=== PATIENT | male | born 1985 | race Caucasian/White ===

== ENCOUNTER → 2019-04-17 14:31 | Outpatient (BNVA) | payer MEDICAID, SELFPAY | PROVIDERS: PCP Nurse Practitioner Family; Visit Provider Nurse Practitioner Psychiatric/Mental Health | DX: F31.81 Bipolar II disorder (principal); F41.1 Generalized anxiety disorder; F43.12 Post-traumatic stress disorder, chronic; F41.0 Panic disorder [episodic paroxysmal anxiety]; G47.33 Obstructive sleep apnea (adult) (pediatric) | CPT/HCPCS: 99214; 99215 ==

== ENCOUNTER 2019-04-23 09:57 | Day surgery (SDC) | payer MEDICAID, SELFPAY ==
[2019-04-20 11:34] VITALS: BMI 29.8
[2019-04-23 10:30] VITALS: BP 155/114; PULSE 98; RESP 20; TEMP 37.2; O2SAT 96
[2019-04-23] MEDS: sodium chloride 0.9% 1,000 ML 30 ML (11:00)
[2019-04-23 11:17] LABS: Glucose Point of Care 149 mg/dL (70-110)
--- NOTE | 2019-04-23 11:31 | ANES.PREANES ---
Pre-Anesthetic Assessment Pre-Anesthetic Assessment: Height/Weight: Height 1.63 m Weight 78.925 kg Temp Pulse Resp BP Pulse Ox 99.0 F 98 20 H 155/114 96 04/23/19 10:30 04/23/19 10:30 04/23/19 10:30 04/23/19 10:30 04/23/19 10:30 Proposed Procedure: Operation Date: 04/23/19 12:00 Proposed Procedures p EGD(Not Applicable) - Jesse Pavon MD Last intake: Intake Last Liquid Date 04/23/19 Last Liquid Time 22:00 Last Solid Date 04/22/19 Last Solid Time 21:00 Exam: Pre-Anes Outpt Exam: alert, oriented x 3, clear to auscultation bilaterally and regular rate & rhythm Airway: Submandibular: WNL Cervical ROM: WNL MP: 1 Dentition: Full History/ROS: Other Pulmonary: Pulmonary: Sleep apnea (Bipap) CV/HEM: CV/HEM: HTN Comments: had a valvethat needed closing when he was a child. patched it when i was 11 : : None reported Hepatic: Hepatic: None reported GI: GI: GERD (uncontrolled) Metabolic: Metabolic: DM (type II 125-190 ), Hyperlipidemia and Morbid obesity Musc/skel: Musc/skel: Lower Back Pain Neuropsych: Neuropsych: Anxiety, Bipolar, CVA (3 years ago, denies deficits) and Depression Anesthetic Plan: ASA status: III Anesthesia: MAC Risk of > 500 ml blood loss (7ml/kg in children): No PFSH Anesthesia PFSH: Medical History (Updated 04/17/19 @ 15:19 by Gely Eldridge) Bipolar II disorder (Acute) Gastroenteritis (Acute) Generalized anxiety disorder (Acute) High cholesterol (Acute) Hx of secondary hypertension (Acute) Obesity (Acute) Obstructive sleep apnea hypopnea, severe (Acute) Panic disorder without agoraphobia (Acute) Post-traumatic stress disorder, chronic (Acute) Surgical History (Updated 04/13/19 @ 16:13 by nAnette Michael LPN) History of tonsillectomy and adenoidectomy (Acute) Social History (Updated 04/17/19 @ 15:08 by Luma Roca LPN) Smoking and tobacco status: former smoker Quit status (tobacco): has quit using tobacco Year quit tobacco: 2010 Second hand smoke exposure: Yes Data Anesthesia Other Labs: Laboratory Results - last 48 hr 04/23/19 10:52 POC Glucose 149 Cardiac Studies: No Data to Display
[2019-04-23 11:47] VITALS: BMI 62.8
--- NOTE | 2019-04-23 11:58 | PM.HPUD ---
H&P update H&P Update: DATE OF SURGERY/PROCEDURE: 04/23/19 DATE H&P PERFORMED: 04/05/19 H&P UPDATE INFORMATION: H&P completed within last 30 days and No changes to prior documentation PREOP DIAGNOSIS: Epigastric pain PLANNED PROCEDURE: Operation Date: 04/23/19 12:00 Proposed Procedures p EGD(Not Applicable) - Jesse Pavon MD Full H&P Perinent History: Medical/Surgical History: Medical History (Updated 04/17/19 @ 15:19 by Gely Eldridge) Bipolar II disorder (Acute) Gastroenteritis (Acute) Generalized anxiety disorder (Acute) High cholesterol (Acute) Hx of secondary hypertension (Acute) Obesity (Acute) Obstructive sleep apnea hypopnea, severe (Acute) Panic disorder without agoraphobia (Acute) Post-traumatic stress disorder, chronic (Acute) Social History: Social History Smoking and tobacco status: former smoker Quit status (tobacco): has quit using tobacco Year quit tobacco: 2010 Second hand smoke exposure: Yes
[2019-04-23 12:31] VITALS: BP 136/86; PULSE 104; RESP 16; TEMP 37.6; O2SAT 93
--- NOTE | 2019-04-23 12:34 | ANE.PACU ---
 Inpatient post-anesthesia follow up: Airway intact: Yes Vital signs: Temperature 99.0 F Pulse Rate [Monito r] 98 Respiratory Rate 20 Blood Pressure [Le ft Arm] 155/114 Pulse Oximetry 96 Oxygen Delivery Me thod Oxygen Flow Rate Fraction of Inspir ed Oxygen Hydration adequate: Yes Nausea and vomiting: No Pain level: 1 Mental status: Baseline
[2019-04-23 12:41] VITALS: BP 153/94; PULSE 98; RESP 16; O2SAT 94
[2019-04-24 06:03] LABS: H. Pylori / CLO Test Negative
== END 2019-04-23 13:00 | disposition home or self-care (01) ==
PROVIDERS: PCP Nurse Practitioner Family; Visit Provider Surgery
PROC: 0DJ08ZZ Inspection of Upper Intestinal Tract, Via Natural or Artificial Opening Endoscopic (ICD-10-PCS; CPT 43235; principal; 2019-04-23 12:00)
DX: K21.9 Gastro-esophageal reflux disease without esophagitis (principal); R10.13 Epigastric pain; R11.2 Nausea with vomiting, unspecified; K29.70 Gastritis, unspecified, without bleeding; E66.9 Obesity, unspecified; Z68.44 Body mass index [BMI] 60.0-69.9, adult; G47.33 Obstructive sleep apnea (adult) (pediatric); Z87.891 Personal history of nicotine dependence; I10 Essential (primary) hypertension; E11.9 Type 2 diabetes mellitus without complications; E78.5 Hyperlipidemia, unspecified; E66.01 Morbid (severe) obesity due to excess calories; Z86.73 Personal history of transient ischemic attack (TIA), and cerebral infarction without residual deficits
CPT/HCPCS: 43239; 12345; 36416; 82962; 87077; J0171; J2704; J7030

== ENCOUNTER → 2019-06-14 14:54 | Outpatient (BNVA) | payer MEDICAID, SELFPAY | PROVIDERS: PCP Nurse Practitioner Family; Visit Provider Nurse Practitioner Psychiatric/Mental Health | DX: F31.81 Bipolar II disorder (principal); F41.1 Generalized anxiety disorder; F43.12 Post-traumatic stress disorder, chronic; F41.0 Panic disorder [episodic paroxysmal anxiety] | CPT/HCPCS: 99214 ==

== ENCOUNTER → 2019-07-12 07:17 | Outpatient (BNVA) | payer MEDICAID, SELFPAY | PROVIDERS: PCP Nurse Practitioner Family; Visit Provider Nurse Practitioner Psychiatric/Mental Health | DX: F31.81 Bipolar II disorder (principal); F41.1 Generalized anxiety disorder; F43.12 Post-traumatic stress disorder, chronic; F41.0 Panic disorder [episodic paroxysmal anxiety] | CPT/HCPCS: 99214 ==

== ENCOUNTER → 2019-08-09 08:20 | Outpatient (BNVA) | payer MEDICAID, SELFPAY | PROVIDERS: PCP Nurse Practitioner Family; Visit Provider Nurse Practitioner Psychiatric/Mental Health | DX: F31.81 Bipolar II disorder (principal); F41.1 Generalized anxiety disorder; F43.12 Post-traumatic stress disorder, chronic; F41.0 Panic disorder [episodic paroxysmal anxiety] | CPT/HCPCS: 99214 ==

== ENCOUNTER → 2019-09-07 08:21 | Outpatient (BNVA) | payer MEDICAID, SELFPAY | PROVIDERS: PCP Nurse Practitioner Family; Visit Provider Nurse Practitioner Psychiatric/Mental Health | DX: F31.81 Bipolar II disorder (principal); F41.1 Generalized anxiety disorder; F43.12 Post-traumatic stress disorder, chronic; F41.0 Panic disorder [episodic paroxysmal anxiety] | CPT/HCPCS: 99214 ==

== ENCOUNTER 2019-09-26 12:16 | Emergency (ER) | payer MEDICAID, SELFPAY | END 2019-09-26 16:00 | disposition admitted as inpatient to this hospital (09) | LOC: ER 09-29 13:39 | PROVIDERS: Emergency Provider Family Medicine; PCP Nurse Practitioner Family | DX: I63.9 Cerebral infarction, unspecified (principal); E11.9 Type 2 diabetes mellitus without complications; I10 Essential (primary) hypertension; Z87.891 Personal history of nicotine dependence | CPT/HCPCS: 36415; 36416; 70450; 80053; 80306; 82962; 84443; 85025; 85610; 85730; 86140; 93005; 96374; 96375; 99284; 99285; J2997 ==

== ENCOUNTER 2019-09-26 12:16 | Inpatient (IN) | payer MEDICAID, SELFPAY ==
[2019-09-26] VITALS (27 sets, daily range): BP systolic 121–176; BP diastolic 69–126; PULSE 78–95; RESP 10–25; TEMP 37; O2SAT 93–100; BMI 63.7
--- NOTE | 2019-09-26 12:18 | ECG_ITS ---
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 Measurements Intervals [place] Rate: 80 P: 56 TX: 169 QRS: 34 QRSD: 126 T: 49 QT: 379 QTc: 439 Interpretive Statements SINUS RHYTHM RIGHT BUNDLE BRANCH BLOCK [120+ ms QRS DURATION, UPRIGHT V1, 40+ ms S IN I/aVL/V4/V5/V6] Compared to ECG 03/17/2019 23:53:58 Right bundle-branch block now present Electronically Signed On 09-26-2019 19:20:48 CDT by Ronald Navarro M.D. [email or web address]
--- NOTE | 2019-09-26 12:18 | CT_ITS ---
WS: [id number] CT head wo con* [id number] REASON FOR EXAM: Symptoms of Acute Stroke IV CONTRAST ADMINISTERED: None. TOTAL EXAM DLP: All CT scans at [facility] use at least one of these dose optimization techniques: automat ed exposure control; mA and/or kV adjustment per patient size (includes targeted exams where dose is matched to clinical indication); or iterative reconstruction. FINDINGS: The kenny and white matter interfaces were normal. No evidence of hemorrhage, mass effect or infarction. The ventricles were normal in size .There was no evidence of paraventricular infarctions. The krista posterior fossa were normal. The calvarium show no abnormalities. The paranasal sinuses were normal. The heart and its temporal air cells paranasal sinuses are all normal. The sella turcica was normal in size. CT/CT head wo con* [id number] IMPRESSION: Normal CT of the brain.
--- NOTE | 2019-09-26 12:39 | ED_ITS ---
HPI - Neuro Symptoms/Deficit General: Chief Complaint: Neuro Symptoms/Deficit Stated Complaint: L SIDE FACIAL DROOP Time Seen by Provider: 09/26/19 12:29 History of Present Illness: HPI Narrative: 33-year-old male presents via EMS from a local doctor's office. Prior to getting here he began to have left arm and leg weakness asked that he had a little bit of facial weakness. Please see NIH scoring below for his full NIH scoring we did get an NIH score of 6 CT of the head did not show any acute bleed Dr. St came to the to the department seen the patient and decided that he did qualify for TPA after she consented with him he we did go ahead and infuse. There is a questionable area in the head CT which Dr. St and I reviewed with the radiologist he felt it was artifact and not an AVM so we went ahead and proceeded. Onset (ago): minute(s) Timing confirmed by: other (Doctors office) Location: left arm, left leg and ataxia History of same: Yes Severity: moderate Quality: weak and constant Relieving factors: none Exacerbating factors: none Context: sudden onset On Anticoagulants: No Associated symptoms: Deny chest pain, cough, diaphoresis, malaise, nausea or vomiting Treatments Prior to Arrival: none Review of Systems Const: Denies: fever(s), chills, body aches, change in appetite, fatigue, malaise or diaphoresis ENMT: Denies: throat pain, ear or mastoid pain, nasal discharge or nasal congestion Card: Denies: chest pain, edema, dyspnea on exertion or orthopnea Resp: Denies: dyspnea, productive cough or non-productive cough GI: Denies: abdominal pain, nausea, vomiting, hematemesis, coffee ground emesis, diarrhea, constipation, bloating, hematochezia or melena : Denies: flank pain, dysuria, urinary frequency or urinary urgency Skin/Breast: Denies: rash or pruritus PFSH ED PFSH: Medical History (Updated 09/26/19 @ 15:58 by Henrique Brody MD) Bipolar II disorder Diabetes mellitus Gastroenteritis Generalized anxiety disorder High cholesterol History of adverse reaction to tissue plasminogen activator (tPA) HTN (hypertension) Hx of secondary hypertension Obesity Obstructive sleep apnea hypopnea, severe Panic disorder without agoraphobia Post-traumatic stress disorder, chronic Surgical History History of esophagogastroduodenoscopy (EGD) (~04/2019) History of tonsillectomy and adenoidectomy Family History Denies family history of Anesthesia complication Bleeding disorder Social History Smoking and tobacco status: former smoker Quit status (tobacco): has quit using tobacco Year quit tobacco: 2010 Second hand smoke exposure: Yes Alcohol intake: never Desire information about alcohol rehabilitation?: No Desire information about substance/drug rehabilitation?: No Adopted: No Caregiver/support person: Yes Lives independently: Yes Household members: family Housing: House Marital status: Single Highest education level completed: High School Graduate service: No Current occupational status: disabled Current occupational exposures/hazards: No Pets and animals: Yes Pets & animals: cat(s) History of recent travel: No Sexually active: No Current gender identity: Male Karolina/Bahai: Mosque Special karolina needs: No Agree to transfusion: No Financial difficulty paying for basics: Decline to Answer NIH stroke score NIHSS: Level Of Consciousness - 1a: 0 Level Of Consciousness Questions - 1b: Both Correct Level Of Consciousness Commands - 1c: One Correct Best Gaze - 2: Normal Visual Cox - 3: No Visual Loss Facial Palsy - 4: Normal Motor Arm Right - 5: No Drift Motor Arm Left - 5: Drift Motor Leg Right - 6: No Drift Motor Leg Left - 6: Drift Limb Ataxia - 7: Present In Two Limbs Sensory - 8: Mild To Moderate Loss Best Language - 9: No Aphasia Dysarthia - 10: Normal Extinction And Inattention - 11: 0 Score: Total Score: 6 Physical Exam Const: COMMON NORMALS: no acute distress GENERAL APPEARANCE: cooperative and comfortable ORIENTATION/CONSCIOUSNESS: Yes awake, Yes oriented to person, Yes oriented to place and Yes oriented to time HENMT: COMMON NORMALS: normocephalic, atraumatic, hearing grossly normal bilaterally, external ears normal, EAC's normal, TM's normal bilaterally, Normal nasal mucous membranes and turbinates present, moist oral mucous membranes and oropharynx normal HEAD & SCALP: normocephalic and atraumatic NOSE: Normal nasal mucous membranes and turbinates present EXTERNAL EAR: Yes external ears normal EXTERNAL AUDITORY CANAL: EAC's normal TYMPANIC MEMBRANE: TM's normal bilaterally Eye: COMMON NORMALS: Equal, round and reactive pupils present, EOMs intact bilaterally, conjunctivae normal and no scleral icterus CONJUNCTIVA: Yes conjunctivae normal PUPIL: Yes Equal, round and reactive pupils present Neck/C-Spine: COMMON NORMALS: full ROM, no lymphadenopathy, supple and no JVD Lymph: LYMPHATIC: no lymphadenopathy noted and no lymphedema noted Resp: COMMON NORMALS: normal respiratory effort, No retractions, No use of accessory muscles and clear to auscultation bilaterally AUSCULTATION: clear to auscultation bilaterally Cardio: COMMON NORMALS: no JVD, regular rate, regular rhythm and No murmurs present (Cardio) RATE: regular rate RHYTHM: regular rhythm GI: COMMON NORMALS: Soft to palpation and No hepatosplenomegaly present AU SCULTATION: Yes normoactive bowel sounds PALPATION: Yes Soft to palpation, No Tenderness to palpation present (GI), No Guarding due to palpation present (GI) and Yes No hepatosplenomegaly present Extremity: COMMON NORMALS: normal to inspection, capillary refill normal, no clubbing, cyanosis or edema, no calf tenderness and no pedal edema Neuro: SENSORIUM/ORIENTATION: Yes oriented to person, Yes oriented to place and Yes oriented to time Skin: COMMON NORMALS: no rashes or lesions noted GENERAL SKIN EXAM: no rashes or lesions noted Course Vital Signs: Vital signs: Vital Signs Temperature 97.8 F 09/27/19 14:13 Pulse Rate 83 09/27/19 14:13 Respiratory Rate 21 H 09/27/19 14:13 Blood Pressure 127/77 09/27/19 14:13 Pulse Oximetry 93 09/27/19 14:13 MDM - Neuro Symptoms/Deficit MDM Narrative: Medical decision making narrative: Dr. St was in the department reviewed with me. She agrees with the stroke scoring and given his symptoms recommends to go to TPA she consented the patient TPA was given we will go ahead and admit to the ICU with the hospitalist. He usually sees Dr. Jiménez and they are covering. Lab Data: Labs: Lab Results 09/26/19 09/26/19 09/26/19 Range/Units 12:40 12:53 12:53 WBC 8.3 (4.0-10.0) 10^3/ uL RBC 4.83 (4.1-5.3) 10^6/u L Hgb 12.6 (11.7-16.6) g/dL Hct 40.2 L (42.0-52.0) % MCV 83.2 (80-94) fL MCH 26.1 L (28.0-34.0) pg MCHC 31.3 (30.0-36.0) g/dL RDW 14.2 (12.1-15.1) % Plt Count 197 (130-400) 10^3/c mm MPV 10.4 (7.4-10.4) fL Neut % (Auto) 80.3 % Lymph % (Auto) 12.7 % [place] % (Auto) 4.0 % Eos % (Auto) 1.8 % Baso % (Auto) 0.4 % Neut # (Auto) 6.6 (1.8-7.7) 10^3/u L Lymph # (Auto) 1.1 (0.8-4.8) 10^3/u L [place] # (Auto) 0.3 (0.2-0.9) 10^3/u L Eos # (Auto) 0.2 (0.0-0.8) 10^3/u L Baso # (Auto) 0.0 (0.0-0.1) 10^3/u L Nucleated RBC % (a uto) 0 % Nucleated RBCs # 0.0 /100WBC PT 13.00 (10.5-13.3) SECO NDS INR 0.95 (0.8-1.2) APTT 30.4 (23.9-36.7) SECO NDS Sodium (136-145) mmol/L Potassium (3.5-5.1) mmol/L Chloride (98-107) mmol/L Carbon Dioxide (22-29) mmol/L Anion Gap (5-19) BUN (6-20) mg/dL Creatinine (0.7-1.2) mg/dL GFR Calculation (90-130) mL/min Glucose (65-115) mg/dL POC Glucose 213 (70-110) mg/dL Calculated Osmolal ity (285-295) mOsm/k g Calcium (8.5-10.5) mg/dL Total Bilirubin (0.15-1.2) mg/dL AST (0-40) U/L ALT (0-41) U/L Alkaline Phosphata se (40-130) IU/L C-Reactive Protein (0.0-4.9) mg/L Total Protein (6.6-8.7) g/dL Albumin (3.5-5.2) g/dL Globulin (1.3-4.6) g/dL TSH (0.27-4.20) uIU/ mL Urine Color (Yellow) Urine Appearance (CLEAR) Urine pH (5-7) Ur Specific Gravit y (1.005-1.030) Urine Protein (Negative) Urine Glucose (UA) (Normal) Urine Ketones (Negative) Urine Blood (Negative) Urine Nitrate (Negative) Urine Bilirubin (NEGATIVE) Urine Urobilinogen (Negative) mg/dL Ur Leukocyte Divya ase (Negative) Urine Opiates Scre en (Negative) ng/mL Ur Barbiturates Sc reen (Negative) ng/mL Ur Phencyclidine S crn (Negative) ng/mL Ur Amphetamines Sc reen (Negative) ng/mL U Benzodiazepines Scrn (Negative) ng/mL Urine Cocaine Scre en (Negative) ng/mL U Marijuana (THC) Screen (Negative) ng/mL 09/26/19 09/26/19 09/26/19 Range/Units 12:53 12:53 12:53 WBC (4.0-10.0) 10^3/ uL RBC (4.1-5.3) 10^6/u L Hgb (11.7-16.6) g/dL Hct (42.0-52.0) % MCV (80-94) fL MCH (28.0-34.0) pg MCHC (30.0-36.0) g/dL RDW (12.1-15.1) % Plt Count (130-400) 10^3/c mm MPV (7.4-10.4) fL Neut % (Auto) % Lymph % (Auto) % [place] % (Auto) % Eos % (Auto) % Baso % (Auto) % Neut # (Auto) (1.8-7.7) 10^3/u L Lymph # (Auto) (0.8-4.8) 10^3/u L [place] # (Auto) (0.2-0.9) 10^3/u L Eos # (Auto) (0.0-0.8) 10^3/u L Baso # (Auto) (0.0-0.1) 10^3/u L Nucleated RBC % (a uto) % Nucleated RBCs # /100WBC PT (10.5-13.3) SECO NDS INR (0.8-1.2) APTT (23.9-36.7) SECO NDS Sodium 137 (136-145) mmol/L Potassium 3.3 L (3.5-5.1) mmol/L Chloride 94 L (98-107) mmol/L Carbon Dioxide 26 (22-29) mmol/L Anion Gap 20.3 H (5-19) BUN 23 H (6-20) mg/dL Creatinine 1.0 (0.7-1.2) mg/dL GFR Calculation 86.1 L (90-130) mL/min Glucose 229 H (65-115) mg/dL POC Glucose (70-110) mg/dL Calculated Osmolal ity 288 (285-295) mOsm/k g Calcium 9.5 (8.5-10.5) mg/dL Total Bilirubin 0.2 (0.15-1.2) mg/dL AST 32 (0-40) U/L ALT 57 H (0-41) U/L Alkaline Phosphata se 51 (40-130) IU/L C-Reactive Protein 18.9 H (0.0-4.9) mg/L Total Protein 7.5 (6.6-8.7) g/dL Albumin 4.3 (3.5-5.2) g/dL Globulin 3.2 (1.3-4.6) g/dL TSH 0.85 (0.27-4.20) uIU/ mL Urine Color (Yellow) Urine Appearance (CLEAR) Urine pH (5-7) Ur Specific Gravit y (1.005-1.030) Urine Protein (Negative) Urine Glucose (UA) (Normal) Urine Ketones (Negative) Urine Blood (Negative) Urine Nitrate (Negative) Urine Bilirubin (NEGATIVE) Urine Urobilinogen (Negative) mg/dL Ur Leukocyte Divya ase (Negative) Urine Opiates Scre en (Negative) ng/mL Ur Barbiturates Sc reen (Negative) ng/mL Ur Phencyclidine S crn (Negative) ng/mL Ur Amphetamines Sc reen (Negative) ng/mL U Benzodiazepines Scrn (Negative) ng/mL Urine Cocaine Scre en (Negative) ng/mL U Marijuana (THC) Screen (Negative) ng/mL 09/26/19 09/26/19 Range/Units 13:30 13:30 WBC (4.0-10.0) 10^3/ uL RBC (4.1-5.3) 10^6/u L Hgb (11.7-16.6) g/dL Hct (42.0-52.0) % MCV (80-94) fL MCH (28.0-34.0) pg MCHC (30.0-36.0) g/dL RDW (12.1-15.1) % Plt Count (130-400) 10^3/c mm MPV (7.4-10.4) fL Neut % (Auto) % Lymph % (Auto) % [place] % (Auto) % Eos % (Auto) % Baso % (Auto) % Neut # (Auto) (1.8-7.7) 10^3/u L Lymph # (Auto) (0.8-4.8) 10^3/u L [place] # (Auto) (0.2-0.9) 10^3/u L Eos # (Auto) (0.0-0.8) 10^3/u L Baso # (Auto) (0.0-0.1) 10^3/u L Nucleated RBC % (a uto) % Nucleated RBCs # /100WBC PT (10.5-13.3) SECO NDS INR (0.8-1.2) APTT (23.9-36.7) SECO NDS Sodium (136-145) mmol/L Potassium (3.5-5.1) mmol/L Chloride (98-107) mmol/L Carbon Dioxide (22-29) mmol/L Anion Gap (5-19) BUN (6-20) mg/dL Creatinine (0.7-1.2) mg/dL GFR Calculation (90-130) mL/min Glucose (65-115) mg/dL POC Glucose (70-110) mg/dL Calculated Osmolal ity (285-295) mOsm/k g Calcium (8.5-10.5) mg/dL Total Bilirubin (0.15-1.2) mg/dL AST (0-40) U/L ALT (0-41) U/L Alkaline Phosphata se (40-130) IU/L C-Reactive Protein (0.0-4.9) mg/L Total Protein (6.6-8.7) g/dL Albumin (3.5-5.2) g/dL Globulin (1.3-4.6) g/dL TSH (0.27-4.20) uIU/ mL Urine Color Yellow (Yellow) Urine Appearance Clear (CLEAR) Urine pH 6 (5-7) Ur Specific Gravit y 1.010 (1.005-1.030) Urine Protein Neg (Negative) Urine Glucose (UA) 4+ H (Normal) Urine Ketones Negative (Negative) Urine Blood Neg (Negative) Urine Nitrate Negative (Negative) Urine Bilirubin Neg (NEGATIVE) Urine Urobilinogen Norm (Negative) mg/dL Ur Leukocyte Divya ase Negative (Negative) Urine Opiates Scre en Negative (Negative) ng/mL Ur Barbiturates Sc reen Negative (Negative) ng/mL Ur Phencyclidine S crn Negative (Negative) ng/mL Ur Amphetamines Sc reen Negative (Negative) ng/mL U Benzodiazepines Scrn Negative (Negative) ng/mL Urine Cocaine Scre en Negative (Negative) ng/mL U Marijuana (THC) Screen Negative (Negative) ng/mL Discharge Plan Discharge Patient Disposition: Admitted As Inpatient Admit Provider: Henrique Brody Clinical Impression: Cerebrovascular accident Condition: Stable Discharge Orders: Discharge Order (Routine); Ordered 09/27/19 Ordered By: Henrique Brody Referrals: [facility] [Other] Juliana St MD [Physician] - 2 weeks (FRIDAY OCTOBER 18, 2019 AT 1:30 PM ) Mainor Manjarrez NP [Primary Care Provider] - 7-10 days (FRIDAY OCTOBER 04, 2019 AT 10:30 AM) Discharge Diet: Cardiac and Diabetic Discharge Activity: Resume usual activity Patient Instructions: Hypertension, Diabetes Mellitus Type 1 in Adults (DC), Ischemic Stroke (DC) Additional Instructions: Please follow-up with Dr. Strathmere in 2 weeks. Your medication list has remained the same except chlorthalidone has been withheld. Discharge Date/Time: 09/26/19 16:00 Coding Level of Care Code ED [employer] Manager for Marie Fwd Exam Comprehensive
--- NOTE | 2019-09-26 12:43 | PC.NURSE ---
Patient blood glucose is 213, nurse, ER doctor and neurologist were notified
[2019-09-26 12:44] LABS: Glucose Point of Care 213 mg/dL (70-110)
[2019-09-26 13:04] LABS: Basophils % 0.4 %; Eosinophils # 0.2 10^3/uL (0.0-0.8); Eosinophils % 1.8 %; Hematocrit 40.2 % (42.0-52.0); Hemoglobin 12.6 g/dL (11.7-16.6); Lymphocytes # 1.1 10^3/uL (0.8-4.8); Lymphocytes % 12.7 %; Mean Corpuscular HGB Conc 31.3 g/dL (30.0-36.0); Mean Corpuscular Hemoglobin 26.1 pg (28.0-34.0); Mean Corpuscular Volume 83.2 fL (80-94); Mean Platelet Volume 10.4 fL (7.4-10.4); Monocytes # 0.3 10^3/uL (0.2-0.9); Neutrophils # 6.6 10^3/uL (1.8-7.7); Neutrophils % 80.3 %; Nucleated Red Blood Cells % 0 %; Platelet Count 197 10^3/cmm (130-400); Red Blood Count 4.83 10^6/uL (4.1-5.3); Red Cell Distribution Width 14.2 % (12.1-15.1); White Blood Count 8.3 10^3/uL (4.0-10.0)
[2019-09-26 13:12] LABS: INR 0.95 (0.8-1.2)
[2019-09-26 13:13] LABS: Partial Thromboplastin Time 30.4 SECONDS (23.9-36.7)
[2019-09-26 13:17] LABS: Alanine Aminotransferase 57 U/L (0-41); Albumin Level 4.3 g/dL (3.5-5.2); Alkaline Phosphatase 51 IU/L (40-130); Anion Gap 20.3 (5-19); Aspartate Amino Transferase 32 U/L (0-40); Blood Urea Nitrogen 23 mg/dL (6-20); Calcium 9.5 mg/dL (8.5-10.5); Carbon Dioxide 26 mmol/L (22-29); Chloride 94 mmol/L (98-107); Globulin 3.2 g/dL (1.3-4.6); Glomerular Filtration Rate 86.1 mL/min (90-130); Glucose 229 mg/dL (65-115); Osmolality Calculated 288 mOsm/kg (285-295); Potassium 3.3 mmol/L (3.5-5.1); Sodium 137 mmol/L (136-145); Total Bilirubin 0.2 mg/dL (0.15-1.2); Total Protein 7.5 g/dL (6.6-8.7)
[2019-09-26 15:11] LABS: Add Urine Microscopic? NO
[2019-09-26 15:16] LABS: Bilirubin Urine Neg (NEGATIVE); Blood Urine Neg (Negative); Glucose Urine UA 4+ (Normal); Ketones Urine Negative (Negative); Leukocyte Esterase Urine Negative (Negative); Nitrate Urine Negative (Negative); Protein Urine Neg (Negative); Urine Appearance Clear (CLEAR); Urine Color Yellow (Yellow); Urobilinogen Urine Norm (Negative); pH Urine 6 (5-7)
[2019-09-26 15:22] LABS: Amphetamines Screen Urine Negative (Negative); Barbiturates Screen Urine Negative (Negative); Benzodiazepines Screen Urine Negative (Negative); Cocaine Screen Urine Negative (Negative); Opiate Screen Urine Negative (Negative); PCP Screen Urine Negative (Negative); THC Screen Urine Negative (Negative)
--- NOTE | 2019-09-26 15:54 | PM.HP ---
Providers/Chief Complaint Admitting Physician: Henrique Brody MD Primary Care Provider: Mainor Manjarrez NP Chief Complaint: L SIDE FACIAL DROOP History of Present Illness Len Sandoval is a 33 year old male with past medical history of hypertension, type 2 diabetes mellitus, morbid obesity, post lap band removal, hyperlipidemia, chronic back pain, anxiety/depression, PTSD, GERD, CVA in the past with TPA given in 2017 after which he was shipped to [facility] apparently his MRI was negative, history of gastric banding for morbid obesity with last stroke in 2018 who presented to the ER today after he started having back pain radiating to left arm when he woke up at 10 AM today morning which had progressed to numbness on the left upper limb and lower limb along with loss of sensation without any weakness, blurry vision, headache, dizziness, slurred speech, fall, facial droop, loss of consciousness, lack of coordination, difficulty walking, confusion, seizure-like activity, weakness in any of the arms or legs. In ER patient was seen by Dr. St and after that patient received TPA. On my examination patient lying comfortably in bed. His symptoms have gone away. Denies of any nausea, vomiting, headache, dizziness, further weakness in any of his arms hematuria, abdominal, dysuria, fever, flulike symptoms, cough. Patient states he does not follow-up in his neurologist and was never told to follow-up with a new neurologist. On my evaluation patient blood pressure was 160/100 mmHg with heart rate of 76 bpm and saturation 96% on room air. Review of Systems Const: Denies: fever(s), chills, body aches, change in appetite, malaise, night sweats, diaphoresis, change in sleep pattern, daytime sleepiness or snoring Eyes: Denies: change in vision, blurry vision, photophobia, eye discomfort or eye discharge ENMT: Denies: throat pain, enlarged tonsils, hoarseness, mouth pain, oral sores, dry mouth, tinnitus, nasal congestion or post nasal drip Card: Denies: chest pain, palpitations, irregular heart rhythm, edema, swelling of feet/ankles, lightheadedness, syncope, pre-syncope, dyspnea on exertion, orthopnea, leg pain with exertion or acrocyanosis Resp: Denies: dyspnea, productive cough, non-productive cough, wheezing, stridor, pain on inspiration, change in phlegm color, hemoptysis or chest congestion GI: Denies: abdominal pain, nausea, vomiting, hematemesis, coffee ground emesis, dysphagia, heartburn, diarrhea, constipation, bloating, GI cramping, change in bowel habits, pain on defecation, hematochezia or melena : Denies: flank pain, difficulty urinating, dysuria, urinary frequency, urinary urgency, urinary hesitancy, urinary dribbling, difficulty starting urination, change in urine stream, nocturia or hematuria Musc: Denies: neck pain, back pain, extremity pain, joint pain, joint swelling, joint redness, joint stiffness or limited range of motion Neuro: Reports: numbness in extremities and sensory changes; Denies: headache(s), weakness in extremities, lack of coordination, difficulty walking, frequent falls, dizziness, vertigo, confusion, Slurred speech present, difficulty communicating thoughts or seizure-like activity Psych: Denies: anxiety, depression, mood swings, panic attacks, hopelessness or irritability Endo: Denies: polyuria, polydipsia, tired all the time, cold intolerance, excessive sweating, flushing or heat intolerance Alexander/Lymph: Denies: easy bruising or easy bleeding All/Imm: Denies: tongue swelling, facial swelling or acute wheezing Medications/Allergies Home Medications Medication Instructions Recorded Confirmed Last Taken Type aspirin 325 mg tablet 325 mg PO DAILY tab 04/13/19 09/26/19 04/19/19 09:00 History carvedilol 25 mg tablet 25 mg PO BID 04/13/19 09/26/19 04/22/19 21:00 History metformin 500 mg tablet 1,000 mg PO BID tab 04/13/19 09/26/19 04/22/19 21:00 History omeprazole 20 mg capsule,delayed 20 mg PO DAILY cap 04/13/19 09/26/19 04/22/19 09:00 History release oxygen-air delivery systems #1 04/13/19 09/26/19 Unknown History allopurinol 100 mg tablet 300 mg PO DAILY tab 04/17/19 09/26/19 04/22/19 09:00 History chlorthalidone 50 mg tablet 50 mg PO DAILY tab 04/17/19 09/26/19 04/22/19 09:00 History glipizide 10 mg tablet, extended 10 mg PO BID 04/17/19 09/26/19 04/22/19 21:00 History release 24 hr insulin glargine 100 unit/mL 45 unit SUBCUT QPM ml 04/17/19 09/26/19 09/25/19 History subcutaneous solution 45 units liraglutide 0.6 mg/0.1 mL (18 mg/3 1.8 mg SUBCUT QAM ml 04/17/19 09/26/19 09/25/19 History mL) subcutaneous pen injector potassium chloride 10 mEq 30 meq PO DAILY cap 04/17/19 09/26/19 04/22/19 21:00 History capsule,extended release Jardiance 10 mg PO DAILY 04/23/19 09/26/19 04/22/19 09:00 History atorvastatin 80 mg PO DAILY 04/23/19 09/26/19 04/22/19 21:00 History clonidine [[id number]] 0.3 mg TRANSDERMAL DIRECTED 04/23/19 09/26/19 04/20/19 20:00 History fenofibrate 160 mg PO DAILY 04/23/19 09/26/19 04/22/19 09:00 History lisinopril 40 mg PO DAILY 04/23/19 09/26/19 04/22/19 09:00 History desvenlafaxine succinate 100 mg 100 mg PO QAM #60 tab 07/12/19 09/26/19 Unknown Rx tablet,extended release 24 hr divalproex 500 mg tablet,extended 500 mg PO BID #60 tab 07/12/19 09/26/19 Unknown Rx release 24 hr lorazepam 1 mg tablet 1 mg PO DAILY PRN 30 Days #30 tab 07/13/19 09/26/19 Unknown Rx melatonin 3 mg tablet,extended 3 mg PO DIRECTED PRN #30 tab 08/09/19 09/26/19 Unknown Rx release cetirizine [Zyrtec] 10 mg PO DAILY 09/26/19 09/26/19 Unknown History cyproheptadine 4 mg PO BEDTIME 09/26/19 09/26/19 Unknown History fluticasone propionate [Flonase 1 spray INTRANASAL DAILY 09/26/19 09/26/19 Unknown History Allergy Relief] iron 325 mg PO DAILY 09/26/19 09/26/19 Unknown History Allergies Allergy/AdvReac Type Severity Reaction Status Date / Time gabapentin Allergy Severe ALGY-Swell Verified 09/26/19 13:21 Lip/Tongue/Throat Sulfa (Sulfonamide Allergy Severe ALGY-Swell Verified 09/26/19 13:21 Antibiotics) Lip/Tongue/Throat trimethoprim Allergy Severe ALGY-Swell Verified 09/26/19 13:21 Lip/Tongue/Throat sulfamethoxazole Allergy Unknown throat Verified 09/26/19 13:21 [From Bactrim] swells asenapine [From Saphris] AdvReac Mild ADR-Halluci Verified 09/26/19 13:21 nating PFSH Acute PFSH: Medical History (Updated 09/26/19 @ 15:58 by Henrique Brody MD) Bipolar II disorder Diabetes mellitus Gastroenteritis Generalized anxiety disorder High cholesterol History of adverse reaction to tissue plasminogen activator (tPA) HTN (hypertension) Hx of secondary hypertension Obesity Obstructive sleep apnea hypopnea, severe Panic disorder without agoraphobia Post-traumatic stress disorder, chronic Surgical History History of esophagogastroduodenoscopy (EGD) (~04/2019) History of tonsillectomy and adenoidectomy Family History Denies family history of Anesthesia complication Bleeding disorder Social History Smoking and tobacco status: former smoker Quit status (tobacco): has quit using tobacco Year quit tobacco: 2010 Second hand smoke exposure: Yes Alcohol intake: never Desire information about alcohol rehabilitation?: No Desire information about substance/drug rehabilitation?: No Adopted: No Caregiver/support person: Yes Lives independently: Yes Household members: family Housing: House Marital status: Single Highest education level completed: High School Graduate service: No Current occupational status: disabled Current occupational exposures/hazards: No Pets and animals: Yes Pets & animals: cat(s) History of recent travel: No Sexually active: No Current gender identity: Male Karolina/Buddhism: Caodaism Special karolina needs: No Agree to transfusion: No Financial difficulty paying for basics: Decline to Answer Vitals/I&O/Wt Last Vital Signs Temp 98.6 F 09/26/19 12:21 Pulse 87 09/26/19 15:30 Resp 17 09/26/19 15:30 BP 160/101 09/26/19 15:30 Pulse Ox 95 09/26/19 15:30 09/26/19 09/26/19 09/26/19 06:59 14:59 22:59 Intake Total 85.05 / 85.05 Balance 85.05 / 85.05 Weight last 48 hrs Weight 168.453 kg Physical Exam Narrative: EXAM NARRATIVE: General: No acute distress, AO x3 morbidly obese HEENT: PERRLA, pupils bilaterally equal and reactive Chest: Normal vesicular breath sounds, no added sounds, equal good air entry bilaterally CVS: S1-S2 regular, no murmurs, no tachycardia, no gallops, no rubs Abdomen: Soft, nontender, no organomegaly, bowel sounds present Neuro: COMMON NORMALS: patient oriented x3, CN's II-XII intact bilaterally, moves all extremities, no focal motor deficits, no sensory deficits noted and deep tendon reflexes 2+ bilaterally MENINGEAL SIGNS: Yes no meningeal signs COORDINATION/BALANCE: afthic-ps-vbax test normal and [id number] test normal SPEECH: speech normal GAIT: Yes Unable to assess gait MONOFILAMENT EXAM PERFORMED: Yes MOTOR EXAM: 5/5 motor strength present throughout, No Tremors during motor activity present, No Asterixis during motor activity present and No Motor fasciculations present Data : 09/26/19 12:53 09/26/19 12:53 A&P Assessment and plan (1) 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: Status: Acute (2) Cerebrovascular accident: Status: Acute (3) Diabetes mellitus: Status: Acute (4) Obstructive sleep apnea hypopnea, severe: Status: Acute (5) HTN (hypertension): Status: Acute (6) Status following gastric banding surgery for weight loss: Status: Acute (7) Post-traumatic stress disorder, chronic: Status: Chronic (8) Panic disorder without agoraphobia: Status: Chronic (9) Bipolar II disorder: Status: Chronic (10) Generalized anxiety disorder: Status: Chronic Additional A&P Information 33-year-old gentleman past medical history of frequent sleep apnea, type 2 diabetes mellitus, hypertension, stroke in the past when he required TPA around 2 years ago, most likely third stroke overall, panic disorder, PTSD, bipolar 2 disorder presented with left-sided weakness and numbness since 10 AM today morning and received TPA in the ER. Admit to ICU. CVA: Post TPA: Withhold on any aspirin or Plavix for now 24 hours. Statin 80 mg daily. Check lipid panel, HbA1c. Check MRA brain without contrast, MRI brain Echocardiogram. Telemetry. Case discussed with Dr. St. Blood pressure goal for next 1 to 4 hours 180/105 mmHg. If more than that will use intravenous labetalol, nicardipine. Every hour neurological checks Monitor vital signs Hold off on any NG tube, Mccoy catheter, intra-arterial catheter for next 24 hours. Because this is his third stroke and he is only 33 we will do an autoimmune work-up. Send [facility] profile, ESR, CRP. Check TSH, vitamin B12 levels, folic acid levels given history of gastric banding for weight loss. Hypertension: Continue home medications like lisinopril 40 mg, clonidine 0.3 transdermal, carvedilol 25 mg. We will hold off on chlorthalidone right now to avoid dehydration post TPA. Blood pressure goals for next 24 hours 180/105 mmHg. If blood pressure goes higher can use labetalol 10 mg as needed. Type 2 diabetes mellitus: Check HbA1c. Hold off on oral hypoglycemics. Continue with glargine 45 nightly. Insulin sliding scale at moderate dose. Continue chronic medications like allopurinol, venlafaxine, divalproex, fenofibrate, melatonin. Full code. N.p.o. for now, cardiac carb consistent diet later. No DVT prophylaxis as patient is post TPA. Attestations Medical Necessity Statement*: CVA post TPA. Patient would require admission for more than 2 midnights Time Spent in Patient Care: Greater than 35 minutes (>than 50% of time spent in counselling and/or direct pt care on unit). 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
[2019-09-26 16:26] LABS: Thyroid Stimulating Hormone 0.85 uIU/mL (0.27-4.20)
[2019-09-26 17:12] LABS: Glucose Point of Care 139 mg/dL (70-110)
--- NOTE | 2019-09-26 17:33 | PM.SAN ---
Stroke Alert Activation ED Arrival Date: 09/26/19 ED Arrival Time: 12:15 ED Physican at Bedside: 12:15 Last Known Normal/at Baseline: < 1 hour ago Other Last Known Well Infomation: I was called stat for stroke team for this 33-year-old man. He went directly to CAT scan and I came to the emergency department, reviewed his CAT scan on the monitor and conferred with Dr. Pete. I was concerned about a dense region in his brainstem and asked the neuroradiologist to take a look at it for me just to assure that it was not an AVM or hemorrhage. That took an extra 5 minutes. I performed an NIH stroke scale and talked with the patient about TPA. His blood pressure was elevated to 170/120 and I took time to talk with him and calm him down and when we rechecked it 5 minutes later it was down to 175/107. His blood sugar was not a contraindication at 231. He had no recent stroke. He is not on anticoagulation. His NIH stroke scale score was 6 and so TPA was indicated. I will say that his findings on exam raised the question of functional strokelike illness but that is not in itself a contraindication to treatment and he received a bolus at 1309, approximately 50 minutes after arrival at [facility]. I educated the patient on TPA and planned testing. I will see him after he leaves the hospital in the office within 2 weeks. I talked with the hospitalist and recommended an MRI to look for cerebral ischemia and intracranial MRA to look for intracranial stenosis. I was in the emergency department from 1240 until 1320. NIH stroke score NIHSS: Level Of Consciousness - 1a: 0 Level Of Consciousness Questions - 1b: Both Correct Level Of Consciousness Commands - 1c: Both Correct Best Gaze - 2: Normal Visual Cox - 3: No Visual Loss Facial Palsy - 4: Normal Motor Arm Right - 5: No Drift Motor Arm Left - 5: Effort Against [place] Motor Leg Right - 6: No Drift Motor Leg Left - 6: Effort Against [place] Limb Ataxia - 7: Absent Sensory - 8: Severe To Total Loss Best Language - 9: No Aphasia Dysarthia - 10: Normal Extinction And Inattention - 11: 0 Score: Total Score: 6 Stroke Alert Data/Treatment Time to CT of Head: 12:19 CT Results Time: 12:40 CT Impression: Normal Stroke Risk Factors: obesity and diabetes mellitus tPA Started Time: tPA Started - Time: 13:09 tPA Admin Prior to Arrival: No Patient & Family Educated on: Risk Factors, Treament Plan, Stroke Education Booklet and tPA Risks/Benefits Standardized Stroke Orders Used: Yes Critical Care Time Critical Care Time: 30 - 74 mins Coding Level of Care Code Acute Editor Magazine for Marie Sweeney
[2019-09-26] MEDS: carvedilol 25 mg Tablet PO (19:21)
[2019-09-26] MEDS: divalproex ER 500 mg Tablet (24H) PO (19:21)
[2019-09-26 19:38] LABS: C Reactive Protein 18.9 mg/L (0.0-4.9)
[2019-09-26 19:41] LABS: Erythrocyte Sedimentation Rate 31 mm/hr (0-10)
[2019-09-26 19:53] LABS: Vitamin B12 857 pg/mL (232-1245)
[2019-09-26 20:06] LABS: Glucose Point of Care 138 mg/dL (70-110)
[2019-09-26] MEDS: insulin glargine 100 units/1 mL 45 UNIT SUBCUT (20:19)
[2019-09-26 20:50] LABS: Folate Level > 20.0 ng/mL (4.5-32.2)
[2019-09-26] MEDS: HYDROcodone-acetaminophen 5-325 mg Tablet 1 TAB PO (21:56)
[2019-09-27] VITALS (20 sets, daily range): BP systolic 110–183; BP diastolic 63–112; PULSE 68–88; RESP 12–22; TEMP 36.6–36.9; O2SAT 90–97
[2019-09-27] MEDS: desvenlafaxine 50 mg Tablet 100 MG PO (05:41)
[2019-09-27 05:50] LABS: Alanine Aminotransferase 48 U/L (0-41); Alkaline Phosphatase 46 IU/L (40-130); Anion Gap 15.8 (5-19); Aspartate Amino Transferase 30 U/L (0-40); Blood Urea Nitrogen 19 mg/dL (6-20); Carbon Dioxide 29 mmol/L (22-29); Chloride 95 mmol/L (98-107); Globulin 2.9 g/dL (1.3-4.6); Glomerular Filtration Rate 111.3 mL/min (90-130); Glucose 177 mg/dL (65-115); Osmolality Calculated 285 mOsm/kg (285-295); Sodium 137 mmol/L (136-145); Total Bilirubin 0.2 mg/dL (0.15-1.2); Total Protein 6.9 g/dL (6.6-8.7)
--- NOTE | 2019-09-27 06:00 | USCV_ITS ---
Len Sandoval Age: 33 Gender: M : 1985 Exam Date: 09/27/2019 06:42 Ordering Phys: Emmanuel Pete DO Technologist: Ramya Boland Exam Location: [facility] [place] Indication: CVA Risk Factors: Previous Vascular Surgery: Right Brachial BP: / Left Brachial BP: / Right Left Velocity (cm/s) Spectral Plaque Velocity (cm/s) Spectral Plaque Syst/Diast Broadening Syst/Diast Broadening 111.40/20.90 Prox CCA 124.90/ 18.40 89.30/ 17.60 Mid CCA 68.40 / 18.40 86.00/ 25.40 Distal CCA 85.40 / 25.00 63.90/ 27.60 Prox ICA 65.70 / 22.30 91.50/ 28.70 Mid ICA 77.60 / 36.80 80.50/ 25.40 Distal ICA 85.40 / 26.30 63.90 ECA 73.60 1.02 ICA/CCA 1.25 Antegrade Vertebral Antegrade 40.80/ 14.30 cm/s 57.80/ 21.00 cm/s Tri Subclavian Tri FINDINGS Normal Doppler velocities bilaterally No significant plaques in the common carotid or internal carotid arteries bilaterally Antegrade flow in the vertebral arteries bilaterally Normal Doppler velocities in the external carotid and subclavian arteries bilaterally CONCLUSIONS No significant stenosis in the extracranial arteries, based on the above findings No significant plaques or unstable lesions noted Dr Ronald Navarro MD [facility] (Electronically Signed) Final Date: 28 September 2019 13:43 S
--- NOTE | 2019-09-27 06:00 | USCV_ITS ---
Len Sandoval Age: 33 Gender: M : 1985 Exam Date: 09/27/2019 06:29 Ordering Phys: Emmanuel Pete DO Technologist: Ramya Boland [place] [facility] [place]ication: CVA BP: 167 / 101 HR: 73 Rhythm: Sinus Technical Quality: Technically difficult study MEASUREMENTS (Male / Female) Normal Values 2D ECHO LV Diastolic Diameter PLAX 5.1 cm 4.2 - 5.9 / 3.9 - 5.3 cm LV Systolic Diameter PLAX 3.5 cm LV Chamber Size 5.7 cm IVS Diastolic Thickness 1.1 cm 0.6 - 1.0 / 0.6 - 0.9 cm IVS Systolic Thickness 1.6 cm LVPW Diastolic Thickness 1.1 cm 0.6 - 1.0 / 0.6 - 0.9 cm LVPW Systolic Thickness 1.3 cm RV Chamber Size 2.8 cm LVOT Diameter 2.0 cm LV Ejection Fraction 2D Teich 58.7 % LA Diameter 5.1 cm LA Width 3.0 cm LA Height 4.0 cm RA Width 2.0 cm RA Height 2.6 cm Aorta at Sinotubular Diameter 2.7 cm M-MODE LV Diastolic Diameter MM 4.8 cm 4.2 - 5.9 / 3.9 - 5.3 cm LV Systolic Diameter MM 3.1 cm LV Ejection Fraction MM Teich 65.2 % IVS Diastolic Thickness MM 0.9 cm 0.6 - 1.0 / 0.6 - 0.9 cm IVS Systolic Thickness MM 1.7 cm LVPW Diastolic Thickness MM 1.1 cm 0.6 - 1.0 / 0.6 - 0.9 cm LVPW Systolic Thickness MM 1.5 cm RV Diastolic Diameter MM 1.7 cm Aortic Annulus Diameter 3.1 cm LA Ao Ratio MM 1.6 MV E Point Septal Separation 1.2 cm DOPPLER AV Peak Velocity 137.0 cm/s LVOT Peak Velocity 80.0 cm/s AV Area Cont Eq vti 2.2 cm squared AV Area Cont Eq pk 1.8 cm squared MV Area PHT 3.6 cm squared Mitral E to A Ratio 1.7 MV E' Velocity 7.0 cm/s Mitral E to MV E' Ratio 11.7 Mitral E to LV E' Lateral Ratio 11.7 Mitral E to LV E' Septal Ratio 11.7 TV Peak E Velocity 77.0 cm/s Right Atrial Pressure 3.0 mmHg PV Peak Velocity 80.0 cm/s FINDINGS Left Ventricle Normal left ventricular size, systolic function and wall thickness, with no regional wall motion abnormalities. Normal left ventricular wall thickness. Normal diastolic filling pattern. Left ventricular ejection fraction is estimated at 55 %. Right Ventricle The right ventricle is normal in size and function. Right Atrium The right atrium is normal in size. Left Atrium The left atrium is normal in size. Mitral Valve Structurally normal mitral valve without significant stenosis or prolapse. There is no mitral regurgitation. Aortic Valve Structurally normal aortic valve without significant sclerosis or stenosis. There is no aortic regurgitation. Tricuspid Valve Structurally normal tricuspid valve without significant stenosis or regurgitation. Pulmonary artery systolic pressure is normal. Pulmonic Valve Structurally normal pulmonic valve without significant stenosis. There is no pulmonic regurgitation. Pericardium Normal pericardium without effusion. Aorta Normal ascending aorta dimension. CONCLUSIONS Normal transthoracic echocardiogram. No change from 12/27/2017 Dr. Raul Encinas MD (Electronically Signed) Final Date: 27 September 2019 08:45 S
[2019-09-27 06:17] LABS: Potassium 2.8 mmol/L (3.5-5.1)
[2019-09-27 06:24] LABS: Chol HDL Ratio 6.17 mg/dL (1.0-5.00); Cholesterol 148 mg/dL (0-200); HDL Cholesterol 24 mg/dL (60-100); Triglycerides 552 mg/dL (0-150)
[2019-09-27 06:42] LABS: LDL Cholesterol Direct 47 mg/dL (0-100)
[2019-09-27 07:28] LABS: Basophils % 0.5 %; Eosinophils # 0.2 10^3/uL (0.0-0.8); Eosinophils % 2.2 %; Hematocrit 42.6 % (42.0-52.0); Hemoglobin 13.4 g/dL (11.7-16.6); Lymphocytes # 1.6 10^3/uL (0.8-4.8); Lymphocytes % 19.9 %; Mean Corpuscular HGB Conc 31.5 g/dL (30.0-36.0); Mean Corpuscular Volume 82.7 fL (80-94); Mean Platelet Volume 10.1 fL (7.4-10.4); Monocytes # 0.4 10^3/uL (0.2-0.9); Monocytes % 5.1 %; Neutrophils # 5.6 10^3/uL (1.8-7.7); Neutrophils % 71.5 %; Nucleated Red Blood Cells % 0 %; Platelet Count 211 10^3/cmm (130-400); Red Blood Count 5.15 10^6/uL (4.1-5.3); Red Cell Distribution Width 14.5 % (12.1-15.1); White Blood Count 7.8 10^3/uL (4.0-10.0)
[2019-09-27 07:39] LABS: Glucose Point of Care 154 mg/dL (70-110)
[2019-09-27] MEDS: potassium chloride oral liq 20 mEq/15 mL UDC 40 MEQ PO (08:23)
[2019-09-27] MEDS: fluticasone nasal spray 16gm Btl 1 SPRAY INTRANASAL (08:24)
[2019-09-27] MEDS: divalproex ER 500 mg Tablet (24H) PO (08:25)
[2019-09-27] MEDS: pantoprazole DR 40 mg Tablet PO (08:26)
[2019-09-27] MEDS: lisinopril 20 mg Tablet 40 MG PO (08:26)
[2019-09-27] MEDS: carvedilol 25 mg Tablet PO (08:26)
[2019-09-27] MEDS: atorvastatin 40 mg Tablet 80 MG PO (08:26)
[2019-09-27] MEDS: allopurinol 100 mg Tablet 300 MG PO (08:26)
[2019-09-27] MEDS: potassium chloride ER 10 mEq Tablet 30 MEQ PO (08:26)
--- NOTE | 2019-09-27 09:13 | CT_ITS ---
WS: [id number] CT angio headneck* [id number] REASON FOR EXAM: post tpa TECHNIQUE: Coronal and sagittal 2-D and MIP reformations. IV CONTRAST ADMINISTERED: Omnipaque 350, 95 mL TOTAL EXAM DLP: 3825.[address] scans at [facility] use at least one of these dose optimization techniques: automat ed exposure control; mA and/or kV adjustment per patient size (includes targeted exams where dose is matched to clinical indication); or iterative reconstruction. FINDINGS: Multiple 2 mm sections through the lower neck upper heart and through into the [place] show normal appearance of both carotid arteries. The subclavian arteries bilaterally were normal. The bifurcation of the carotids bilaterally were normal in normal appearance of the external and inte rnal carotid arteries were seen. The [place] showed normal filling with no deformity is noted. CT/CT angio headneck* [id number] IMPRESSION: Normal appearance of both carotid arteries and their bifurcations. The [place] was normal. The upper aorta subclavian arteries vertebral arteries appear to be normal.
[2019-09-27] MEDS: cloNIDine 0.3 mg/24 hr Patch 0.3 PATCH TRANSDERMA (09:36)
--- NOTE | 2019-09-27 10:38 | PM.DCS ---
Discharge Providers Date of Admission: 09/26/19 13:36 Date of Discharge: September 27, 2019 Attending Provider at Admission: Henrique Brody MD Attending Provider at Discharge: Henrique Brody MD Primary Care Provider: Mainor Manjarrez NP Diagnoses at Discharge Discharge Diagnosis (1) tPA adm status 24 hr UMBRELLA TIPPER MACHINE: Status: Acute (2) Cerebrovascular accident: Status: Acute (3) Diabetes mellitus: Status: Acute (4) Obstructive sleep apnea hypopnea, severe: Status: Acute (5) HTN (hypertension): Status: Acute (6) Status following gastric banding surgery for weight loss: Status: Acute (7) Post-traumatic stress disorder, chronic: Status: Chronic (8) Panic disorder without agoraphobia: Status: Chronic (9) Bipolar II disorder: Status: Chronic (10) Generalized anxiety disorder: Status: Chronic Reason for Visit Reason for Visit: L SIDE FACIAL DROOP Hospital Course Discharge Summary: Len Sandoval is a 33 year old male with past medical history of hypertension, type 2 diabetes mellitus, morbid obesity, post lap band removal, hyperlipidemia, chronic back pain, anxiety/depression, PTSD, GERD, CVA in the past with TPA given in 2016 after which he was shipped to [facility] apparently his MRI was negative, history of gastric banding for morbid obesity with last stroke in 2018 who presented to the ER today after he started having back pain radiating to left arm when he woke up at 10 AM today morning which had progressed to numbness on the left upper limb and lower limb along with loss of sensation without any weakness, blurry vision, headache, dizziness, slurred speech, fall, facial droop, loss of consciousness, lack of coordination, difficulty walking, confusion, seizure-like activity, weakness in any of the arms or legs. In ER patient was seen by Dr. St and after that patient received TPA. On my examination patient lying comfortably in bed. His symptoms have gone away. Denies of any nausea, vomiting, headache, dizziness, further weakness in any of his arms hematuria, abdominal, dysuria, fever, flulike symptoms, cough. Patient states he does not follow-up in his neurologist and was never told to follow-up with a new neurologist. Overnight patient's blood pressure remained in range. He did not have any further neurological deficit. His deficits were normalized after TPA. Patient was planned to get an MRI and MRA without contrast but unfortunately could not be done because he exceeds the weight limit of the machine. Because of this CTA head and neck was done which revealed normal study. He also underwent echocardiogram which revealed normal EF of 55% with no regional wall motion abnormality, no structural abnormality. His telemetry remained stable overnight. For hypertension all his antihypertensives were continued except chlorthalidone. His blood pressures remained stable without being on chlorthalidone so is been discharged and medication has been discontinued. Lipid panel and HbA1c was done. Lipid panel was concerning for mildly elevated triglyceride patient was advised to do further lifestyle modification and fenofibrate was continued. Because this is his third possible stroke at a young age autoimmune work-up was done and is awaited. Because of history of gastric band surgery vitamin B12 folate levels were checked with a both within normal limits. Patient is advised to follow-up with Dr. St in 2 weeks. Is also advised to follow-up with his primary care provider within next 7 to 10 days. He is been discharged hemodynamically stable condition and his baseline neurological examination. Physical Exam Narrative: EXAM NARRATIVE: General: No acute distress, AO x3 morbidly obese HEENT: PERRLA, pupils bilaterally equal and reactive Chest: Normal vesicular breath sounds, no added sounds, equal good air entry bilaterally CVS: S1-S2 regular, no murmurs, no tachycardia, no gallops, no rubs Abdomen: Soft, nontender, no organomegaly, bowel sounds present Const: COMMON NORMALS: patient oriented x3 Neck/C-Spine: COMMON NORMALS: no meningeal signs Neuro: COMMON NORMALS: patient oriented x3, CN's II-XII intact bilaterally, moves all extremities, no focal motor deficits, no sensory deficits noted and deep tendon reflexes 2+ bilaterally MENINGEAL SIGNS: Yes no meningeal signs COORDINATION/BALANCE: azrwht-et-[id number] test normal and lmhm-di-ftsf test normal SPEECH: speech normal GAIT: Yes Unable to assess gait MONOFILAMENT EXAM PERFORMED: Yes MOTOR EXAM: 5/5 motor strength present throughout, No Tremors during motor activity present, No Asterixis during motor activity present and No Motor fasciculations present COORDINATION: qgtbki-wc-[id number] test normal and dxpi-qj-ucij test normal Discharge Data Data Completed and Pending: Completed Studies During Hospitalization Category Date Time Status CT head wo con* [id number] Stat Cat Scan 09/26/19 12:18 Completed CV echo complete* [id number] Routine Ultrasound 09/27/19 06:00 Completed Pending at discharge Category Date Time Status CT angio headneck * [id number] Rout ine Cat Scan 09/27/19 09:13 Ordered Hemoglobin A1C Ro utine Lab 09/27/19 07:16 Received [facility]TER Profile R outine Lab 09/26/19 16:10 Received CV carotid duplex BI* [id number] Routine Ultrasound 09/27/19 06:00 Taken Labs from last 24 hours 09/27/19 09/27/19 09/27/19 07:34 07:16 04:30 WBC 7.8 RBC 5.15 Hgb 13.4 Hct 42.6 MCV 82.7 MCH 26.0 L MCHC 31.5 RDW 14.5 Plt Count 211 MPV 10.1 Neut % (Auto) 71.5 Lymph % (Auto) 19.9 White % (Auto) 5.1 Eos % (Auto) 2.2 Baso % (Auto) 0.5 Neut # (Auto) 5.6 Lymph # (Auto) 1.6 White # (Auto) 0.4 Eos # (Auto) 0.2 Baso # (Auto) 0.0 Nucleated RBC % (a uto) 0 Nucleated RBCs # 0.0 ESR PT INR APTT Sodium 137 Potassium 2.8 L* Chloride 95 L Carbon Dioxide 29 Anion Gap 15.8 BUN 19 Creatinine 0.8 GFR Calculation 111.3 Glucose 177 H POC Glucose 154 Calculated Osmolal ity 285 Calcium 9.0 Total Bilirubin 0.2 AST 30 ALT 48 H Alkaline Phosphata se 46 C-Reactive Protein Total Protein 6.9 Albumin 4.0 Globulin 2.9 Triglycerides Cholesterol LDL Cholesterol Di rect HDL Cholesterol Cholesterol/HDL Ra elijah Vitamin B12 Folate TSH Urine Color Urine Appearance Urine pH Ur Specific Gravit y Urine Protein Urine Glucose (UA) Urine Ketones Urine Blood Urine Nitrate Urine Bilirubin Urine Urobilinogen Ur Leukocyte Divya ase Urine Opiates Scre en Ur Barbiturates Sc reen Ur Phencyclidine S crn Ur Amphetamines Sc reen U Benzodiazepines Scrn Urine Cocaine Scre en U Marijuana (THC) Screen 09/27/19 09/26/19 09/26/19 04:30 19:53 18:26 WBC RBC Hgb Hct MCV MCH MCHC RDW Plt Count MPV Neut % (Auto) Lymph % (Auto) White % (Auto) Eos % (Auto) Baso % (Auto) Neut # (Auto) Lymph # (Auto) White # (Auto) Eos # (Auto) Baso # (Auto) Nucleated RBC % (a uto) Nucleated RBCs # ESR 31 H PT INR APTT Sodium Potassium Chloride Carbon Dioxide Anion Gap BUN Creatinine GFR Calculation Glucose POC Glucose 138 Calculated Osmolal ity Calcium Total Bilirubin AST ALT Alkaline Phosphata se C-Reactive Protein Total Protein Albumin Globulin Triglycerides 552 H Cholesterol 148 LDL Cholesterol Di rect 47 HDL Cholesterol 24 L Cholesterol/HDL Ra elijah 6.17 H Vitamin B12 Folate TSH Urine Color Urine Appearance Urine pH Ur Specific Gravit y Urine Protein Urine Glucose (UA) Urine Ketones Urine Blood Urine Nitrate Urine Bilirubin Urine Urobilinogen Ur Leukocyte Divya ase Urine Opiates Scre en Ur Barbiturates Sc reen Ur Phencyclidine S crn Ur Amphetamines Sc reen U Benzodiazepines Scrn Urine Cocaine Scre en U Marijuana (THC) Screen 09/26/19 09/26/19 09/26/19 17:09 14:42 14:42 WBC RBC Hgb Hct MCV MCH MCHC RDW Plt Count MPV Neut % (Auto) Lymph % (Auto) White % (Auto) Eos % (Auto) Baso % (Auto) Neut # (Auto) Lymph # (Auto) White # (Auto) Eos # (Auto) Baso # (Auto) Nucleated RBC % (a uto) Nucleated RBCs # ESR PT INR APTT Sodium Potassium Chloride Carbon Dioxide Anion Gap BUN Creatinine GFR Calculation Glucose POC Glucose 139 Calculated Osmolal ity Calcium Total Bilirubin AST ALT Alkaline Phosphata se C-Reactive Protein Total Protein Albumin Globulin Triglycerides Cholesterol LDL Cholesterol Di rect HDL Cholesterol Cholesterol/HDL Ra elijah Vitamin B12 857 Folate > 20.0 TSH Urine Color Urine Appearance Urine pH Ur Specific Gravit y Urine Protein Urine Glucose (UA) Urine Ketones Urine Blood Urine Nitrate Urine Bilirubin Urine Urobilinogen Ur Leukocyte Divya ase Urine Opiates Scre en Ur Barbiturates Sc reen Ur Phencyclidine S crn Ur Amphetamines Sc reen U Benzodiazepines Scrn Urine Cocaine Scre en U Marijuana (THC) Screen 09/26/19 09/26/19 09/26/19 13:30 13:30 12:53 WBC RBC Hgb Hct MCV MCH MCHC RDW Plt Count MPV Neut % (Auto) Lymph % (Auto) White % (Auto) Eos % (Auto) Baso % (Auto) Neut # (Auto) Lymph # (Auto) White # (Auto) Eos # (Auto) Baso # (Auto) Nucleated RBC % (a uto) Nucleated RBCs # ESR PT INR APTT Sodium Potassium Chloride Carbon Dioxide Anion Gap BUN Creatinine GFR Calculation Glucose POC Glucose Calculated Osmolal ity Calcium Total Bilirubin AST ALT Alkaline Phosphata se C-Reactive Protein 18.9 H Total Protein Albumin Globulin Triglycerides Cholesterol LDL Cholesterol Di rect HDL Cholesterol Cholesterol/HDL Ra elijah Vitamin B12 Folate TSH Urine Color Yellow Urine Appearance Clear Urine pH 6 Ur Specific Gravit y 1.010 Urine Protein Neg Urine Glucose (UA) 4+ H Urine Ketones Negative Urine Blood Neg Urine Nitrate Negative Urine Bilirubin Neg Urine Urobilinogen Norm Ur Leukocyte Divya ase Negative Urine Opiates Scre en Negative Ur Barbiturates Sc reen Negative Ur Phencyclidine S crn Negative Ur Amphetamines Sc reen Negative U Benzodiazepines Scrn Negative Urine Cocaine Scre en Negative U Marijuana (THC) Screen Negative 09/26/19 09/26/19 09/26/19 12:53 12:53 12:53 WBC RBC Hgb Hct MCV MCH MCHC RDW Plt Count MPV Neut % (Auto) Lymph % (Auto) White % (Auto) Eos % (Auto) Baso % (Auto) Neut # (Auto) Lymph # (Auto) White # (Auto) Eos # (Auto) Baso # (Auto) Nucleated RBC % (a uto) Nucleated RBCs # ESR PT 13.00 INR 0.95 APTT 30.4 Sodium 137 Potassium 3.3 L Chloride 94 L Carbon Dioxide 26 Anion Gap 20.3 H BUN 23 H Creatinine 1.0 GFR Calculation 86.1 L Glucose 229 H POC Glucose Calculated Osmolal ity 288 Calcium 9.5 Total Bilirubin 0.2 AST 32 ALT 57 H Alkaline Phosphata se 51 C-Reactive Protein Total Protein 7.5 Albumin 4.3 Globulin 3.2 Triglycerides Cholesterol LDL Cholesterol Di rect HDL Cholesterol Cholesterol/HDL Ra elijah Vitamin B12 Folate TSH 0.85 Urine Color Urine Appearance Urine pH Ur Specific Gravit y Urine Protein Urine Glucose (UA) Urine Ketones Urine Blood Urine Nitrate Urine Bilirubin Urine Urobilinogen Ur Leukocyte Divya ase Urine Opiates Scre en Ur Barbiturates Sc reen Ur Phencyclidine S crn Ur Amphetamines Sc reen U Benzodiazepines Scrn Urine Cocaine Scre en U Marijuana (THC) Screen 09/26/19 09/26/19 12:53 12:40 WBC 8.3 RBC 4.83 Hgb 12.6 Hct 40.2 L MCV 83.2 MCH 26.1 L MCHC 31.3 RDW 14.2 Plt Count 197 MPV 10.4 Neut % (Auto) 80.3 Lymph % (Auto) 12.7 White % (Auto) 4.0 Eos % (Auto) 1.8 Baso % (Auto) 0.4 Neut # (Auto) 6.6 Lymph # (Auto) 1.1 White # (Auto) 0.3 Eos # (Auto) 0.2 Baso # (Auto) 0.0 Nucleated RBC % (a uto) 0 Nucleated RBCs # 0.0 ESR PT INR APTT Sodium Potassium Chloride Carbon Dioxide Anion Gap BUN Creatinine GFR Calculation Glucose POC Glucose 213 Calculated Osmolal ity Calcium Total Bilirubin AST ALT Alkaline Phosphata se C-Reactive Protein Total Protein Albumin Globulin Triglycerides Cholesterol LDL Cholesterol Di rect HDL Cholesterol Cholesterol/HDL Ra elijah Vitamin B12 Folate TSH Urine Color Urine Appearance Urine pH Ur Specific Gravit y Urine Protein Urine Glucose (UA) Urine Ketones Urine Blood Urine Nitrate Urine Bilirubin Urine Urobilinogen Ur Leukocyte Divya ase Urine Opiates Scre en Ur Barbiturates Sc reen Ur Phencyclidine S crn Ur Amphetamines Sc reen U Benzodiazepines Scrn Urine Cocaine Scre en U Marijuana (THC) Screen Vitals: Last Vital Signs Temp 98.4 F 09/27/19 07:00 Pulse 88 09/27/19 09:00 Resp 17 09/27/19 09:00 BP 127/77 09/27/19 09:00 Pulse Ox 90 09/27/19 09:00 Discharge Plan Discharge Patient Disposition: Home, Self-Care Condition: Stable Prescriptions: Continued glipizide 10 mg tablet extended release 24hr 10 mg PO BID RF: 0 potassium chloride 10 mEq capsule, extended release 30 meq PO DAILY RF: 0 allopurinol 100 mg tablet 300 mg PO DAILY RF: 0 carvedilol 25 mg tablet 25 mg PO BID RF: 0 metformin 500 mg tablet 1,000 mg PO BID RF: 0 aspirin 325 mg tablet 325 mg PO DAILY RF: 0 (DME) oxygen-air delivery systems Device See Rx Instructions .ROUTE .MEDSUPPLY Qty: 1 RF: 0 omeprazole 20 mg capsule,delayed release(DR/EC) 20 mg PO DAILY RF: 0 Lantus U-100 Insulin 100 unit/mL solution 45 unit SUBCUT QPM RF: 0 Victoza 2-Colt 0.6 mg/0.1 mL (18 mg/3 mL) pen injector 1.8 mg SUBCUT QAM RF: 0 desvenlafaxine succinate [Pristiq] 100 mg tablet extended release 24 hr 100 mg PO QAM Qty: 60 RF: 4 divalproex [Depakote ER] 500 mg tablet extended release 24 hr 500 mg PO BID Qty: 60 RF: 4 lorazepam [Ativan] 1 mg tablet 1 mg PO DAILY PRN (Reason: anxiety) 30 Days Qty: 30 RF: 3 melatonin 3 mg tablet extended release 3 mg PO DIRECTED PRN (Reason: sleep) Qty: 30 RF: 3 atorvastatin 40 mg Tablet 80 mg PO DAILY RF: 0 clonidine [Vuonfnko-CUA-2] 0.3 mg/24 hr Patch Weekly 0.3 mg transdermal DIRECTED RF: 0 lisinopril 20 mg Tablet 40 mg PO DAILY RF: 0 fenofibrate 54 mg Tablet 160 mg PO DAILY RF: 0 Jardiance 10 mg Tablet 10 mg PO DAILY RF: 0 Zyrtec 10 mg Tablet 10 mg PO DAILY RF: 0 cyproheptadine 4 mg Tablet 4 mg PO BEDTIME RF: 0 iron 325 mg (65 mg iron) Tablet 325 mg PO DAILY RF: 0 Flonase Allergy Relief 50 mcg/actuation [place],Suspension 1 spray INTRANASAL DAILY RF: 0 Discontinued chlorthalidone 50 mg tablet 50 mg PO DAILY RF: 0 Discharge Orders: Discharge Order (Routine); Ordered 09/27/19 Ordered By: Henrique Brody Referrals: MELYSSA [Other] Juliana St MD [Physician] - 2 weeks Mainor Manjarrez NP [Primary Care Provider] - 7-10 days Discharge Diet: Cardiac and Diabetic Discharge Activity: Resume usual activity Activity Restrictions/Additional Instructions: Please follow-up with Dr. St in 2 weeks. Your medication list has remained the same except chlorthalidone has been withheld. Discharge Attestations Time Spent in Discharge Care*: greater than 30 min Specific Discharge Activities: Specific discharge activities: educating patient, discussing with pcp/other providers, discussing with therapeutic case manager/social workers/dc planners, documenting/other paperwork and evaluating patient/reviewing data Status at Discharge: Cognitive status at discharge: cognitively intact, Behavioral status at discharge: cooperative, Functional status at discharge: other assisted ambulation Overall status at discharge: patient is back to baseline Quality Metrics Clinical Quality Measures During this hospital stay, did patient experience: Stroke Contraindication to Antithrombotic: Antithrombotic prescribed Contraindication to Anticoagulation: Overlap treatment not indicated Contraindication to Statin: Statin prescribed Contraindication to tPA: tPA given Coding Level of Care Code Acute [employer] [facility] Fwd Exam Expanded Problem Focused Diagnoses tPA adm status 24 hr UMBRELLA TIPPER MACHINE Z92.82 Cerebrovascular accident I63.9 Diabetes mellitus E11.9 Obstructive sleep apnea hypopnea, severe G47.33 HTN (hypertension) I10 Status following gastric banding surgery for weight loss Z98.84 Post-traumatic stress disorder, chronic F43.12 Panic disorder without agoraphobia F41.0 Bipolar II disorder F31.81 Generalized anxiety disorder F41.1
[2019-09-27] MEDS: iohexol 350 mg/mL 100 mL Btl IV (11:12)
[2019-09-27 11:38] LABS: Glucose Point of Care 237 mg/dL (70-110)
--- NOTE | 2019-09-27 14:54 | PC.OT ---
OT NOTE : OT EVALUATION/SCREEN COMPLETED. PATIENT DOES NOT REQUIRE SKILLED OT; NO DEFICITS NOTED.
--- NOTE | 2019-09-27 15:21 | PC.NURSE ---
Pt discharged via wheelchair. Verbalized understanding of all discharge instructions, all belongings sent with patient.
[2019-09-27 15:40] LABS: Estmated Average Glucose 223; Hemoglobin A1C 9.4 % (4.0-6.0)
[2019-10-02 06:52] LABS: Anti-Double Strand DNA AB <1 IU/mL; Jo-1 Antibody <1.0 NEG AI (<1.0 NEG); SM/RNP Antibodies <1.0 NEG AI (<1.0 NEG); SS-B/LA IGG <1.0 NEG AI (<1.0 NEG); Scleroderma Ab(Scl-70) Ab <1.0 NEG AI (<1.0 NEG); Ss-A/Ro Igg <1.0 NEG AI (<1.0 NEG)
== END 2019-09-27 15:10 | disposition home or self-care (01) | DRG 62 ==
LOC: ER 14:35 → ICU 14:53
PROVIDERS: Emergency Medicine; Family Medicine; Admitting Provider Student in an Organized Health Care Education/Training Program; PCP Nurse Practitioner Family; Visit Provider Student in an Organized Health Care Education/Training Program
DX: I63.9 Cerebral infarction, unspecified (principal); F31.81 Bipolar II disorder; Z68.44 Body mass index [BMI] 60.0-69.9, adult; G81.94 Hemiplegia, unspecified affecting left nondominant side; R29.810 Facial weakness; G47.33 Obstructive sleep apnea (adult) (pediatric); F43.12 Post-traumatic stress disorder, chronic; F41.0 Panic disorder [episodic paroxysmal anxiety]; R29.706 NIHSS score 6; F41.1 Generalized anxiety disorder; E11.9 Type 2 diabetes mellitus without complications; I10 Essential (primary) hypertension; Z98.84 Bariatric surgery status; E78.5 Hyperlipidemia, unspecified; E66.01 Morbid (severe) obesity due to excess calories; G89.29 Other chronic pain; M54.9 Dorsalgia, unspecified; K21.9 Gastro-esophageal reflux disease without esophagitis; Z86.73 Personal history of transient ischemic attack (TIA), and cerebral infarction without residual deficits; Z79.82 Long term (current) use of aspirin; Z79.84 Long term (current) use of oral hypoglycemic drugs; Z87.891 Personal history of nicotine dependence
CPT/HCPCS: 12345; 36415; 36416; 70450; 70496; 70498; 80053; 80061; 80306; 81003; 82607; 82746; 82962; 83036; 83721; 84443; 85025; 85610; 85651; 85730; 86140; 86225; 86235; 92523; 92610; 93005; 93306; 93880; 94660; 96372; 97110; 97161; 99284; J0131; J1815; J2997; Q9967

== ENCOUNTER 2019-09-28 21:02 | Emergency (ER) | payer MEDICAID, SELFPAY ==
[2019-09-28 21:06] VITALS: BP 156/88; PULSE 97; RESP 18; TEMP 37.6; O2SAT 100; BMI 63.6
== END 2019-09-28 21:18 | disposition left against medical advice (07) ==
LOC: ER 21:19
PROVIDERS: Emergency Provider Family Medicine; PCP Nurse Practitioner Family
DX: Z53.21 Procedure and treatment not carried out due to patient leaving prior to being seen by health care provider (principal)
CPT/HCPCS: 99281

== ENCOUNTER → 2019-10-04 13:09 | Outpatient (BNVA) | payer MEDICAID, SELFPAY | PROVIDERS: PCP Nurse Practitioner Family; Visit Provider Nurse Practitioner Psychiatric/Mental Health | DX: F31.81 Bipolar II disorder (principal); F41.1 Generalized anxiety disorder; F43.12 Post-traumatic stress disorder, chronic; F41.0 Panic disorder [episodic paroxysmal anxiety] | CPT/HCPCS: 99214 ==

== ENCOUNTER → 2019-10-16 10:01 | Outpatient (BNVA) | payer MEDICAID, SELFPAY | PROVIDERS: PCP Electrodiagnostic Medicine; Referring Provider Family Medicine; Visit Provider Specialist | DX: I63.9 Cerebral infarction, unspecified (principal); R55 Syncope and collapse | CPT/HCPCS: 99205 ==

== ENCOUNTER → 2019-10-24 07:44 | Outpatient (BNVA) | payer MEDICAID, SELFPAY | PROVIDERS: PCP Electrodiagnostic Medicine; Referring Provider Specialist; Visit Provider Specialist | DX: R55 Syncope and collapse (principal); R56.9 Unspecified convulsions | CPT/HCPCS: 95816 ==

== ENCOUNTER → 2019-11-07 07:31 | Outpatient (BNVA) | payer MEDICAID, SELFPAY | PROVIDERS: PCP Electrodiagnostic Medicine; Visit Provider Nurse Practitioner Psychiatric/Mental Health | DX: F31.81 Bipolar II disorder (principal); F41.1 Generalized anxiety disorder; F43.12 Post-traumatic stress disorder, chronic; F41.0 Panic disorder [episodic paroxysmal anxiety] | CPT/HCPCS: 99214 ==

== ENCOUNTER 2019-11-29 09:54 | Outpatient (CLI) | payer MEDICAID, SELFPAY ==
--- NOTE | 2019-11-29 10:01 | XR_ITS ---
WS: [id number] EXAM: RIGHT SHOULDER: 3 VIEWS DATE OF EXAMINATION: 11/29/2019, 1011 hours COMPARISON: Right shoulder examination from 06/21/2014 HISTORY: 34 years old with right shoulder pain. Clinical working diagnosis of impingement. FINDINGS: The glenohumeral joint is normal in appearance. AC joint shows changes of mild arthritis. No undersur face spurring. No fracture, lytic or blastic process. No soft tissue abnormality is demonstrated. XR/XR shoulder RT min 2V* [id number] IMPRESSION: Minimal arthritis in the AC joint. Otherwise unremarkable right shoulder exam.
== END 2019-11-29 09:55 | disposition home or self-care (01) ==
LOC: RADWPI 09:58
PROVIDERS: Family Provider Electrodiagnostic Medicine; PCP Electrodiagnostic Medicine; Visit Provider Electrodiagnostic Medicine
DX: M75.41 Impingement syndrome of right shoulder (principal); M13.811 Other specified arthritis, right shoulder
CPT/HCPCS: 73030

== ENCOUNTER → 2019-12-07 07:42 | Outpatient (BNVA) | payer MEDICAID, SELFPAY | PROVIDERS: Family Provider Electrodiagnostic Medicine; PCP Electrodiagnostic Medicine; Visit Provider Nurse Practitioner Psychiatric/Mental Health | DX: F31.81 Bipolar II disorder (principal); F41.1 Generalized anxiety disorder; F43.12 Post-traumatic stress disorder, chronic; F41.0 Panic disorder [episodic paroxysmal anxiety] | CPT/HCPCS: 99214 ==

== ENCOUNTER 2019-12-15 21:04 | Emergency (ER) | payer MEDICAID, SELFPAY ==
[2019-12-15 21:54] VITALS: BP 210/128; PULSE 88; RESP 18; TEMP 36.8; O2SAT 95; BMI 61.7
--- NOTE | 2019-12-15 22:12 | XRR_ITS ---
PROCEDURE INFORMATION: Exam: XR Chest, 1 View Exam date and time: 12/15/2019 10:36 PM Age: 34 years old Clinical indication: Chest pain; Type not specified; Prior surgery; Surgery date: 6+ months; Surgery type: Stent; Additional info: Cp TECHNIQUE: Imaging protocol: XR of the chest Views: 1 view. COMPARISON: CR Chest 1 [place] [id number] 03/18/2019 12:04 AM FINDINGS: Lungs: Unremarkable. No consolidation. Pleural space: Unremarkable. No pleural effusion. No pneumothorax. Heart/Mediastinum: There is unchanged cardiomegaly. Bones/joints: No acute abnormality. XR/XR chest 1V portable [id number] IMPRESSION: No acute findings. Unchanged exam.
--- NOTE | 2019-12-15 22:12 | ECG_ITS ---
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 Measurements Intervals [place] Rate: 98 P: 34 [place]: 149 QRS: -2 QRSD: 111 T: 41 QT: 343 QTc: 440 Interpretive Statements SINUS RHYTHM LOW QRS VOLTAGE IN PRECORDIAL LEADS [QRS DEFLECTION < 1.0 mV IN CHEST LEADS] INCOMPLETE RIGHT BUNDLE BRANCH BLOCK Compared to ECG 09/26/2019 12:36:13 Low QRS voltage now present Incomplete right bundle-branch block now present Right bundle-branch block no longer present Electronically Signed On 12-17-2019 7:59:53 CDT by Annika Degroot M.D. [id number] f
[2019-12-15 22:47] LABS: Basophils % 0.4 %; Eosinophils # 0.1 10^3/uL (0.0-0.8); Eosinophils % 1.3 %; Hematocrit 43.8 % (42.0-52.0); Hemoglobin 13.1 g/dL (11.7-16.6); Lymphocytes # 1.2 10^3/uL (0.8-4.8); Lymphocytes % 11.9 %; Mean Corpuscular HGB Conc 29.9 g/dL (30.0-36.0); Mean Corpuscular Hemoglobin 25.7 pg (28.0-34.0); Mean Corpuscular Volume 86.1 fL (80-94); Mean Platelet Volume 10.1 fL (7.4-10.4); Monocytes # 0.4 10^3/uL (0.2-0.9); Neutrophils # 8.34 10^3/uL (1.8-7.7); Neutrophils % 81.3 %; Nucleated Red Blood Cells % 0 %; Platelet Count 208 10^3/cmm (130-400); Red Blood Count 5.09 10^6/uL (4.1-5.3); Red Cell Distribution Width 14.1 % (12.1-15.1); White Blood Count 10.3 10^3/uL (4.0-10.0)
[2019-12-15 22:56] VITALS: BP 163/121; PULSE 90; RESP 19; O2SAT 96
[2019-12-15 23:08] LABS: Troponin(5th) Baseline 9 ng/L (0-15)
[2019-12-15 23:18] LABS: Alanine Aminotransferase 59 U/L (0-41); Albumin Level 4.6 g/dL (3.5-5.2); Alkaline Phosphatase 62 IU/L (40-130); Anion Gap 17.9 (5-19); Aspartate Amino Transferase 21 U/L (0-40); Blood Urea Nitrogen 16 mg/dL (6-20); Calcium 8.8 mg/dL (8.5-10.5); Carbon Dioxide 27 mmol/L (22-29); Chloride 98 mmol/L (98-107); Creatine Phosphokinase 87 U/L (39-308); Creatinine Clr Calc Pharmacy 148.4548; Globulin 2.6 g/dL (1.3-4.6); Glomerular Filtration Rate 85.5 mL/min (90-130); Glucose 207 mg/dL (65-115); NT Pro B Type Natriuretic Pept 80 pg/mL (0-125); Osmolality Calculated 290 mOsm/kg (285-295); Potassium 3.9 mmol/L (3.5-5.1); Sodium 139 mmol/L (136-145); Total Bilirubin 0.2 mg/dL (0.15-1.2); Total Protein 7.2 g/dL (6.6-8.7)
--- NOTE | 2019-12-15 23:27 | CTR_ITS ---
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 Radiation optimization: All CT scans at this facility use at least one of these dose optimization techniques: automated exposure control; mA and/or kV adjustment per patient size (includes targeted exams where dose is matched to clinical indication); or iterative reconstruction. COMPARISON: CT head wo con* [id number] 09/26/2019 12:14 PM RADIATION DOSE METRICS: Total DLP (mGy-cm): 897.08 FINDINGS: Brain: Normal. No hemorrhage. Unremarkable white matter. No mass effect. Ventricles: Normal. No ventriculomegaly. Bones/joints: Unremarkable. No acute fracture. Sinuses: Visualized sinuses are unremarkable. No fluid levels. Mastoid air cells: Visualized mastoid air cells are well aerated. Soft tissues: Unremarkable. CT/CT head wo con* [id number] IMPRESSION: No acute intracranial abnormality. Radiation Dose CTDIVOL = (mGy): DLP = 897.08 (mGy-cm)
[2019-12-15] MEDS: amlodipine 10 mg Tablet PO (23:51)
[2019-12-15] MEDS: labetalol 5 mg/mL SDV 20mL 20 MG IVP (23:51)
[2019-12-15 23:53] VITALS: BP 168/121
[2019-12-15] MEDS: nitroglycerin 0.4 mg sublingual Tablet SUBLINGUAL (23:54)
[2019-12-15 23:56] VITALS: BP 171/106; PULSE 104; RESP 16
[2019-12-15 23:57] VITALS: RESP 16
[2019-12-15] MEDS: morphine 4 mg/mL SDV 1 mL IVP (23:57)
[2019-12-15] MEDS: ondansetron 2 mg/ML SDV 2 mL 4 MG IVP (23:58)
[2019-12-16] VITALS: BP 173/101; O2SAT 93
[2019-12-16] MEDS: nitroglycerin 1 gm/inch oint Pkt 2 INCH TOPICAL (00:03)
--- NOTE | 2019-12-16 00:12 | ECG_ITS ---
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 Measurements Intervals [place] Rate: 95 P: 31 MD: 148 QRS: 8 QRSD: 133 T: 34 QT: 358 QTc: 450 Interpretive Statements SINUS RHYTHM INTRAVENTRICULAR CONDUCTION DELAY [130+ ms QRS DURATION] INTERPRETATION BASED ON A DEFAULT AGE OF 40 YEARS Compared to ECG 12/15/2019 21:58:36 Intraventricular conduction delay now present Incomplete right bundle-branch block no longer present Electronically Signed On 12-17-2019 8:25:47 CDT by Annika Degroot M.D. [id number]
[2019-12-16 01:13] VITALS: BP 181/100; PULSE 99; RESP 18; O2SAT 94
--- NOTE | 2019-12-16 01:17 | CTR_ITS ---
PROCEDURE INFORMATION: Exam: CT Angiography Chest With Contrast Exam date and time: 12/16/2019 1:19 AM Age: 34 years old Clinical indication: Chest pain; Type not specified; Prior surgery; Surgery date: 6+ months; Surgery type: Stent TECHNIQUE: Imaging protocol: Computed tomographic angiography of the chest with intravenous contrast. 3D rendering (Not supervised by radiologist): MIP and/or 3D reconstructed images were created by the technologist. Radiation optimization: All CT scans at this facility use at least one of these dose optimization techniques: automated exposure control; mA and/or kV adjustment per patient size (includes targeted exams where dose is matched to clinical indication); or iterative reconstruction. Contrast material: OMNI 350; Contrast volume: 95 ml; Contrast route: INTRAVENOUS (IV); COMPARISON: CTA Chest-Pulmonary Emb [id number] 09/11/2017 7:05 PM RADIATION DOSE METRICS: Total DLP (mGy-cm): 1252.54 FINDINGS: Pulmonary arteries: There is limited pulmonary arterial opacification. Pulmonary arteries are evaluated to the central segmental level. More peripheral vessels are obscured. There is no filling defect to suggest embolism. Aorta: The aorta is unremarkable. There is no aneurysm. Lungs: Lungs are clear. Pleural space: There is no pleural effusion or pneumothorax. Heart: The heart is unremarkable. Trace pericardial effusion. Lymph nodes: There is no mediastinal or hilar lymphadenopathy. Adrenals: There is a low attenuation nodule in the right adrenal gland consistent with a benign adenoma. Bones/joints: Bones are unremarkable. Soft tissues: The extrathoracic soft tissues are unremarkable. CT/CT angio chest PE protcl [id number] IMPRESSION: Suboptimal pulmonary arterial opacification. No central pulmonary embolism. Radiation Dose CTDIVOL = (mGy): DLP = 1252.54 (mGy-cm)
[2019-12-16] MEDS: iohexol 350 mg/mL 100 mL Btl IV (01:39)
[2019-12-16 01:40] VITALS: RESP 18; O2SAT 93
[2019-12-16] MEDS: morphine 4 mg/mL SDV 1 mL IVP (01:40)
[2019-12-16 01:52] LABS: Troponin 5 2HR 12.45 ng/L (0-15); Troponin 5 2HR Delta 3.45 ABS# (0-10)
[2019-12-16 02:47] VITALS: BP 125/94; PULSE 87; RESP 16; O2SAT 95
[2019-12-16 03:48] VITALS: BP 132/88; PULSE 105; RESP 17; O2SAT 93
--- NOTE | 2019-12-16 04:50 | W.ED.CHESTPA ---
HPI - Chest Pain General: Chief Complaint: Chest Pain Stated Complaint: chest pain Time Seen by Provider: 12/15/19 22:12 History of Present Illness: HPI narrative: 34-year-old male with chest pain, has developed over the last few hours. He notes that he had not been feeling well around noon, and was anxious, and took a Valium. This seemed to help for a bit. He began to get significant pain around 7 PM, and comes in with the same pain. He notes he has mild shortness of breath. No cough. No fever. No COVID exposure he knows of. He notes that his head hurts as well. Is an intense dull global ache. He notes that he has significant hypertension, and is on multiple medications including a clonidine patch. MD complaint: chest pain Pertinent past history: other Onset (ago): hour(s) Timing of current episode: constant Prior episodes: Yes Onset: during rest Pain location: substernal Pain radiation: none Severity: moderate Quality: tightness Relieving factors: nothing Exacerbating factors: nothing Associated symptoms: Reports dyspnea and nausea; Deny abdominal pain, fever(s), palpitations or vomiting Review of Systems Const: Denies: fever(s) or chills Eyes: Denies: blurry vision ENMT: Denies: swelling of lips/tongue, epistaxis or sinus pain Card: Reports: chest pain, edema and dyspnea on exertion; Denies: palpitations, irregular heart rhythm or swelling of feet/ankles Resp: Reports: dyspnea; Denies: productive cough, non-productive cough or wheezing GI: Reports: nausea; Denies: abdominal pain or vomiting : Denies: difficulty urinating, dysuria or hematuria Musc: Reports: back pain; Denies: neck pain or joint warmth Skin/Breast: Denies: rash, pruritus or erythema Neuro: Reports: headache(s); Denies: dizziness, vertigo or confusion Psych: Denies: anxiety PFS ED PFSH: Medical History (Updated 12/16/19 @ 03:35 by Quintin Alanis DO) Bipolar II disorder Diabetes mellitus Gastroenteritis Generalized anxiety disorder High cholesterol History of adverse reaction to tissue plasminogen activator (tPA) HTN (hypertension) Hx of secondary hypertension Obesity Obstructive sleep apnea hypopnea, severe Panic disorder without agoraphobia Post-traumatic stress disorder, chronic Surgical History History of esophagogastroduodenoscopy (EGD) (~04/2019) History of tonsillectomy and adenoidectomy Family History Denies family history of Anesthesia complication Bleeding disorder Social History Smoking and tobacco status: former smoker Quit status (tobacco): has quit using tobacco Year quit tobacco: 2010 Second hand smoke exposure: Yes Alcohol intake: never Desire information about alcohol rehabilitation?: No Desire information about substance/drug rehabilitation?: No Adopted: No Caregiver/support person: Yes Lives independently: Yes Household members: family Housing: House Marital status: Single Highest education level completed: High School Graduate service: No Current occupational status: disabled Current occupational exposures/hazards: No Pets and animals: Yes Pets & animals: cat(s) History of recent travel: No Sexually active: No Current gender identity: Male Karolina/Rastafarian: Islam Special karolina needs: No Agree to transfusion: No Financial difficulty paying for basics: Decline to Answer Physical Exam Const: GENERAL APPEARANCE: anxious and other (Morbidly obese) ORIENTATION/CONSCIOUSNESS: Yes oriented to person, Yes oriented to place and Yes oriented to time HENMT: COMMON NORMALS: normocephalic, external ears normal and Normal external nose present HEAD & SCALP: normocephalic FACE & SINUS: normal facial exam NOSE: Normal external nose present and No nasal discharge present EXTERNAL EAR: Yes external ears normal Eye: COMMON NORMALS: Equal, round and reactive pupils present, EOMs intact bilaterally and conjunctivae normal EYELID: eyelids normal CONJUNCTIVA: Yes conjunctivae normal PUPIL: Yes Equal, round and reactive pupils present Neck/C-Spine: GENERAL: No tracheal deviation Chest: COMMONS NORMALS: normal inspection of the chest CHEST: No tenderness Resp: COMMON NORMALS: clear to auscultation bilaterally EFFORT & INSPECTION: No tachypneic, No respiratory distress, No retractions, No uses accessory muscles and No tracheal deviation AUSCULTATION: clear to auscultation bilaterally, no rhonchi, no wheezes and lung sounds not diminished Cardio: COMMON NORMALS: regular rate and regular rhythm RATE: regular rate RHYTHM: regular rhythm HEART SOUNDS: no murmurs PERIPHERAL PULSES: radial pulses present GI: INSPECTION: No abdominal distension AUSCULTATION: No Hyperactive bowel sounds present and No Hypoactive bowel sounds present PALPATION: No Guarding due to palpation present (GI) and No Rigid due to palpation PERCUSSION: no dullness to percussion and no tympanic to percussion Neuro: SENSORIUM/ORIENTATION: Yes oriented to person, Yes oriented to place and Yes oriented to time Psych: COMMON NORMALS: mental status grossly normal Course Vital Signs: Vital signs: Vital Signs Temperature 98.2 F 12/15/19 21:54 Pulse Rate 105 H 12/16/19 03:48 Respiratory Rate 17 12/16/19 03:48 Blood Pressure 132/88 12/16/19 03:48 Pulse Oximetry 93 12/16/19 03:48 MDM - Chest Pain MDM Narrative: Medical decision making narrative: 34-year-old morbidly obese male with a history of hypertension presents with chest pain and headache. Head CT is negative. His pressure is significantly high over 200 systolic. His white blood cell count is 10. His hemoglobin is 13. His troponin is negative x2. There were no acute ST changes on his EKG. CTA was performed, and is negative for large PE, although it is in a suboptimal study given the patient's body habitus. His pain improved significantly with reduction in his blood pressure. His blood pressure came down to 140s systolic. He will be discharged on amlodipine for control of his blood pressure, which he will take twice daily. He knows to return for return of chest pain, or other new symptoms. Lab Data: Labs: Lab Results 12/15/19 12/15/19 12/15/19 Range/Units 22:30 22:30 22:30 WBC 10.3 H (4.0-10.0) 10^3/ uL RBC 5.09 (4.1-5.3) 10^6/u L Hgb 13.1 (11.7-16.6) g/dL Hct 43.8 (42.0-52.0) % MCV 86.1 (80-94) fL MCH 25.7 L (28.0-34.0) pg MCHC 29.9 L (30.0-36.0) g/dL RDW 14.1 (12.1-15.1) % Plt Count 208 (130-400) 10^3/c mm MPV 10.1 (7.4-10.4) fL Neut % (Auto) 81.3 % Lymph % (Auto) 11.9 % [place] % (Auto) 4.0 % Eos % (Auto) 1.3 % Baso % (Auto) 0.4 % Neut # (Auto) 8.34 H (1.8-7.7) 10^3/u L Lymph # (Auto) 1.2 (0.8-4.8) 10^3/u L [place] # (Auto) 0.4 (0.2-0.9) 10^3/u L Eos # (Auto) 0.1 (0.0-0.8) 10^3/u L Baso # (Auto) 0.0 (0.0-0.1) 10^3/u L Nucleated RBC % (a uto) 0 % Nucleated RBCs # 0.0 /100WBC Sodium 139 (136-145) mmol/L Potassium 3.9 (3.5-5.1) mmol/L Chloride 98 (98-107) mmol/L Carbon Dioxide 27 (22-29) mmol/L Anion Gap 17.9 (5-19) BUN 16 (6-20) mg/dL Creatinine 1.0 (0.7-1.2) mg/dL GFR Calculation 85.5 L (90-130) mL/min Glucose 207 H (65-115) mg/dL Calculated Osmolal ity 290 (285-295) mOsm/k g Calcium 8.8 (8.5-10.5) mg/dL Total Bilirubin 0.2 (0.15-1.2) mg/dL AST 21 (0-40) U/L ALT 59 H (0-41) U/L Alkaline Phosphata se 62 (40-130) IU/L Creatine Kinase 87 (39-308) U/L Troponin T Baselin e 9 (0-15) ng/L Troponin T 120 Min arun (0-15) ng/L Delta Troponin T (0-10) ABS# NT-Pro-B Natriuret Pep 80 (0-125) pg/mL Total Protein 7.2 (6.6-8.7) g/dL Albumin 4.6 (3.5-5.2) g/dL Globulin 2.6 (1.3-4.6) g/dL 09/06/20 Range/Units 01:22 WBC (4.0-10.0) 10^3/ uL RBC (4.1-5.3) 10^6/u L Hgb (11.7-16.6) g/dL Hct (42.0-52.0) % MCV (80-94) fL MCH (28.0-34.0) pg MCHC (30.0-36.0) g/dL RDW (12.1-15.1) % Plt Count (130-400) 10^3/c mm MPV (7.4-10.4) fL Neut % (Auto) % Lymph % (Auto) % [place] % (Auto) % Eos % (Auto) % Baso % (Auto) % Neut # (Auto) (1.8-7.7) 10^3/u L Lymph # (Auto) (0.8-4.8) 10^3/u L [place] # (Auto) (0.2-0.9) 10^3/u L Eos # (Auto) (0.0-0.8) 10^3/u L Baso # (Auto) (0.0-0.1) 10^3/u L Nucleated RBC % (a uto) % Nucleated RBCs # /100WBC Sodium (136-145) mmol/L Potassium (3.5-5.1) mmol/L Chloride (98-107) mmol/L Carbon Dioxide (22-29) mmol/L Anion Gap (5-19) BUN (6-20) mg/dL Creatinine (0.7-1.2) mg/dL GFR Calculation (90-130) mL/min Glucose (65-115) mg/dL Calculated Osmolal ity (285-295) mOsm/k g Calcium (8.5-10.5) mg/dL Total Bilirubin (0.15-1.2) mg/dL AST (0-40) U/L ALT (0-41) U/L Alkaline Phosphata se (40-130) IU/L Creatine Kinase (39-308) U/L Troponin T Baselin e (0-15) ng/L Troponin T 120 Min arun 12.45 (0-15) ng/L Delta Troponin T 3.45 (0-10) ABS# NT-Pro-B Natriuret Pep (0-125) pg/mL Total Protein (6.6-8.7) g/dL Albumin (3.5-5.2) g/dL Globulin (1.3-4.6) g/dL Discharge Plan Discharge Patient Disposition: Home Clinical Impression: Chest pain Qualifiers: Chest pain type: unspecified Qualified Code(s): R07.9 - Chest pain, unspecified HTN (hypertension) Qualifiers: Hypertension type: essential hypertension Qualified Code(s): I10 - Essential (primary) hypertension Condition: Stable Prescriptions: New amlodipine 10 mg tablet 10 mg PO DAILY Qty: 30 RF: 0 [place] 5-325 mg tablet 1 tab PO Q6H Qty: 10 RF: 0 ondansetron 4 mg film 4 mg PO QID PRN (Reason: nausea and vomiting) Qty: 10 RF: 0 No Action chlorthalidone 50 mg tablet 50 mg PO DAILY RF: 0 potassium chloride 10 mEq capsule, extended release 30 meq PO DAILY RF: 0 allopurinol 100 mg tablet 300 mg PO DAILY RF: 0 carvedilol 25 mg tablet 25 mg PO BID RF: 0 metformin 500 mg tablet 1,000 mg PO BID RF: 0 aspirin 325 mg tablet 325 mg PO DAILY RF: 0 (DME) oxygen-air delivery systems Device See Rx Instructions .ROUTE .MEDSUPPLY Qty: 1 RF: 0 omeprazole 20 mg capsule,delayed release(DR/EC) 20 mg PO DAILY RF: 0 Victoza 2-Colt 0.6 mg/0.1 mL (18 mg/3 mL) pen injector 1.8 mg SUBCUT QAM RF: 0 Lantus U-100 Insulin 100 unit/mL solution 65 unit SUBCUT QPM RF: 0 divalproex [Depakote ER] 500 mg tablet extended release 24 hr 500 mg PO BID Qty: 60 RF: 4 diazepam [Valium] 5 mg tablet 5 mg PO BID PRN (Reason: anxiety) Qty: 60 RF: 1 desvenlafaxine succinate [Pristiq] 50 mg tablet extended release 24 hr 50 mg PO DAILY RF: 0 divalproex [Depakote ER] 250 mg tablet extended release 24 hr 250 mg PO .bedtime Qty: 30 RF: 1 atorvastatin 40 mg Tablet 80 mg PO DAILY RF: 0 clonidine [Tvdumvbz-KFO-5] 0.3 mg/24 hr Patch Weekly 0.3 mg transdermal DIRECTED RF: 0 lisinopril 20 mg Tablet 40 mg PO DAILY RF: 0 fenofibrate 54 mg Tablet 160 mg PO DAILY RF: 0 Jardiance 10 mg tablet 10 mg PO DAILY RF: 0 Zyrtec 10 mg Tablet 10 mg PO DAILY RF: 0 iron 325 mg (65 mg iron) Tablet 325 mg PO DAILY RF: 0 Flonase Allergy Relief 50 mcg/actuation [place],Suspension 1 spray INTRANASAL DAILY RF: 0 Discharge Orders: Discharge Order (Routine); Ordered 12/16/19 Ordered By: Quintin Alanis Referrals: Chad Jiménez DO [Primary Care Provider] - 4-7 days Discharge Diet: Advance as tolerated Patient Instructions: Chest Pain (ED), Hypertension (ED) Activity Restrictions/Additional Instructions: Turn for worsening chest pain despite treatment, inability to control your blood pressure, worsening headache, other concerning symptoms. Take your blood pressure twice daily, report numbers to your physician. If your blood pressure remains high, take the medication prescribed. 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
== END 2019-12-16 03:48 | disposition home or self-care (01) ==
PROVIDERS: Emergency Provider Emergency Medicine; PCP Electrodiagnostic Medicine
DX: R07.9 Chest pain, unspecified (principal); I10 Essential (primary) hypertension; Z79.82 Long term (current) use of aspirin; Z79.4 Long term (current) use of insulin; Z87.891 Personal history of nicotine dependence; E11.9 Type 2 diabetes mellitus without complications
CPT/HCPCS: 12345; 70450; 71045; 71275; 80053; 82550; 83880; 84484; 85025; 93005; 96374; 96375; 96376; 99283; 99284; J2270; J2405; J3490; Q9967

== ENCOUNTER 2019-12-28 13:03 | Emergency (ER) | payer MEDICAID, SELFPAY ==
[2019-12-28] VITALS (7 sets, daily range): BP systolic 139–185; BP diastolic 91–116; PULSE 99–102; RESP 17–20; TEMP 36.7; O2SAT 94–97; BMI 61.7
--- NOTE | 2019-12-28 13:04 | XRR_ITS ---
PROCEDURE INFORMATION: Exam: XR Chest, 1 View Exam date and time: 12/28/2019 1:21 PM Age: 34 years old Clinical indication: Shortness of breath; Chest pain; Type not specified; Prior surgery; Surgery type: Stents; Additional info: Chest pain/shortness of breath TECHNIQUE: Imaging protocol: XR of the chest Views: 1 view. COMPARISON: CR (CHEST, ) 12/15/2019 10:27 PM FINDINGS: Lungs: Unremarkable. No consolidation. Pleural space: Unremarkable. No pleural effusion. No pneumothorax. Heart/Mediastinum: Unremarkable. No cardiomegaly. Bones/joints: Unremarkable. XR/XR chest 1V portable [id number] IMPRESSION: No acute findings.
--- NOTE | 2019-12-28 13:05 | ECG_ITS ---
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 Measurements Intervals [place] Rate: 99 P: 51 ND: 165 QRS: 26 QRSD: 113 T: 51 QT: 359 QTc: 461 Interpretive Statements SINUS RHYTHM INCOMPLETE RIGHT BUNDLE BRANCH BLOCK Compared to ECG 12/16/2019 01:11:45 Incomplete right bundle-branch block now present Intraventricular conduction delay no longer present Electronically Signed On 12-29-2019 8:19:28 CDT by Annika Degroot M.D. [id number]
--- NOTE | 2019-12-28 13:28 | ED_ITS ---
HPI - Chest Pain General: Chief Complaint: Chest Pain Stated Complaint: CP/ SOB Time Seen by Provider: 12/28/19 13:04 Source: patient Mode of arrival: ambulatory Limitations: no limitations History of Present Illness: HPI narrative: Len is a nice 34-year-old male who comes in complaining of chest pain. He describes the chest pain as tightness. He also feels dizzy and lightheaded. The patient has been constant since this morning. He denies any shortness of breath, nausea vomiting or diaphoresis. He states the pain is worse in different positions. Patient states the onset was while talking to a friend. States he has similar symptoms 1 to 2 weeks ago and was seen here in the ER but discharged. He states his pain is similar to that episode. He denies any complaints at this time other than the chest pain. He was given 2 nitroglycerin in route by EMS with no improvement. He did self-administered aspirin at home. Associated symptoms: Deny abdominal pain, diaphoresis, dyspnea, fever(s), nausea, palpitations, syncope or vomiting Review of Systems Const: Denies: fever(s), chills, body aches, fatigue, malaise or diaphoresis Eyes: Denies: change in vision, blurry vision, photophobia, eye discomfort, eye discharge, eye redness or yellow eyes ENMT: Denies: throat pain, odynophagia, hoarseness, swelling of lips/tongue, ear or mastoid pain, ear discharge, change in hearing or nasal discharge Card: Reports: chest pain; Denies: palpitations, irregular heart rhythm, edema, lightheadedness, syncope, pre-syncope, dyspnea on exertion or orthopnea Resp: Denies: dyspnea, productive cough, non-productive cough, wheezing, hemoptysis or chest congestion GI: Denies: abdominal pain, nausea, vomiting, hematemesis, coffee ground emesis, heartburn, diarrhea, constipation, GI cramping, hematochezia or melena : Denies: flank pain, dysuria, urinary frequency, urinary urgency or hematuria Musc: Denies: neck pain, back pain, extremity pain, extremity swelling, joint pain, joint swelling, joint redness, joint warmth or joint stiffness Skin/Breast: Denies: rash, pruritus, erythema, skin pain or skin tenderness Neuro: Denies: headache(s), numbness in extremities, weakness in extremities, sensory changes, lack of coordination, difficulty walking, dizziness, vertigo, confusion, Slurred speech present or seizure-like activity Alexander/Lymph: Denies: easy bruising, easy bleeding, petechiae, purpura or enlarged lymph nodes All/Imm: Denies: urticaria, throat swelling, tongue swelling, facial swelling or acute wheezing PFSH ED PFSH: Medical History Bipolar II disorder Diabetes mellitus Gastroenteritis Generalized anxiety disorder High cholesterol History of adverse reaction to tissue plasminogen activator (tPA) HTN (hypertension) Hx of secondary hypertension Obesity Obstructive sleep apnea hypopnea, severe Panic disorder without agoraphobia Post-traumatic stress disorder, chronic Surgical History History of esophagogastroduodenoscopy (EGD) (~04/2019) History of tonsillectomy and adenoidectomy Family History Denies family history of Anesthesia complication Bleeding disorder Social History Smoking and tobacco status: former smoker Quit status (tobacco): has quit using tobacco Year quit tobacco: 2010 Second hand smoke exposure: Yes Alcohol intake: never Desire information about alcohol rehabilitation?: No Desire information about substance/drug rehabilitation?: No Adopted: No Caregiver/support person: Yes Lives independently: Yes Household members: family Housing: House Marital status: Single Highest education level completed: High School Graduate service: No Current occupational status: disabled Current occupational exposures/hazards: No Pets and animals: Yes Pets & animals: cat(s) History of recent travel: No Sexually active: No Current gender identity: Male Karolina/Oriental Orthodox: Adventist Special karolina needs: No Agree to transfusion: No Financial difficulty paying for basics: Decline to Answer Physical Exam Const: COMMON NORMALS: no acute distress, patient oriented x3, no limitations and alert GENERAL APPEARANCE: cooperative HENMT: COMMON NORMALS: normocephalic, atraumatic, external ears normal, EAC's normal and Normal external nose present HEAD & SCALP: normal to inspection, normocephalic and atraumatic FACE & SINUS: normal facial exam and face symmetric NOSE: Normal external nose present and Normal nares present EXT ERNAL EAR: Yes external ears normal EXTERNAL AUDITORY CANAL: EAC's normal MOUTH: Normal oral and palatal mucosa present, lip normal and tongue normal Eye: COMMON NORMALS: Equal, round and reactive pupils present and conjunctivae normal GENERAL EYE: appearance normal, both eyes and all related structures ALIGNMENT: Yes alignment normal PERIORBITAL: periorbital findings normal EYELID: eyelids normal CONJUNCTIVA: Yes conjunctivae normal SCLERA: sclerae normal PUPIL: Yes Equal, round and reactive pupils present Neck/C-Spine: COMMON NORMALS: full ROM, no lymphadenopathy, supple, no meningeal signs and no JVD GENERAL: Yes normal visual inspection and Yes trachea midline Chest: COMMONS NORMALS: normal inspection of the chest and normal palpation of entire chest wall Resp: COMMON NORMALS: normal respiratory effort, No retractions, No use of accessory muscles and clear to auscultation bilaterally EFFORT & INSPECTION: Yes able to speak in complete sentences and Yes symmetric chest movement AUSCULTATION: clear to auscultation bilaterally, no crackles, no rales, no rhonchi and no wheezes Cardio: COMMON NORMALS: no JVD, regular rate, regular rhythm, S1 normal heart sound present and S2 normal heart sound present RATE: regular rate RHYTHM: regular rhythm HEART SOUNDS: S1 normal heart sound present, S2 normal heart sound present, no click, no gallops, no murmurs and no rubs GI: COMMON NORMALS: Soft to palpation and No hepatosplenomegaly present PALPATION: Yes Soft to palpation, No Tenderness to palpation present (GI), No Guarding due to palpation present (GI), No Rigid due to palpation, Yes No hepatosplenomegaly present, No Hernia present, No Palpable mass present and No Pulsatile mass present : COMMON NORMALS: Yes no CVA tenderness BLADDER/KIDNEY EXAM: Yes no CVA tenderness Back/Pelvis: COMMON NORMALS: no CVA tenderness, thoracic and lumbar spine normal to inspection, no thoracic nor lumbar tenderness and thoraco-lumbar ROM normal Extremity: COMMON NORMALS: normal to inspection, full ROM, capillary refill normal, no joint enlargement, no clubbing, cyanosis or edema and no calf tenderness Neuro: COMMON NORMALS: patient oriented x3, CN's II-XII intact bilaterally, moves all extremities, no focal motor deficits and no sensory deficits noted SENSORIUM/ORIENTATION: Yes alert MENINGEAL SIGNS: Yes no meningeal signs SPEECH: speech normal Psych: COMMON NORMALS: mental status grossly normal, Normal thought process present, cooperative, normal affect, speech normal and activity/motor behavior normal SPEECH: Yes normal speech THOUGHT PROCESS: Normal thought process present Skin: COMMON NORMALS: no rashes or lesions noted, turgor normal, no jaundice, no petechiae and no mottling GENERAL SKIN EXAM: no rashes or lesions noted and turgor normal Course Vital Signs: Vital signs: Vital Signs Temperature 98.0 F 12/28/19 13:04 Pulse Rate 101 H 12/28/19 16:11 Respiratory Rate 18 12/28/19 16:40 Blood Pressure 139/91 12/28/19 16:11 Pulse Oximetry 95 12/28/19 16:11 MDM - Chest Pain MDM Narrative: Medical decision making narrative: Len is a very nice 34-year-old male who comes in complaining of chest pain. He has no associated symptoms such as shortness of breath, nausea vomiting, diaphoresis or radiation of his pain. Patient had similar symptoms about 2 weeks ago and was seen here and once his blood pressure improved his symptoms resolved. The same thing has happened today. The patient has a heart score of 2. I have recommended and offered those secondary to his numerous risk factors and his repeat visit to admit him to the hospital for formal cardiac rule out and stress testing but he declines. He understands any type of heart problem can be life-threatening but at this time he states he wants to be discharged. He does agree to follow-up with his regular doctor on Tuesday to be rechecked and to schedule an outpatient stress test. Patient understands he is welcome to return here at any time should his symptoms return. Lab Data: Attestation: I reviewed the patient's lab results. Labs: Lab Results 12/28/19 12/28/19 12/28/19 Range/Units 14:21 15:05 15:05 WBC 9.0 (4.0-10.0) 10^3/ uL RBC 4.95 (4.1-5.3) 10^6/u L Hgb 12.7 (11.7-16.6) g/dL Hct 41.7 L (42.0-52.0) % MCV 84.2 (80-94) fL MCH 25.7 L (28.0-34.0) pg MCHC 30.5 (30.0-36.0) g/dL RDW 14.0 (12.1-15.1) % Plt Count 206 (130-400) 10^3/c mm MPV 9.8 (7.4-10.4) fL Neut % (Auto) 77.5 % Lymph % (Auto) 15.4 % [place] % (Auto) 4.6 % Eos % (Auto) 1.4 % Baso % (Auto) 0.2 % Neut # (Auto) 6.95 (1.8-7.7) 10^3/u L Lymph # (Auto) 1.4 (0.8-4.8) 10^3/u L [place] # (Auto) 0.4 (0.2-0.9) 10^3/u L Eos # (Auto) 0.1 (0.0-0.8) 10^3/u L Baso # (Auto) 0.0 (0.0-0.1) 10^3/u L Nucleated RBC % (a uto) 0 % Nucleated RBCs # 0.0 /100WBC PT 12.70 (12.1-14.9) SECO NDS INR 0.93 (0.8-1.2) D-Dimer 0.29 (0-0.59) ug/mIFE U Sodium (136-145) mmol/L Potassium (3.5-5.1) mmol/L Chloride (98-107) mmol/L Carbon Dioxide (22-29) mmol/L Anion Gap (5-19) BUN (6-20) mg/dL Creatinine (0.7-1.2) mg/dL GFR Calculation (90-130) mL/min Glucose (65-115) mg/dL Calculated Osmolal ity (285-295) mOsm/k g Lactic Acid (0.5-2.2) mmol/L Calcium (8.5-10.5) mg/dL Magnesium (1.7-2.3) mg/dL Total Bilirubin (0.15-1.2) mg/dL AST (0-40) U/L ALT (0-41) U/L Alkaline Phosphata se (40-130) IU/L Troponin T Baselin e (0-15) ng/L Troponin T 120 Min [place] (0-15) ng/L Delta Troponin T (0-10) ABS# NT-Pro-B Natriuret Pep (0-125) pg/mL Total Protein (6.6-8.7) g/dL Albumin (3.5-5.2) g/dL Globulin (1.3-4.6) g/dL Urine Color Yellow (Yellow) Urine Appearance Clear (CLEAR) Urine pH 5 (5-7) Ur Specific Gravit y 1.010 (1.005-1.030) Urine Protein Neg (Negative) Urine Glucose (UA) 4+ H (Normal) Urine Ketones Negative (Negative) Urine Blood Neg (Negative) Urine Nitrate Negative (Negative) Urine Bilirubin Neg (Negative) Urine Urobilinogen Norm (Negative) mg/dL Ur Leukocyte Divya ase Negative (Negative) 12/28/19 12/28/19 12/28/19 Range/Units 15:05 15:05 15:05 WBC (4.0-10.0) 10^3/ uL RBC (4.1-5.3) 10^6/u L Hgb (11.7-16.6) g/dL Hct (42.0-52.0) % MCV (80-94) fL MCH (28.0-34.0) pg MCHC (30.0-36.0) g/dL RDW (12.1-15.1) % Plt Count (130-400) 10^3/c mm MPV (7.4-10.4) fL Neut % (Auto) % Lymph % (Auto) % [place] % (Auto) % Eos % (Auto) % Baso % (Auto) % Neut # (Auto) (1.8-7.7) 10^3/u L Lymph # (Auto) (0.8-4.8) 10^3/u L [place] # (Auto) (0.2-0.9) 10^3/u L Eos # (Auto) (0.0-0.8) 10^3/u L Baso # (Auto) (0.0-0.1) 10^3/u L Nucleated RBC % (a uto) % Nucleated RBCs # /100WBC PT (12.1-14.9) SECO NDS INR (0.8-1.2) D-Dimer (0-0.59) ug/mIFE U Sodium 141 (136-145) mmol/L Potassium 3.4 L (3.5-5.1) mmol/L Chloride 100 (98-107) mmol/L Carbon Dioxide 28 (22-29) mmol/L Anion Gap 16.4 (5-19) BUN 19 (6-20) mg/dL Creatinine 0.7 (0.7-1.2) mg/dL GFR Calculation 129.1 (90-130) mL/min Glucose 143 H (65-115) mg/dL Calculated Osmolal ity 297 H (285-295) mOsm/k g Lactic Acid 2.1 (0.5-2.2) mmol/L Calcium 9.2 (8.5-10.5) mg/dL Magnesium 1.7 (1.7-2.3) mg/dL Total Bilirubin 0.2 (0.15-1.2) mg/dL AST 15 (0-40) U/L ALT 34 (0-41) U/L Alkaline Phosphata se 66 (40-130) IU/L Troponin T Baselin e 9 (0-15) ng/L Troponin T 120 Min [place] (0-15) ng/L Delta Troponin T (0-10) ABS# NT-Pro-B Natriuret Pep 61 (0-125) pg/mL Total Protein 7.0 (6.6-8.7) g/dL Albumin 4.2 (3.5-5.2) g/dL Globulin 2.8 (1.3-4.6) g/dL Urine Color (Yellow) Urine Appearance (CLEAR) Urine pH (5-7) Ur Specific Gravit y (1.005-1.030) Urine Protein (Negative) Urine Glucose (UA) (Normal) Urine Ketones (Negative) Urine Blood (Negative) Urine Nitrate (Negative) Urine Bilirubin (Negative) Urine Urobilinogen (Negative) mg/dL Ur Leukocyte Divya ase (Negative) 12/28/19 Range/Units 17:06 WBC (4.0-10.0) 10^3/ uL RBC (4.1-5.3) 10^6/u L Hgb (11.7-16.6) g/dL Hct (42.0-52.0) % MCV (80-94) fL MCH (28.0-34.0) pg MCHC (30.0-36.0) g/dL RDW (12.1-15.1) % Plt Count (130-400) 10^3/c mm MPV (7.4-10.4) fL Neut % (Auto) % Lymph % (Auto) % [place] % (Auto) % Eos % (Auto) % Baso % (Auto) % Neut # (Auto) (1.8-7.7) 10^3/u L Lymph # (Auto) (0.8-4.8) 10^3/u L [place] # (Auto) (0.2-0.9) 10^3/u L Eos # (Auto) (0.0-0.8) 10^3/u L Baso # (Auto) (0.0-0.1) 10^3/u L Nucleated RBC % (a uto) % Nucleated RBCs # /100WBC PT (12.1-14.9) SECO NDS INR (0.8-1.2) D-Dimer (0-0.59) ug/mIFE U Sodium (136-145) mmol/L Potassium (3.5-5.1) mmol/L Chloride (98-107) mmol/L Carbon Dioxide (22-29) mmol/L Anion Gap (5-19) BUN (6-20) mg/dL Creatinine (0.7-1.2) mg/dL GFR Calculation (90-130) mL/min Glucose (65-115) mg/dL Calculated Osmolal ity (285-295) mOsm/k g Lactic Acid (0.5-2.2) mmol/L Calcium (8.5-10.5) mg/dL Magnesium (1.7-2.3) mg/dL Total Bilirubin (0.15-1.2) mg/dL AST (0-40) U/L ALT (0-41) U/L Alkaline Phosphata se (40-130) IU/L Troponin T Baselin e (0-15) ng/L Troponin T [address] [place] 9.91 (0-15) ng/L Delta Troponin T 0.91 (0-10) ABS# NT-Pro-B Natriuret Pep (0-125) pg/mL Total Protein (6.6-8.7) g/dL Albumin (3.5-5.2) g/dL Globulin (1.3-4.6) g/dL Urine Color (Yellow) Urine Appearance (CLEAR) Urine pH (5-7) Ur Specific Gravit y (1.005-1.030) Urine Protein (Negative) Urine Glucose (UA) (Normal) Urine Ketones (Negative) Urine Blood (Negative) Urine Nitrate (Negative) Urine Bilirubin (Negative) Urine Urobilinogen (Negative) mg/dL Ur Leukocyte Divya ase (Negative) Imaging Data^: CXR: Attestation: I personally reviewed and interpreted this imaging study as follows: My impression: Cardiomegaly. No acute cardiopulmonary process. EKG Data^: EKG 1: Attestation: I personally reviewed and interpreted this EKG as follows: EKG interpretation date: 12/28/19 EKG interpretation time: 13:12 Interpretation: Normal sinus rhythm at 99 beats a minute, incomplete right bundle branch block, normal axis, nonspecific ST and T wave changes. EKG 2: Attestation: I personally reviewed and interpreted this EKG as follows: EKG interpretation date: 12/28/19 EKG interpretation time: 14:50 Interpretation: Normal sinus rhythm at 98 beats a minute, incomplete right bundle branch block, no acute ST-T wave changes. Discharge Plan Discharge Patient Disposition: Home Clinical Impression: Chest pain Qualifiers: Chest pain type: unspecified Qualified Code(s): R07.9 - Chest pain, unspecified Condition: Stable Prescriptions: No Action potassium chloride 10 mEq capsule, extended release 30 meq PO DAILY RF: 0 allopurinol 100 mg tablet 300 mg PO DAILY RF: 0 carvedilol 25 mg tablet 25 mg PO BID RF: 0 metformin 500 mg tablet 1,000 mg PO BID RF: 0 aspirin 325 mg tablet 325 mg PO DAILY RF: 0 (DME) oxygen-air delivery systems Device See Rx Instructions .ROUTE .MEDSUPPLY Qty: 1 RF: 0 omeprazole 20 mg capsule,delayed release(DR/EC) 20 mg PO DAILY RF: 0 Victoza 2-Colt 0.6 mg/0.1 mL (18 mg/3 mL) pen injector 1.8 mg SUBCUT QAM RF: 0 Lantus U-100 Insulin 100 unit/mL solution 60 unit SUBCUT QPM RF: 0 divalproex [Depakote ER] 500 mg tablet extended release 24 hr 500 mg PO BID Qty: 60 RF: 4 diazepam [Valium] 5 mg tablet 5 mg PO BID PRN (Reason: anxiety) Qty: 60 RF: 1 desvenlafaxine succinate [Pristiq] 50 mg tablet extended release 24 hr 50 mg PO DAILY RF: 0 atorvastatin 40 mg Tablet 80 mg PO DAILY RF: 0 clonidine [Usupkgtb-KWT-4] 0.3 mg/24 hr Patch Weekly 0.3 mg transdermal DIRECTED RF: 0 lisinopril 20 mg Tablet 40 mg PO DAILY RF: 0 fenofibrate 54 mg Tablet 160 mg PO DAILY RF: 0 Jardiance 10 mg tablet 10 mg PO DAILY RF: 0 cetirizine [Zyrtec] 10 mg Tablet 10 mg PO DAILY RF: 0 ferrous sulfate [iron] 325 mg (65 mg iron) Tablet 325 mg PO DAILY RF: 0 amlodipine 10 mg tablet 10 mg PO DAILY Qty: 30 RF: 0 Discharge Orders: Discharge Order (Routine); Ordered 12/28/19 Ordered By: Guillermina Hogan Referrals: Chad Jiménez DO [Primary Care Provider] - 1-3 days Discharge Diet: Cardiac Discharge Activity: Resume usual activity Patient Instructions: Chest Pain (ED) Activity Restrictions/Additional Instructions: Please return to the ER immediately for any of the signs or symptoms listed on your discharge instruction sheets, worsening/changing of your symptoms, you are not getting better as quickly as expected, or for ANY other cause or concerns. I have recommended and offered to admit you to the hospital for stress testing and for further evaluation and care but you have declined. As we have discussed any type of heart problem can be life-threatening so if you change your mind, your symptoms return, you develop shortness of breath, you pass out or nearly pass out, or you simply change your mind you are more than welcome to return here at any time for recheck and for further evaluation and care. Be certain to follow-up with your primary care physician as soon as possible to schedule an outpatient stress test. Coding Level of Care Code ED Silver Solution Mixer for Marie Fwd Exam Comprehensive
[2019-12-28] MEDS: labetalol 5 mg/mL SDV 20mL 10 MG IVP (13:53)
[2019-12-28 14:33] LABS: Add Urine Microscopic? NO
[2019-12-28 14:35] LABS: Bilirubin Urine Neg (Negative); Blood Urine Neg (Negative); Glucose Urine UA 4+ (Normal); Ketones Urine Negative (Negative); Leukocyte Esterase Urine Negative (Negative); Nitrate Urine Negative (Negative); Protein Urine Neg (Negative); Urine Appearance Clear (CLEAR); Urine Color Yellow (Yellow); Urobilinogen Urine Norm (Negative); pH Urine 5 (5-7)
--- NOTE | 2019-12-28 15:05 | ECG_ITS ---
[facility] Test Date: 2019-12-28 Pat Name: Len Sandoval Department: Room: Gender: Male [employer]: : 1985 Requested By: Guillermina Campos Order Number: [id number] Valdivia MD: Annika Degroot M.D. Measurements Intervals [place] Rate: 98 P: 46 MA: 165 QRS: 19 QRSD: 111 T: 31 QT: 342 QTc: 438 Interpretive Statements SINUS RHYTHM INCOMPLETE RIGHT BUNDLE BRANCH BLOCK [90+ ms QRS DURATION, TERMINAL R IN V1/V2, 40+ ms S IN I/aVL/V4/V5/V6] Compared to ECG 12/28/2019 13:12:05 No significant changes Electronically Signed On 12-29-2019 9:01:57 CDT by Annika Degroot M.D. [id number]
[2019-12-28 15:12] LABS: Basophils % 0.2 %; Eosinophils # 0.1 10^3/uL (0.0-0.8); Eosinophils % 1.4 %; Hematocrit 41.7 % (42.0-52.0); Hemoglobin 12.7 g/dL (11.7-16.6); Lymphocytes # 1.4 10^3/uL (0.8-4.8); Lymphocytes % 15.4 %; Mean Corpuscular HGB Conc 30.5 g/dL (30.0-36.0); Mean Corpuscular Hemoglobin 25.7 pg (28.0-34.0); Mean Corpuscular Volume 84.2 fL (80-94); Mean Platelet Volume 9.8 fL (7.4-10.4); Monocytes # 0.4 10^3/uL (0.2-0.9); Monocytes % 4.6 %; Neutrophils # 6.95 10^3/uL (1.8-7.7); Neutrophils % 77.5 %; Nucleated Red Blood Cells % 0 %; Platelet Count 206 10^3/cmm (130-400); Red Blood Count 4.95 10^6/uL (4.1-5.3)
[2019-12-28 15:22] LABS: INR 0.93 (0.8-1.2)
[2019-12-28 15:26] LABS: D Dimer 0.29 ug/mIFEU (0-0.59)
[2019-12-28 15:30] LABS: Troponin(5th) Baseline 9 ng/L (0-15)
[2019-12-28 15:39] LABS: Alanine Aminotransferase 34 U/L (0-41); Albumin Level 4.2 g/dL (3.5-5.2); Alkaline Phosphatase 66 IU/L (40-130); Anion Gap 16.4 (5-19); Aspartate Amino Transferase 15 U/L (0-40); Blood Urea Nitrogen 19 mg/dL (6-20); Calcium 9.2 mg/dL (8.5-10.5); Carbon Dioxide 28 mmol/L (22-29); Chloride 100 mmol/L (98-107); Globulin 2.8 g/dL (1.3-4.6); Glomerular Filtration Rate 129.1 mL/min (90-130); Glucose 143 mg/dL (65-115); Magnesium 1.7 mg/dL (1.7-2.3); NT Pro B Type Natriuretic Pept 61 pg/mL (0-125); Osmolality Calculated 297 mOsm/kg (285-295); Potassium 3.4 mmol/L (3.5-5.1); Sodium 141 mmol/L (136-145); Total Bilirubin 0.2 mg/dL (0.15-1.2)
[2019-12-28 16:29] LABS: Lactic Sepsis W/Reflex 2.1 mmol/L (0.5-2.2)
[2019-12-28] MEDS: potassium chloride ER 10 mEq Tablet 40 MEQ PO (16:46)
--- NOTE | 2019-12-28 16:52 | PC.NURSE ---
patient swabbed for COVID at this time
[2019-12-28 16:55] LABS: Reflex Lactate Order REFLEX LACTIC ORDERD
[2019-12-28 17:33] LABS: Troponin 5 2HR 9.91 ng/L (0-15); Troponin 5 2HR Delta 0.91 ABS# (0-10)
== END 2019-12-28 17:54 | disposition home or self-care (01) ==
PROVIDERS: Emergency Provider Emergency Medicine; PCP Electrodiagnostic Medicine
DX: R07.9 Chest pain, unspecified (principal); Z79.82 Long term (current) use of aspirin; Z79.4 Long term (current) use of insulin; Z87.891 Personal history of nicotine dependence; E11.9 Type 2 diabetes mellitus without complications; I10 Essential (primary) hypertension
CPT/HCPCS: 12345; 36415; 71045; 80053; 81003; 83605; 83735; 83880; 84484; 85025; 85378; 85610; 93005; 96374; 96375; 99283; 99284; J3490

== ENCOUNTER → 2020-02-19 07:52 | Outpatient (BNVA) | payer MEDICAID, SELFPAY | PROVIDERS: PCP Electrodiagnostic Medicine; Referring Provider Internal Medicine Cardiovascular Disease; Visit Provider Internal Medicine | DX: E11.42 Type 2 diabetes mellitus with diabetic polyneuropathy (principal); Z79.4 Long term (current) use of insulin; E66.01 Morbid (severe) obesity due to excess calories; Z68.44 Body mass index [BMI] 60.0-69.9, adult; E87.6 Hypokalemia; I10 Essential (primary) hypertension; R23.8 Other skin changes | CPT/HCPCS: 99204 ==

== ENCOUNTER 2020-03-11 14:40 | Emergency (ER) | payer MEDICAID, SELFPAY ==
[2020-03-11 14:44] VITALS: BP 165/98; PULSE 96; RESP 18; TEMP 36.6; O2SAT 94; BMI 60.9
[2020-03-11 15:00] VITALS: BP 165/84; PULSE 93; RESP 20; O2SAT 96
--- NOTE | 2020-03-11 15:04 | W.ED.RECABL ---
HPI - Recheck/Abnormal Lab/Rx General: Chief Complaint: Recheck/Abnormal Lab/Rx Stated Complaint: 2.2 Potassium Level Time Seen by Provider: 03/11/20 14:55 Source: patient Mode of arrival: ambulatory Limitations: no limitations History of Present Illness: HPI narrative: 34-year-old male has a history of low potassium. States his PCP called him today and he had blood work 1 week ago showed a potassium level 2.2 and wanted him to come back and get rechecked. He denies feeling any weakness and denies any vomiting or diarrhea. He states he did run out of his potassium replacement pills 2 days ago. Denies any other complaints. Review of Systems Const: Denies: fever(s), chills, body aches or change in appetite Eyes: Denies: blurry vision or eye discomfort ENMT: Denies: throat pain or dental pain Card: Denies: chest pain Resp: Denies: dyspnea GI: Denies: abdominal pain, nausea, vomiting or diarrhea : Denies: dysuria Musc: Denies: neck pain or back pain Skin/Breast: Denies: rash Neuro: Denies: headache(s) Psych: Denies: depression Alexander/Lymph: Denies: easy bruising All/Imm: Denies: urticaria PFSH ED PFSH: Medical History (Updated 03/11/20 @ 16:16 by Vanessa Townsend MD) Bipolar II disorder Diabetes mellitus Gastroenteritis Generalized anxiety disorder High cholesterol History of adverse reaction to tissue plasminogen activator (tPA) HTN (hypertension) Hx of secondary hypertension Obesity Obstructive sleep apnea hypopnea, severe Panic disorder without agoraphobia Post-traumatic stress disorder, chronic Surgical History History of esophagogastroduodenoscopy (EGD) (~04/2019) History of tonsillectomy and adenoidectomy Family History Denies family history of Anesthesia complication Bleeding disorder Social History Smoking and tobacco status: former smoker Quit status (tobacco): has quit using tobacco Year quit tobacco: 2010 Second hand smoke exposure: Yes Alcohol intake: never Desire information about alcohol rehabilitation?: No Desire information about substance/drug rehabilitation?: No Adopted: No Caregiver/support person: Yes Lives independently: Yes Household members: family Housing: House Marital status: Single Highest education level completed: High School Graduate service: No Current occupational status: disabled Current occupational exposures/hazards: No Pets and animals: Yes Pets & animals: cat(s) History of recent travel: No Sexually active: No Current gender identity: Male Karolina/Scientologist: Christianity Special karolina needs: No Agree to transfusion: No Financial difficulty paying for basics: Decline to Answer Physical Exam Const: COMMON NORMALS: no acute distress, patient oriented x3 and healthy appearing HENMT: COMMON NORMALS: normocephalic and atraumatic HEAD & SCALP: normocephalic and atraumatic Eye: COMMON NORMALS: Equal, round and reactive pupils present and EOMs intact bilaterally PUPIL: Yes Equal, round and reactive pupils present Neck/C-Spine: COMMON NORMALS: full ROM and supple Chest: COMMONS NORMALS: normal inspection of the chest and normal palpation of entire chest wall Resp: COMMON NORMALS: normal respiratory effort, No retractions, No use of accessory muscles and clear to auscultation bilaterally AUSCULTATION: clear to auscultation bilaterally Cardio: COMMON NORMALS: regular rate, regular rhythm and No murmurs present (Cardio) RATE: regular rate RHYTHM: regular rhythm GI: COMMON NORMALS: Normal to inspection, nondistended, normoactive bowel sounds present, Soft to palpation, non-tender and no masses PALPATION: Yes Soft to palpation Extremity: COMMON NORMALS: normal to inspection and full ROM Neuro: COMMON NORMALS: patient oriented x3, moves all extremities and no focal motor deficits Psych: COMMON NORMALS: mental status grossly normal, Normal thought process present and cooperative THOUGHT PROCESS: Normal thought process present Skin: COMMON NORMALS: no rashes or lesions noted and no wounds GENERAL SKIN EXAM: no rashes or lesions noted Course Vital Signs: Vital signs: Vital Signs Temperature 97.9 F 03/11/20 14:44 Pulse Rate 96 03/11/20 16:02 Respiratory Rate 20 H 03/11/20 16:02 Blood Pressure 144/71 03/11/20 16:02 Pulse Oximetry 96 03/11/20 16:02 MDM - Recheck/Abnormal Lab/Rx MDM Narrative: Medical decision making narrative: Len presents here with hypokalemia with his potassium level is improved with own is 3.2 here. Will risk prescribe him his potassium and he is stable for discharge. Lab Data: Labs: Lab Results 03/11/20 03/11/20 Range/Units 15:08 15:08 WBC 10.5 H (4.0-10.0) 10^3/ uL RBC 4.67 (4.1-5.3) 10^6/u L Hgb 12.1 (11.7-16.6) g/dL Hct 38.9 L (42.0-52.0) % MCV 83.3 (80-94) fL MCH 25.9 L (28.0-34.0) pg MCHC 31.1 (30.0-36.0) g/dL RDW 14.7 (12.1-15.1) % Plt Count 209 (130-400) 10^3/c mm MPV 9.7 (7.4-10.4) fL Neut % (Auto) 81.8 % Lymph % (Auto) 11.5 % [place] % (Auto) 4.7 % Eos % (Auto) 1.1 % Baso % (Auto) 0.2 % Neut # (Auto) 8.58 H (1.8-7.7) 10^3/u L Lymph # (Auto) 1.2 (0.8-4.8) 10^3/u L [place] # (Auto) 0.5 (0.2-0.9) 10^3/u L Eos # (Auto) 0.1 (0.0-0.8) 10^3/u L Baso # (Auto) 0.0 (0.0-0.1) 10^3/u L Nucleated RBC % (a uto) 0 % Nucleated RBCs # 0.0 /100WBC Sodium 140 (136-145) mmol/L Potassium 3.2 L (3.5-5.1) mmol/L Chloride 97 L (98-107) mmol/L Carbon Dioxide 31 H (22-29) mmol/L Anion Gap 15.2 (5-19) BUN 23 H (6-20) mg/dL Creatinine 1.0 (0.7-1.2) mg/dL GFR Calculation 85.5 L (90-130) mL/min Glucose 261 H (65-115) mg/dL Calculated Osmolal ity 303 H (285-295) mOsm/k g Calcium 9.2 (8.5-10.5) mg/dL Magnesium 1.7 (1.7-2.3) mg/dL Total Bilirubin 0.2 (0.15-1.2) mg/dL AST 37 (0-40) U/L ALT 70 H (0-41) U/L Alkaline Phosphata se 60 (40-130) IU/L Total Protein 6.8 (6.6-8.7) g/dL Albumin 4.3 (3.5-5.2) g/dL Globulin 2.5 (1.3-4.6) g/dL Discharge Plan Discharge Patient Disposition: Home Clinical Impression: Hypokalemia Condition: Stable Prescriptions: Continued potassium chloride 10 mEq capsule, extended release 30 meq PO DAILY Qty: 60 RF: 0 No Action allopurinol 100 mg tablet 300 mg PO DAILY RF: 0 carvedilol 25 mg tablet 25 mg PO BID RF: 0 aspirin 325 mg tablet 325 mg PO DAILY RF: 0 (DME) oxygen-air delivery systems Device See Rx Instructions .ROUTE .MEDSUPPLY Qty: 1 RF: 0 omeprazole 20 mg capsule,delayed release(DR/EC) 20 mg PO DAILY RF: 0 Victoza 2-Colt 0.6 mg/0.1 mL (18 mg/3 mL) pen injector 1.8 mg SUBCUT QAM RF: 0 Lantus U-100 Insulin 100 unit/mL solution 65 unit SUBCUT QPM RF: 0 divalproex [Depakote ER] 500 mg tablet extended release 24 hr 500 mg PO BID Qty: 60 RF: 4 diazepam [Valium] 5 mg tablet 5 mg PO BID PRN (Reason: anxiety) Qty: 60 RF: 1 desvenlafaxine succinate [Pristiq] 50 mg tablet extended release 24 hr 50 mg PO DAILY RF: 0 hydralazine 50 mg tablet 50 mg PO TID RF: 0 chlorthalidone 25 mg tablet 25 mg PO DAILY RF: 0 metformin 1,000 mg tablet 1,000 mg PO BID RF: 0 cyclobenzaprine 10 mg tablet 10 mg PO BID RF: 0 (DME) [employer] G6 Sensor Device See Rx Instructions .ROUTE .MEDSUPPLY Qty: 3 RF: 0 (DME) Dexcom G6 Transmitter Device See Rx Instructions .ROUTE .MEDSUPPLY Qty: 1 RF: 0 isosorbide mononitrate 30 mg tablet extended release 24 hr 30 mg PO DAILY Qty: 30 RF: 5 atorvastatin 40 mg Tablet 80 mg PO DAILY RF: 0 clonidine [Lifjrvct-MNE-8] 0.3 mg/24 hr Patch Weekly 0.3 mg transdermal DIRECTED RF: 0 lisinopril 20 mg Tablet 40 mg PO DAILY RF: 0 fenofibrate 54 mg Tablet 160 mg PO DAILY RF: 0 Jardiance 10 mg tablet 10 mg PO DAILY RF: 0 cetirizine [Zyrtec] 10 mg Tablet 10 mg PO DAILY PRN (Reason: Allergy Symptoms) RF: 0 amlodipine 10 mg tablet 10 mg PO DAILY Qty: 30 RF: 0 Discharge Orders: Discharge ED (Routine); Ordered 03/11/20 Ordered By: Vanessa Townsend Referrals: Chad Jiménez DO [Primary Care Provider] - 1-3 days Discharge Diet: Advance as tolerated Discharge Activity: Resume usual activity Patient Instructions: Hypokalemia (ED) Coding Level of Care Code ED Cit[employer] Fruit Packer for Bennieg Fwd Exam Comprehensive
[2020-03-11] MEDS: potassium chloride ER 20 mEq Tablet 40 MEQ PO (15:11)
[2020-03-11 15:14] LABS: Basophils % 0.2 %; Eosinophils # 0.1 10^3/uL (0.0-0.8); Eosinophils % 1.1 %; Hematocrit 38.9 % (42.0-52.0); Hemoglobin 12.1 g/dL (11.7-16.6); Lymphocytes # 1.2 10^3/uL (0.8-4.8); Lymphocytes % 11.5 %; Mean Corpuscular HGB Conc 31.1 g/dL (30.0-36.0); Mean Corpuscular Hemoglobin 25.9 pg (28.0-34.0); Mean Corpuscular Volume 83.3 fL (80-94); Mean Platelet Volume 9.7 fL (7.4-10.4); Monocytes # 0.5 10^3/uL (0.2-0.9); Monocytes % 4.7 %; Neutrophils # 8.58 10^3/uL (1.8-7.7); Neutrophils % 81.8 %; Nucleated Red Blood Cells % 0 %; Platelet Count 209 10^3/cmm (130-400); Red Blood Count 4.67 10^6/uL (4.1-5.3); Red Cell Distribution Width 14.7 % (12.1-15.1); White Blood Count 10.5 10^3/uL (4.0-10.0)
[2020-03-11 16:02] VITALS: BP 144/71; PULSE 96; RESP 20; O2SAT 96
[2020-03-11 16:10] LABS: Alanine Aminotransferase 70 U/L (0-41); Albumin Level 4.3 g/dL (3.5-5.2); Alkaline Phosphatase 60 IU/L (40-130); Anion Gap 15.2 (5-19); Aspartate Amino Transferase 37 U/L (0-40); Blood Urea Nitrogen 23 mg/dL (6-20); Calcium 9.2 mg/dL (8.5-10.5); Carbon Dioxide 31 mmol/L (22-29); Chloride 97 mmol/L (98-107); Globulin 2.5 g/dL (1.3-4.6); Glomerular Filtration Rate 85.5 mL/min (90-130); Glucose 261 mg/dL (65-115); Magnesium 1.7 mg/dL (1.7-2.3); Osmolality Calculated 303 mOsm/kg (285-295); Potassium 3.2 mmol/L (3.5-5.1); Sodium 140 mmol/L (136-145); Total Bilirubin 0.2 mg/dL (0.15-1.2); Total Protein 6.8 g/dL (6.6-8.7)
[2020-03-11 16:54] VITALS: BP 163/91; PULSE 97; RESP 20; TEMP 37.1; O2SAT 96
== END 2020-03-11 16:57 | disposition home or self-care (01) ==
PROVIDERS: Emergency Provider Emergency Medicine; PCP Electrodiagnostic Medicine
DX: E87.6 Hypokalemia (principal); Z79.82 Long term (current) use of aspirin; Z79.4 Long term (current) use of insulin; E11.9 Type 2 diabetes mellitus without complications; I10 Essential (primary) hypertension; Z87.891 Personal history of nicotine dependence
CPT/HCPCS: 12345; 80053; 83735; 85025; 99281; 99283

== ENCOUNTER 2020-03-31 21:42 | Emergency (ER) | payer MEDICAID, SELFPAY ==
[2020-03-31 21:48] VITALS: BP 145/81; PULSE 138; RESP 18; TEMP 36.6; O2SAT 94; BMI 60.9
[2020-04-01 00:10] LABS: Urine Appearance Cloudy (CLEAR); Urine Color Yellow (Yellow); pH Urine 5 (5-7)
[2020-04-01 00:11] LABS: Add Urine Culture? Yes; Bacteria Urine 1+ /hpf; Bilirubin Urine Neg (Negative); Blood Urine 2+ (Negative); Glucose Urine UA 4+ (Normal); Ketones Urine Negative (Negative); Leukocyte Esterase Urine 1+ (Negative); Nitrate Urine Negative (Negative); Protein Urine Neg (Negative); RBC Urine 0-4 /hpf (0-2); Squamous Epithelial Cell Urine 0-4 /hpf (0-5); Urobilinogen Urine Norm (Negative); WBC Urine 55-80 /hpf (0-5)
== END 2020-04-01 01:15 | disposition home or self-care (01) ==
LOC: ER 21:48
PROVIDERS: Emergency Medicine; PCP Electrodiagnostic Medicine
DX: Z53.21 Procedure and treatment not carried out due to patient leaving prior to being seen by health care provider (principal)
CPT/HCPCS: 81001; 87077; 87086; 87186; 99281

== ENCOUNTER → 2020-04-01 17:45 | Outpatient (BNVA) | payer MEDICAID, SELFPAY | PROVIDERS: PCP Electrodiagnostic Medicine | DX: R39.9 Unspecified symptoms and signs involving the genitourinary system (principal); N39.0 Urinary tract infection, site not specified; R31.9 Hematuria, unspecified | CPT/HCPCS: 81000; 87086 ==

== ENCOUNTER → 2020-04-02 08:21 | Outpatient (BNVA) | payer MEDICAID, SELFPAY | PROVIDERS: PCP Electrodiagnostic Medicine; Visit Provider Internal Medicine | DX: E11.42 Type 2 diabetes mellitus with diabetic polyneuropathy (principal); Z79.4 Long term (current) use of insulin; E66.01 Morbid (severe) obesity due to excess calories; Z68.44 Body mass index [BMI] 60.0-69.9, adult; I10 Essential (primary) hypertension; R23.8 Other skin changes; R63.5 Abnormal weight gain | CPT/HCPCS: 99213 ==

== ENCOUNTER 2020-05-19 03:30 | Inpatient (IN) | payer MEDICAID, SELFPAY ==
[2020-05-19] VITALS (68 sets, daily range): BP systolic 114–198; BP diastolic 76–127; PULSE 72–100; RESP 12–30; TEMP 36.2–36.6; O2SAT 93–100; BMI 60.0
--- NOTE | 2020-05-19 03:42 | ECG_ITS ---
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: : 1985 Requested By: Quintin Lima Order Number: [id number] Skip MD: LIANG COREA Measurements Intervals [place] Rate: 89 P: 40 ND: 152 QRS: 15 QRSD: 112 T: 52 QT: 360 QTc: 439 Interpretive Statements SINUS RHYTHM INCOMPLETE RIGHT BUNDLE BRANCH BLOCK [90+ ms QRS DURATION, TERMINAL R IN V1/V2, 40+ ms S IN I/aVL/V4/V5/V6] INTERPRETATION BASED ON A DEFAULT AGE OF 40 YEARS Compared to ECG 12/28/2019 14:50:07 No significant changes Electronically Signed On 05-19-2020 19:30:48 LEPIDOPTERIST by LIANG COREA [id number] f
--- NOTE | 2020-05-19 03:42 | XRR_ITS ---
PROCEDURE INFORMATION: Exam: XR Chest, 1 View Exam date and time: 05/19/2020 3:56 AM Age: 34 years old Clinical indication: Shortness of breath; Chest pain; Type not specified; Additional info: Cp TECHNIQUE: Imaging protocol: XR of the chest Views: 1 view. COMPARISON: CR XR chest 1V portable [id number] 12/28/2019 1:10 PM FINDINGS: Lungs: Unremarkable. No consolidation. Pleural spaces: Unremarkable. No pleural effusion. No pneumothorax. Heart/Mediastinum: The heart is normal for the AP semi lordotic projection. Bones/joints: Unremarkable. XR/XR chest 1V portable [id number] IMPRESSION: No significant cardiopulmonary abnormality.
--- NOTE | 2020-05-19 03:51 | PC.NURSE ---
EKG taken and given to ED physician
[2020-05-19 04:00] LABS: Basophils % 0.3 %; Eosinophils # 0.2 10^3/uL (0.0-0.8); Eosinophils % 1.7 %; Hematocrit 40.2 % (42.0-52.0); Hemoglobin 12.6 g/dL (11.7-16.6); Lymphocytes # 1.6 10^3/uL (0.8-4.8); Lymphocytes % 18.3 %; Mean Corpuscular HGB Conc 31.3 g/dL (30.0-36.0); Mean Corpuscular Hemoglobin 25.5 pg (28.0-34.0); Mean Corpuscular Volume 81.4 fL (80-94); Mean Platelet Volume 10.2 fL (7.4-10.4); Monocytes # 0.5 10^3/uL (0.2-0.9); Neutrophils # 6.67 10^3/uL (1.8-7.7); Neutrophils % 74.3 %; Nucleated Red Blood Cells % 0 %; Platelet Count 227 10^3/cmm (130-400); Red Blood Count 4.94 10^6/uL (4.1-5.3); Red Cell Distribution Width 14.6 % (12.1-15.1)
[2020-05-19] MEDS: aspirin 325 mg Tablet PO (04:11)
[2020-05-19 04:12] LABS: INR 1.04 (0.8-1.2)
[2020-05-19] MEDS: nitroglycerin 1 gm/inch oint Pkt 2 INCH TOPICAL (04:12)
[2020-05-19 04:13] LABS: Partial Thromboplastin Time 32.5 SECONDS (23.9-36.7)
[2020-05-19] MEDS: morphine 4 mg/mL SDV 1 mL IVP ×4 (04:13→21:50)
[2020-05-19 04:15] LABS: D Dimer 0.29 ug/mIFEU (0-0.59)
[2020-05-19] MEDS: labetalol 5 mg/mL SDV 20mL 20 MG IVP (04:15)
[2020-05-19 04:22] LABS: Troponin(5th) Baseline 9 ng/L (0-15)
[2020-05-19 04:30] LABS: Alanine Aminotransferase 35 U/L (0-41); Albumin Level 4.3 g/dL (3.5-5.2); Alkaline Phosphatase 49 IU/L (40-130); Anion Gap 16.6 (5-19); Aspartate Amino Transferase 15 U/L (0-40); Blood Urea Nitrogen 21 mg/dL (6-20); Calcium 8.8 mg/dL (8.5-10.5); Carbon Dioxide 30 mmol/L (22-29); Chloride 96 mmol/L (98-107); Globulin 2.5 g/dL (1.3-4.6); Glomerular Filtration Rate 85.5 mL/min (90-130); Glucose 126 mg/dL (65-115); Lipase 67 U/L (13-60); NT Pro B Type Natriuretic Pept 103 pg/mL (0-125); Osmolality Calculated 293 mOsm/kg (285-295); Potassium 3.6 mmol/L (3.5-5.1); Sodium 139 mmol/L (136-145); Total Bilirubin 0.3 mg/dL (0.15-1.2); Total Protein 6.8 g/dL (6.6-8.7)
--- NOTE | 2020-05-19 04:50 | W.ED.CHESTPA ---
HPI - Chest Pain General: Chief Complaint: Chest Pain Stated Complaint: cp/sob Time Seen by Provider: 05/19/20 03:54 History of Present Illness: HPI narrative: 34-year-old morbidly obese male with a history of difficult to treat hypertension, and evidently history of CVA presents with chest discomfort. He notes it was around 3 when it started. He has some shortness of breath as well. No fever, no cough. No new swelling. MD complaint: chest pain Pertinent past history: other Onset (ago): hour(s) Timing of current episode: constant Prior episodes: Yes Onset: during rest Pain location: substernal and left chest Pain radiation: left arm Severity: severe Quality: tightness and aching Relieving factors: nothing Exacerbating factors: nothing Associated symptoms: Reports dyspnea and nausea; Deny diaphoresis, fever(s), leg edema, palpitations, syncope or vomiting Review of Systems Const: Denies: fever(s) or diaphoresis Card: Reports: chest pain; Denies: palpitations, irregular heart rhythm or syncope Resp: Reports: dyspnea GI: Reports: nausea; Denies: vomiting : Denies: flank pain or difficulty urinating Neuro: Reports: dizziness; Denies: headache(s) or confusion PFSH ED PFSH: Medical History (Updated 05/19/20 @ 05:17 by Quintin Alanis DO) Bipolar II disorder Diabetes mellitus Gastroenteritis Generalized anxiety disorder High cholesterol History of adverse reaction to tissue plasminogen activator (tPA) HTN (hypertension) Hx of secondary hypertension Obesity Obstructive sleep apnea hypopnea, severe Panic disorder without agoraphobia Post-traumatic stress disorder, chronic Surgical History History of esophagogastroduodenoscopy (EGD) (~04/2019) History of tonsillectomy and adenoidectomy Family History Denies family history of Anesthesia complication Bleeding disorder Social History Smoking and tobacco status: former smoker Quit status (tobacco): has quit using tobacco Year quit tobacco: 2010 Second hand smoke exposure: Yes Alcohol intake: never Desire information about alcohol rehabilitation?: No Desire information about substance/drug rehabilitation?: No Adopted: No Caregiver/support person: Yes Lives independently: Yes Household members: family Housing: House Marital status: Single Highest education level completed: High School Graduate service: No Current occupational status: disabled Current occupational exposures/hazards: No Pets and animals: Yes Pets & animals: cat(s) History of recent travel: No Sexually active: No Current gender identity: Male Karolina/Lutheran: Worship Special karolina needs: No Agree to transfusion: No Financial difficulty paying for basics: Decline to Answer Physical Exam Const: COMMON NORMALS: patient oriented x3 and alert GENERAL APPEARANCE: anxious and ill appearing NUTRITIONAL APPEARANCE: obese morbidly obese ORIENTATION/CONSCIOUSNESS: Yes oriented to person and Yes oriented to place Eye: COMMON NORMALS: Equal, round and reactive pupils present and EOMs intact bilaterally PUPIL: Yes Equal, round and reactive pupils present Chest: COMMONS NORMALS: normal inspection of the chest Resp: COMMON NORMALS: normal respiratory effort, No use of accessory muscles and clear to auscultation bilaterally AUSCULTATION: clear to auscultation bilaterally Cardio: COMMON NORMALS: regular rate and regular rhythm RATE: regular rate RHYTHM: regular rhythm GI: COMMON NORMALS: Normal to inspection, nondistended, normoactive bowel sounds present and Soft to palpation PALPATION: Yes Soft to palpation and No Tenderness to palpation present (GI) PERCUSSION: normal to percussion Neuro: COMMON NORMALS: patient oriented x3 SENSORIUM/ORIENTATION: Yes alert, Yes oriented to person and Yes oriented to place CRANIAL NERVES: Yes CN normal except as noted SPEECH: speech normal SENSORY EXAM: Yes extremities (intact) Psych: COMMON NORMALS: mental status grossly normal Course Consultations: Consultation #1: Gurdeep Time: 05:39 Vital Signs: Vital signs: Vital Signs Temperature 97.6 F 05/19/20 03:33 Pulse Rate 87 05/19/20 04:21 Respiratory Rate 18 05/19/20 05:19 Blood Pressure 198/127 05/19/20 04:21 Pulse Oximetry 98 05/19/20 05:19 MDM - Chest Pain MDM Narrative: Medical decision making narrative: 34-year-old morbidly obese male with chest discomfort radiating into his left shoulder. He was quite hypertensive on arrival. Blood pressure down to 163/97. Heart rate 85. His D-dimer is negative hemoglobin 12.6, white blood cell count 9. No infiltrate on chest x-ray. He does have mild heart enlargement. His troponin is 9. His EKG shows a sinus rhythm with an incomplete right bundle branch block and no acute ST changes. His pain was relieved originally, but then began to come back. He will be given a GI cocktail to see if it helps his symptoms. GI cocktail did not seem to help his pain. Blood pressure still 181/113. Patient is clutching his chest. Starting a nitroglycerin drip. He will have to be admitted Lab Data: Labs: Lab Results 05/19/20 05/19/20 05/19/20 Range/Units 03:52 03:52 03:52 WBC 9.0 (4.0-10.0) 10^3/ uL RBC 4.94 (4.1-5.3) 10^6/u L Hgb 12.6 (11.7-16.6) g/dL Hct 40.2 L (42.0-52.0) % MCV 81.4 (80-94) fL MCH 25.5 L (28.0-34.0) pg MCHC 31.3 (30.0-36.0) g/dL RDW 14.6 (12.1-15.1) % Plt Count 227 (130-400) 10^3/c mm MPV 10.2 (7.4-10.4) fL Neut % (Auto) 74.3 % Lymph % (Auto) 18.3 % [place] % (Auto) 5.0 % Eos % (Auto) 1.7 % Baso % (Auto) 0.3 % Neut # (Auto) 6.67 (1.8-7.7) 10^3/u L Lymph # (Auto) 1.6 (0.8-4.8) 10^3/u L [place] # (Auto) 0.5 (0.2-0.9) 10^3/u L Eos # (Auto) 0.2 (0.0-0.8) 10^3/u L Baso # (Auto) 0.0 (0.0-0.1) 10^3/u L Nucleated RBC % (a uto) 0 % Nucleated RBCs # 0.0 /100WBC PT 13.90 (12.1-14.9) SECO NDS INR 1.04 (0.8-1.2) APTT 32.5 (23.9-36.7) SECO NDS D-Dimer 0.29 (0-0.59) ug/mIFE U Sodium 139 (136-145) mmol/L Potassium 3.6 (3.5-5.1) mmol/L Chloride 96 L (98-107) mmol/L Carbon Dioxide 30 H (22-29) mmol/L Anion Gap 16.6 (5-19) BUN 21 H (6-20) mg/dL Creatinine 1.0 (0.7-1.2) mg/dL GFR Calculation 85.5 L (90-130) mL/min Glucose 126 H (65-115) mg/dL Calculated Osmolal ity 293 (285-295) mOsm/k g Calcium 8.8 (8.5-10.5) mg/dL Total Bilirubin 0.3 (0.15-1.2) mg/dL AST 15 (0-40) U/L ALT 35 (0-41) U/L Alkaline Phosphata se 49 (40-130) IU/L Troponin T Baselin e (0-15) ng/L NT-Pro-B Natriuret Pep 103 (0-125) pg/mL Total Protein 6.8 (6.6-8.7) g/dL Albumin 4.3 (3.5-5.2) g/dL Globulin 2.5 (1.3-4.6) g/dL Lipase 67 H (13-60) U/L 05/19/20 Range/Units 03:52 WBC (4.0-10.0) 10^3/ uL RBC (4.1-5.3) 10^6/u L Hgb (11.7-16.6) g/dL Hct (42.0-52.0) % MCV (80-94) fL MCH (28.0-34.0) pg MCHC (30.0-36.0) g/dL RDW (12.1-15.1) % Plt Count (130-400) 10^3/c mm MPV (7.4-10.4) fL Neut % (Auto) % Lymph % (Auto) % [place] % (Auto) % Eos % (Auto) % Baso % (Auto) % Neut # (Auto) (1.8-7.7) 10^3/u L Lymph # (Auto) (0.8-4.8) 10^3/u L [place] # (Auto) (0.2-0.9) 10^3/u L Eos # (Auto) (0.0-0.8) 10^3/u L Baso # (Auto) (0.0-0.1) 10^3/u L Nucleated RBC % (a uto) % Nucleated RBCs # /100WBC PT (12.1-14.9) SECO NDS INR (0.8-1.2) APTT (23.9-36.7) SECO NDS D-Dimer (0-0.59) ug/mIFE U Sodium (136-145) mmol/L Potassium (3.5-5.1) mmol/L Chloride (98-107) mmol/L Carbon Dioxide (22-29) mmol/L Anion Gap (5-19) BUN (6-20) mg/dL Creatinine (0.7-1.2) mg/dL GFR Calculation (90-130) mL/min Glucose (65-115) mg/dL Calculated Osmolal ity (285-295) mOsm/k g Calcium (8.5-10.5) mg/dL Total Bilirubin (0.15-1.2) mg/dL AST (0-40) U/L ALT (0-41) U/L Alkaline Phosphata se (40-130) IU/L Troponin T Baselin e 9 (0-15) ng/L NT-Pro-B Natriuret Pep (0-125) pg/mL Total Protein (6.6-8.7) g/dL Albumin (3.5-5.2) g/dL Globulin (1.3-4.6) g/dL Lipase (13-60) U/L Discharge Plan Discharge Patient Disposition: Admitted As Inpatient Clinical Impression: HTN (hypertension) Qualifiers: Hypertension type: essential hypertension Qualified Code(s): I10 - Essential (primary) hypertension Chest pain Qualifiers: Chest pain type: precordial pain Qualified Code(s): R07.2 - Precordial pain Condition: Stable Coding Level of Care Code ED Captain [place]ery Tender for g Fwd Exam Comprehensive
[2020-05-19] MEDS: lidocaine 2% viscous 15 ML, aluminum-mag hydrox-simethicon 30 ML, sucralfate oral liq 1 GM PO (05:18)
--- NOTE | 2020-05-19 05:42 | ECG_ITS ---
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 Worker: : 1985 Requested By: Quintin Lima Order Number: [id number] Reading MD: LIANG COREA Measurements Intervals [place] Rate: 91 P: 49 WV: 171 QRS: 25 QRSD: 120 T: 53 QT: 374 QTc: 461 Interpretive Statements SINUS RHYTHM POSSIBLE RIGHT VENTRICULAR CONDUCTION DELAY [RSR (QR) IN V1/V2] Compared to ECG 05/19/2020 03:36:48 Incomplete right bundle-branch block no longer present Electronically Signed On 05-19-2020 19:37:19 RESIDENTIAL DIRECT SUPPORT PROFESSIONAL by LIANG COREA [id number]
[2020-05-19] MEDS: nitroglycerin drip 50 MG/250 ML PREMIX IV (05:58)
--- NOTE | 2020-05-19 06:38 | PM.HP ---
Providers/Chief Complaint Primary Care Provider: Chad Jiménez DO Chief Complaint: cp/sob History of Present Illness Len Sandoval is a 34 year old male morbidly obese with a history of hypertension, obstructive sleep apnea and diabetes mellitus type 2 who presented to the emergency department with a complaint of shortness of breath and chest pain. Patient reported experiencing intermittent chest pain which became worse last night. He rated intensity as 10/10, no known relieving or aggravating factors. He stated his chest pain radiated to involve his left arm. He denied any palpitation or diaphoresis. His systolic blood pressure in the ED was elevated to 183 and did not respond to a dose of IV labetalol. He is on a cocktail of antihypertensives at home. His chest x-ray is unremarkable, EKG demonstrates sinus rhythm with nonspecific ST-T changes. Initial troponin is negative. Patient was still complaining of chest pain and rated it at 7/10 during my examination in the ED. He is started on nitroglycerin drip. Patient is admitted for further management. Review of Systems Narrative: Patient denied any nausea vomiting or diarrhea. He denied any cough or wheezing. Except as documented, all other systems reviewed and negative. Medications/Allergies Home Medications Medication Instructions Recorded Confirmed Last Taken Type aspirin 325 mg tablet 325 mg PO DAILY tab 04/13/19 05/19/20 03/11/20 History carvedilol 25 mg tablet 25 mg PO BID 04/13/19 05/19/20 03/11/20 History omeprazole 20 mg capsule,delayed 20 mg PO DAILY cap 04/13/19 05/19/20 03/11/20 History release oxygen-air delivery systems #1 04/13/19 05/19/20 Unknown History allopurinol 100 mg tablet 300 mg PO DAILY tab 04/17/19 05/19/20 03/11/20 History liraglutide 0.6 mg/0.1 mL (18 mg/3 1.8 mg SUBCUT QAM ml 04/17/19 05/19/20 03/11/20 History mL) subcutaneous pen injector atorvastatin 80 mg PO DAILY 04/23/19 05/19/20 03/11/20 History clonidine [Xefgmiyi-STV-2] 0.3 mg TRANSDERMAL DIRECTED 04/23/19 05/19/20 03/11/20 History fenofibrate 160 mg PO DAILY 01/05/19/20 03/11/20 History lisinopril 40 mg PO DAILY 04/23/19 05/19/20 03/11/20 History cetirizine [Zyrtec] 10 mg PO DAILY PRN 09/26/19 05/19/20 12/28/19 History diazepam 5 mg tablet 5 mg PO BID PRN #60 tab 10/04/19 05/19/20 03/11/20 Rx divalproex 500 mg tablet,extended 500 mg PO BID #60 tab 10/04/19 05/19/20 03/11/20 Rx release 24 hr desvenlafaxine succinate 50 mg 50 mg PO DAILY 12/06/19 05/19/20 03/11/20 History tablet,extended release 24 hr amlodipine 10 mg PO DAILY #30 tab 12/16/19 05/19/20 03/11/20 Rx chlorthalidone 25 mg tablet 25 mg PO DAILY 01/02/20 05/19/20 03/11/20 History cyclobenzaprine 10 mg tablet 10 mg PO BID tab 01/02/20 05/19/20 03/11/20 History hydralazine 50 mg tablet 50 mg PO TID 01/02/20 05/19/20 03/11/20 History insulin glargine 100 unit/mL 65 unit SUBCUT QPM ml 01/02/20 05/19/20 03/11/20 History subcutaneous solution metformin 1,000 mg tablet 1,000 mg PO BID 01/02/20 05/19/20 03/11/20 History potassium chloride 30 meq PO DAILY #60 cap 03/11/20 05/19/20 Unknown Rx flash glucose scanning reader #1 ea 04/02/20 05/19/20 Unknown Rx flash glucose sensor #2 ea 04/02/20 05/19/20 Unknown Rx empagliflozin [Jardiance] 10 mg PO QAM 05/19/20 05/19/20 Unknown History sucralfate [Carafate] 1 g PO Q6H 28 Days #112 tab 05/19/20 Unknown Rx Allergies Allergy/AdvReac Type Severity Reaction Status Date / Time gabapentin Allergy Severe ALGY-Swell Verified 04/02/20 08:36 Lip/Tongue/Throat Sulfa (Sulfonamide Allergy Severe ALGY-Swell Verified 04/02/20 08:36 Antibiotics) Lip/Tongue/Throat trimethoprim Allergy Severe ALGY-Swell Verified 04/02/20 08:36 Lip/Tongue/Throat sulfamethoxazole Allergy Unknown throat Verified 04/02/20 08:36 [From Bactrim] swells asenapine [From Saphris] AdvReac Mild ADR-Halluci Verified 04/02/20 08:36 nating PFSH Acute PFSH: Medical History (Updated 05/19/20 @ 06:52 by Charli Mackenzie MD) Bipolar II disorder Diabetes mellitus Gastroenteritis Generalized anxiety disorder High cholesterol History of adverse reaction to tissue plasminogen activator (tPA) HTN (hypertension) Hx of secondary hypertension Obesity Obstructive sleep apnea hypopnea, severe Panic disorder without agoraphobia Post-traumatic stress disorder, chronic Surgical History History of esophagogastroduodenoscopy (EGD) (~04/2019) History of tonsillectomy and adenoidectomy Family History Denies family history of Anesthesia complication Bleeding disorder Social History Smoking and tobacco status: former smoker Quit status (tobacco): has quit using tobacco Year quit tobacco: 2010 Second hand smoke exposure: Yes Alcohol intake: never Desire information about alcohol rehabilitation?: No Desire information about substance/drug rehabilitation?: No Adopted: No Caregiver/support person: Yes Lives independently: Yes Household members: family Housing: House Marital status: Single Highest education level completed: High School Graduate service: No Current occupational status: disabled Current occupational exposures/hazards: No Pets and animals: Yes Pets & animals: cat(s) History of recent travel: No Sexually active: No Current gender identity: Male Karolina/Gnosticism: Rastafarian Special karolina needs: No Agree to transfusion: No Financial difficulty paying for basics: Decline to Answer Vitals/I&O/Wt Last Vital Signs Temp 97.6 F 05/19/20 03:33 Pulse 89 05/19/20 06:30 Resp 18 05/19/20 06:30 BP 138/80 05/19/20 06:30 Pulse Ox 95 05/19/20 06:30 05/18/20 05/18/20 05/19/20 14:59 22:59 06:59 Intake Total 0.9 / 0.9 Balance 0.9 / 0.9 Weight last 48 hrs Weight 158.757 kg Physical Exam Const: COMMON NORMALS: no acute distress and patient oriented x3 NUTRITIONAL APPEARANCE: obese HENMT: COMMON NORMALS: normocephalic, atraumatic and moist oral mucous membranes Eye: COMMON NORMALS: Equal, round and reactive pupils present, EOMs intact bilaterally, conjunctivae normal and no scleral icterus Neck/C-Spine: COMMON NORMALS: supple, no JVD and Thyroid normal Lymph: LYMPHATIC: no lymphadenopathy noted Chest: COMMONS NORMALS: normal inspection of the chest and normal palpation of entire chest wall Resp: COMMON NORMALS: normal respiratory effort, No retractions, No use of accessory muscles and clear to auscultation bilaterally Cardio: COMMON NORMALS: regular rate, regular rhythm, S1 normal heart sound present, S2 normal heart sound present and No murmurs present (Cardio) GI: COMMON NORMALS: Normal to inspection, nondistended, normoactive bowel sounds present, non-tender and No hepatosplenomegaly present : COMMON NORMALS: Yes no CVA tenderness Back/Pelvis: COMMON NORMALS: thoraco-lumbar ROM normal Extremity: COMMON NORMALS: full ROM, no clubbing, cyanosis or edema and no pedal edema Neuro: COMMON NORMALS: patient oriented x3, CN's II-XII intact bilaterally and no focal motor deficits Psych: COMMON NORMALS: mental status grossly normal, Normal thought process present, cooperative and normal affect Skin: COMMON NORMALS: no rashes or lesions noted, turgor normal and no jaundice Data : 05/19/20 03:52 05/19/20 03:52 A&P Assessment and plan (1) Chest pain: Status: Acute Qualifiers: Chest pain type: precordial pain Qualified Code(s): R07.2 - Precordial pain (2) Malignant hypertension: Status: Acute (3) Morbid obesity: Status: Acute (4) Diabetes mellitus: Status: Acute Qualifiers: Diabetes mellitus type: type 2 Diabetes mellitus skilled nursing insulin use: with 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 Continue to trend troponin. Start labetalol drip for target systolic blood pressure of less than 140. Nitroglycerin patch 0.8 mg/h Aspirin, Lipitor. Obtain echocardiogram Cardiology consult Insulin sliding scale for glucose management. Morphine IV as needed for pain. Use CPAP during sleep. Attestations Medical Necessity Statement*: Patient presenting with chest pain and malignant hypertension. He needs to be hospitalized and treated aggressively as well as rule out acute coronary syndrome. He is expected to spend more than 2 midnights. Time Spent in Patient Care: 58 minutes. Coding Level of Care Code Acute Power Superintendent for [facility] Diagnoses Chest pain R07.2 Chest pain type: precordial pain Malignant hypertension I10 Morbid obesity E66.01 Diabetes mellitus E11.42; Z79.4 Diabetes mellitus type: type 2 Diabetes mellitus skilled nursing insulin use: with long chain dyeing machine operator use Diabetes mellitus complication status: with neurologic complications Diabetes mellitus complication detail: with polyneuropathy Obstructive sleep apnea hypopnea, severe G47.33
[2020-05-19 09:04] LABS: Glucose Point of Care 138 mg/dL (70-110)
--- NOTE | 2020-05-19 09:18 | PC.CHAP ---
Pastoral Care Encounter/Spiritual Assessment Type of Contact [] Declined gear cutter visit [] Patient/Family/Request visit [] Outpatient visit [] Follow-up visit [] Physician referral [] Code/Alert [x] Routine visit [] Staff referral [] Actively dying [] Patient sleeping [] Family support [] [] Out of room [] Palliative care [] [] Receiving care in room [] Pre-surgical visit [] Trauma [] Long length of stay [] ICU visit [] Other: Relational/Emotional Strength [] Patient feels connected with others/family/visitors/staff [] Distress [] Loneliness/isolation [] Abandonment Spirituality of Patient [] Person of Karolina [] Attends Episcopalian of their Karolina [] Believes in Prayer [] Reads Bible or Restorationism materials [] There are Spiritual issues to be addressed Concierge Receptionist Interventions [x] Prayer [x] Active listening [x] Non-anxious presence [x] Spiritual/emotional support [] Crisis/trauma care [] Spiritual counseling [] Bereavement support [] Provided bereavement packet [] Provided Bible/devotional materials [] Provided toy/stuffed animal, coloring book to patient or family member [] Provided Communion [] Anointing/[place] [] Salvation [x] Completed spiritual assessment [] Other: Impact on Illness or Injury [] Angry [] Fearful [] Anxious [] Often cries [] Exhaustion [] Unable to work [] Unable to attend quaker [] Unable to walk/stand [] Unable to read [] Unable to drive [] Unable to eat/drink [] Unable to sleep [] Unable to be with family [] Patient intubated [] Other: Summary patient speaks of stress.. illness with father- brother- family in general... prayed for peace of heart and mind Time spent with patient 10 min
--- NOTE | 2020-05-19 09:42 | ECG_ITS ---
[facility] Test Date: 2020-05-19 Pat Name: Len Sandoval Department: Room: 107 Gender: Male Manager Inpatient: : 1985 Requested By: Quintin Lima Order Number: [id number] Reading MD: LIANG COREA Measurements Intervals [place] Rate: 83 P: 41 TN: 183 QRS: 16 QRSD: 122 T: 44 QT: 387 QTc: 456 Interpretive Statements SINUS RHYTHM POSSIBLE RIGHT VENTRICULAR CONDUCTION DELAY [RSR (QR) IN V1/V2] Compared to ECG 05/19/2020 06:10:40 No significant changes Electronically Signed On 05-19-2020 19:35:58 COORDINATOR OF ONLINE PROGRAMS by LIANG COREA [id number]
[2020-05-19] MEDS: desvenlafaxine 50 mg Tablet PO (09:43)
[2020-05-19] MEDS: chlorthalidone 25 mg Tablet PO (09:43)
[2020-05-19] MEDS: lisinopril 20 mg Tablet 40 MG PO (09:43)
[2020-05-19] MEDS: enoxaparin 40 mg/0.4 mL Syringe SUBCUT (09:43)
[2020-05-19] MEDS: hyDRALAzine 50 mg Tablet PO ×3 (09:44→20:59)
[2020-05-19] MEDS: allopurinol 300 mg Tablet PO (09:44)
[2020-05-19] MEDS: cyclobenzaprine 10 mg Tablet PO ×2 (09:44→17:37)
[2020-05-19] MEDS: divalproex ER 500 mg Tablet (24H) PO ×2 (09:44→17:37)
[2020-05-19] MEDS: pantoprazole DR 40 mg Tablet PO (09:44)
[2020-05-19] MEDS: atorvastatin 40 mg Tablet 80 MG PO (09:44)
[2020-05-19] MEDS: amlodipine 10 mg Tablet PO (09:44)
[2020-05-19] MEDS: fenofibrate 145 mg Tablet PO (09:44)
[2020-05-19] MEDS: morphine 4 mg/mL SDV 1 mL 2 MG IVP (09:45)
--- NOTE | 2020-05-19 10:37 | PC.NURSE ---
nitro patch not administered due to verbal order from Dr. Brody.
--- NOTE | 2020-05-19 10:37 | PC.NURSE ---
verbal order to get troponin at 1400. remove nitro paste and not start labetolol drip before consulting Dr. Brody before.
[2020-05-19] MEDS: cloNIDine 0.3 mg/24 hr Patch 1 PATCH TRANSDERMA (10:44)
[2020-05-19 11:04] LABS: Troponin 5 6HR 8.89 ng/L (0-15)
[2020-05-19 11:09] LABS: Troponin 5 6HR Delta -0.11 ng/L (0-12)
[2020-05-19 11:09] LABS: Glucose Point of Care 148 mg/dL (70-110)
[2020-05-19] MEDS: famotidine 20 mg/2 mL INJ IVP (13:09)
[2020-05-19] MEDS: ondansetron 2 mg/ML SDV 2 mL 4 MG IVP (13:09)
[2020-05-19] MEDS: alum-mag-hydroxide-sime 30 mL UDC 15 ML PO (13:09)
[2020-05-19 15:06] LABS: Troponin T (5th) Once 8 ng/L (0-15)
[2020-05-19] MEDS: diazePAM 5 mg Tablet PO (15:33)
--- NOTE | 2020-05-19 16:12 | PM.PN ---
Subjective Subjective: Interval history: Admitted earlier today morning. On admission patient have hypertensive urgency now blood pressures 138/60 mmHg. Patient states he has been taking his oral medications regularly. Recently has been more stressed because of recent back surgery and out of brothers, cardiac stenting for father and uncontrolled diabetes in father. Denies any nausea, vomiting, headache. States usually has not had any more chest pain other than last night when he started having retrosternal chest pain with burning sensation in the left arm and difficulty in breathing. Has not had any similar symptoms until 15 minutes ago. Labs and vitals noted. Vitals/I&O/Wt Last Vital Signs Temp 97.2 F L 05/19/20 15:37 Pulse 83 05/19/20 15:37 Resp 15 05/19/20 15:37 BP 134/90 05/19/20 15:37 Pulse Ox 97 05/19/20 15:37 05/19/20 05/19/20 05/19/20 06:59 14:59 22:59 Intake Total 4.075 / 4.075 360 / 360 Output Total 800 / 800 Balance 4.075 / 4.075 -440 / -440 Weight last 48 hrs Weight 158.757 kg Physical Exam Narrative: EXAM NARRATIVE: General: No acute distress, AO x3, morbidly obese HEENT: PERRLA, pupils bilaterally equal and reactive Chest: Normal vesicular breath sounds, no added sounds, equal good air entry bilaterally CVS: S1-S2 regular, no murmurs, no tachycardia, no gallops, no rubs Abdomen: Soft, nontender, no organomegaly, bowel sounds present Neuro: No focal deficits, no facial deformity, AO x3, power 5/5 in all limbs Data : 05/19/20 03:52 05/19/20 03:52 A&P Assessment and plan (1) Malignant hypertension: Status: Acute (2) HTN (hypertension): Status: Acute Qualifiers: Hypertension type: essential hypertension Qualified Code(s): I10 - Essential (primary) hypertension (3) Chest pain: Status: Acute Qualifiers: Chest pain type: precordial pain Qualified Code(s): R07.2 - Precordial pain (4) Diabetes mellitus: Status: Acute Qualifiers: Diabetes mellitus type: type 2 Diabetes mellitus fci insulin use: with fci use Diabetes mellitus complication status: with neurologic complications Diabetes mellitus complication detail: with polyneuropathy Qualified Code(s): E11.42 - Type 2 diabetes mellitus with diabetic polyneuropathy; Z79.4 - [facility] (current) use of insulin (5) Morbid obesity: Status: Acute (6) Obstructive sleep apnea hypopnea, severe: Status: Acute (7) Panic disorder without agoraphobia: Status: Chronic (8) Generalized anxiety disorder: Status: Chronic Additional A&P Information Malignant hypertension: Resolved. Blood pressure overall better now. Restart home medications including amlodipine, carvedilol, chlorthalidone, clonidine. Continue to monitor blood pressure. Chest pain: Most likely atypical but cannot rule out unstable angina given multiple comorbidities, family history. Consult cardiology. Patient follows up with Dr. Marin as an outpatient. On review of [facility] note from the [facility] there was a concern for a possible stress test versus angiogram if patient continues to have the same symptoms. Cycle troponins. We will repeat troponin at 4 PM. Continue home dose of aspirin, statin. Check HbA1c, lipid panel, iron panel. Morbid obesity, obstructive sleep apnea. History generalized anxiety disorder. Continue other oral medications. Full code. Carb consistent cardiac diet. Lovenox for DVT prophylaxis. Attestations Medical Necessity Statement*: Requires further hospitalization for management of malignant hypertension, chest pain Time Spent in Patient Care: Greater than 35 minutes (>than 50% of time spent in counselling and/or direct pt care on unit). 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
--- NOTE | 2020-05-19 16:25 | PM.CONSULT ---
Providers/Reason For Consult Consulting Physican/Specialty*: Dr. Degroot, cardiology Reason for Consult*: Chest pain Attending Physician: Charli Mackenzie Primary Care Provider: Chad Jiménez DO History of Present Illness History of Present Illness Len Sandoval is a 34 year old male with past medical history of multiple CVA status post tPA, morbid obesity (BMI-60), chronic bronchitis, gastroesophageal reflux disease, resistant hypertension, poorly controlled type II diabetes mellitus, history of PVCs, dyslipidemia, history of panic disorder, generalized anxiety disorder and is well-known to me as an outpatient. He is on disability and lives with his father and mother. He was having difficulty going to bed and around 3 in the morning developed significant chest pressure that radiated to his left shoulder arm forearm and all the way to his hands. Chest pain 10/10 in intensity and was located in left parasternal area with worsening of discomfort with exertion/ambulation. Chest pain without any reproducibility or any worsening with inspiration or coughing. No recent URI or UTI-like symptoms. He woke up his mom Bhakti and presented to the ER for further evaluation. Patient tells me his blood pressure has been well controlled except for last 2 days when it has been running high. He received IV labetalol and was started on nitroglycerin drip for elevated blood pressure in the ER. He has been taken off IV antihypertensives and blood pressure has been mildly elevated lately. At the time of evaluation he still complaining of chest pain 5/10 in intensity. EKG showed sinus rhythm with incomplete right bundle branch block and no significant ST-T wave changes. Troponins has been negative. Review of Systems Narrative: Patient denied any nausea vomiting or diarrhea. He denied any cough or wheezing. Except as documented, all other systems reviewed and negative. Const: Denies: fever(s) or chills Eyes: Denies: blurry vision or eye discharge ENMT: Denies: change in hearing or nasal congestion Card: Reports: chest pain Resp: Denies: dyspnea or wheezing GI: Denies: nausea, vomiting or diarrhea : Denies: difficulty urinating Musc: Denies: extremity swelling Skin/Breast: Denies: rash Neuro: Reports: headache(s); Denies: Slurred speech present Psych: Reports: anxiety; Denies: depression Alexander/Lymph: Denies: petechiae or purpura All/Imm: Denies: facial swelling or acute wheezing Meds/Allergies Home Medications and Allergies Home Medications Medication Instructions Recorded Confirmed Last Taken Type aspirin 325 mg tablet 325 mg PO DAILY tab 04/13/19 05/19/20 03/11/20 History carvedilol 25 mg tablet 25 mg PO BID 04/13/19 05/19/20 03/11/20 History omeprazole 20 mg capsule,delayed 20 mg PO DAILY cap 04/13/19 05/19/20 03/11/20 History release oxygen-air delivery systems #1 04/13/19 05/19/20 Unknown History allopurinol 100 mg tablet 300 mg PO DAILY tab 04/17/19 05/19/20 03/11/20 History liraglutide 0.6 mg/0.1 mL (18 mg/3 1.8 mg SUBCUT QAM ml 04/17/19 05/19/20 03/11/20 History mL) subcutaneous pen injector atorvastatin 80 mg PO DAILY 04/23/19 05/19/20 03/11/20 History clonidine [Mhnixqmy-UXL-4] 0.3 mg TRANSDERMAL DIRECTED 04/23/19 05/19/20 03/11/20 History fenofibrate 160 mg PO DAILY 04/23/19 05/19/20 03/11/20 History lisinopril 40 mg PO DAILY 04/23/19 05/19/20 03/11/20 History cetirizine [Zyrtec] 10 mg PO DAILY PRN 09/26/19 05/19/20 12/28/19 History diazepam 5 mg tablet 5 mg PO BID PRN #60 tab 10/04/19 05/19/20 03/11/20 Rx divalproex 500 mg tablet,extended 500 mg PO BID #60 tab 10/04/19 05/19/20 03/11/20 Rx release 24 hr desvenlafaxine succinate 50 mg 50 mg PO DAILY 12/06/19 05/19/20 03/11/20 History tablet,extended release 24 hr amlodipine 10 mg PO DAILY #30 tab 12/16/19 05/19/20 03/11/20 Rx chlorthalidone 25 mg tablet 25 mg PO DAILY 01/02/20 05/19/20 03/11/20 History cyclobenzaprine 10 mg tablet 10 mg PO BID tab 01/02/20 05/19/20 03/11/20 History hydralazine 50 mg tablet 50 mg PO TID 01/02/20 05/19/20 03/11/20 History insulin glargine 100 unit/mL 65 unit SUBCUT QPM ml 01/02/20 05/19/20 03/11/20 History subcutaneous solution metformin 1,000 mg tablet 1,000 mg PO BID 01/02/20 05/19/20 03/11/20 History potassium chloride 30 meq PO DAILY #60 cap 03/11/20 05/19/20 Unknown Rx flash glucose scanning reader #1 ea 04/02/20 05/19/20 Unknown Rx flash glucose sensor #2 ea 04/02/20 05/19/20 Unknown Rx empagliflozin [Jardiance] 10 mg PO QAM 05/19/20 05/19/20 Unknown History sucralfate [Carafate] 1 g PO Q6H 28 Days #112 tab 05/19/20 Unknown Rx Allergies Allergy/AdvReac Type Severity Reaction Status Date / Time gabapentin Allergy Severe ALGY-Swell Verified 04/02/20 08:36 Lip/Tongue/Throat Sulfa (Sulfonamide Allergy Severe ALGY-Swell Verified 04/02/20 08:36 Antibiotics) Lip/Tongue/Throat trimethoprim Allergy Severe ALGY-Swell Verified 04/02/20 08:36 Lip/Tongue/Throat sulfamethoxazole Allergy Unknown throat Verified 04/02/20 08:36 [From Bactrim] swells asenapine [From Saphris] AdvReac Mild ADR-Halluci Verified 04/02/20 08:36 nating Current Medications Current Medications Generic Name Dose Route Start Last Admin Trade Name Freq PRN Reason Stop Dose Admin Al Hydrox/Mg Hydrox/Simethicone 15 ml 05/19/20 12:56 05/19/20 13:09 [id number]-[id number]-Vlvvxlkdg-Saul 30 Ml Udc PO 15 ml Q6H PRN Administration INDIGESTION Allopurinol 300 mg 05/19/20 09:00 05/19/20 09:44 Allopurinol 300 Mg Tablet PO 300 mg DAILY CHANTELLE Administration Amlodipine Besylate 10 mg 05/19/20 09:00 05/19/20 09:44 Amlodipine 10 Mg Tablet PO 10 mg DAILY CHANTELLE Administration Atorvastatin Calcium 80 mg 05/19/20 09:00 05/19/20 09:44 Atorvastatin 40 Mg Tablet PO 80 mg DAILY CHANTELLE Administration Chlorthalidone 25 mg 05/19/20 09:00 05/19/20 09:43 Chlorthalidone 25 Mg Tablet PO 25 mg DAILY [facility] Administration Clonidine HCl 1 patch 05/19/20 10:00 05/19/20 10:44 Clonidine 0.3 Mg/24 Hr Patch TRANSDERMA 1 patch Q7D CHANTELLE Administration Cyclobenzaprine HCl 10 mg 05/19/20 09:00 05/19/20 09:44 Cyclobenzaprine 10 Mg Tablet PO 10 mg BID [facility] Administration Desvenlafaxine 50 mg 05/19/20 09:00 05/19/20 09:43 Desvenlafaxine 50 Mg Tablet PO 50 mg DAILY [facility] Administration Diazepam 5 mg 05/19/20 08:12 05/19/20 15:33 Diazepam 5 Mg Tablet PO 5 mg BID PRN Administration anxiety Divalproex Sodium 500 mg 05/19/20 09:00 05/19/20 09:44 Divalproex Er 500 Mg Tablet (24h) PO 500 mg BID [facility] Administration Enoxaparin Sodium 40 mg 05/19/20 09:30 05/19/20 09:43 Enoxaparin 40 Mg/0.4 Ml Syringe SUBCUT 40 mg Q24H CHANTELLE Administration Fenofibrate 145 mg 05/19/20 09:00 05/19/20 09:44 Fenofibrate 145 Mg Tablet PO 145 mg DAILY [facility] Administration Hydralazine HCl 50 mg 05/19/20 09:00 05/19/20 15:30 Hydralazine 50 Mg Tablet PO 50 mg TID [facility] Administration Insulin Aspart 0 unit 05/19/20 08:12 05/19/20 11:53 Insulin Aspart 100 Unit/1 Ml SUBCUT 4 unit WM&BEDTIME [facility] Administration Protocol Lisinopril 40 mg 05/19/20 09:00 05/19/20 09:43 Lisinopril 20 Mg Tablet PO 40 mg DAILY [facility] Administration Morphine Sulfate 2 mg 05/19/20 08:12 05/19/20 09:45 Morphine 4 Mg/Ml Sdv 1 Ml IVP 2 mg Q4H PRN Administration SEVERE PAIN Ondansetron HCl 4 mg 05/19/20 08:12 05/19/20 13:09 Ondansetron 2 Mg/Ml Sdv 2 Ml IVP 4 mg Q6H PRN Administration NAUSEA AND VOMITING Pantoprazole Sodium 40 mg 05/19/20 09:00 05/19/20 09:[address] 40 Mg Tablet PO 40 mg DAILY CHANTELLE Administration PFSH Acute PFSH: Medical History Bipolar II disorder Cerebrovascular accident Diabetes mellitus Diabetic neuropathy Easy bruising Gastroenteritis Generalized anxiety disorder High cholesterol History of adverse reaction to tissue plasminogen activator (tPA) HTN (hypertension) Hx of secondary hypertension Hypokalemia Obesity Obstructive sleep apnea hypopnea, severe Panic disorder without agoraphobia Post-traumatic stress disorder, chronic 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 Weight gain Surgical History History of esophagogastroduodenoscopy (EGD) (~04/2019) History of tonsillectomy and adenoidectomy Status following gastric banding surgery for weight loss Family History Denies family history of Anesthesia complication Bleeding disorder Social History Smoking and tobacco status: former smoker Quit status (tobacco): has quit using tobacco Year quit tobacco: 2010 Second hand smoke exposure: Yes Alcohol intake: never Desire information about alcohol rehabilitation?: No Desire information about substance/drug rehabilitation?: No Adopted: No Caregiver/support person: Yes Lives independently: Yes Household members: family Housing: House Marital status: Single Highest education level completed: High School Graduate service: No Current occupational status: disabled Current occupational exposures/hazards: No Pets and animals: Yes Pets & animals: cat(s) History of recent travel: No Sexually active: No Current gender identity: Male Karolina/Latter-Day: Yarsani Special karolina needs: No Agree to transfusion: No Financial difficulty paying for basics: Decline to Answer Vitals/I&O/Wt Last Vital Signs Temp 97.2 F L 05/19/20 15:37 Pulse 83 05/19/20 15:37 Resp 15 05/19/20 15:37 BP 134/90 05/19/20 15:37 Pulse Ox 97 05/19/20 15:37 05/19/20 05/19/20 05/19/20 06:59 14:59 22:59 Intake Total 4.075 / 4.075 360 / 360 Output Total 800 / 800 Balance 4.075 / 4.075 -440 / -440 Weight last 48 hrs Weight 350 lb Physical Exam Narrative: EXAM NARRATIVE: GENERAL: Morbidly obese young man lying in bed in no acute distress HEENT: Extraocular movement intact. Pupils equal round reactive to light. No pallor or icterus. NECK: central trachea, short thick neck no JVD appreciated CARDIOVASCULAR SYSTEM: S1-S2 regular. No S3 or S4 present. No murmur rubs or gallops. RESPIRATORY SYSTEM: Chest clear to auscultation. No wheezes rhonchi or rubs heard. No use of accessory muscles. ABDOMEN: Soft, nontender and distended with fat. Normal bowel sounds present. EXTREMITIES: No cyanosis or clubbing. No edema. No signs of chronic venous insufficiency. 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 No focal neurological deficits. SKIN: Normal turgor and temperature. No breakdown, rash or nail changes noted. PSYCH: Normal insight and judgment. Data Labs: Other Labs: Baseline troponin T of 9 at 2 hours of 8.8 and at 6 hours of 8.9. NT proBNP of 103. TSH of 0.85, total cholesterol 148, triglyceride 552, direct LDL 47 and HDL 24. Other Data: Attestation for Other Data: I personally reviewed and interpreted the following: Other data: #Holter monitor showed sinus rhythm with rare PACs and PVCs. # Event monitor: normal monitor. patient symptoms did not correlate with any arrhythmia. # Dobutamine stress echo (10/2017): CONCLUSION: 1. Normal EKG response to dobutamine stress. 2. Baseline hypertension with normal blood pressure and heart rate response. Normal stress echo. # CTA head and neck (09/2019) IMPRESSION: Normal appearance of both carotid arteries and their bifurcations. The hoopa of [place] was normal. The upper aorta subclavian arteries vertebral arteries appear to be normal. # TTE (09/27/2019) CONCLUSIONS Normal transthoracic echocardiogram. No change from 12/27/2017. # EKG (12/28/2019) SINUS RHYTHM INCOMPLETE RIGHT BUNDLE BRANCH BLOCK [90+ ms QRS DURATION, TERMINAL R IN V1/V2, 40+ ms S IN I/aVL/V4/V5/V6] Compared to ECG 12/28/2019 13:12:05 No significant changes # Renal ultrasound (04/2018) CONCLUSIONS #1. Normal kidney dimensions #2. No evidence of renal artery stenosis. #3. Normal ressistive indicis A&P Assessment and plan (1) Chest pain: -Recurrent episodes of chest pains in a young patient with multiple CAD risk factors (hypertension, diabetes mellitus type 2, hyperlipidemia, history of stroke, family history of CAD-father had an LAD stent last week); high BMI. -Stress testing might not give us conclusive information in this patient. -I will set him for coronary angiogram with Dr. Gallagher. -Risks and benefits were discussed with the patients. Alternate management options were discussed with the patient as well. Possible complications were reviewed with the patient as well. Plan is to proceed for the procedure at the earliest. Status: Acute Qualifiers: Chest pain type: precordial pain Qualified Code(s): R07.2 - Precordial pain (2) HTN (hypertension): Resistant hypertension on multiple antihypertensives as an outpatient. -Home medications have been restarted. Status: Acute Qualifiers: Hypertension type: essential hypertension Qualified Code(s): I10 - Essential (primary) hypertension (3) Dyslipidemia: Status: Acute (4) Diabetes mellitus: Status: Acute Qualifiers: Diabetes mellitus type: type 2 Diabetes mellitus fpc insulin use: with fpc use Diabetes mellitus complication status: with neurologic complications Diabetes mellitus complication detail: with polyneuropathy Qualified Code(s): E11.42 - Type 2 diabetes mellitus with diabetic polyneuropathy; Z79.4 - FPC (current) use of insulin (5) Obstructive sleep apnea hypopnea, severe: Status: Acute (6) Generalized anxiety disorder: Status: Chronic Additional A&P Information History of CVA Thank you for allowing me to participate in patient's care. Please feel free to call with questions or concerns. 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
[2020-05-19 17:09] LABS: Glucose Point of Care 129 mg/dL (70-110)
[2020-05-19] MEDS: insulin glargine 100 units/1 mL 65 UNIT SUBCUT (17:36)
[2020-05-19 17:40] LABS: Troponin T (5th) Once 9 ng/L (0-15)
[2020-05-19 18:06] LABS: NT Pro B Type Natriuretic Pept 85 pg/mL (0-125)
[2020-05-19 20:59] LABS: Glucose Point of Care 152 mg/dL (70-110)
[2020-05-19] MEDS: labetalol 300 MG in sodium chloride 0.9% 240 ML 30 MG IV (22:57)
[2020-05-20] VITALS (47 sets, daily range): BP systolic 118–157; BP diastolic 76–113; PULSE 73–108; RESP 10–34; TEMP 36.3–36.8; O2SAT 91–96
[2020-05-20 04:52] LABS: Basophils % 0.2 %; Eosinophils # 0.1 10^3/uL (0.0-0.8); Eosinophils % 1.6 %; Hematocrit 40.5 % (42.0-52.0); Hemoglobin 12.3 g/dL (11.7-16.6); Lymphocytes # 1.4 10^3/uL (0.8-4.8); Mean Corpuscular HGB Conc 30.4 g/dL (30.0-36.0); Mean Corpuscular Hemoglobin 25.4 pg (28.0-34.0); Mean Corpuscular Volume 83.7 fL (80-94); Mean Platelet Volume 9.8 fL (7.4-10.4); Monocytes # 0.5 10^3/uL (0.2-0.9); Monocytes % 5.8 %; Neutrophils # 6.36 10^3/uL (1.8-7.7); Neutrophils % 74.9 %; Nucleated Red Blood Cells % 0 %; Platelet Count 214 10^3/cmm (130-400); Red Blood Count 4.84 10^6/uL (4.1-5.3); White Blood Count 8.5 10^3/uL (4.0-10.0)
[2020-05-20 05:17] LABS: Estmated Average Glucose 183
[2020-05-20 05:29] LABS: Alanine Aminotransferase 36 U/L (0-41); Albumin Level 4.1 g/dL (3.5-5.2); Alkaline Phosphatase 47 IU/L (40-130); Anion Gap 13.1 (5-19); Aspartate Amino Transferase 16 U/L (0-40); Blood Urea Nitrogen 24 mg/dL (6-20); Calcium 8.9 mg/dL (8.5-10.5); Carbon Dioxide 33 mmol/L (22-29); Chloride 99 mmol/L (98-107); Chol HDL Ratio 3.69 mg/dL (1.0-5.00); Cholesterol 107 mg/dL (0-200); Globulin 2.8 g/dL (1.3-4.6); Glomerular Filtration Rate 96.6 mL/min (90-130); Glucose 103 mg/dL (65-115); HDL Cholesterol 29 mg/dL (60-100); LDL Cholesterol Calculated 42 mg/dL (50-129); LDL HDL Ratio 1.45 RATIO (0.00-3.22); Osmolality Calculated 298 mOsm/kg (285-295); Potassium 3.1 mmol/L (3.5-5.1); Sodium 142 mmol/L (136-145); Thyroid Stimulating Hormone 1.83 uIU/mL (0.27-4.20); Total Bilirubin 0.3 mg/dL (0.15-1.2); Total Protein 6.9 g/dL (6.6-8.7); Triglycerides 179 mg/dL (0-150)
[2020-05-20] MEDS: sodium chloride 0.9% 1,000 ML 50 ML IV (05:53)
[2020-05-20 07:02] LABS: Glucose Point of Care 108 mg/dL (70-110)
[2020-05-20] MEDS: morphine 4 mg/mL SDV 1 mL IVP (08:12)
[2020-05-20] MEDS: atorvastatin 40 mg Tablet 80 MG PO (08:13)
[2020-05-20] MEDS: cyclobenzaprine 10 mg Tablet PO ×2 (08:13→18:13)
[2020-05-20] MEDS: divalproex ER 500 mg Tablet (24H) PO ×2 (08:13→18:13)
[2020-05-20] MEDS: allopurinol 300 mg Tablet PO (08:13)
[2020-05-20] MEDS: desvenlafaxine 50 mg Tablet PO (08:13)
[2020-05-20] MEDS: amlodipine 10 mg Tablet PO (08:13)
[2020-05-20] MEDS: lisinopril 20 mg Tablet 40 MG PO (08:13)
[2020-05-20] MEDS: pantoprazole DR 40 mg Tablet PO (08:14)
[2020-05-20] MEDS: hyDRALAzine 50 mg Tablet PO ×3 (08:14→20:22)
[2020-05-20] MEDS: chlorthalidone 25 mg Tablet PO (08:14)
[2020-05-20] MEDS: fenofibrate 145 mg Tablet PO (08:14)
[2020-05-20] MEDS: diphenhydrAMINE 50 mg Capsule PO (08:52)
--- NOTE | 2020-05-20 08:53 | PC.NURSE ---
verbal order from to hold this dose of lovenox. laboratory worker here to get patient for procedure.
--- NOTE | 2020-05-20 09:31 | W.PM.OPSUD ---
Surgery/Procedure H&P Update DATE OF PROCEDURE: May 20, 2020 DATE H&P PERFORMED: 05/19/19 H&P UPDATE INFORMATION: I have reviewed H&P completed within last 30 days, I have examined patient prior to procedure and No changes to prior documentation PREOP DIAGNOSIS: Worsening chest pain PRIMARY INDICATION FOR PROCEDURE: Worsening chest pain PLANNED PROCEDURE: Operation Date: 05/20/20 10:00 Proposed Procedures p Cardiac Catheterization, chest pain,(Left) - Shon Gallagher M.D PATIENT REASSESSED PRIOR TO SEDATION, WITH NO CHANGE NOTED: Yes PHYSICAL EXAM: alert, oriented x 3 and clear to auscultation bilaterally AIRWAY EVAL/ANESTHESIA PLAN: ASA III, Risks, benefits & alternatives of sedation and/or procedure discussed and Patient agrees to continue as planned
--- NOTE | 2020-05-20 09:40 | PC.CHAP ---
Pastoral Care Encounter/Spiritual Assessment Type of Contact [] Declined licensed guide visit [] Patient/Family/Request visit [] Outpatient visit [] Follow-up visit [] Physician referral [] Code/Alert [x] Routine visit [] Staff referral [] Actively dying [] Patient sleeping [] Family support [] [x] Out of room [] Palliative care [] [] Receiving care in room [] Pre-surgical visit [] Trauma [] Long length of stay [] ICU visit [] Other: testing... will revisit later Relational/Emotional Strength [] Patient feels connected with others/family/visitors/staff [] Distress [] Loneliness/isolation [] Abandonment Spirituality of Patient [] Person of Karolina [] Attends Sabianist of their Karolina [] Believes in Prayer [] Reads Bible or Gnosticist materials [] There are Spiritual issues to be addressed Correctional Officer Sergeant Interventions [x] Prayer [] Active listening [] Non-anxious presence [] Spiritual/emotional support [] Crisis/trauma care [] Spiritual counseling [] Bereavement support [] Provided bereavement packet [] Provided Bible/devotional materials [] Provided toy/stuffed animal, coloring book to patient or family member [] Provided Communion [] Anointing/[place] [] Salvation [x] Completed spiritual assessment [] Other: Impact on Illness or Injury [] Angry [] Fearful [] Anxious [] Often cries [] Exhaustion [] Unable to work [] Unable to attend voodoo [] Unable to walk/stand [] Unable to read [] Unable to drive [] Unable to eat/drink [] Unable to sleep [] Unable to be with family [] Patient intubated [] Other: Summary Time spent with patient
--- NOTE | 2020-05-20 10:40 | PC.NURSE ---
patietnt back to floor from electroplating laborer. hooked up to monitor. educated on the restrictions of right radial site. TR band in place, no hematoma noted. call light within reach. no needs identified at this time.
--- NOTE | 2020-05-20 11:21 | PC.NURSE ---
dr lane gave verbal order for 1 time dose of 325mg aspirin now. notify of blood pressures great than 150 systolic and we would adjust medications.
[2020-05-20 11:29] LABS: Glucose Point of Care 129 mg/dL (70-110)
[2020-05-20] MEDS: aspirin 325 mg Tablet PO (11:37)
[2020-05-20] MEDS: potassium chloride ER 20 mEq Tablet 40 MEQ PO (11:37)
[2020-05-20] MEDS: isosorbide mononitrate ER 30 mg Tablet PO (11:37)
[2020-05-20] MEDS: sodium chloride 0.9% 1,000 ML 100 ML IV (15:00)
--- NOTE | 2020-05-20 15:00 | PC.NURSE ---
tr band removed per protocolol and bandage applied. no hematoma or bleeding. dressing is clean, dry, and intact.
--- NOTE | 2020-05-20 15:36 | PM.PN ---
Subjective Subjective: Interval history: No events overnight. Today morning patient was seen for cardiac catheterization. Patient has not had any further chest pain overnight. Blood pressures have been a lot more stable with most of the numbers less than 140/80 mmHg. Patient is saturating well on room air. Denies any nausea, headache, dizziness. Patient underwent cardiac catheterization today and received 1 drug-eluting stent. Vitals/I&O/Wt Last Vital Signs Temp 97.4 F L 05/20/20 15:26 Pulse 90 05/20/20 15:26 Resp 20 H 05/20/20 15:26 BP 123/76 05/20/20 13:00 Pulse Ox 93 05/20/20 15:26 05/20/20 05/20/20 05/20/20 06:59 14:59 22:59 Intake Total 480 / 480 Output Total 500 / 1300 925 / 925 Balance -500 / -700 -445 / -445 Weight last 48 hrs Weight 159.211 kg Weight 158.757 kg Physical Exam Narrative: EXAM NARRATIVE: General: No acute distress, AO x3, morbidly obese HEENT: PERRLA, pupils bilaterally equal and reactive Chest: Normal vesicular breath sounds, no added sounds, equal good air entry bilaterally CVS: S1-S2 regular, no murmurs, no tachycardia, no gallops, no rubs Abdomen: Soft, nontender, no organomegaly, bowel sounds present Neuro: No focal deficits, no facial deformity, AO x3, power 5/5 in all limbs Data : 05/20/20 04:27 05/20/20 04:27 A&P Assessment and plan (1) Malignant hypertension: Status: Acute (2) CAD (coronary artery disease): Status: Acute (3) HTN (hypertension): Status: Acute Qualifiers: Hypertension type: essential hypertension Qualified Code(s): I10 - Essential (primary) hypertension (4) Diabetes mellitus: Status: Acute Qualifiers: Diabetes mellitus type: type 2 Diabetes mellitus long term care pharmacist insulin use: with long term care pharmacist use Diabetes mellitus complication status: with neurologic complications Diabetes mellitus complication detail: with polyneuropathy Qualified Code(s): E11.42 - Type 2 diabetes mellitus with diabetic polyneuropathy; 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 Hypertension: Goal blood pressure less than 140/90 mmHg. Blood pressure is at goal now. Continue with medications including amlodipine, carvedilol, chlorthalidone, clonidine. Continue to monitor blood pressure. CAD: Post cardiac catheterization and drug-eluting stent placement today. HbA1c, lipid panel, iron panel results appreciated. Continue with aspirin, statin, Plavix, beta-genia. Appreciate cardiology recommendations. Morbid obesity, obstructive sleep apnea. History generalized anxiety disorder. Continue other oral medications. I discussed in detail with patient regarding need for aggressive weight loss going forward. Full code. Carb consistent cardiac diet. Lovenox for DVT prophylaxis. Attestations Medical Necessity Statement*: Patient requires further hospitalization for management of CAD post drug-eluting stent placement, malignant hypertension. Time Spent in Patient Care: Greater than 35 minutes (>than 50% of time spent in counselling and/or direct pt care on unit). Coding Level of Care Code Acute Marketing Development Manager for Bennie Fwd Diagnoses Malignant hypertension I10 CAD (coronary artery disease) I25.10 HTN (hypertension) I10 Hypertension type: essential hypertension Diabetes mellitus E11.42; Z79.4 Diabetes mellitus type: type 2 Diabetes mellitus long term care pharmacist insulin use: with long term care pharmacist use Diabetes mellitus complication status: with neurologic complications Diabetes mellitus complication detail: with polyneuropathy Generalized anxiety disorder F41.1 Panic disorder without agoraphobia F41.0 Obstructive sleep apnea hypopnea, severe G47.33 Morbid obesity E66.01
--- NOTE | 2020-05-20 16:41 | PC.NURSE ---
patient request Tylenol for shoulder (rotator cuff) pain. 07/19.
[2020-05-20] MEDS: acetaminophen 325 mg Tablet 650 MG PO (16:42)
[2020-05-20 16:45] LABS: Glucose Point of Care 161 mg/dL (70-110)
--- NOTE | 2020-05-20 16:52 | XACV_ITS ---
Exam Room: [facility] Ht: 163 cm Wt: 159 kg BSA: 2.79 m2 Gender: Male : 1985 Any Known Allergies: Other Exam Priority: Routine Procedure(s): Procedure Description: Diagnostic procedure Procedure Description: PCI procedure Procedure Description: Left Heart Catheterization Procedure Description: Drug Eluting Coronary Stent Procedure Description: PTCA Procedure Description: Miscellaneous Procedure Description: ACT Procedure Description: Coronary Angiography Diagnostic Cath Status: Urgent Diagnostic Findings * Indication: Worsening angina/unstable angina. * LM is a short vessel and has mild luminal irregularities. * LAD has no significant stenosis. It gives rise to 2 diagonal branches. First diagonal artery is a medium sized vessel. It has a mid vessel 75% stenosis.. * CX is a large artery. Gives rise to 2 large OM branches. No significant stenosis is seen.. * RCA has mild luminal irregularities. No significant stenosis seen.. * 1st Diagonal Coronary Artery: Severe 75% stenosis, RAMYA: 3 flow. * Coronary angiography shows right dominance. PCI Status: Urgent PCI Indication: New Onset Angina <= 2 months Interventional Findings * We engaged left main artery using JL 3.5 guide catheter. A 0.014 run-through guidewire was used to cross the stenosis and was placed in distal first diagonal artery. We predilated the stenosis with 2.0 x 8 mm semicompliant balloon. This was followed by placement of 2.25 x 15 mm resolute Pre[place] drug-eluting stent. At this time final angiogram was performed that showed excellent stent expansion, no residual stenosis and RAMYA-3 flow. Guidewire and guide catheter were removed. TR band was placed to obtain hemostasis. 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 * 1st Diagonal Coronary Artery: 75% stenosis treated with AB MINI TREK 2.00X8 RX BALLOON and MDT R HOLLEY 2.25X15 RORO. 0% residual stenosis, RAMYA: 3 flow. Conclusions 1. Severe stenosis of mid first diagonal artery. 2. No significant disease noted in the Left Main, LAD, Circumflex, or RCA coronary arteries. 3. 1st Diagonal Coronary Artery was treated with Balloon and Drug Eluting Stent. Recommendations * Transfer back to [facility]. * Aspirin and plavix for atleast 1 year. * High intensity statin therapy. * Beta genia therapy. * Follow up with cardiology office. Interventional RX Recommendation: PCI w/o planned CABG Diagnostic RX Recommendation: PCI w/o planned CABG Anticoagulation: Heparin Pressures Phase:Rest AO : 133 / 76 ( 95 ) @ 3:43:00 AM 194 / 52 ( 149 ) @ 3:44:00 AM 172 / 81 ( 116 ) @ 3:44:00 AM 170 / 110 ( 136 ) @ 3:44:00 AM LV : 189 / 22 / @ 3:44:00 AM 167 / 18 / @ 3:44:00 AM Valves Phase:DefaultPhase AV : 0.0 @ 10:25:07 AM Clinical Evaluation EBL: 5mL-10mL Procedural Details Procedure Consent Obtained. Pre-Procedure Time Out. Identified patient by full name and date of as verbalized by the patient/guarantor. Does the consent match the physician's order: Yes. Accurate & Complete Informed Consent: Yes. Inpatient/Outpatient History & Physical on Chart: Yes. If H&P is completed, is and addenduem needed: No; If yes, is the addendum complete: N/A. Visualize and Verify Site with Patient/Guarantor: N/A. Relevant Radiology Images available: N/A. Pre-op teaching completed and patient verbalized understanding. The risks, benefits, and alternatives of sedation and/or procedure were discussed by physician. The patient agrees to continue. Procedure started. [facility] Clinical Fraility Score: 3: Managing Well. Casino Cashier Indications: Worsening Angina. Chest Pain Symptom Assessment: Typical Angina Symptoms. Cardiovascular Instability: No. Correct patient, site and procedure confirmed by cath team. PERRLA. 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 Lungs clear x 5 lobes. IV Site on Arrival: 20 gauge in the left hand. IV Fluids: 0.9% NaCl at KVO. 0 mL infused prior to laboratory cureman. Pre Procedural Pulses: bilateral dorsalis pedis was Doppled. Pre Procedural Pulses: bilateral posterior tibial was Doppled. Oxygen started at 2liters/min via nasal canula. bilateral groins was prepped with chloroprep then draped in the usual sterile fashion. right radial was prepped with chloroprep then draped in the usual sterile fashion. Baseline sample Acquired. HR: 79 BPM. Physician notified. Equipment: 6F - Radial. Cardiac Cath Pack. ACIST Manifold Kit Model BT 2000. Heparinized Saline (2 units/mL), 1000 mL bag. Physician arrived. Physician scrubbed in. Immediate Pre-Procedure Time Out. Correct Patient: Yes; Correct Procedure: Yes; Correct Site: Yes; Correct Patient Position: Yes; Correct Supplies: Yes; Dried Flammable Prep: Yes; Blood Products Available: N/A;. Lidocaine 1% infiltrated to the right radial. Arterial access obtained. A 5 italian TIG catheter in over wire. EDP Sample taken: LV 189/22,43; HR: 77 BPM; SpO2: 95%. Pullback taken: LV 167/18,31; AO 194/52(149); Mean: , Peak to Peak: 0mmHg, SEP: ; HR: 82 BPM; SpO2: 95%. Multiple views taken of left coronary artery. Catheter redirected to the RCA. Multiple views taken of right coronary artery. Catheter removed over the exchange wire. Inventory is CRD 6 FR XB 3.5 GUIDE. 6 italian XB 3.5 guide catheter was inserted over the wire. Unable to seat guide catheter. Guide catheter out. ACT drawn. Results 207 seconds. Therapeutic limits - pre-heparin administration 90-150 seconds and monitoring heparin during a vascular procedure >250 seconds. Inventory is CRD 6FR JL 3.5 GUIDE. 6 italian JL 3.5 guide catheter was inserted over the wire. Runthrough guidewire was advanced through the guide catheter to lesion in the diaganol. Inflation number : 1 A AB MINI TREK 2.00X8 RX BALLOON was prepped and advanced across the 1st Diag , then inflated to 12 NIKO for 0:23 seconds. Inflation number: 2 The AB MINI TREK 2.00X8 RX BALLOON was reinflated across the 1st Diag, to 12 NIKO for 0:19 seconds. Balloon out. Results checked. Inflation Number : 3 A GREGORIO Trujillo HOLLEY 2.25X15 RORO -Lot Number# [id number] exp date 11/27/2021 was prepped and advanced across the 1st Diag. The stent was deployed at 12 NIKO for 0:21 seconds. Stent balloon out over wire. Wire out. ACT drawn. Results 253 seconds. Therapeutic limits - pre-heparin administration 90-150 seconds and monitoring heparin during a vascular procedure >250 seconds. Guide catheter out. Physician scrubbed out. A TR Band was successful obtaining hemostatsis at the Right Radial artery insertion site. TR band placed. Hemostasis obtained. Post Procedure: Pulses reassessed and unchanged. PERRLA. 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 No VTE prophylaxis required. Medication's Wasted: Lidocaine 1% = 18 mL. Medication's Wasted: Nitro = 49.8 mg. Medication's Wasted: Heparin = 1000 units. Contrast type used: Omnipaque 300 mgI/mL, 500 mL bottle. Total IV fluids: 75 mL. Post-op diagnosis: severe diagonal stenosis. Complications: none. Estimated blood loss: 5mL-10mL. PCI Indication: Unstable Angina. Procedure completed. Patient transferred by wheelchair to 1st floor. Vital chart was stopped. Access Site Site: Right Radial artery Sheath Size: 6 Fr Hemostasis Method: TR Band Hemostasis Success: Successful Procedure Medications Start: 9:35 AM Stop: 9:35 AM Medication: Versed Amount: 1 mg Route: I.V. Start: 9:35 AM Stop: 9:35 AM Medication: Fentanyl Amount: 50 mcg Route: I.V. Start: 9:40 AM Stop: 9:40 AM Medication: Nitrogylcerin Amount: 200 mcg Route: I.A. Start: 9:42 AM Stop: 9:42 AM Medication: Heparin Amount: 5000 units Route: I.V. Start: 9:42 AM Stop: 9:42 AM Medication: Versed Amount: 1 mg Route: I.V. Start: 9:42 AM Stop: 9:42 AM Medication: Fentanyl Amount: 50 mcg Route: I.V. Start: 9:54 AM Stop: 9:54 AM Medication: Heparin Amount: 7000 units Route: I.V. Start: 9:57 AM Stop: 9:57 AM Medication: Versed Amount: 1 mg Route: I.V. Start: 10:02 AM Stop: 10:02 AM Medication: Heparin Amount: 3000 units Route: I.V. Start: 10:07 AM Stop: 10:07 AM Medication: Versed Amount: 1 mg Route: I.V. I, the attending physician, have reviewed and verified all procedure medications. Yes, all medications given per verbal order History/Risk Factors Hypertension: Yes Dyslipidemia: Yes Peripheral Arterial Disease (PAD): No Myocardial Infarction (IN): No Obesity: Yes Renal Disease: No Tobacco Use: Former Prior Interventions PCI: No CABG: No Valve Surgery: No Report Signatures Finalized by Shon Gallagher MD on 05/26/2020 12:32 PM
[2020-05-20] MEDS: carvedilol 12.5 mg Tablet PO (18:13)
[2020-05-20] MEDS: insulin glargine 100 units/1 mL 65 UNIT SUBCUT (19:24)
[2020-05-21] VITALS (8 sets, daily range): BP systolic 115–169; BP diastolic 76–113; PULSE 82–91; RESP 14–24; TEMP 36.1–36.8; O2SAT 95–97
[2020-05-21 06:50] LABS: Glucose Point of Care 140 mg/dL (70-110)
[2020-05-21 06:50] LABS: Glucose Point of Care 171 mg/dL (70-110)
[2020-05-21 07:41] LABS: Basophils % 0.3 %; Eosinophils # 0.2 10^3/uL (0.0-0.8); Hematocrit 38.2 % (42.0-52.0); Hemoglobin 11.5 g/dL (11.7-16.6); Lymphocytes # 1.6 10^3/uL (0.8-4.8); Lymphocytes % 20.4 %; Mean Corpuscular HGB Conc 30.1 g/dL (30.0-36.0); Mean Platelet Volume 9.9 fL (7.4-10.4); Monocytes # 0.4 10^3/uL (0.2-0.9); Monocytes % 5.5 %; Neutrophils # 5.48 10^3/uL (1.8-7.7); Neutrophils % 71.4 %; Nucleated Red Blood Cells % 0 %; Platelet Count 207 10^3/cmm (130-400); Red Cell Distribution Width 15.1 % (12.1-15.1); White Blood Count 7.7 10^3/uL (4.0-10.0)
[2020-05-21 08:02] LABS: Alanine Aminotransferase 27 U/L (0-41); Alkaline Phosphatase 45 IU/L (40-130); Aspartate Amino Transferase 13 U/L (0-40); Blood Urea Nitrogen 21 mg/dL (6-20); Calcium 8.7 mg/dL (8.5-10.5); Carbon Dioxide 32 mmol/L (22-29); Chloride 99 mmol/L (98-107); Globulin 2.7 g/dL (1.3-4.6); Glomerular Filtration Rate 69.3 mL/min (90-130); Glucose 141 mg/dL (65-115); Osmolality Calculated 293 mOsm/kg (285-295); Sodium 139 mmol/L (136-145); Total Bilirubin 0.3 mg/dL (0.15-1.2); Total Protein 6.7 g/dL (6.6-8.7)
[2020-05-21 08:28] LABS: Anion Gap 11.2 (5-19); Potassium 3.2 mmol/L (3.5-5.1)
--- NOTE | 2020-05-21 08:50 | PC.CHAP ---
Pastoral Care Encounter/Spiritual Assessment Type of Contact [] Declined mixer and blender visit [] Patient/Family/Request visit [] Outpatient visit [] Follow-up visit [] Physician referral [] Code/Alert [x] Routine visit [] Staff referral [] Actively dying [] Patient sleeping [] Family support [] [] Out of room [] Palliative care [] [] Receiving care in room [] Pre-surgical visit [] Trauma [] Long length of stay [] ICU visit [] Other: Relational/Emotional Strength [] Patient feels connected with others/family/visitors/staff [] Distress [] Loneliness/isolation [] Abandonment Spirituality of Patient [] Person of Karolina [] Attends Sabianist of their Karolina [] Believes in Prayer [] Reads Bible or Latter Day materials [] There are Spiritual issues to be addressed Subeditor Interventions [x] Prayer [] Active listening [] Non-anxious presence [] Spiritual/emotional support [] Crisis/trauma care [] Spiritual counseling [] Bereavement support [] Provided bereavement packet [] Provided Bible/devotional materials [] Provided toy/stuffed animal, coloring book to patient or family member [] Provided Communion [] Anointing/[place] [] Salvation [x] Completed spiritual assessment [] Other: Impact on Illness or Injury [] Angry [] Fearful [] Anxious [] Often cries [] Exhaustion [] Unable to work [] Unable to attend yarsani [] Unable to walk/stand [] Unable to read [] Unable to drive [] Unable to eat/drink [] Unable to sleep [] Unable to be with family [] Patient intubated [] Other: Summary chest pains have subsided ... looking to be discharged.. Time spent with patient 10 min
[2020-05-21] MEDS: divalproex ER 500 mg Tablet (24H) PO (09:11)
[2020-05-21] MEDS: atorvastatin 40 mg Tablet 80 MG PO (09:11)
[2020-05-21] MEDS: desvenlafaxine 50 mg Tablet PO (09:11)
[2020-05-21] MEDS: spironolactone 25 mg Tablet PO (09:12)
[2020-05-21] MEDS: carvedilol 12.5 mg Tablet 25 MG PO (09:12)
[2020-05-21] MEDS: allopurinol 300 mg Tablet PO (09:12)
[2020-05-21] MEDS: hyDRALAzine 50 mg Tablet PO (09:12)
[2020-05-21] MEDS: fenofibrate 145 mg Tablet PO (09:12)
[2020-05-21] MEDS: amlodipine 10 mg Tablet PO (09:13)
[2020-05-21] MEDS: aspirin 81 mg EC Tablet PO (09:13)
[2020-05-21] MEDS: isosorbide mononitrate ER 30 mg Tablet PO (09:13)
[2020-05-21] MEDS: lisinopril 20 mg Tablet 40 MG PO (09:13)
[2020-05-21] MEDS: clopidogrel 75 mg Tablet PO (09:13)
[2020-05-21] MEDS: cyclobenzaprine 10 mg Tablet PO (09:14)
[2020-05-21] MEDS: cetirizine 10 mg Tablet PO (09:14)
[2020-05-21] MEDS: pantoprazole DR 40 mg Tablet PO (09:14)
[2020-05-21] MEDS: enoxaparin 40 mg/0.4 mL Syringe SUBCUT (09:15)
--- NOTE | 2020-05-21 11:05 | P.PN_ITS ---
Subjective Subjective: Interval history: Patient is doing well. Denies any complaints. No events on telemetry metric. He is s/p ballooning and drug-eluting stent placement in diagonal via right radial access by Dr. Gallagher Medications: Reviewed: Yes Medication Review Details: Current Medications Acetaminophen (Acetaminophen 325 Mg Tablet) 650 mg PO Q6H PRN PRN Reason: MILD PAIN Last Admin: 05/20/20 16:42 Dose: 650 mg Documented by: Al Hydrox/Mg Hydrox/Simethicone (Ivsn-Oau-Acfebaddz-Saul 30 Ml Udc) 30 ml PO Q15M PRN PRN Reason: INDIGESTION Allopurinol (Allopurinol 300 Mg Tablet) 300 mg PO DAILY [facility] Last Admin: 05/21/20 09:12 Dose: 300 mg Documented by: Alprazolam (Alprazolam 0.25 Mg Tablet) 0.25 mg PO TID PRN PRN Reason: ANXIETY Amlodipine Besylate (Amlodipine 10 Mg Tablet) 10 mg PO DAILY [facility] Last Admin: 05/21/20 09:13 Dose: 10 mg Documented by: Aspirin (Aspirin 81 Mg Ec Tablet) 81 mg PO DAILY [facility] Last Admin: 05/21/20 09:13 Dose: 81 mg Documented by: Atorvastatin Calcium (Atorvastatin 40 Mg Tablet) 80 mg PO DAILY [facility] Last Admin: 05/21/20 09:11 Dose: 80 mg Documented by: Atropine Sulfate (Atropine 1 Mg/Ml Sdv 1 Ml) 0.5 mg IVP PRN PRN PRN Reason: Symptomatic bradycardia Carvedilol (Carvedilol 12.5 Mg Tablet) 25 mg PO BID [facility] Last Admin: 05/21/20 09:12 Dose: 25 mg Documented by: Cetirizine HCl (Cetirizine 10 Mg Tablet) 10 mg PO DAILY PRN PRN Reason: Allergy Symptoms Last Admin: 05/21/20 09:14 Dose: 10 mg Documented by: Clonidine HCl (Clonidine 0.3 Mg/24 Hr Patch) 1 patch TRANSDERMA Q7D [facility] Last Admin: 05/19/20 10:44 Dose: 1 patch Documented by: Clopidogrel Bisulfate (Clopidogrel 75 Mg Tablet) 75 mg PO DAILY [facility] Last Admin: 05/21/20 09:13 Dose: 75 mg Documented by: Cyclobenzaprine HCl (Cyclobenzaprine 10 Mg Tablet) 10 mg PO BID [facility] Last Admin: 05/21/20 09:14 Dose: 10 mg Documented by: Desvenlafaxine (Desvenlafaxine 50 Mg Tablet) 50 mg PO DAILY [facility] Last Admin: 05/21/20 09:11 Dose: 50 mg Documented by: Dextrose (Dextrose 50% Syringe 50 Ml) 25 ml IVP ONCE PRN; Protocol PRN Reason: hypoglycemia protocol Dextrose (Dextrose 50% Syringe 50 Ml) 50 ml IVP PRN PRN; Protocol PRN Reason: hypoglycemia protocol Diazepam (Diazepam 5 Mg Tablet) 5 mg PO BID PRN PRN Reason: anxiety Last Admin: 05/19/20 15:33 Dose: 5 mg Documented by: Divalproex Sodium (Divalproex Er 500 Mg Tablet (24h)) 500 mg PO BID [facility] Last Admin: 05/21/20 09:11 Dose: 500 mg Documented by: Enoxaparin Sodium (Enoxaparin 40 Mg/0.4 Ml Syringe) 40 mg SUBCUT Q24H [facility] Last Admin: 05/21/20 09:15 Dose: 40 mg Documented by: Fenofibrate (Fenofibrate 145 Mg Tablet) 145 mg PO DAILY [facility] Last Admin: 05/21/20 09:12 Dose: 145 mg Documented by: Fentanyl (Fentanyl 50 Mcg/Ml Inj 2ml) 50 mcg IVP PRN PRN PRN Reason: Prior to sheath removal Glucagon (Glucagon 1 Mg/Ml Inj 1 Ml) 1 mg IM ONCE PRN; Protocol PRN Reason: Adult Acute Hypoglycemia Prot. Hydralazine HCl (Hydralazine 50 Mg Tablet) 50 mg PO TID [facility] Last Admin: 05/21/20 09:12 Dose: 50 mg Documented by: Dextrose (D5w) 500 mls @ 100 mls/hr IV ONCE PRN; Protocol PRN Reason: Adult Acute Hypoglycemia Prot Insulin Aspart (Insulin Aspart 100 Unit/1 Ml) 0 unit SUBCUT WM&BEDTIME [facility]; Protocol Last Admin: 05/21/20 08:42 Dose: Not Given Documented by: Insulin Glargine (Insulin Glargine 100 Units/1 Ml) 65 unit SUBCUT QPM [facility] Last Admin: 05/20/20 19:24 Dose: 65 unit Documented by: Isosorbide Mononitrate (Isosorbide Mononitrate Er 30 Mg Tablet) 30 mg PO DAILY [facility] Last Admin: 05/21/20 09:13 Dose: 30 mg Documented by: Lisinopril (Lisinopril 20 Mg Tablet) 40 mg PO DAILY [facility] Last Admin: 05/21/20 09:13 Dose: 40 mg Documented by: Magnesium Hydroxide (Magnesium Hydroxide 30 Ml Udc) 30 ml PO DAILY PRN PRN Reason: CONSTIPATION Morphine Sulfate (Morphine 4 Mg/Ml Sdv 1 Ml) 2 mg IVP Q4H PRN PRN Reason: SEVERE PAIN Last Admin: 05/19/20 09:45 Dose: 2 mg Documented by: Naloxone HCl (Naloxone 0.4 Mg/Ml Sdv) 0.1 mg IVP Q2M PRN PRN Reason: RESPIRATORY RATE < 8/MIN Nitroglycerin (Nitroglycerin 0.4 Mg Sublingual Tablet) 0.4 mg SUBLINGUAL Q5M PRN PRN Reason: CHEST PAIN Ondansetron HCl (Ondansetron 2 Mg/Ml Sdv 2 Ml) 4 mg IVP Q6H PRN PRN Reason: NAUSEA AND VOMITING Last Admin: 05/19/20 13:09 Dose: 4 mg Documented by: Pantoprazole Sodium (Pantoprazole Dr 40 Mg Tablet) 40 mg PO DAILY [facility] Last Admin: 05/21/20 09:14 Dose: 40 mg Documented by: Potassium Chloride (Potassium Chloride Er 20 Meq Tablet) 40 meq PO ONCE ONE Stop: 05/21/20 11:00 Spironolactone (Spironolactone 25 Mg Tablet) 25 mg PO DAILY [facility] Last Admin: 05/21/20 09:12 Dose: 25 mg Documented by: Temazepam (Temazepam 15 Mg Capsule) 15 mg PO BEDTIME PRN PRN Reason: INSOMNIA Vitals/I&O/Wt Last Vital Signs Temp 97.0 F L 05/21/20 07:18 Pulse 84 05/21/20 07:18 Resp 14 05/21/20 07:18 BP 135/92 05/21/20 07:18 Pulse Ox 95 05/21/20 07:18 05/20/20 05/21/20 05/21/20 22:59 06:59 14:59 Intake Total 1367 / 1847 2240 / 4087 360 / 360 Balance 1367 / 922 2240 / 3162 360 / 360 Weight last 48 hrs Weight 350 lb Weight 351 lb Physical Exam Narrative: EXAM NARRATIVE: GENERAL: Morbidly obese young man lying in bed in no acute distress HEENT: Extraocular movement intact. Pupils equal round reactive to light. No pallor or icterus. NECK: central trachea, short thick neck no JVD appreciated CARDIOVASCULAR SYSTEM: S1-S2 regular. No S3 or S4 present. No murmur rubs or gallops. RESPIRATORY SYSTEM: Chest clear to auscultation. No wheezes rhonchi or rubs heard. No use of accessory muscles. ABDOMEN: Soft, nontender and distended with fat. Normal bowel sounds present. EXTREMITIES: No cyanosis or clubbing. No edema. No signs of chronic venous insufficiency. Right radial 2+, no bruising or hematoma noted. 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 No focal neurological deficits. SKIN: Normal turgor and temperature. No breakdown, rash or nail changes noted. PSYCH: Normal insight and judgment. Data : 05/21/20 07:22 05/21/20 07:22 A&P Assessment and plan (1) Chest pain: -Recurrent episodes of chest pains in a young patient with multiple CAD risk factors (hypertension, diabetes mellitus type 2, hyperlipidemia, history of stroke, family history of CAD-father had an LAD stent last week); high BMI. -s/p LHC and RORO to diagonal. Status: Deleted Qualifiers: Chest pain type: precordial pain Qualified Code(s): R07.2 - Precordial pain (2) CAD (coronary artery disease): continue DAPT and statin. -cardiac diet. medication compliance discussed. -Cardiac rehab offered. -f/u in 1 week with Ms. Nelly Ocampo in 1 week and with me in 4 weeks. Status: Acute Qualifiers: Coronary Disease-Associated Artery/Lesion type: mcgrath artery [place] vs. transplanted heart: mcgrath heart Associated angina: without angina Qualified Code(s): I25.10 - Atherosclerotic heart disease of mcgrath coronary artery without angina pectoris (3) HTN (hypertension): Resistant hypertension on multiple antihypertensives as an outpatient. -continue all medications except replace chlorthalidone to spironolactone. -I will attempt to stop cloinidine patch as an outpatient (Uptitrate hydralazine/ spironolatone/imdur on follow up). --BP/HR log for 2 weeks and changes based on that. -Do not lift anything more than 5 lbs for 1 week. Keep the site dry and clean Take medications as prescribed and follow up as scheduled. Status: Acute Qualifiers: Hypertension type: essential hypertension Qualified Code(s): I10 - Essential (primary) hypertension (4) Dyslipidemia: Status: Acute (5) Diabetes mellitus: Status: Acute Qualifiers: Diabetes mellitus type: type 2 Diabetes mellitus snf insulin use: with snf use Diabetes mellitus complication status: with neurologic complications Diabetes mellitus complication detail: with polyneuropathy Qualified Code(s): E11.42 - Type 2 diabetes mellitus with diabetic polyneuropathy; Z79.4 - assisted (current) use of insulin (6) Obstructive sleep apnea hypopnea, severe: Status: Acute (7) Generalized anxiety disorder: Status: Chronic Additional A&P Information History of CVA Hypokalemia: replaced Thank you for allowing me to participate in patient's care. Please feel free to call with questions or concerns. Attestations Medical Necessity Statement*: Stable to be discharged home today Time Spent in Patient Care: Greater than 35 minutes (>than 50% of time spent in counselling and/or direct pt care on unit) . Coding Level of Care Code Acute Lead Cook for [facility] Fwd Diagnoses Chest pain R07.2 Chest pain type: precordial pain CAD (coronary artery disease) I25.10 Coronary Disease-Associated Artery/Lesion type: mcgrath artery [place] vs. transplanted heart: mcgrath heart Associated angina: without angina HTN (hypertension) I10 Hypertension type: essential hypertension Dyslipidemia E78.5 Diabetes mellitus E11.42; Z79.4 Diabetes mellitus type: type 2 Diabetes mellitus snf insulin use: with snf use Diabetes mellitus complication status: with neurologic complications Diabetes mellitus complication detail: with polyneuropathy Obstructive sleep apnea hypopnea, severe G47.33 Generalized anxiety disorder F41.1
[2020-05-21] MEDS: potassium chloride ER 20 mEq Tablet 40 MEQ PO (11:13)
[2020-05-21] MEDS: acetaminophen 325 mg Tablet 650 MG PO (11:14)
[2020-05-21 11:21] LABS: Glucose Point of Care 235 mg/dL (70-110)
--- NOTE | 2020-05-21 11:50 | P.DS_ITS ---
Discharge Providers Date of Admission: 05/19/20 08:12 Date of Discharge: May 21, 2020 Attending Provider at Admission: Charli Mackenzie Attending Provider at Discharge: Henrique Brody MD Consults: Cardiology: Dr. Degroot Primary Care Provider: Chad Jiménez DO Diagnoses at Discharge Discharge Diagnosis (1) Chest pain: Status: Deleted Qualifiers: Chest pain type: precordial pain Qualified Code(s): R07.2 - Precordial pain (2) CAD (coronary artery disease): Status: Acute Qualifiers: Coronary Disease-Associated Artery/Lesion type: [place] artery [place] vs. transplanted heart: [place] heart Associated angina: without angina Qualifi ed Code(s): I25.10 - Atherosclerotic heart disease of [place] coronary artery without angina pectoris (3) HTN (hypertension): Status: Acute Qualifiers: Hypertension type: essential hypertension Qualified Code(s): I10 - Essential (primary) hypertension (4) Dyslipidemia: Status: Acute (5) Diabetes mellitus: Status: Acute Qualifiers: Diabetes mellitus type: type 2 Diabetes mellitus terminal gauger insulin use: with snf use Diabetes mellitus complication status: with neurologic complications Diabetes mellitus complication detail: with polyneuropathy Qualified Code(s): E11.42 - Type 2 diabetes mellitus with diabetic polyneuropathy; Z79.4 - terminal gauger (current) use of insulin (6) Obstructive sleep apnea hypopnea, severe: Status: Acute (7) Generalized anxiety disorder: Status: Chronic Reason for Visit Reason for Visit: cp/sob Hospital Course Hospital Course Len Sandoval is a 34 year old male with past medical history of multiple CVA status post tPA, morbid obesity (BMI-60), chronic bronchitis, gastroesophageal reflux disease, resistant hypertension, poorly controlled type II diabetes mellitus, history of PVCs, dyslipidemia, history of panic disorder, generalized anxiety disorder and is well-known to me as an outpatient. He is on disability and lives with his father and mother. He was having difficulty going to bed and around 3 in the morning developed significant chest pressure that radiated to his left shoulder arm forearm and all the way to his hands. Chest pain 10/10 in intensity and was located in left parasternal area with worsening of discomfort with exertion/ambulation. Chest pain without any reproducibility or any worsening with inspiration or coughing. No recent URI or UTI-like symptoms. He woke up his mom Bhakti and presented to the ER for further evaluation. Patient tells me his blood pressure has been well controlled except for last 2 days when it has been running high. He received IV labetalol and was started on nitroglycerin drip for elevated blood pressure in the ER. Patient was admitted to the hospital at cardiac stepdown unit and antihypertensives were further adjusted IV antihypertensives were weaned off. Patient had occasional chest discomfort rating to left arm so cardiology was consulted. His troponin trend continue to remain negative. Because of multiple risk factors and family history of CAD with past history of chest pain as well patient was recommended cardiac catheterization. Patient underwent cardiac catheterization and drug-eluting stent placement in diagonal via right radial access by Dr. Gallagher on May 20. He tolerated procedure well. His antibiotics were further adjusted by cardiology team. He was discharged hemodynamically stable condition with advised to follow-up with heart care center in next 1 week and then with Dr. Degroot next 1 month. Physical Exam Narrative: EXAM NARRATIVE: General: No acute distress, AO x3, morbidly obese HEENT: PERRLA, pupils bilaterally equal and reactive Chest: Normal vesicular breath sounds, no added sounds, equal good air entry bilaterally CVS: S1-S2 regular, no murmurs, no tachycardia, no gallops, no rubs Abdomen: Soft, nontender, no organomegaly, bowel sounds present Neuro: No focal deficits, no facial deformity, AO x3, power 5/5 in all limbs Discharge Data Data Completed and Pending: Completed Studies During Hospitalization Category Date Time Status XR chest 1V janette ble [id number] Stat Exams 05/19/20 03:42 Completed Pending at discharge Category Date Time Status ELECTRONIC TEST TECHNICIAN request for service Routin e Exams 05/20/20 16:52 Taken Labs from last 24 hours 05/21/20 05/21/20 05/21/20 11:05 07:22 07:22 WBC 7.7 Corrected WBC RBC 4.60 Hgb 11.5 L Hct 38.2 L MCV 83.0 MCH 25.0 L MCHC 30.1 RDW 15.1 Plt Count 207 MPV 9.9 Gran % Neut % (Auto) 71.4 Lymph % (Auto) 20.4 [place] % (Auto) 5.5 Eos % (Auto) 2.0 Baso % (Auto) 0.3 Neut # (Auto) 5.48 Lymph # (Auto) 1.6 [place] # (Auto) 0.4 Eos # (Auto) 0.2 Baso # (Auto) 0.0 Absolute Gran (aut o) Nucleated RBC % (a uto) 0 Nucleated RBCs # 0.0 Sodium 139 Potassium 3.2 L Chloride 99 Carbon Dioxide 32 H Anion Gap 11.2 BUN 21 H Creatinine 1.2 GFR Calculation 69.3 L Glucose 141 H POC Glucose 235 H Calculated Osmolal ity 293 Calcium 8.7 Total Bilirubin 0.3 AST 13 ALT 27 Alkaline Phosphata se 45 Total Protein 6.7 Albumin 4.0 Globulin 2.7 05/21/20 05/21/20 05/21/20 06:42 04:30 04:30 WBC Cancelled Corrected WBC Cancelled RBC Cancelled Hgb Cancelled Hct Cancelled MCV Cancelled MCH Cancelled MCHC Cancelled RDW Cancelled Plt Count Cancelled MPV Cancelled Gran % Cancelled Neut % (Auto) Cancelled Lymph % (Auto) Cancelled [place] % (Auto) Cancelled Eos % (Auto) Cancelled Baso % (Auto) Cancelled Neut # (Auto) Cancelled Lymph # (Auto) Cancelled [place] # (Auto) Cancelled Eos # (Auto) Cancelled Baso # (Auto) Cancelled Absolute Gran (aut o) Cancelled Nucleated RBC % (a uto) Cancelled Nucleated RBCs # Cancelled Sodium Cancelled Potassium Cancelled Chloride Cancelled Carbon Dioxide Cancelled Anion Gap Cancelled BUN Cancelled Creatinine Cancelled GFR Calculation Cancelled Glucose Cancelled POC Glucose 140 H Calculated Osmolal ity Cancelled Calcium Cancelled Total Bilirubin Cancelled AST Cancelled ALT Cancelled Alkaline Phosphata se Cancelled Total Protein Cancelled Albumin Cancelled Globulin Cancelled 05/20/20 05/20/20 19:55 16:34 WBC Corrected WBC RBC Hgb Hct MCV MCH MCHC RDW Plt Count MPV Gran % Neut % (Auto) Lymph % (Auto) [place] % (Auto) Eos % (Auto) Baso % (Auto) Neut # (Auto) Lymph # (Auto) [place] # (Auto) Eos # (Auto) Baso # (Auto) Absolute Gran (aut o) Nucleated RBC % (a uto) Nucleated RBCs # Sodium Potassium Chloride Carbon Dioxide Anion Gap BUN Creatinine GFR Calculation Glucose POC Glucose 171 H 161 H Calculated Osmolal ity Calcium Total Bilirubin AST ALT Alkaline Phosphata se Total Protein Albumin Globulin Vitals: Last Vital Signs Temp 97.9 F 02/10/21 11:00 Pulse 87 05/21/20 11:00 Resp 18 05/21/20 11:00 BP 165/113 05/21/20 11:00 Pulse Ox 95 05/21/20 11:00 Discharge Plan Discharge Patient Disposition: Home Condition: Stable Prescriptions: New Carafate 1 gram tablet 1 g PO Q6H 28 Days Qty: 112 RF: 0 carvedilol 12.5 mg Tablet 25 mg PO BID Qty: 60 RF: 0 isosorbide mononitrate 30 mg Tablet Extended Release 24 Hr 30 mg PO DAILY Qty: 30 RF: 0 clopidogrel 75 mg Tablet 75 mg PO DAILY Qty: 30 RF: 0 aspirin 81 mg Tablet,Delayed Release (Dr/Ec) 81 mg PO DAILY Qty: 30 RF: 0 spironolactone 25 mg Tablet 25 mg PO DAILY Qty: 30 RF: 0 Continued allopurinol 100 mg tablet 300 mg PO DAILY RF: 0 omeprazole 20 mg capsule,delayed release(DR/EC) 20 mg PO DAILY RF: 0 Victoza 2-Colt 0.6 mg/0.1 mL (18 mg/3 mL) pen injector 1.8 mg SUBCUT QAM RF: 0 Lantus U-100 Insulin 100 unit/mL solution 65 unit SUBCUT QPM RF: 0 divalproex [Depakote ER] 500 mg tablet extended release 24 hr 500 mg PO BID Qty: 60 RF: 4 diazepam [Valium] 5 mg tablet 5 mg PO BID PRN (Reason: anxiety) Qty: 60 RF: 1 desvenlafaxine succinate [Pristiq] 50 mg tablet extended release 24 hr 50 mg PO DAILY RF: 0 hydralazine 50 mg tablet 50 mg PO TID RF: 0 metformin 1,000 mg tablet 1,000 mg PO BID RF: 0 cyclobenzaprine 10 mg tablet 10 mg PO BID RF: 0 atorvastatin 40 mg Tablet 80 mg PO DAILY RF: 0 clonidine [Ozpnlqka-VGW-6] 0.3 mg/24 hr Patch Weekly 0.3 mg transdermal DIRECTED RF: 0 lisinopril 20 mg Tablet 40 mg PO DAILY RF: 0 fenofibrate 54 mg Tablet 160 mg PO DAILY RF: 0 potassium chloride 10 mEq capsule, extended release 30 meq PO DAILY Qty: 60 RF: 0 Jardiance 10 mg Tablet 10 mg PO QAM RF: 0 cetirizine [Zyrtec] 10 mg Tablet 10 mg PO DAILY PRN (Reason: Allergy Symptoms) RF: 0 amlodipine 10 mg tablet 10 mg PO DAILY Qty: 30 RF: 0 Discontinued carvedilol 25 mg tablet 25 mg PO BID RF: 0 aspirin 325 mg tablet 325 mg PO DAILY RF: 0 chlorthalidone 25 mg tablet 25 mg PO DAILY RF: 0 No Action (DME) oxygen-air delivery systems Device See Rx Instructions .ROUTE .MEDSUPPLY Qty: 1 RF: 0 (DME) FreeStyle Yamileth 14 Day Sensor Kit See Rx Instructions .ROUTE .MEDSUPPLY Qty: 2 RF: 3 (DME) FreeStyle Yamileth 14 Day [place] Misc See Rx Instructions .ROUTE .MEDSUPPLY Qty: 1 RF: 0 Discharge Orders: Discharge Order (Routine); Ordered 05/21/20 Ordered By: Henrique Brody Referrals: Chad Jiménez DO [Primary Care Provider] - 4-7 days Nelly Ocampo FNP [Nurse Practitioner] - (Please follow-up Nelly Ocampo on May 28 at 3:30P.M. If you have any questions or need to reschedule. Please call ) Annika Degroot MD [Physician] - (Please keep your appointment with Dr. Degroot on June 23 at 11:15A.M. If you have any questions or need to reschedule. Please call ) Patient Instructions: Post Angiogram Home Care Instructions Activity Restrictions/Additional Instructions: BP/HR log for 2 weeks and changes based on that. Do not lift anything more than 5 lbs for 1 week. Keep the site dry and clean Take medications as prescribed and follow up as scheduled. Discharge Attestations Time Spent in Discharge Care*: greater than 30 min Specific Discharge Activities: educating patient, educating and/or supporting family/caregiver, discussing with pcp/other providers, documenting/other paperwork and evaluating patient/reviewing data Status at Discharge: Cognitive status at discharge: cognitively intact , Behavioral status at discharge: cooperative , Functional status at discharge: independent ambulation Overall status at discharge: patient is back to baseline Quality Metrics Clinical Quality Measures During this hospital stay, did patient experience: None Coding Level of Care Code Acute Checker And Packer for Chg Fwd Diagnoses Chest pain R07.2 Chest pain type: precordial pain CAD (coronary artery disease) I25.10 Coronary Disease-Associated Artery/Lesion type: [place] artery [place] vs. transplanted heart: [place] heart Associated angina: without angina HTN (hypertension) I10 Hypertension type: essential hypertension Dyslipidemia E78.5 Diabetes mellitus E11.42; Z79.4 Diabetes mellitus type: type 2 Diabetes mellitus snf insulin use: with terminal gauger use Diabetes mellitus complication status: with neurologic complications Diabetes mellitus complication detail: with polyneuropathy Obstructive sleep apnea hypopnea, severe G47.33 Generalized anxiety disorder F41.1
--- NOTE | 2020-05-21 13:40 | PC.NURSE ---
discharge instructions given per the physician's orders. Patient verbalized understanding of teaching and did not have any further questions. IV has been removed, patient dressed self. No further needs identified at this time.
== END 2020-05-21 13:40 | disposition home or self-care (01) | DRG 247 ==
LOC: ER 05:49 → CSU 17:07
PROVIDERS: Internal Medicine; Admitting Provider Internal Medicine; Emergency Provider Emergency Medicine; PCP Electrodiagnostic Medicine; Visit Provider Student in an Organized Health Care Education/Training Program
PROC: 027034Z Dilation of Coronary Artery, One Artery with Drug-eluting Intraluminal Device, Percutaneous Approach (ICD-10-PCS; principal; 2020-05-20 10:00)
PROC: 027034Z Dilation of Coronary Artery, One Artery with Drug-eluting Intraluminal Device, Percutaneous Approach (ICD-10-PCS; 2020-05-20 10:00)
DX: I25.110 Atherosclerotic heart disease of native coronary artery with unstable angina pectoris (principal); Z68.44 Body mass index [BMI] 60.0-69.9, adult; F31.81 Bipolar II disorder; I16.0 Hypertensive urgency; E66.01 Morbid (severe) obesity due to excess calories; I10 Essential (primary) hypertension; G47.33 Obstructive sleep apnea (adult) (pediatric); E11.65 Type 2 diabetes mellitus with hyperglycemia; E11.42 Type 2 diabetes mellitus with diabetic polyneuropathy; F41.1 Generalized anxiety disorder; E78.00 Pure hypercholesterolemia, unspecified; F41.0 Panic disorder [episodic paroxysmal anxiety]; F43.12 Post-traumatic stress disorder, chronic; Z87.891 Personal history of nicotine dependence; Z86.73 Personal history of transient ischemic attack (TIA), and cerebral infarction without residual deficits; J42 Unspecified chronic bronchitis; K21.9 Gastro-esophageal reflux disease without esophagitis; E78.5 Hyperlipidemia, unspecified; Z98.84 Bariatric surgery status; E87.6 Hypokalemia; Z79.4 Long term (current) use of insulin
CPT/HCPCS: 12345; 36415; 36416; 71045; 80053; 80061; 82962; 83036; 83690; 83880; 84443; 84484; 85025; 85347; 85378; 85610; 85730; 93005; 93452; 96372; 99283; C1725; C1769; C1874; C1887; C1894; C9600; J1644; J1650; J1815 ×2; J2250; J2270; J2405; J3010; J3490; J7030; J7050; Q0163; Q9967

== ENCOUNTER → 2020-06-04 15:48 | Outpatient (BNVA) | payer MEDICAID, SELFPAY | PROVIDERS: PCP Electrodiagnostic Medicine; Visit Provider Nurse Practitioner Family | DX: I25.10 Atherosclerotic heart disease of native coronary artery without angina pectoris (principal); I10 Essential (primary) hypertension | CPT/HCPCS: 80048 ==

== ENCOUNTER 2020-06-07 00:42 | Emergency (ER) | payer MEDICAID, SELFPAY ==
[2020-06-07 00:52] VITALS: BP 169/100; PULSE 93; RESP 17; TEMP 36.7; O2SAT 97; BMI 60.9
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
== END 2020-06-07 01:53 | disposition home or self-care (01) ==
PROVIDERS: Emergency Provider Physician Assistant; PCP Electrodiagnostic Medicine
DX: M25.512 Pain in left shoulder (principal); Z79.02 Long term (current) use of antithrombotics/antiplatelets; Z79.82 Long term (current) use of aspirin; Z79.4 Long term (current) use of insulin; Z86.73 Personal history of transient ischemic attack (TIA), and cerebral infarction without residual deficits; E11.40 Type 2 diabetes mellitus with diabetic neuropathy, unspecified; E78.5 Hyperlipidemia, unspecified; I10 Essential (primary) hypertension; Z87.891 Personal history of nicotine dependence
CPT/HCPCS: 73030; 99282

== ENCOUNTER 2020-06-27 16:22 | Emergency (ER) | payer MEDICAID, SELFPAY ==
[2020-06-27 17:08] VITALS: BP 167/110; PULSE 103; RESP 18; TEMP 37.2; O2SAT 96; BMI 59.9
--- NOTE | 2020-06-27 17:24 | CTR_ITS ---
PROCEDURE INFORMATION: Exam: CT Head Without Contrast Exam date and time: 06/27/2020 6:09 PM Age: 34 years old Clinical indication: Dizziness and weakness, extremity; Left; Patient HX: HX of stroke C/O dizziness w lue numbness; Additional info: Dizziness/numbness to L arm TECHNIQUE: Imaging protocol: Computed tomography of the head without contrast. Radiation optimization: All CT scans at this facility use at least one of these dose optimization techniques: automated exposure control; mA and/or kV adjustment per patient size (includes targeted exams where dose is matched to clinical indication); or iterative reconstruction. COMPARISON: CT head wo con* [id number] 12/15/2019 11:34 PM RADIATION DOSE METRICS: Total DLP (mGy-cm): 977.69 FINDINGS: The ventricles, sulci and basilar cisterns appear normal for the patient's stated age. There is no evidence of mass, hemorrhage or infarct. No extra-axial fluid collections are identified. There is no midline shift. There is no evidence of fracture. The visualized paranasal sinuses are well-aerated. CT/CT head wo con* [id number] IMPRESSION: No evidence for acute infarct, mass or hemorrhage. Radiation Dose CTDIVOL = (mGy): DLP = 977.69 (mGy-cm)
--- NOTE | 2020-06-27 17:24 | XRR_ITS ---
PROCEDURE INFORMATION: Exam: XR Chest Exam date and time: 06/27/2020 5:34 PM Age: 34 years old Clinical indication: Other: Dizzy/hypertension; Additional info: Dizziness/htn TECHNIQUE: Imaging protocol: XR of the chest Views: 1 view. COMPARISON: CR XR chest 1V portable [id number] 05/19/2020 3:45 AM FINDINGS: The lungs are clear of infiltrate. There are no pleural effusions or pneumothorax. The heart size and pulmonary vascularity are normal. XR/XR chest 1V portable [id number] IMPRESSION: No active disease.
--- NOTE | 2020-06-27 17:24 | ECG_ITS ---
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 Measurements Intervals [place] Rate: 95 P: 47 MA: 158 QRS: 9 QRSD: 108 T: 55 QT: 344 QTc: 433 Interpretive Statements SINUS RHYTHM WITH SINUS ARRHYTHMIA LOW QRS VOLTAGE IN PRECORDIAL LEADS [QRS DEFLECTION < 1.0 mV IN CHEST LEADS] INCOMPLETE RIGHT BUNDLE BRANCH BLOCK [90+ ms QRS DURATION, TERMINAL R IN V1/V2, 40+ ms S IN I/aVL/V4/V5/V6] Compared to ECG 05/19/2020 10:41:38 Low QRS voltage now present Incomplete right bundle-branch block now present Electronically Signed On 06-27-2020 23:28:19 CDT by Ronald Navarro M.D. [id number]
--- NOTE | 2020-06-27 18:23 | W.ED.GENADLT ---
HPI - General Adult General: Chief complaint: General Medical Stated complaint: HIGH BLOOD PRESSURE, DECREASE SENSATION IN LUE Time Seen by Provider: 06/27/20 17:02 Source: patient Mode of arrival: ambulatory Limitations: no limitations History of Present Illness: HPI narrative: 34-year-old male 34-year-old male with extensive medical history including coronary artery disease and morbid obesity along with severe hypertension. He is on multiple medicines for his hypertension and states that he has had high blood pressure again today. He states he had some slight dizziness and headaches. He states headache is still 10. Denies any chest pain. Denies any difficulty walking. He has no focal neuro deficits. Associated symptoms: Deny chest pain, dyspnea, headache(s), nausea, rash or vomiting Review of Systems Const: Denies: fever(s), chills, body aches or change in appetite Eyes: Denies: blurry vision or eye discomfort ENMT: Denies: throat pain or dental pain Card: Denies: chest pain Resp: Denies: dyspnea GI: Denies: abdominal pain, nausea, vomiting or diarrhea : Denies: dysuria Musc: Denies: neck pain or back pain Skin/Breast: Denies: rash Neuro: Reports: numbness in extremities; Denies: headache(s) Psych: Denies: depression Alexander/Lymph: Denies: easy bruising All/Imm: Denies: urticaria PFSH ED PFSH: Medical History Bipolar II disorder Cerebrovascular accident Diabetes mellitus Diabetic neuropathy Dyslipidemia Easy bruising Gastroenteritis Generalized anxiety disorder History of adverse reaction to tissue plasminogen activator (tPA) HTN (hypertension) Hx of secondary hypertension Hypokalemia Obesity Obstructive sleep apnea hypopnea, severe Panic disorder without agoraphobia Post-traumatic stress disorder, chronic 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 Weight gain Surgical History History of esophagogastroduodenoscopy (EGD) (~04/2019) History of tonsillectomy and adenoidectomy Status following gastric banding surgery for weight loss Stented coronary artery Family History Denies family history of Anesthesia complication Bleeding disorder Social History Smoking and tobacco status: former smoker Quit status (tobacco): has quit using tobacco Year quit tobacco: 2010 Second hand smoke exposure: Yes Alcohol intake: never Desire information about alcohol rehabilitation?: No Desire information about substance/drug rehabilitation?: No Adopted: No Caregiver/support person: Yes Lives independently: Yes Household members: family Housing: House Marital status: Single Highest education level completed: High School Graduate service: No Current occupational status: disabled Current occupational exposures/hazards: No Pets and animals: Yes Pets & animals: cat(s) History of recent travel: No Sexually active: No Current gender identity: Male Karolina/Religious: Religion Special karolina needs: No Agree to transfusion: No Financial difficulty paying for basics: Decline to Answer Physical Exam Const: COMMON NORMALS: no acute distress, patient oriented x3 and healthy appearing HENMT: COMMON NORMALS: normocephalic and atraumatic HEAD & SCALP: normocephalic and atraumatic Eye: COMMON NORMALS: Equal, round and reactive pupils present and EOMs intact bilaterally PUPIL: Yes Equal, round and reactive pupils present Neck/C-Spine: COMMON NORMALS: full ROM and supple Chest: COMMONS NORMALS: normal inspection of the chest and normal palpation of entire chest wall Resp: COMMON NORMALS: normal respiratory effort, No retractions, No use of accessory muscles and clear to auscultation bilaterally AUSCULTATION: clear to auscultation bilaterally Cardio: COMMON NORMALS: regular rate, regular rhythm and No murmurs present (Cardio) RATE: regular rate RHYTHM: regular rhythm GI: COMMON NORMALS: Normal to inspection, nondistended, normoactive bowel sounds present, Soft to palpation, non-tender and no masses PALPATION: Yes Soft to palpation Extremity: COMMON NORMALS: normal to inspection and full ROM Neuro: COMMON NORMALS: patient oriented x3, moves all extremities and no focal motor deficits SPEECH: speech normal GAIT: Yes Normal gait present MOTOR EXAM: 5/5 motor strength present throughout Psych: COMMON NORMALS: mental status grossly normal, Normal thought process present and cooperative THOUGHT PROCESS: Normal thought process present Skin: COMMON NORMALS: no rashes or lesions noted and no wounds GENERAL SKIN EXAM: no rashes or lesions noted Course Vital Signs: Vital signs: Vital Signs Temperature 99.0 F 06/27/20 17:08 Pulse Rate 92 06/27/20 20:27 Respiratory Rate 16 06/27/20 20:27 Blood Pressure 130/88 06/27/20 20:27 Pulse Oximetry 95 06/27/20 20:27 MDM - General Adult MDM Narrative: Medical decision making narrative: Len presents here with hypertension. His blood pressure here is improved. He is no signs of acute coronary syndrome or stroke. Patient's blood work here is all normal. He is stable for discharge and is to follow-up with PCP and return if worsening. Lab Data: Labs: Lab Results 06/27/20 06/27/20 06/27/20 Range/Units 17:50 19:42 19:42 WBC 10.8 H (4.0-10.0) 10^3/ uL RBC 5.06 (4.1-5.3) 10^6/u L Hgb 12.6 (11.7-16.6) g/dL Hct 41.6 L (42.0-52.0) % MCV 82.2 (80-94) fL MCH 24.9 L (28.0-34.0) pg MCHC 30.3 (30.0-36.0) g/dL RDW 14.9 (12.1-15.1) % Plt Count 241 (130-400) 10^3/c mm MPV 9.5 (7.4-10.4) fL Neut % (Auto) 80.3 % Lymph % (Auto) 13.4 % Merrick % (Auto) 4.2 % Eos % (Auto) 1.0 % Baso % (Auto) 0.4 % Neut # (Auto) 8.69 H (1.8-7.7) 10^3/u L Lymph # (Auto) 1.5 (0.8-4.8) 10^3/u L Merrick # (Auto) 0.5 (0.2-0.9) 10^3/u L Eos # (Auto) 0.1 (0.0-0.8) 10^3/u L Baso # (Auto) 0.0 (0.0-0.1) 10^3/u L Nucleated RBC % (a uto) 0 % Nucleated RBCs # 0.0 /100WBC Sodium 140 (136-145) mmol/L Potassium 4.2 (3.5-5.1) mmol/L Chloride 103 (98-107) mmol/L Carbon Dioxide 25 (22-29) mmol/L Anion Gap 16.2 (5-19) BUN 26 H (6-20) mg/dL Creatinine 1.4 H (0.7-1.2) mg/dL GFR Calculation 58.0 L (90-130) mL/min Glucose 98 (65-115) mg/dL Calculated Osmolal ity 295 (285-295) mOsm/k g Calcium 8.9 (8.5-10.5) mg/dL Total Bilirubin 0.2 (0.15-1.2) mg/dL AST 11 (0-40) U/L ALT 24 (0-41) U/L Alkaline Phosphata se 47 (40-130) IU/L Total Protein 7.4 (6.6-8.7) g/dL Albumin 4.3 (3.5-5.2) g/dL Globulin 3.1 (1.3-4.6) g/dL Urine Color Yellow (Yellow) Urine Appearance Clear (CLEAR) Urine pH 6 (5-7) Ur Specific Gravit y 1.010 (1.005-1.030) Urine Protein Neg (Negative) Urine Glucose (UA) 4+ H (Normal) Urine Ketones Negative (Negative) Urine Blood Neg (Negative) Urine Nitrate Negative (Negative) Urine Bilirubin Neg (Negative) Urine Urobilinogen Norm (Negative) mg/dL Ur Leukocyte Divya ase Negative (Negative) Imaging Data^: CT Head: Attestation: I personally reviewed and interpreted this imaging study as follows: Radiologist's impression: [address] [address] [address] Scan Report Signed Patient: Len Sandoval Unit #: [id number] : 1985 Age/Sex: 34 / M ADM Date: 06/27/20 Loc: ER Room/Bed: Attending Dr: Ordering Provider/Ordering MD: Mindy Cherry Date of Service: 06/27/20 Procedure(s): CT head wo con* [id number] Accession Number(s): [id number] Report Number: [id number] PROCEDURE INFORMATION: Exam: CT Head Without Contrast Exam date and time: 06/27/2020 6:09 PM Age: 34 years old Clinical indication: Dizziness and weakness, extremity; Left; Patient HX: HX of stroke C/O dizziness w lue numbness; Additional info: Dizziness/numbness to L arm TECHNIQUE: Imaging protocol: Computed tomography of the head without contrast. Radiation optimization: All CT scans at this facility use at least one of these dose optimization techniques: automated exposure control; mA and/or kV adjustment per patient size (includes targeted exams where dose is matched to clinical indication); or iterative reconstruction. COMPARISON: CT head wo con* [id number] 12/15/2019 11:34 PM RADIATION DOSE METRICS: Total DLP (mGy-cm): 977.69 FINDINGS: The ventricles, sulci and basilar cisterns appear normal for the patient's stated age. There is no evidence of mass, hemorrhage or infarct. No extra-axial fluid collections are identified. There is no midline shift. There is no evidence of fracture. The visualized paranasal sinuses are well-aerated. CT/CT head wo con* [id number] IMPRESSION: No evidence for acute infarct, mass or hemorrhage. EKG Data^: EKG 1: Attestation: I personally reviewed and interpreted this EKG as follows: EKG interpretation date: 06/27/20 EKG interpretation time: 18:07 Interpretation: nsr hr [address] or t wave abnormalities qrs 108 qtc 396 Computer generated interpretation: Chest X-Ray 06/27/20 17:24 IMPRESSION: No active disease. Head CT 06/27/20 17:24 IMPRESSION: No evidence for acute infarct, mass or hemorrhage. Radiation Dose CTDIVOL = (mGy): DLP = 977.69 (mGy-cm) Discharge Plan Discharge Patient Disposition: Home Clinical Impression: HTN (hypertension) Qualifiers: Hypertension type: unspecified Qualified Code(s): I10 - Essential (primary) hypertension Condition: Stable Prescriptions: No Action (DME) oxygen-air delivery systems Device See Rx Instructions .ROUTE .MEDSUPPLY Qty: 1 RF: 0 omeprazole 20 mg capsule,delayed release(DR/EC) 20 mg PO DAILY RF: 0 Victoza 2-Colt 0.6 mg/0.1 mL (18 mg/3 mL) pen injector 1.8 mg SUBCUT QAM RF: 0 Lantus U-100 Insulin 100 unit/mL solution 85 unit SUBCUT BEDTIME RF: 0 diazepam [Valium] 5 mg tablet 5 mg PO BID PRN (Reason: anxiety) Qty: 60 RF: 1 hydralazine 50 mg tablet 50 mg PO TID RF: 0 metformin 1,000 mg tablet 1,000 mg PO BID RF: 0 cyclobenzaprine 10 mg tablet 10 mg PO BID PRN (Reason: Muscle Spasm) RF: 0 (DME) FreeStyle Yamileth 14 Day Sensor Kit See Rx Instructions .ROUTE .MEDSUPPLY Qty: 2 RF: 3 (DME) FreeStyle Yamileth 14 Day [place] Misc See Rx Instructions .ROUTE .MEDSUPPLY Qty: 1 RF: 0 isosorbide mononitrate 30 mg tablet extended release 24 hr 30 mg PO BID Qty: 60 RF: 2 potassium chloride 10 mEq capsule, extended release 40 meq PO DAILY RF: 0 carvedilol 25 mg tablet 25 mg PO BID RF: 0 tamsulosin 0.4 mg capsule 0.4 mg PO DAILY RF: 0 melatonin 10 mg tablet 10 mg PO BEDTIME PRN (Reason: Sleep) RF: 0 clonidine [Trhqyrwc-VUS-2] 0.3 mg/24 hr Patch Weekly 0.3 mg transdermal Q7D RF: 0 lisinopril 20 mg Tablet 40 mg PO DAILY RF: 0 fenofibrate 54 mg Tablet 160 mg PO DAILY RF: 0 Jardiance 10 mg Tablet 10 mg PO DAILY RF: 0 clopidogrel 75 mg Tablet 75 mg PO DAILY Qty: 30 RF: 0 aspirin 81 mg Tablet,Delayed Release (Dr/Ec) 81 mg PO DAILY Qty: 30 RF: 0 spironolactone 25 mg Tablet 25 mg PO DAILY Qty: 30 RF: 0 desvenlafaxine succinate [Pristiq] 50 mg Tablet Extended Release 24 Hr 50 mg PO DAILY RF: 0 atorvastatin 80 mg Tablet 80 mg PO BEDTIME RF: 0 Carafate 100 mg/mL Suspension See Rx Instructions .ROUTE .COMPLEX RF: 0 Depakote ER 250 mg Tablet Extended Release 24 Hr 250 mg PO BEDTIME RF: 0 amlodipine 10 mg tablet 10 mg PO BEDTIME RF: 0 Depakote ER 500 mg tablet extended release 24 hr 500 mg PO DAILY RF: 0 cetirizine [Zyrtec] 10 mg Tablet 10 mg PO DAILY RF: 0 Discharge Orders: Discharge ED (Routine); Ordered 06/27/20 Ordered By: Vanessa Townsend Referrals: Chad Jiménez DO [Primary Care Provider] - 1-3 days Discharge Diet: Advance as tolerated Discharge Activity: Resume usual activity Patient Instructions: Hypertension (ED) Coding Level of Care Code ED Pickle Water Pump Operator for Chg Fwd Exam Comprehensive
[2020-06-27 19:03] LABS: Add Urine Microscopic? NO
[2020-06-27 19:12] LABS: Bilirubin Urine Neg (Negative); Blood Urine Neg (Negative); Glucose Urine UA 4+ (Normal); Ketones Urine Negative (Negative); Leukocyte Esterase Urine Negative (Negative); Nitrate Urine Negative (Negative); Protein Urine Neg (Negative); Urine Appearance Clear (CLEAR); Urine Color Yellow (Yellow); Urobilinogen Urine Norm (Negative); pH Urine 6 (5-7)
[2020-06-27] MEDS: cloNIDine 0.1 mg Tablet 0.2 MG PO (19:20)
[2020-06-27 19:46] VITALS: BP 146/87; PULSE 95; RESP 18; O2SAT 93
[2020-06-27 19:52] LABS: Basophils % 0.4 %; Eosinophils # 0.1 10^3/uL (0.0-0.8); Hematocrit 41.6 % (42.0-52.0); Hemoglobin 12.6 g/dL (11.7-16.6); Lymphocytes # 1.5 10^3/uL (0.8-4.8); Lymphocytes % 13.4 %; Mean Corpuscular HGB Conc 30.3 g/dL (30.0-36.0); Mean Corpuscular Hemoglobin 24.9 pg (28.0-34.0); Mean Corpuscular Volume 82.2 fL (80-94); Mean Platelet Volume 9.5 fL (7.4-10.4); Monocytes # 0.5 10^3/uL (0.2-0.9); Monocytes % 4.2 %; Neutrophils # 8.69 10^3/uL (1.8-7.7); Neutrophils % 80.3 %; Nucleated Red Blood Cells % 0 %; Platelet Count 241 10^3/cmm (130-400); Red Blood Count 5.06 10^6/uL (4.1-5.3); Red Cell Distribution Width 14.9 % (12.1-15.1); White Blood Count 10.8 10^3/uL (4.0-10.0)
[2020-06-27 20:17] LABS: Alanine Aminotransferase 24 U/L (0-41); Albumin Level 4.3 g/dL (3.5-5.2); Alkaline Phosphatase 47 IU/L (40-130); Anion Gap 16.2 (5-19); Aspartate Amino Transferase 11 U/L (0-40); Blood Urea Nitrogen 26 mg/dL (6-20); Calcium 8.9 mg/dL (8.5-10.5); Carbon Dioxide 25 mmol/L (22-29); Chloride 103 mmol/L (98-107); Globulin 3.1 g/dL (1.3-4.6); Glucose 98 mg/dL (65-115); Osmolality Calculated 295 mOsm/kg (285-295); Potassium 4.2 mmol/L (3.5-5.1); Sodium 140 mmol/L (136-145); Total Bilirubin 0.2 mg/dL (0.15-1.2); Total Protein 7.4 g/dL (6.6-8.7)
[2020-06-27 20:27] VITALS: BP 130/88; PULSE 92; RESP 16; O2SAT 95
== END 2020-06-27 20:28 | disposition home or self-care (01) ==
PROVIDERS: Physician Assistant; Emergency Provider Emergency Medicine; PCP Electrodiagnostic Medicine
DX: I10 Essential (primary) hypertension (principal); Z79.4 Long term (current) use of insulin; Z79.82 Long term (current) use of aspirin; E11.40 Type 2 diabetes mellitus with diabetic neuropathy, unspecified; E78.5 Hyperlipidemia, unspecified; Z87.891 Personal history of nicotine dependence
CPT/HCPCS: 70450; 71045; 80053; 81003; 85025; 93005; 99283

== ENCOUNTER 2020-08-13 08:47 | Emergency (ER) | payer MEDICAID, SELFPAY ==
[2020-08-13 08:56] VITALS: BP 206/112; PULSE 85; RESP 20; O2SAT 97
--- NOTE | 2020-08-13 09:09 | CT_ITS ---
WS: [id number] CT HEAD TECHNIQUE: Noncontrast CT of the head obtained from the skullbase to the vertex. CLINICAL INFORMATION: Symptoms of Acute Stroke COMPARISON: June 27, 2020 DLP: 1000.[address] scans at [facility] use at least one of these dose optimization techniques: automat ed exposure control; mA and/or kV adjustment per patient size (includes targeted exams where dose is matched to clinical indication); or iterative reconstruction. FINDINGS: No evidence of intracranial hemorrhage or mass effect. Ventricular system and basal cisterns are carpenter nt. No extra-axial fluid collections. No evidence of mass or mass effect. Normal russell-white different iation. Slight increased density in the right M1 segment is equivocal. MRI is pending. Paranasal sinuses and mastoid air cells are well aerated. .Normal visualized soft tissues. CT/CT head wo con* [id number] IMPRESSION: 1. No evidence of intracranial hemorrhage or mass effect. 2. Normal Russell-White Differentiation. 3. Suggestion of slight increased density in the right M1 segment is equivocal . MRI is pending. 4. No other significant findings. Notified Nir Worthy MD at 08/13/2020 10:23 AM.
--- NOTE | 2020-08-13 09:09 | ECG_ITS ---
[facility] Test Date: 2020-08-13 Pat Name: Len Sandoval Department: Room: Gender: Male Chief Vendor Quality: : 1985 Requested By: Nir Worthy Order Number: [id number] Skip MD: Shon Gallagher M.D. Measurements Intervals Brilliant Rate: 88 P: 43 LA: 174 QRS: 17 QRSD: 117 T: 53 QT: 368 QTc: 445 Interpretive Statements SINUS RHYTHM LOW QRS VOLTAGE IN PRECORDIAL LEADS [QRS DEFLECTION < 1.0 mV IN CHEST LEADS] INCOMPLETE RIGHT BUNDLE BRANCH BLOCK [90+ ms QRS DURATION, TERMINAL R IN V1/V2, 40+ ms S IN I/aVL/V4/V5/V6] Compared to ECG 06/27/2020 18:07:44 Sinus arrhythmia no longer present Electronically Signed On 08-13-2020 10:02:13 CDT by Shon Gallagher M.D. [id number]
[2020-08-13 09:13] LABS: Glucose Point of Care 97 mg/dL (70-110)
--- NOTE | 2020-08-13 09:16 | W.ED.NEUROSD ---
HPI - Neuro Symptoms/Deficit General: Chief Complaint: Neuro Symptoms/Deficit Stated Complaint: STROKE SYS, SENT FROM Time Seen by Provider: 08/13/20 08:53 Source: patient, family, RN notes reviewed and old records reviewed Limitations: no limitations History of Present Illness: HPI Narrative: 34-year-old male was at his primary care physician office this morning for follow-up of routine labs. Patient was sent to the emergency department for possible stroke-like symptoms. At 6 AM, the patient reported having some left arm weakness. Currently he also says that he has some left facial numbness and left leg weakness and numbness. He reportedly has a history of stroke. However, I have reviewed CT scans, angiogram head/neck, ambulatory panel monitor, and echo--pt has had no findings. He is also on ASA and plavix., statin, bb. He has been seen by Dr St previously. He reports getting tpa twice. No MRI on file. No chronic neuro deficits. + psychiatric history. Of note, patient has not been to bed, symptoms started at 0600 after staying up all night playing video games. Associated symptoms: Reports headache(s); Deny chest pain, nausea, syncope, vertigo or vomiting Review of Systems General: Reports: 10 or more systems reviewed and unremarkable except in HPI and below Const: Denies: fever(s), chills or body aches Eyes: Denies: change in vision, blurry vision, blind spots or photophobia ENMT: Denies: throat pain Card: Denies: chest pain, palpitations, irregular heart rhythm, edema, lightheadedness or syncope Resp: Denies: dyspnea or productive cough GI: Denies: abdominal pain, nausea, vomiting or diarrhea : Denies: flank pain, dysuria or urinary frequency Musc: Denies: neck pain, back pain, extremity pain or extremity swelling Skin/Breast: Denies: rash or erythema Neuro: Reports: headache(s), numbness in extremities, weakness in extremities, sensory changes, lack of coordination and difficulty walking; Denies: dizziness, vertigo, confusion, Slurred speech present or seizure-like activity [facility] PFSH: Medical History Bipolar II disorder Cerebrovascular accident Diabetes mellitus Diabetic neuropathy Dyslipidemia Easy bruising Gastroenteritis Generalized anxiety disorder History of adverse reaction to tissue plasminogen activator (tPA) HTN (hypertension) Hx of secondary hypertension Hypokalemia Obesity Obstructive sleep apnea hypopnea, severe Panic disorder without agoraphobia Post-traumatic stress disorder, chronic 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 Weight gain Surgical History History of esophagogastroduodenoscopy (EGD) (~04/2019) History of tonsillectomy and adenoidectomy Status following gastric banding surgery for weight loss Stented coronary artery Family History Denies family history of Anesthesia complication Bleeding disorder Social History Smoking and tobacco status: former smoker Quit status (tobacco): has quit using tobacco Year quit tobacco: 2010 Second hand smoke exposure: Yes Alcohol intake: never Desire information about alcohol rehabilitation?: No Desire information about substance/drug rehabilitation?: No Adopted: No Caregiver/support person: Yes Lives independently: Yes Household members: family Housing: House Marital status: Single Highest education level completed: High School Graduate service: No Current occupational status: disabled Current occupational exposures/hazards: No Pets and animals: Yes Pets & animals: cat(s) History of recent travel: No Sexually active: No Current gender identity: Male Karolina/Methodist: Orthodoxy Special karolina needs: No Agree to transfusion: No Financial difficulty paying for basics: Decline to Answer NIH stroke score NIHSS: Level Of Consciousness - 1a: 0 Level Of Consciousness Questions - 1b: Both Correct Level Of Consciousness Commands - 1c: Both Correct Best Gaze - 2: Normal Visual Cox - 3: No Visual Loss Facial Palsy - 4: Normal Motor Arm Right - 5: No Drift Motor Arm Left - 5: Drift Motor Leg Right - 6: No Drift Motor Leg Left - 6: Drift Limb Ataxia - 7: Present In One Limb Sensory - 8: Mild To Moderate Loss Best Language - 9: No Aphasia Dysarthia - 10: Normal Extinction And Inattention - 11: 0 Score: Total Score: 4 Physical Exam Const: COMMON NORMALS: no acute distress, patient oriented x3, no limitations, alert and well nourished EXAM LIMITATIONS: no altered mental status GENERAL APPEARANCE: cooperative and well developed; not ill appearing and not diaphoretic NUTRITIONAL APPEARANCE: obese ORIENTATION/CONSCIOUSNESS: Yes awake; not confused HENMT: COMMON NORMALS: normocephalic, atraumatic, external ears normal and Normal external nose present HEAD & SCALP: normal to inspection, normocephalic and atraumatic FACE & SINUS: face symmetric NOSE: Normal external nose present EXTERNAL EAR: Yes external ears normal MOUTH: lip normal; no muffled voice Eye: COMMON NORMALS: Equal, round and reactive pupils present, EOMs intact bilaterally, conjunctivae normal, no scleral icterus and normal visual cox by confrontation GENERAL EYE: appearance normal, both eyes and all related structures CONJUNCTIVA: Yes conjunctivae normal PUPIL: Yes Equal, round and reactive pupils present Neck/C-Spine: GENERAL: Yes normal visual inspection and Yes trachea midline Resp: COMMON NORMALS: normal respiratory effort, No use of accessory muscles and clear to auscultation bilaterally EFFORT & INSPECTION: Yes able to speak in complete sentences and Yes symmetric chest movement AUSCULTATION: clear to auscultation bilaterally Cardio: COMMON NORMALS: regular rate and regular rhythm RATE: regular rate RHYTHM: regular rhythm PERIPHERAL PULSES: radial pulses present GI: COMMON NORMALS: Soft to palpation INSPECTION: Yes normal to inspection PALPATION: Yes Soft to palpation, No Tenderness to palpation present (GI) and No Guarding due to palpation present (GI) Back/Pelvis: COMMON NORMALS: thoraco-lumbar ROM normal Extremity: COMMON NORMALS: normal to inspection GENERAL: Yes normal exam except as noted Neuro: COMMON NORMALS: patient oriented x3 and moves all extremities SENSORIUM/ORIENTATION: Yes alert CRANIAL NERVES: Yes CN normal except as noted and Yes CN V (trigeminal) (numbness) CN V laterality: left COORDINATION/BALANCE: No [id number] test normal and No Normal rapid alternating movements of the distal upper extremity present (Neuro) SPEECH: speech normal, no expressive aphasia and no receptive aphasia SENSORY EXAM: Yes extremities (feels more numb on left than right (face, arm, leg)); No Normal double simultaneous stimulation for sensation MOTOR EXAM: no tremor noted, no asterixis, Motor fasciculations not present, Normal motor muscle tone present throughout, Abnormal motor strength present and Pronator motor function present COORDINATION: [id number] test abnormal and abnormal rapid alternating movement UE OTHER: Of note, the patient's weakness on left arm/leg are fluctuating and almost seem volitional or subconscious (like a conversion disorder or malingering). Psych: COMMON NORMALS: mental status grossly normal, Normal thought process present, cooperative, normal affect and speech normal APPEARANCE: Yes unkempt ATTITUDE: Yes calm and Yes engaged ACTIVITY/MOTOR BEHAVIOR: Yes appropriate eye contact, No psychomotor agitation and No psychomotor slowing SPEECH: Yes normal speech MOOD & AFFECT: Yes euthymic mood THOUGHT PROCESS: Normal thought process present THOUGHT CONTENT: Yes Normal thought content present ATTENTION/CONCENTRATION: Yes attention grossly intact MEMORY/COGNITION: Yes memory grossly intact Skin: COMMON NORMALS: no rashes or lesions noted, turgor normal and no jaundice GENERAL SKIN EXAM: no rashes or lesions noted and turgor normal Procedures Phlebotomy Reason for Blood Draw by MD: RN/lab unable and MD to place line Obtained Bloods via: peripheral vein stick Additional Comments: US guided 20g IV placed in right AC under real time guidance. Blood pulled from IV and was flushed. RN to secure. Course Vital Signs: Vital signs: Vital Signs Pulse Rate 90 08/13/20 12:01 Respiratory Rate 18 08/13/20 12:01 Blood Pressure 166/100 08/13/20 12:01 Pulse Oximetry 94 08/13/20 12:01 MDM - Neuro Symptoms/Deficit MDM Narrative: Medical decision making narrative: Acute neurologic symptoms as documented. The patient's history does contain risk factors including obesity, hyperlipidemia, hypertension however he is on dual antiplatelet therapy and has had relatively recent negative CT angiogram of the head and neck, ambulatory panel monitor, echocardiogram. He has also reportedly had symptoms like this in the past. I spoke with Dr. St because I had concerns this may be functional based on physical examination. Dr. St reports that she has seen this patient and believed his last presentation was functional as well. Unfortunately the patient has not had an MRI due to his body habitus. I do not feel comfortable giving this patient TPA as I do not believe ischemic stroke to be the most likely diagnosis. Dr. St agrees TPA is not indicated. She does recommend obtaining an MRI either inpatient or outpatient if desired to definitively rule out infarct. Patient is already on maximal medical therapy for stroke prevention and has been recommended a diet/exercise plan. I have contacted MRI to see if the patient will be able to fit in the machine. Additionally, CT scan of the head will be obtained without since it can be done more expediently to rule out any hemorrhage. However, the pretest probability is quite low. Patient's glucose is normal. His blood pressure was elevated however the blood pressure cuff does not fit and I had to move it for 5 times to get a single pressure reading. UPDATE: Discussed Head CT w/o with Dr Zhao. ? right M1 segment increased density but also present in 2019 and thinks is a soft call. Discussed symptoms and they don't correlate to just M1 segment syndrome. Tried MRI head--pt doesn't fit. Discussed with Dr Zhao again--will get CTA head/neck to resolve this M1 segment question but patient has been able to transfer unassisted, lift hands over head at MRI with only guidance on where to put them. EMS reports he was using his arm/leg when they transported him to MRI but couldn't determine whether was weaker than right based on observation alone. Pt reassessed multiple times. I haven't seen any changes. He was asleep and I lightly touched his left cheek and he woke up with a start--goes against left facial numbness. Lab Data: Labs: Lab Results 08/13/20 08/13/20 08/13/20 Range/Units 09:07 09:20 09:20 WBC Cancelled Corrected WBC Cancelled RBC Cancelled Hgb Cancelled Hct Cancelled MCV Cancelled MCH Cancelled MCHC Cancelled RDW Cancelled Plt Count Cancelled MPV Cancelled Gran % Cancelled Neut % (Auto) Cancelled Lymph % (Auto) Cancelled Reagan % (Auto) Cancelled Eos % (Auto) Cancelled Baso % (Auto) Cancelled Neut # (Auto) Cancelled Lymph # (Auto) Cancelled Reagan # (Auto) Cancelled Eos # (Auto) Cancelled Baso # (Auto) Cancelled Absolute Gran (aut o) Cancelled Nucleated RBC % (a uto) Cancelled Nucleated RBCs # Cancelled PT Cancelled INR Cancelled APTT Cancelled Sodium Potassium Chloride Carbon Dioxide Anion Gap BUN Creatinine GFR Calculation Glucose POC Glucose 97 (70-110) mg/dL Calculated Osmolal ity Calcium Total Bilirubin AST ALT Alkaline Phosphata se Total Protein Albumin Globulin 08/13/20 08/13/20 08/13/20 Range/Units 09:20 09:45 09:45 WBC 8.3 Corrected WBC RBC 5.04 Hgb 12.6 Hct 41.2 L MCV 81.7 MCH 25.0 L MCHC 30.6 RDW 15.0 Plt Count 220 MPV 9.6 Gran % Neut % (Auto) 70.5 Lymph % (Auto) 21.3 Reagan % (Auto) 5.5 Eos % (Auto) 1.7 Baso % (Auto) 0.4 Neut # (Auto) 5.85 Lymph # (Auto) 1.8 Reagan # (Auto) 0.5 Eos # (Auto) 0.1 Baso # (Auto) 0.0 Absolute Gran (aut o) Nucleated RBC % (a uto) 0 Nucleated RBCs # 0.0 PT 14.10 INR 1.06 APTT 30.8 Sodium Cancelled Potassium Cancelled Chloride Cancelled Carbon Dioxide Cancelled Anion Gap Cancelled BUN Cancelled Creatinine Cancelled GFR Calculation Cancelled Glucose Cancelled POC Glucose (70-110) mg/dL Calculated Osmolal ity Cancelled Calcium Cancelled Total Bilirubin Cancelled AST Cancelled ALT Cancelled Alkaline Phosphata se Cancelled Total Protein Cancelled Albumin Cancelled Globulin Cancelled 08/13/20 Range/Units 09:45 WBC Corrected WBC RBC Hgb Hct MCV MCH MCHC RDW Plt Count MPV Gran % Neut % (Auto) Lymph % (Auto) Reagan % (Auto) Eos % (Auto) Baso % (Auto) Neut # (Auto) Lymph # (Auto) Reagan # (Auto) Eos # (Auto) Baso # (Auto) Absolute Gran (aut o) Nucleated RBC % (a uto) Nucleated RBCs # PT INR APTT Sodium 138 Potassium 4.1 Chloride 100 Carbon Dioxide 27 Anion Gap 15.1 BUN 27 H Creatinine 1.0 GFR Calculation 85.5 L Glucose 103 POC Glucose (70-110) mg/dL Calculated Osmolal ity 291 Calcium 9.1 Total Bilirubin 0.2 AST 11 ALT 21 Alkaline Phosphata se 41 Total Protein 6.8 Albumin 4.3 Globulin 2.5 Imaging Data^: CT Head: Radiologist's impression: Normal with only ? of M1 density vs artifact Other Imaging: Radiologist's impression: cta head/neck--no sig vascular disease including normal M1 segment EKG Data^: EKG 1: Attestation: I personally reviewed and interpreted this EKG as follows: Interpretation: Sinus rhythm at a rate of 88 bpm, normal axis, QRS duration 170 ms with a partial right bundle branch block morphology, no concerning ST segment elevations or depressions, no ectopy Critical Care Time Critical Care Time: Critical Care Time: Yes Total Critical Care Time: 90 Attestation: I have spent a great deal of time evaluated the patient, re-evaluating, reviewing chart, discussing with radiologist, discussing with sterilisation technician, discussing with mother, discussing with neurology to evaluate for a time critical diagnosis. Final impression is that this is not CVA. However, the rapid assessment and workup was necessary to evaluate for potential neurologic compromise. Discharge Plan Discharge Condition: Stable Prescriptions: No Action (DME) oxygen-air delivery systems Device See Rx Instructions .ROUTE .MEDSUPPLY Qty: 1 RF: 0 omeprazole 20 mg capsule,delayed release(DR/EC) 20 mg PO BEDTIME RF: 0 Victoza 2-Colt 0.6 mg/0.1 mL (18 mg/3 mL) pen injector 1.8 mg SUBCUT QAM RF: 0 Lantus U-100 Insulin 100 unit/mL solution 85 unit SUBCUT BEDTIME RF: 0 diazepam [Valium] 5 mg tablet 5 mg PO BID PRN (Reason: anxiety) Qty: 60 RF: 1 hydralazine 50 mg tablet 50 mg PO TID RF: 0 metformin 1,000 mg tablet 1,000 mg PO BID RF: 0 cyclobenzaprine 10 mg tablet 10 mg PO BID PRN (Reason: Muscle Spasm) RF: 0 (DME) FreeStyle Yamileth 14 Day Sensor Kit See Rx Instructions .ROUTE .MEDSUPPLY Qty: 2 RF: 3 (DME) FreeStyle Yamileth 14 Day Wickes Misc See Rx Instructions .ROUTE .MEDSUPPLY Qty: 1 RF: 0 isosorbide mononitrate 30 mg tablet extended release 24 hr 30 mg PO BID Qty: 60 RF: 2 potassium chloride 10 mEq capsule, extended release 40 meq PO DAILY RF: 0 carvedilol 25 mg tablet 25 mg PO BID RF: 0 tamsulosin 0.4 mg capsule 0.4 mg PO DAILY RF: 0 melatonin 10 mg tablet 10 mg PO BEDTIME PRN (Reason: Sleep) RF: 0 clonidine [[id number]-WSA-1] 0.3 mg/24 hr Patch Weekly 0.3 mg transdermal Q7D RF: 0 fenofibrate 54 mg Tablet 160 mg PO QAM RF: 0 Jardiance 10 mg Tablet 10 mg PO QAM RF: 0 desvenlafaxine succinate [Pristiq] 50 mg Tablet Extended Release 24 Hr 50 mg PO QAM RF: 0 atorvastatin 80 mg Tablet 80 mg PO BEDTIME RF: 0 divalproex [Depakote ER] 250 mg Tablet Extended Release 24 Hr 250 mg PO BEDTIME RF: 0 amlodipine 10 mg tablet 10 mg PO BEDTIME RF: 0 divalproex [Depakote ER] 500 mg tablet extended release 24 hr 500 mg PO QAM RF: 0 cetirizine [Zyrtec] 10 mg Tablet 10 mg PO QAM RF: 0 lisinopril 40 mg Tablet 40 mg PO QAM RF: 0 Flonase 50 mcg/actuation [place],Suspension 1 spray INTRANASAL DAILY PRN (Reason: Allergy Symptoms) RF: 0 clopidogrel 75 mg tablet 75 mg PO QAM RF: 0 aspirin 81 mg tablet,delayed release (DR/EC) 81 mg PO QAM RF: 0 spironolactone 25 mg tablet 25 mg PO QAM RF: 0 Discharge Orders: Discharge ED (Routine); Ordered 08/13/20 Ordered By: Nir Worthy Referrals: Juliana St MD [Physician] - 1 week (Outpatient MRI brain) Chad Jiménez DO [Primary Care Provider] - Discharge Diet: Advance as tolerated Discharge Activity: Resume usual activity Patient Instructions: DASH Eating Plan (ED) Activity Restrictions/Additional Instructions: Return to ER for new neurologic symptoms, fever, confusion, seizures, or worsening condition. Coding Level of Care Code ED Textile Coating Machine Operator for Marie Fwlawson Exam Comprehensive
[2020-08-13] MEDS: labetalol 5 mg/mL SDV 20mL 20 MG IVP (09:38)
[2020-08-13 09:41] VITALS: BP 133/90; PULSE 87; RESP 18; O2SAT 95
[2020-08-13 09:51] LABS: Basophils % 0.4 %; Eosinophils # 0.1 10^3/uL (0.0-0.8); Eosinophils % 1.7 %; Hematocrit 41.2 % (42.0-52.0); Hemoglobin 12.6 g/dL (11.7-16.6); Lymphocytes # 1.8 10^3/uL (0.8-4.8); Lymphocytes % 21.3 %; Mean Corpuscular HGB Conc 30.6 g/dL (30.0-36.0); Mean Corpuscular Volume 81.7 fL (80-94); Mean Platelet Volume 9.6 fL (7.4-10.4); Monocytes # 0.5 10^3/uL (0.2-0.9); Monocytes % 5.5 %; Neutrophils # 5.85 10^3/uL (1.8-7.7); Neutrophils % 70.5 %; Nucleated Red Blood Cells % 0 %; Platelet Count 220 10^3/cmm (130-400); Red Blood Count 5.04 10^6/uL (4.1-5.3); White Blood Count 8.3 10^3/uL (4.0-10.0)
[2020-08-13 10:08] LABS: INR 1.06 (0.8-1.2)
[2020-08-13 10:09] LABS: Partial Thromboplastin Time 30.8 SECONDS (23.9-36.7)
[2020-08-13 10:14] LABS: Alanine Aminotransferase 21 U/L (0-41); Albumin Level 4.3 g/dL (3.5-5.2); Alkaline Phosphatase 41 IU/L (40-130); Anion Gap 15.1 (5-19); Aspartate Amino Transferase 11 U/L (0-40); Blood Urea Nitrogen 27 mg/dL (6-20); Calcium 9.1 mg/dL (8.5-10.5); Carbon Dioxide 27 mmol/L (22-29); Chloride 100 mmol/L (98-107); Globulin 2.5 g/dL (1.3-4.6); Glomerular Filtration Rate 85.5 mL/min (90-130); Glucose 103 mg/dL (65-115); Osmolality Calculated 291 mOsm/kg (285-295); Potassium 4.1 mmol/L (3.5-5.1); Sodium 138 mmol/L (136-145); Total Bilirubin 0.2 mg/dL (0.15-1.2); Total Protein 6.8 g/dL (6.6-8.7)
[2020-08-13] MEDS: LORazepam 2 mg/mL INJ 1 mL IVP (10:19)
[2020-08-13] MEDS: diphenhydrAMINE 50 mg/mL SDV 1mL IVP (10:19)
--- NOTE | 2020-08-13 11:04 | CT_ITS ---
WS: [id number] CTA HEAD AND NECK TECHNIQUE: Contrast enhanced CTA of the head and neck with coronal and sagittal reformatted images an d maximum intensity projection (MIP) images. NASCET criteria utilized. CLINICAL INFORMATION: ? right M1 density on CT COMPARISON: CT 08/2020 DLP: 6509.[address] scans at [facility] use at least one of these dose optimization techniques: automat ed exposure control; mA and/or kV adjustment per patient size (includes targeted exams where dose is matched to clinical indication); or iterative reconstruction. FINDINGS: RIGHT: Right common carotid artery is patent. Retropharyngeal right cervical ICA. No significant righ t ICA stenosis. Right ICA is patent to the skull base. LEFT: Left common carotid artery is patent. Retropharyngeal left cervical ICA. No significant left IC A stenosis. Left ICA is patent to the skull base. INTRACRANIAL CTA: Dominant and patent vertebral arteries bilaterally. Basilar artery is patent. 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 Both ICAs are patent at the skull base. Normal vascularity to the LETY and MCA territories bilaterally . Specifically the M1 segment is normal in appearance. No evidence of flow-limiting stenosis. No hydrocephalus. Mastoid air cells and paranasal sinuses are well aerated. Lung apices are well aera logan. No cervical lymphadenopathy. Normal posterior nasopharynx. Normal parapharyngeal fat. CT/CT angio headneck* [id number] IMPRESSION: 1. No significant ICA stenosis bilaterally. 2. Normal intracranial CTA. No flow-limiting stenosis. 3. Right M1 segment is normal in appearance. No stenosis or occlusion. 4. Codominant and patent vertebral arteries bilaterally. 5. Incidentally noted is retropharyngeal course to both cervical ICAs. Attempted notification Nir Worthy MD at 08/13/2020 1:03 PM.
[2020-08-13 12:01] VITALS: BP 166/100; PULSE 90; RESP 18; O2SAT 94
--- NOTE | 2020-08-13 12:35 | PC.NURSE ---
IV infiltrated during CT. US IV started by Dr. Worthy.
[2020-08-13] MEDS: iohexol 350 mg/mL 100 mL Btl IV ×2 (12:46→12:47)
--- NOTE | 2020-08-14 11:57 | DCPLANNER ---
manager energy had message to schedule a follow up appointment for patient with Dr. St. manager energy emailed patients information to Mara at Dr. Gonzalez office. Patients information will be printed and reviewed. Clinic will call patient with appointment information.
--- NOTE | 2020-08-19 08:02 | DCPLANNER ---
Patient has a follow up appointment scheduled for Tuesday, September 15, 2020 at 11:[address] Clinic will contact patient with appointment information.
--- NOTE | 2020-11-05 07:25 | DCPLANNER ---
Patient had a follow up appointment scheduled for 09.15.[address] - patient did attend appointment.
== END 2020-08-13 13:35 | disposition home or self-care (01) ==
PROVIDERS: Emergency Provider Emergency Medicine; PCP Electrodiagnostic Medicine
DX: R53.1 Weakness (principal); R20.0 Anesthesia of skin; Z79.82 Long term (current) use of aspirin; Z79.4 Long term (current) use of insulin; Z86.73 Personal history of transient ischemic attack (TIA), and cerebral infarction without residual deficits; E11.40 Type 2 diabetes mellitus with diabetic neuropathy, unspecified; E78.5 Hyperlipidemia, unspecified; I10 Essential (primary) hypertension; Z87.891 Personal history of nicotine dependence
CPT/HCPCS: 36415; 36416; 70450; 70496; 70498; 80053; 82962; 85025; 85610; 85730; 93005; 99284; J1200; J2060; J3490; Q9967

== ENCOUNTER → 2020-09-15 10:43 | Outpatient (BNVA) | payer MEDICAID, SELFPAY | PROVIDERS: PCP Electrodiagnostic Medicine; Visit Provider Specialist | DX: F44.4 Conversion disorder with motor symptom or deficit (principal); E66.01 Morbid (severe) obesity due to excess calories; Z68.44 Body mass index [BMI] 60.0-69.9, adult; G43.711 Chronic migraine without aura, intractable, with status migrainosus; Z87.891 Personal history of nicotine dependence | CPT/HCPCS: 99215 ==

== ENCOUNTER → 2021-01-19 14:48 | Outpatient (BNVA) | payer MEDICAID, SELFPAY | PROVIDERS: PCP Electrodiagnostic Medicine; Visit Provider Specialist | DX: F44.4 Conversion disorder with motor symptom or deficit (principal); E66.01 Morbid (severe) obesity due to excess calories; Z68.44 Body mass index [BMI] 60.0-69.9, adult; Z95.5 Presence of coronary angioplasty implant and graft; F17.200 Nicotine dependence, unspecified, uncomplicated | CPT/HCPCS: 99213 ==

== ENCOUNTER 2021-03-26 20:27 | Observation (INO) | payer MEDICAID, SELFPAY ==
[2021-03-26 20:36] VITALS: BP 183/110; PULSE 87; RESP 18; TEMP 37.2; O2SAT 96
--- NOTE | 2021-03-26 20:49 | ECG_ITS ---
[facility] Test Date: 2021-03-26 Pat Name: Len Sandoval Department: Room: Gender: Male Budder: : 1985 Requested By: Alessandra Rodriguez Order Number: [id number] Skip MD: Annika Degroot M.D. Measurements Intervals [place] Rate: 77 P: 42 NE: 170 QRS: 12 QRSD: 109 T: 56 QT: 371 QTc: 420 Interpretive Statements SINUS RHYTHM WITH SINUS ARRHYTHMIA LOW QRS VOLTAGE IN PRECORDIAL LEADS [QRS DEFLECTION < 1.0 mV IN CHEST LEADS] INCOMPLETE RIGHT BUNDLE BRANCH BLOCK [90+ ms QRS DURATION, TERMINAL R IN V1/V2, 40+ ms S IN I/aVL/V4/V5/V6] Compared to ECG 08/13/2020 09:52:09 No significant changes Electronically Signed On 03-28-2021 7:38:28 EDITING CLERK by Annika Degroot M.D. [id number]
--- NOTE | 2021-03-26 20:49 | XRR_ITS ---
PROCEDURE INFORMATION: Exam: XR Chest Exam date and time: 03/26/2021 8:49 PM Age: 35 years old Clinical indication: Sternal or substernal pain; Additional info: Chest pain TECHNIQUE: Imaging protocol: XR of the chest. Views: 1 view. COMPARISON: CR XR chest 1V portable [id number] 06/27/2020 5:33 PM FINDINGS: Lungs: Unremarkable. No consolidation. Pleural spaces: Unremarkable. No pleural effusion. No pneumothorax. Heart/Mediastinum: Unremarkable. No cardiomegaly. Bones/joints: Unremarkable. XR/XR chest 1V portable [id number] IMPRESSION: No acute findings.
--- NOTE | 2021-03-26 21:22 | W.ED.GENADLT ---
HPI - General Adult General: Chief complaint: Chest Pain Stated complaint: chest pain Time Seen by Provider: 03/26/21 20:48 History of Present Illness: HPI narrative: CC: Chest Pain HPI: This is a [35] yo patient hx of HTN, CAD s/ p RORO stent x 1, DM, HTN, HLD presenting to the ED w/ acute onset intermittent substernal chest pain since this morning. Currently pain is 7/10 squeezing and substernal. First episode of pain happened this morning lasting for 5-10 minutes. Pain is a very typical prior presentation of cardiac chest pain. Has shortness of breath worse with exertion today as well.. Pain is not tearing in nature and does not radiate to the back. Endorse nausea but has no associated with vomiting or decreased PO intake. Denies any recent sympathomimetic drug use. Patient denies any cough. Denies palpitations, syncope symptoms. Pain not positional. Norecent immobility, surgery, unilateral leg swelling, or prior PE. Patient denies any orthopnea, paroxysmal nocturnal dyspnea, weight gain, or increased leg swellings. Currently 7/10 chest pain Onset: 6:30am Duration: ongoing for the day Location: home Severity: moderate Review of Systems Narrative: Constitutional: No fever, no chills. HEENT: No vision changes, no sore throat. CV: +chest pain, no palpitations. PULM: No cough, +dyspnea. GI: No abdominal pain, no N/V/D. : No dysuria, no frequency, no hematuria. MSKEL: No arthralgias, no edema. SKIN: No new rashes, no lesions. NEURO: No headache, no focal weakness. HEME: No easy bleeding or bruising. PSYCH: No change in mood or affect. 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 Weight gain Surgical History History of esophagogastroduodenoscopy (EGD) (~04/2019) History of tonsillectomy and adenoidectomy Status following gastric banding surgery for weight loss Stented coronary artery Family History Denies family history of Anesthesia complication Bleeding disorder Social History Smoking and tobacco status: current every day smoker Quit status (tobacco): has quit using tobacco Year quit tobacco: 2010 Second hand smoke exposure: Yes Alcohol intake: never Desire information about alcohol rehabilitation?: No Desire information about substance/drug rehabilitation?: No Adopted: No Caregiver/support person: Yes Lives independently: Yes Household members: family Housing: House Marital status: Single Highest education level completed: High School Graduate service: No Current occupational status: disabled Current occupational exposures/hazards: No Pets and animals: Yes Pets & animals: cat(s) History of recent travel: No Sexually active: No Current gender identity: Male Karolina/Restorationist: Latter Day Special karolina needs: No Agree to transfusion: No Financial difficulty paying for basics: Decline to Answer Physical Exam Narrative: EXAM NARRATIVE: Head: Atraumatic, normocephalic Eyes: PERRL, EOMI, conjunctiva without injection ENT: Throat without erythema, lesions or exudate, MMM NECK: Supple, trachea midline, no JVD LUNGS: LCTA CV: RRR, S1,S2, no murmurs, rubs, gallops. 2+ peripheral pulses in UEs ABDOMEN: Soft, nontender, nondistended, BS x4, no rigidity, no guarding, no rebound EXTREMITY: Normal ROM, no pitting edema, no calf tenderness to palpation SKIN: No rash or erythema NEURO: Awake and alert. No focal motor deficits. PSYCH: Normal mood and affect. Course Vital Signs: Vital signs: Vital Signs Temperature 98.9 F 03/26/21 20:36 Pulse Rate 87 03/26/21 20:36 Respiratory Rate 16 03/26/21 21:50 Blood Pressure 183/110 03/26/21 20:36 Pulse Oximetry 92 03/26/21 21:50 MDM - General Adult MDM Narrative: Medical decision making narrative: [35]yo patient w/ hx of CAD s/p stent x 1, HTN, HLD presenting to the ED With acute substernal chest pain X 14 hrs with hx of similar prior pain. Currently 7/10 chest pain. Given History And Exam today I have moderate to high suspicion for ACS/UA/NSTEMI. Today, I have NO suspicion for pneumothorax, pneumonia, pulmonary embolus, tamponade, aortic dissection or other emergent problem as a cause for this presentation. ECG did not show any signs of acute STEMI. Workup: ECG, CXR, CBC, BMP, Troponin Intervention: ASA 325mg, SL nitroglycerin x 3/morphine Findings: ECG: No overt evidence of STEMI, no hyperacute T waves, localizable STD or T wave inversions. No evidence of Brugada?s sign, delta wave, epsilon wave, significantly prolonged QTc, or malignant arrhythmia. No Q waves. Troponin: Negative x 1 Other Labs unremarkable for emergent problems. CXR: Without PTX, PNA, or widened mediastinum [10:15pm] On reassessment, the patient is currently chest pain free. S/p aspirin 325mg. Will defer antiplatelet and anticoagulation to the inpatient team. Pending repeat troponin. HDS, AAOx3, no signs of respiratory distress, without refractory chest pain, no signs of malignant dysrhythmia on case monitor (VT/VF). Disposition: Inpatient admission. Lab Data: Labs: Lab Results 03/26/21 03/26/21 03/26/21 21:20 21:20 21:20 WBC 9.4 10^3/uL 10^3/ uL (4.0-10.0) RBC 5.03 10^6/uL 10^6 /uL (4.1-5.3) Hgb 12.9 g/dL g/dL (11.7-16.6) Hct 41.5 % L % (42.0-52.0) MCV 82.5 fl fl (80-94) MCH 25.6 pg L pg (28.0-34.0) MCHC 31.1 g/dL g/dL (30.0-36.0) RDW 14.3 % % (12.1-15.1) Plt Count 209 10^3/cmm 10^3 /cmm (130-400) MPV 10.1 fL fL (7.4-10.4) Neut % (Auto) 77.8 % % Lymph % (Auto) 15.2 % % Rains % (Auto) 5.1 % % Eos % (Auto) 1.3 % % Baso % (Auto) 0.2 % % Neut # (Auto) 7.29 10^3/uL 10^3 /uL (1.8-7.7) Lymph # (Auto) 1.4 10^3/uL 10^3/ uL (0.8-4.8) Rains # (Auto) 0.5 10^3/uL 10^3/ uL (0.2-0.9) Eos # (Auto) 0.1 10^3/uL 10^3/ uL (0.0-0.8) Baso # (Auto) 0.0 10^3/uL 10^3/ uL (0.0-0.1) Nucleated RBC % (a uto) 0 % % Nucleated RBCs # 0.0 /100WBC /100W BC Sodium 139 mmol/L mmol/L (136-145) Potassium 4.2 mmol/L mmol/L (3.5-5.1) Chloride 103 mmol/L mmol/L (98-107) Carbon Dioxide 21 mmol/L L mmol/ L (22-29) Anion Gap 19.2 H (5-19) BUN 23 mg/dL H mg/dL (6-20) Creatinine 1.1 mg/dL mg/dL (0.7-1.2) GFR Calculation 76.2 mL/min L mL/ min (90-130) Glucose 100 mg/dL mg/dL (65-115) Calculated Osmolal ity 292 mOsm/kg mOsm/ kg (285-295) Calcium 8.4 mg/dL L mg/dL (8.5-10.5) Troponin T Baselin e 9 ng/L ng/L (0-15) Discharge Plan Discharge Prescriptions: No Action (DME) oxygen-air delivery systems Device See Rx Instructions .ROUTE .MEDSUPPLY Qty: 1 RF: 0 omeprazole 20 mg capsule,delayed release(DR/EC) 20 mg PO BEDTIME RF: 0 Victoza 2-Colt 0.6 mg/0.1 mL (18 mg/3 mL) pen injector 1.8 mg SUBCUT QAM RF: 0 Lantus U-100 Insulin 100 unit/mL solution 85 unit SUBCUT BEDTIME RF: 0 diazepam [Valium] 5 mg tablet 5 mg PO BID PRN (Reason: anxiety) Qty: 60 RF: 1 hydralazine 50 mg tablet 50 mg PO TID RF: 0 metformin 1,000 mg tablet 1,000 mg PO BID RF: 0 cyclobenzaprine 10 mg tablet 10 mg PO BID PRN (Reason: Muscle Spasm) RF: 0 (DME) FreeStyle Yamileth 14 Day Sensor Kit See Rx Instructions .ROUTE .MEDSUPPLY Qty: 2 RF: 3 (DME) FreeStyle Yamileth 14 Day [place] Misc See Rx Instructions .ROUTE .MEDSUPPLY Qty: 1 RF: 0 Ajovy Autoinjector 225 mg/1.5 mL auto-injector 225 mg SUBCUT ONCE Qty: 1.5 RF: 2 potassium chloride 10 mEq capsule, extended release 40 meq PO DAILY RF: 0 carvedilol 25 mg tablet 25 mg PO BID RF: 0 tamsulosin 0.4 mg capsule 0.4 mg PO DAILY RF: 0 melatonin 10 mg tablet 10 mg PO BEDTIME PRN (Reason: Sleep) RF: 0 isosorbide mononitrate 30 mg tablet extended release 24 hr 30 mg PO BID Qty: 60 RF: 2 clonidine [Clypjowm-VIU-6] 0.3 mg/24 hr Patch Weekly 0.3 mg transdermal Q7D RF: 0 fenofibrate 54 mg Tablet 160 mg PO QAM RF: 0 Jardiance 10 mg Tablet 10 mg PO QAM RF: 0 desvenlafaxine succinate [Pristiq] 50 mg Tablet Extended Release 24 Hr 50 mg PO QAM RF: 0 atorvastatin 80 mg Tablet 80 mg PO BEDTIME RF: 0 divalproex [Depakote ER] 250 mg Tablet Extended Release 24 Hr 250 mg PO BEDTIME RF: 0 amlodipine 10 mg tablet 10 mg PO BEDTIME RF: 0 divalproex [Depakote ER] 500 mg tablet extended release 24 hr 500 mg PO QAM RF: 0 cetirizine [Zyrtec] 10 mg Tablet 10 mg PO QAM RF: 0 lisinopril 40 mg Tablet 40 mg PO QAM RF: 0 Flonase 50 mcg/actuation [place],Suspension 1 spray INTRANASAL DAILY PRN (Reason: Allergy Symptoms) RF: 0 clopidogrel 75 mg tablet 75 mg PO QAM RF: 0 aspirin 81 mg tablet,delayed release (DR/EC) 81 mg PO QAM RF: 0 spironolactone 25 mg tablet 25 mg PO QAM RF: 0 Coding Level of Care Code ED Rn Maternal Child for Marie Sweeney
[2021-03-26] MEDS: nitroglycerin 0.4 mg sublingual Tablet SUBLINGUAL ×3 (21:31→22:07)
[2021-03-26] MEDS: aspirin 325 mg Tablet PO (21:31)
[2021-03-26 21:33] LABS: Basophils % 0.2 %; Eosinophils # 0.1 10^3/uL (0.0-0.8); Eosinophils % 1.3 %; Hematocrit 41.5 % (42.0-52.0); Hemoglobin 12.9 g/dL (11.7-16.6); Lymphocytes # 1.4 10^3/uL (0.8-4.8); Lymphocytes % 15.2 %; Mean Corpuscular HGB Conc 31.1 g/dL (30.0-36.0); Mean Corpuscular Hemoglobin 25.6 pg (28.0-34.0); Mean Corpuscular Volume 82.5 fl (80-94); Mean Platelet Volume 10.1 fL (7.4-10.4); Monocytes # 0.5 10^3/uL (0.2-0.9); Monocytes % 5.1 %; Neutrophils # 7.29 10^3/uL (1.8-7.7); Neutrophils % 77.8 %; Nucleated Red Blood Cells % 0 %; Platelet Count 209 10^3/cmm (130-400); Red Blood Count 5.03 10^6/uL (4.1-5.3); Red Cell Distribution Width 14.3 % (12.1-15.1); White Blood Count 9.4 10^3/uL (4.0-10.0)
[2021-03-26 21:50] VITALS: RESP 16; O2SAT 92
[2021-03-26 21:50] LABS: Blood Urea Nitrogen 23 mg/dL (6-20); Calcium 8.4 mg/dL (8.5-10.5); Carbon Dioxide 21 mmol/L (22-29); Chloride 103 mmol/L (98-107); Glomerular Filtration Rate 76.2 mL/min (90-130); Glucose 100 mg/dL (65-115); Osmolality Calculated 292 mOsm/kg (285-295); Sodium 139 mmol/L (136-145)
[2021-03-26] MEDS: morphine 4 mg/mL SDV 1 mL IVP ×2 (21:50→22:36)
[2021-03-26 21:52] LABS: Anion Gap 19.2 (5-19); Potassium 4.2 mmol/L (3.5-5.1); Troponin(5th) Baseline 9 ng/L (0-15)
[2021-03-26 22:36] VITALS: RESP 17; O2SAT 95
--- NOTE | 2021-03-26 22:49 | ECG_ITS ---
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 Measurements Intervals [place] Rate: 78 P: 45 VT: 155 QRS: 5 QRSD: 113 T: 53 QT: 359 QTc: 409 Interpretive Statements SINUS RHYTHM LOW QRS VOLTAGE IN PRECORDIAL LEADS [QRS DEFLECTION < 1.0 mV IN CHEST LEADS] INCOMPLETE RIGHT BUNDLE BRANCH BLOCK [90+ ms QRS DURATION, TERMINAL R IN V1/V2, 40+ ms S IN I/aVL/V4/V5/V6] Compared to ECG 08/13/2020 09:52:09 No significant changes Electronically Signed On 03-28-2021 7:44:38 HORSES OR MULES TEAMSTER by Annika Degroot M.D. [id number] f
[2021-03-26 23:12] LABS: D Dimer <= 0.27 ug/mIFEU (0-0.59)
[2021-03-26] MEDS: hyDRALAzine 50 mg Tablet PO (23:12)
[2021-03-26] MEDS: nitroglycerin 1 gm/inch oint Pkt 1 INCH TOPICAL (23:12)
[2021-03-26 23:16] VITALS: BP 153/85; PULSE 77; RESP 15; O2SAT 95
[2021-03-26 23:26] VITALS: BP 153/85
[2021-03-26] MEDS: cloNIDine 0.3 mg/24 hr Patch 1 PATCH TRANSDERMA (23:26)
[2021-03-26 23:32] LABS: Troponin 5 2HR 9.01 ng/L (0-15); Troponin 5 2HR Delta 0.01 ABS# (0-10)
[2021-03-27] VITALS (33 sets, daily range): BP systolic 122–192; BP diastolic 80–115; PULSE 71–95; RESP 13–22; TEMP 36.7–37.1; O2SAT 91–98
[2021-03-27] MEDS: morphine 4 mg/mL SDV 1 mL 2 MG IVP ×3 (00:58→20:41)
[2021-03-27] MEDS: nitroglycerin 1 gm/inch oint Pkt 1 INCH TOPICAL (02:35)
[2021-03-27] MEDS: diazePAM 5 mg Tablet PO ×2 (02:35→21:09)
--- NOTE | 2021-03-27 02:40 | PC.NURSE ---
Admit Note Patient admitted to C[facility] room 106 from ED via stretcher. Patient able to ambulate to bed with standby assist. Patient BP increases with exertion and also chest pain worsens. Informed Dr Mckeon. Medications given as ordered. Covering service notified. Patient presents with chest pain and elevated BP. Orders reviewed & will continue to monitor. Patient and/or assisted sales representative oriented to environment, equipment, and informed of the following as found in the admission booklet: patient rights & responsibilities, visitor policy, hand and respiratory hygiene practice. Other education includes: morphine and nitroglycerin. Patient verbalized complete understanding.
--- NOTE | 2021-03-27 02:43 | P.HP_ITS ---
Providers/Chief Complaint Admitting Physician: Debra Mckeon MD Primary Care Provider: Chad Jiménez DO Chief Complaint: chest pain History of Present Illness Len Sandoval is a 35 year old male with PMH HTN, CAD, recurrent CVAs versus functional neurological episodes, anxiety sp stenting 05/2020 to first diagonal presenting today with chest pain. Rates pain as about 7-8 out of 10 in intensity, substernal in location, radiating into the right side of his shoulder and jaw, states he feels short of breath with exertion, more than usual. Wears a CPAP at night usually. Denies any cough, fever, recent URI symptoms. D-dimer is negative. EKG without acute ST-T wave changes. Baseline troponin at 9, pending 2 one 6-hour series. Pain is currently only partially relieved with morphine and sublingual nitroglycerin. Last echocardiogram from September 2019 with normal left ventricular size function and wall thickness. Also has a history of uncontrolled hypertension, upon presentation blood pressure ranging between 1 80-200 systolic Review of Systems General: Reports: 10 or more systems reviewed and unremarkable except in HPI and below Const: Denies: fever(s), chills or body aches Eyes: Denies: change in vision, blurry vision or photophobia ENMT: Denies: throat pain, enlarged tonsils, odynophagia or nasal congestion Card: Denies: chest pain, palpitations, irregular heart rhythm, edema, swelling of feet/ankles, lightheadedness, pre-syncope, dyspnea on exertion or orthopnea Resp: Denies: dyspnea, productive cough, non-productive cough, wheezing, stridor, pain on inspiration, change in phlegm color, hemoptysis or chest congestion GI: Denies: abdominal pain, nausea, vomiting, hematemesis, coffee ground emesis, dysphagia, heartburn, diarrhea, constipation, GI cramping, change in stool character, hematochezia or melena : Denies: flank pain, dysuria, urinary frequency, urinary urgency, urinary hesitancy or hematuria Musc: Denies: neck pain, back pain, extremity pain, joint swelling, joint warmth or deformity Neuro: Denies: headache(s), numbness in extremities, weakness in extremities, sensory changes, difficulty walking, frequent falls, dizziness, vertigo, be havioral changes, Slurred speech present or seizure-like activity Psych: Denies: anxiety, depression, suicidal ideation or homicidal ideation Endo: Denies: polyuria, polydipsia, tired all the time, cold intolerance or hot flashes Alexander/Lymph: Denies: easy bruising or easy bleeding Medications/Allergies Home Medications Medication Instructions Recorded Confirmed Last Taken Type omeprazole 20 mg capsule,delayed 20 mg PO QAM cap 04/13/19 03/27/21 03/26/21 07:00 History release oxygen-air delivery systems #1 04/13/19 01/19/21 Unknown History liraglutide 0.6 mg/0.1 mL (18 mg/3 1.8 mg SUBCUT QAM ml 04/17/19 03/27/21 03/26/21 07:00 History mL) subcutaneous pen injector clonidine [[id number]-SYE-9] 0.3 mg TRANSDERMAL Q7D 04/23/19 03/27/21 03/26/21 23:00 History fenofibrate 160 mg PO QAM 04/23/19 03/27/21 03/26/21 07:00 History cetirizine [Zyrtec] 10 mg PO QAM 09/26/19 03/27/21 03/26/21 07:00 History diazepam 5 mg tablet 5 mg PO BID PRN #60 tab 10/04/19 03/27/21 03/26/21 07:00 Rx cyclobenzaprine 10 mg tablet 10 mg PO BID PRN tab 01/02/20 03/27/21 03/26/21 07:00 History hydralazine 50 mg tablet 50 mg PO TID 01/02/20 03/27/21 03/26/21 19:00 History insulin glargine 100 unit/mL 85 unit SUBCUT BEDTIME ml 01/02/20 03/27/21 19:00 History subcutaneous solution metformin 1,000 mg tablet 1,000 mg PO BID 01/02/20 03/27/21 03/26/21 19:00 History flash glucose scanning reader #1 ea 04/02/20 01/19/21 Unknown Rx flash glucose sensor #2 ea 04/02/20 01/19/21 Unknown Rx Jardiance 10 mg PO QAM 05/19/20 03/27/21 03/26/21 07:00 History carvedilol 25 mg tablet 25 mg PO BID 06/23/20 03/27/21 03/26/21 19:00 History melatonin 10 mg tablet 10 mg PO BEDTIME PRN 06/23/20 03/27/21 03/26/21 19:00 History potassium chloride 10 mEq 40 meq PO DAILY cap 06/23/20 03/27/21 03/26/21 07:00 History capsule,extended release tamsulosin 0.4 mg capsule 0.4 mg PO DAILY 06/23/20 03/27/21 03/26/21 07:00 History amlodipine 10 mg PO BEDTIME 06/27/20 03/27/21 03/26/21 19:00 History atorvastatin 80 mg PO BEDTIME 06/27/20 03/27/21 03/26/21 19:00 History desvenlafaxine succinate [Pristiq] 50 mg PO QAM 06/27/20 03/27/21 03/26/21 07:00 History divalproex [Depakote ER] 250 mg PO BEDTIME 06/27/20 03/27/21 03/26/21 19:00 History divalproex [Depakote ER] 500 mg PO QAM 06/27/20 03/27/21 03/26/21 07:00 History aspirin 81 mg PO QAM 08/13/20 03/27/21 03/26/21 07:00 History clopidogrel 75 mg PO QAM 08/13/20 03/27/21 03/26/21 07:00 History lisinopril 40 mg PO QAM 08/13/20 03/27/21 03/26/21 07:00 History spironolactone 25 mg PO QAM 08/13/20 03/27/21 03/26/21 07:00 History isosorbide mononitrate 30 mg 30 mg PO BID #60 tab 03/17/21 03/27/21 03/26/21 19:00 Rx tablet,extended release 24 hr Allergies Allergy/AdvReac Type Severity Reaction Status Date / Time gabapentin Allergy Severe ALGY-Swell Verified 03/26/21 20:39 Lip/Tongue/Throat Sulfa (Sulfonamide Allergy Severe ALGY-Swell Verified 03/26/21 20:39 Antibiotics) Lip/Tongue/Throat trimethoprim Allergy Severe ALGY-Swell Verified 03/26/21 20:39 Lip/Tongue/Throat sulfamethoxazole Allergy Unknown throat Verified 03/26/21 20:39 [From Bactrim] swells asenapine [From Saphris] AdvReac Mild ADR-Halluci Verified 03/26/21 20:39 nating PFSH Acute PFSH: Medical History Bipolar II disorder Cerebrovascular accident Diabetes mellitus Diabetic neuropathy Dyslipidemia Easy bruising Gastroenteritis Generalized anxiety disorder History of adverse reaction to tissue plasminogen activator (tPA) HTN (hypertension) Hx of secondary hypertension Hypokalemia Obesity Obstructive sleep apnea hypopnea, severe Panic disorder without agoraphobia Post-traumatic stress disorder, chronic 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 Weight gain Surgical History History of esophagogastroduodenoscopy (EGD) (~04/2019) History of tonsillectomy and adenoidectomy Status following gastric banding surgery for weight loss Stented coronary artery Family History Denies family history of Anesthesia complication Bleeding disorder Social History Smoking and tobacco status: current every day smoker Quit status (tobacco): has quit using tobacco Year quit tobacco: 2010 Second hand smoke exposure: Yes Alcohol intake: never Desire information about alcohol rehabilitation?: No Desire information about substance/drug rehabilitation?: No Adopted: No Caregiver/support person: Yes Lives independently: Yes Household members: family Housing: House Marital status: Single Highest education level completed: High School Graduate service: No Current occupational status: disabled Current occupational exposures/hazards: No Pets and animals: Yes Pets & animals: cat(s) History of recent travel: No Sexually active: No Current gender identity: Male Karolina/Orthodoxy: Protestant Special karolina needs: No Agree to transfusion: No Financial difficulty paying for basics: Decline to Answer Vitals/I&O/Wt Last Vital Signs Temp 98.1 F 03/27/21 00:14 Pulse 92 03/27/21 01:26 Resp 17 03/27/21 01:00 BP 140/94 03/27/21 01:00 Pulse Ox 95 03/27/21 01:26 03/26/21 03/26/21 03/27/21 14:59 22:59 06:59 Output Total 250 / 250 Balance -250 / -250 Weight last 48 hrs Weight 157.85 kg Physical Exam Narrative: EXAM NARRATIVE: General: No acute distress, AO x2 HEENT: PERRLA, pupils bilaterally equal and reactive, pallors not present Chest: Normal vesicular breath sounds, no added sounds, equal good air entry bilaterally CVS: S1-S2 regular, no murmurs, no tachycardia, no gallops, no rubs Abdomen: Soft, nontender, no organomegaly, bowel sounds present Neuro: No focal deficits, no facial deformity, AO x3, power 5/5 in all limbs Data : 03/27/21 03:14 03/27/21 03:14 A&P Assessment and plan (1) CAD (coronary artery disease): 35-year-old male with multiple cardiac risk factors as noted above with a history of CAD, presenting today with chest pain. EKG without acute ST-T wave changes. Baseline troponin at 9, pending 2 and 6-hour series. Pain may be related to unstable angina versus hypertensive urgency. Received aspirin 325 in the ER, continue aspirin 81 and Plavix 75 mg at home dosing for now. As needed morphine and Nitropaste for pain control. Continue home doses of carvedilol, statins, lisinopril Echocardiogram Blood pressure is currently improved after application of first Nitro-Bid 1 inch and hydralazine 50 mg p.o. Will monitor overnight closely. Status: Acute Qualifiers: Coronary Disease-Associated Artery/Lesion type: [place] artery [place] vs. transplanted heart: [place] heart Associated angina: without angina Qualified Code(s): I25.10 - Atherosclerotic heart disease of [place] coronary [place] without angina pectoris (2) Chest pain: Status: Acute Attestations Medical Necessity Statement*: Anticipate less than 2 midnight admission for evaluation and management of chest pain. Coding Level of Care Code Acute Arc Air Operator for [facility]ra Diagnoses CAD (coronary artery disease) I25.10 Coronary Disease-Associated Artery/Lesion type: [place] artery [place] vs. transplanted heart: [place] heart Associated angina: without angina Chest pain R07.9
--- NOTE | 2021-03-27 02:43 | PC.NURSE ---
Patient had improvement of BP as documented. Patient started having chest pain reported 12/19. Noted BP to increase with this. EKG performed. Dr Mckeon notified. Received instruction to give nitropaste now along with PRN dose of Valium all as ordered. Patient watching TV at this time. No distress observed. Patient indicated he was bored and just wants to visit with staff.
--- NOTE | 2021-03-27 02:49 | ECG_ITS ---
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 Measurements Intervals [place] Rate: 80 P: 35 ID: [id number] QRS: 3 QRSD: 111 T: 38 QT: 370 QTc: 427 Interpretive Statements SINUS RHYTHM LOW QRS VOLTAGE IN PRECORDIAL LEADS [QRS DEFLECTION < 1.0 mV IN CHEST LEADS] INCOMPLETE RIGHT BUNDLE BRANCH BLOCK [90+ ms QRS DURATION, TERMINAL R IN V1/V2, 40+ ms S IN I/aVL/V4/V5/V6] Compared to ECG 03/26/2021 21:01:05 Sinus arrhythmia no longer present Electronically Signed On 03-28-2021 7:43:20 OPHTHALMIC PHOTOGRAPHER by Annika Degroot M.D. [id number]
[2021-03-27 03:38] LABS: Basophils % 0.4 %; Eosinophils # 0.2 10^3/uL (0.0-0.8); Hematocrit 40.2 % (42.0-52.0); Hemoglobin 12.4 g/dL (11.7-16.6); Lymphocytes # 1.9 10^3/uL (0.8-4.8); Lymphocytes % 18.7 %; Mean Corpuscular HGB Conc 30.8 g/dL (30.0-36.0); Mean Corpuscular Hemoglobin 25.6 pg (28.0-34.0); Mean Corpuscular Volume 83.1 fl (80-94); Mean Platelet Volume 9.9 fL (7.4-10.4); Monocytes # 0.6 10^3/uL (0.2-0.9); Monocytes % 5.5 %; Neutrophils # 7.55 10^3/uL (1.8-7.7); Neutrophils % 72.9 %; Nucleated Red Blood Cells % 0 %; Platelet Count 219 10^3/cmm (130-400); Red Blood Count 4.84 10^6/uL (4.1-5.3); Red Cell Distribution Width 14.4 % (12.1-15.1); White Blood Count 10.4 10^3/uL (4.0-10.0)
[2021-03-27 03:56] LABS: Troponin 5 6HR 10.34 ng/L (0-15); Troponin 5 6HR Delta 1.34 ng/L (0-12)
[2021-03-27 04:00] LABS: Alanine Aminotransferase 25 U/L (0-41); Albumin Level 4.2 g/dL (3.5-5.2); Alkaline Phosphatase 50 IU/L (40-130); Anion Gap 16.8 (5-19); Aspartate Amino Transferase 12 U/L (0-40); Blood Urea Nitrogen 23 mg/dL (6-20); Calcium 8.2 mg/dL (8.5-10.5); Carbon Dioxide 23 mmol/L (22-29); Chloride 103 mmol/L (98-107); Glucose 74 mg/dL (65-115); Osmolality Calculated 290 mOsm/kg (285-295); Potassium 3.8 mmol/L (3.5-5.1); Sodium 139 mmol/L (136-145); Total Bilirubin 0.2 mg/dL (0.15-1.2); Total Protein 6.2 g/dL (6.6-8.7)
--- NOTE | 2021-03-27 06:00 | USCV_ITS ---
Len Sandoval Age: 35 Gender: M : 1985 Exam Date: 03/27/2021 05:32 Ordering Phys: Debra Mckeon MD Technologist: Liss Moore [place] [facility] [place]: CHEST PAIN CARDIAC HISTORY OF 1 STENT BP: 143 / 91 HR: 78 Rhythm: Sinus Technical Quality: Adequate MEASUREMENTS (Male / Female) Normal Values 2D ECHO LV Diastolic Diameter PLAX 4.7 cm 4.2 - 5.9 / 3.9 - 5.3 cm LV Systolic Diameter PLAX 3.4 cm LV Chamber Size 5.1 cm IVS Diastolic Thickness 1.9 cm 0.6 - 1.0 / 0.6 - 0.9 cm IVS Systolic Thickness 1.8 cm LVPW Diastolic Thickness 1.1 cm 0.6 - 1.0 / 0.6 - 0.9 cm LVPW Systolic Thickness 1.6 cm RV Chamber Size 2.9 cm LVOT Diameter 2.1 cm LV Ejection Fraction 2D Teich 53.3 % LV Ejection Fraction MOD 2C 49.1 % LV Ejection Fraction 2C AL 50.1 % LA Diameter 3.9 cm LA Width 3.3 cm LA Height 4.8 cm RA Width 4.2 cm RA Height 5.0 cm Aorta at Sinotubular Diameter 3.4 cm M-MODE RV Diastolic Diameter MM 1.6 cm Aortic Annulus Diameter 3.4 cm LA Ao Ratio MM 1.3 MV E Point Septal Separation 1.2 cm DOPPLER AV Peak Velocity 135.0 cm/s LVOT Peak Velocity 93.0 cm/s AV Area Cont Eq vti 2.7 cm squared AV Area Cont Eq pk 2.3 cm squared MV Area PHT 5.1 cm squared Mitral E to A Ratio 1.4 MV E' Velocity 53.5 cm/s Mitral E to MV E' Ratio 12.7 Mitral E to LV E' Lateral Ratio 12.7 Mitral E to LV E' Septal Ratio 12.8 TR Peak Velocity 200.2 cm/s TR Peak Gradient 16.0 mmHg TR Mean Velocity 161.1 cm/s TR Mean Gradient 11.8 mmHg TR Velocity Time Integral 64.9 cm TV Peak E Velocity 84.0 cm/s Right Atrial Pressure 5.0 mmHg Pulmonary Artery Systolic Pressu 21.0 mmHg PV Peak Velocity 69.0 cm/s RV Acceleration Time 0.2 s RV Ejection Time 0.4 s RV AcT/ET 0.4 FINDINGS Left Ventricle Normal left ventricular cavity size. Normal left ventricular systolic function. No regional wall motion abnormalities. Left ventricular ejection fraction is estimated at 60 %. Normal diastolic function. Right Ventricle The right ventricle is normal in size and function. Right Atrium The right atrium is normal in size. Left Atrium The left atrium is normal in size. Mitral Valve Structurally normal mitral valve without significant stenosis or prolapse. There is no mitral regurgitation. Aortic Valve Structurally normal aortic valve without significant sclerosis or stenosis. There is no aortic regurgitation. Tricuspid Valve Structurally normal tricuspid valve without significant stenosis or regurgitation. Pulmonary artery systolic pressure is normal. Pulmonic Valve Structurally normal pulmonic valve without significant stenosis. There is no pulmonic regurgitation. Pericardium Normal pericardium without effusion. Aorta Normal ascending aorta dimension. CONCLUSIONS 1-Normal left ventricular cavity size. Normal left ventricular systolic function. No regional wall motion abnormalities. Left ventricular ejection fraction is estimated at 60 %. Normal diastolic function. 2-There is no pericardial effusion. 3-No significant valve abnormalities. 4-Pulmonary artery systolic pressure is within normal limits. 5-Right atrial pressure is around 5 mm of mercury. 6-No significant change since the prior echocardiogram study of 09/27/2019. Tasha Read MD (Electronically Signed) Final Date: 28 March 2021 15:05 S
[2021-03-27] MEDS: lisinopril 20 mg Tablet 40 MG PO (06:03)
[2021-03-27] MEDS: spironolactone 25 mg Tablet PO (06:03)
[2021-03-27] MEDS: aspirin 81 mg EC Tablet PO (06:03)
[2021-03-27] MEDS: clopidogrel 75 mg Tablet PO (06:03)
--- NOTE | 2021-03-27 06:06 | PC.NURSE ---
Shift Note Frequent safety and comfort rounds continue. Orders and/or nursing care completed as indicated. Patient monitored for response to intervention and treatment(s). Education provided includes cardiology consult. Patient verbalized complete understanding. Patient continues to c/o episodes of chest pain. BP have improved through the night. Patient likes to chat and appears to feel much better during these times. No distress observed presently. Will continue to monitor.
[2021-03-27 06:28] LABS: Glucose Point of Care 66 mg/dL (70-110)
[2021-03-27] MEDS: hyDRALAzine 50 mg Tablet PO ×3 (09:18→19:56)
[2021-03-27] MEDS: isosorbide mononitrate ER 30 mg Tablet PO (09:18)
[2021-03-27] MEDS: tamsulosin 0.4 mg Capsule PO (09:18)
[2021-03-27] MEDS: pantoprazole DR 40 mg Tablet PO (09:18)
[2021-03-27] MEDS: carvedilol 25 mg Tablet PO ×2 (09:18→18:52)
[2021-03-27] MEDS: desvenlafaxine 50 mg Tablet PO (11:24)
[2021-03-27] MEDS: divalproex ER 500 mg Tablet (24H) PO (11:24)
[2021-03-27 11:37] LABS: Glucose Point of Care 146 mg/dL (70-110)
[2021-03-27] MEDS: insulin lispro 100 unit/1 mL SUBCUT ×3 (12:30→20:41)
--- NOTE | 2021-03-27 12:56 | PC.CHAP ---
Pastoral Care Encounter/Spiritual Assessment Type of Contact [] Declined silk screener visit [] Patient/Family/Request visit [] Outpatient visit [] Follow-up visit [] Physician referral [] Code/Alert [] Routine visit [] Staff referral [] Actively dying [] Patient sleeping [] Family support [] [] Out of room [] Palliative care [] [xx] Receiving care in room [] Pre-surgical visit [] Trauma [] Long length of stay [] ICU visit [] Other: Relational/Emotional Strength [] Patient feels connected with others/family/visitors/staff [] Distress [] Loneliness/isolation [] Abandonment Spirituality of Patient [] Person of Karolina [] Attends Adventist of their Karolina [] Believes in Prayer [] Reads Bible or Temple materials [] There are Spiritual issues to be addressed Motor Generator Set Operator Interventions [] Prayer [] Active listening [] Non-anxious presence [] Spiritual/emotional support [] Crisis/trauma care [] Spiritual counseling [] Bereavement support [] Provided bereavement packet [] Provided Bible/devotional materials [] Provided toy/stuffed animal, coloring book to patient or family member [] Provided Communion [] Anointing/[place] [] Salvation [] Completed spiritual assessment [] Other: Impact on Illness or Injury [] Angry [] Fearful [] Anxious [] Often cries [] Exhaustion [] Unable to work [] Unable to attend taoism [] Unable to walk/stand [] Unable to read [] Unable to drive [] Unable to eat/drink [] Unable to sleep [] Unable to be with family [] Patient intubated [] Other: Summary Follow up Time spent with patient
--- NOTE | 2021-03-27 14:14 | PM.CONSULT ---
Providers/Reason For Consult Consulting Physician/Specialty*: Cardiology Reason for Consult*: Chest pain Attending Physician: Aquilino Augustine MD Primary Care Provider: Chad Jiménez DO History of Present Illness History of Present Illness Len Sandoval is a 35 year old male past medical history significant for morbid obesity obstructive sleep apnea coronary artery disease status post drug-eluting stent to diagonal branch in 1 year ago hypertension presented with recurrent chest pain going on for the last few days which is increasing intensity and frequency suspicion of unstable angina. He was admitted and ruled out for acute coronary syndrome. According to the patient upon mild exertion he started feeling chest pain which goes towards the arm. He described exactly similar pain when he had a stent a year ago. There was no significant EKG changes. According to him stress test never had shown any positive result until angiogram was performed which showed that he had 35% lesion significant lesion of the diagonal which was treated with PCI. Review of Systems General: Reports: 10 or more systems reviewed and unremarkable except in HPI and below Narrative: Constitutional: No fever, no chills. HEENT: No vision changes, no sore throat. CV: +chest pain, no palpitations. PULM: No cough, +dyspnea. GI: No abdominal pain, no N/V/D. : No dysuria, no frequency, no hematuria. MSKEL: No arthralgias, no edema. SKIN: No new rashes, no lesions. NEURO: No headache, no focal weakness. HEME: No easy bleeding or bruising. PSYCH: No change in mood or affect. Const: Denies: fever(s), chills or body aches Eyes: Denies: change in vision, blurry vision or photophobia ENMT: Denies: throat pain, enlarged tonsils, odynophagia or nasal congestion Card: Denies: chest pain, palpitations, irregular heart rhythm, edema, swelling of feet/ankles, lightheadedness, pre-syncope, dyspnea on exertion or orthopnea Resp: Denies: dyspnea, productive cough, non-productive cough, wheezing, stridor, pain on inspiration, change in phlegm color, hemoptysis or chest congestion GI: Denies: abdominal pain, nausea, vomiting, hematemesis, coffee ground emesis, dysphagia, heartburn, diarrhea, constipation, GI cramping, change in stool character, hematochezia or melena : Denies: flank pain, dysuria, urinary frequency, urinary urgency, urinary hesitancy or hematuria Musc: Denies: neck pain, back pain, extremity pain, joint swelling, joint warmth or deformity Neuro: Denies: headache(s), numbness in extremities, weakness in extremities, sensory changes, difficulty walking, frequent falls, dizziness, vertigo, behavioral changes, Slurred speech present or seizure-like activity Psych: Denies: anxiety, depression, suicidal ideation or homicidal ideation Endo: Denies: polyuria, polydipsia, tired all the time, cold intolerance or hot flashes Alexander/Lymph: Denies: easy bruising or easy bleeding All/Imm: Denies: acute wheezing Meds/Allergies Home Medications and Allergies Home Medications Medication Instructions Recorded Confirmed Last Taken Type omeprazole 20 mg capsule,delayed 20 mg PO QAM cap 04/13/19 03/27/21 08/12/20 History release oxygen-air delivery systems #1 04/13/19 03/27/21 Unknown History liraglutide 0.6 mg/0.1 mL (18 mg/3 1.8 mg SUBCUT QAM ml 04/17/19 03/27/21 08/13/20 History mL) subcutaneous pen injector clonidine [[id number]] 0.3 mg TRANSDERMAL Q7D 04/23/19 03/27/21 03/26/21 23:00 History cetirizine [Zyrtec] 10 mg PO QAM 09/26/19 03/27/21 08/13/20 History diazepam 5 mg tablet 5 mg PO BID PRN #60 tab 10/04/19 03/27/21 03/11/20 Rx cyclobenzaprine 10 mg tablet 10 mg PO BID PRN tab 01/02/20 03/27/21 06/26/20 History hydralazine 50 mg tablet 50 mg PO TID 01/02/20 03/27/21 08/13/20 07:00 History insulin glargine 100 unit/mL 85 unit SUBCUT BEDTIME ml 01/02/20 03/27/21 08/12/20 History subcutaneous solution metformin 1,000 mg tablet 1,000 mg PO BID 01/02/20 03/27/21 08/13/20 07:00 History flash glucose scanning reader #1 ea 04/02/20 03/27/21 Unknown Rx flash glucose sensor #2 ea 04/02/20 03/27/21 Unknown Rx Jardiance 10 mg PO QAM 05/19/20 03/27/21 08/13/20 07:00 History carvedilol 25 mg tablet 25 mg PO BID 06/23/20 03/27/21 08/13/20 07:00 History melatonin 10 mg tablet 10 mg PO BEDTIME PRN 06/23/20 03/27/21 06/26/20 History potassium chloride 10 mEq 40 meq PO DAILY cap 06/23/20 03/27/21 08/13/20 History capsule,extended release tamsulosin 0.4 mg capsule 0.4 mg PO QAM 06/23/20 03/27/21 03/26/21 07:00 History amlodipine 10 mg PO BEDTIME 06/27/20 03/27/21 08/12/20 History atorvastatin 80 mg PO BEDTIME 06/27/20 03/27/21 08/12/20 History desvenlafaxine succinate [Pristiq] 50 mg PO QAM 06/27/20 03/27/21 08/13/20 History divalproex [Depakote ER] 250 mg PO BEDTIME 06/27/20 03/27/21 08/12/20 History divalproex [Depakote ER] 500 mg PO QAM 06/27/20 03/27/21 08/13/20 History aspirin 81 mg PO QAM 08/13/20 03/27/21 08/13/20 History clopidogrel 75 mg PO QAM 08/13/20 03/27/21 08/13/20 History lisinopril 40 mg PO QAM 08/13/20 03/27/21 08/13/20 History spironolactone 25 mg PO QAM 08/13/20 03/27/21 08/13/20 History isosorbide mononitrate 30 mg 30 mg PO BID #60 tab 03/17/21 03/27/21 Unknown Rx tablet,extended release 24 hr acetaminophen [Tylenol Ex Str 500 - 1,000 mg PO Q4H PRN 03/27/21 03/27/21 Unknown History Rapid Release] fenofibrate 160 mg PO QAM 03/27/21 03/27/21 Unknown History Allergies Allergy/AdvReac Type Severity Reaction Status Date / Time gabapentin Allergy Severe ALGY-Swell Verified 03/27/21 10:09 Lip/Tongue/Throat Sulfa (Sulfonamide Allergy Severe ALGY-Swell Verified 03/27/21 10:09 Antibiotics) Lip/Tongue/Throat trimethoprim Allergy Severe ALGY-Swell Verified 03/27/21 10:09 Lip/Tongue/Throat sulfamethoxazole Allergy Unknown throat Verified 03/27/21 10:09 [From Bactrim] swells asenapine [From Saphris] AdvReac Mild ADR-Halluci Verified 03/27/21 10:09 nating Current Medications Current Medications Generic Name Dose Route Start Last Admin Trade Name Freq PRN Reason Stop Dose Admin Aspirin 81 mg 03/27/21 06:00 03/27/21 06:03 Aspirin 81 Mg Ec Tablet PO 81 mg QAM CHANTELLE Administration Carvedilol 25 mg 03/27/21 09:00 03/27/21 09:18 Carvedilol 25 Mg Tablet PO 25 mg BID CHANTELLE Administration Clonidine HCl 1 patch 03/26/21 23:15 03/26/21 23:26 Clonidine 0.3 Mg/24 Hr Patch TRANSDERMA 1 patch Q7D CHANTELLE Administration Clopidogrel Bisulfate 75 mg 03/27/21 06:00 03/27/21 06:03 Clopidogrel 75 Mg Tablet PO 75 mg QAM CHANTELLE Administration Desvenlafaxine 50 mg 03/27/21 09:00 03/27/21 11:24 Desvenlafaxine 50 Mg Tablet PO 50 mg DAILY CHANTELLE Administration Diazepam 5 mg 03/26/21 23:03 03/27/21 02:35 Diazepam 5 Mg Tablet PO 5 mg BID PRN Administration anxiety Divalproex Sodium 500 mg 03/27/21 09:00 03/27/21 11:24 Divalproex Er 500 Mg Tablet (24h) PO 500 mg DAILY CHANTELLE Administration Hydralazine HCl 50 mg 03/26/21 23:05 03/27/21 09:18 Hydralazine 50 Mg Tablet PO 50 mg TID CHANTELLE Administration Insulin Human Lispro 0 unit 03/27/21 08:00 03/27/21 12:30 Insulin Lispro 100 Unit/1 Ml SUBCUT 6 unit WM&BEDTIME CHANTELLE Administration Protocol Isosorbide Mononitrate 30 mg 03/27/21 09:00 03/27/21 09:18 Isosorbide Mononitrate Er 30 Mg Tablet PO 30 mg BID CHANTELLE Administration Lisinopril 40 mg 03/27/21 06:00 03/27/21 06:03 Lisinopril 20 Mg Tablet PO 40 mg QAM CHANTELLE Administration Morphine Sulfate 2 mg 03/26/21 23:00 03/27/21 00:58 Morphine 4 Mg/Ml Sdv 1 Ml IVP 2 mg Q4H PRN Administration SEVERE PAIN Nitroglycerin 0.4 mg 03/26/21 21:20 03/26/21 22:07 Nitroglycerin 0.4 Mg Sublingual Tablet SUBLINGUAL 0.4 mg Q5M PRN Administration CHEST PAIN Nitroglycerin 1 inch 03/26/21 23:00 03/27/21 12:21 Nitroglycerin 1 Gm/Inch Oint Pkt TOPICAL Not Given Q6H CHANTELLE Pantoprazole Sodium 40 mg 03/27/21 09:00 03/27/21 09:[address] 40 Mg Tablet PO 40 mg DAILY CHANTELLE Administration Spironolactone 25 mg 03/27/21 06:00 03/27/21 06:03 Spironolactone 25 Mg Tablet PO 25 mg QAM CHANTELLE Administration Tamsulosin HCl 0.4 mg 03/27/21 09:00 03/27/21 09:18 Tamsulosin 0.4 Mg Capsule PO 0.4 mg DAILY CHANTELLE Administration PFSH Acute PFSH: Medical History Bipolar II disorder Cerebrovascular accident Diabetes mellitus Diabetic neuropathy Dyslipidemia Easy bruising Gastroenteritis Generalized anxiety disorder History of adverse reaction to tissue plasminogen activator (tPA) HTN (hypertension) Hx of secondary hypertension Hypokalemia Obesity Obstructive sleep apnea hypopnea, severe Panic disorder without agoraphobia Post-traumatic stress disorder, chronic Seizures 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 Weight gain Surgical History History of esophagogastroduodenoscopy (EGD) (~04/2019) History of tonsillectomy and adenoidectomy Status following gastric banding surgery for weight loss Stented coronary artery Family History Denies family history of Anesthesia complication Bleeding disorder Social History Smoking and tobacco status: current every day smoker Quit status (tobacco): has quit using tobacco Year quit tobacco: 2010 Second hand smoke exposure: Yes Alcohol intake: never Desire information about alcohol rehabilitation?: No Desire information about substance/drug rehabilitation?: No Adopted: No Caregiver/support person: Yes Lives independently: Yes Household members: family Housing: House Marital status: Single Highest education level completed: High School Graduate service: No Current occupational status: disabled Current occupational exposures/hazards: No Pets and animals: Yes Pets & animals: cat(s) History of recent travel: No Sexually active: No Current gender identity: Male Karolina/Sikh: Episcopalian Special karolina needs: No Agree to transfusion: No Financial difficulty paying for basics: Decline to Answer Dietary Habits: Current diet type/program: regular Caffeine: Yes High-fat food intake: 2 times daily Daily servings fruits/vegetables: 0-1 Daily servings of milk/calcium: 0-1 Eating out: rarely or never Reads food labels: usually or always During the past year weight has: remained stable Exercise: What type of physical activity do you participate in?: walking Physical activity functional status: independent ambulation How many days of moderate to strenuous exercise, like a brisk walk, did you do in the last 7 days: 2 Safety: Seatbelt use: always Helmet use: No Drive intoxicated or ride with intoxicated line haul truck driver?: never Home Safety: Water heater temperature set < 120 degrees: No Working smoke detector in home: Yes Fire extinguisher in home: No Carbon monoxide detector in home: Yes Firearms in home: Yes Personal Safety: Do you feel safe at home: No Victim of physical abuse: No Victim of emotional abuse: No Victim of sexual abuse: No Would you like help information on resources?: No NHANES Social Connection/Isolation: Are you now , , , , never or living with a partner?: In a typical week, how many times do you talk on the telephone with family, friends, or neighbors?: Three or More Times per Week How often do you get together with friends or relatives?: Three or More Times per Week Do you belong to any clubs or organizations such as rastafari groups unions, fraternal or athletic groups, or school groups?: No Social isolation score (0-1 are the most socially isolated patients): 2 Social isolation score reviewed/action taken: No Vitals/I&O/Wt Last Vital Signs Temp 98.7 F 03/27/21 12:30 Pulse 92 03/27/21 12:30 Resp 15 03/27/21 12:30 BP 135/80 03/27/21 12:30 Pulse Ox 98 03/27/21 12:30 03/26/21 03/27/21 03/27/21 22:59 06:59 14:59 Intake Total 596 / 596 Output Total 800 / 800 600 / 600 Balance -800 / -800 -4 / -4 Weight last 48 hrs Weight 348 lb Physical Exam Narrative: EXAM NARRATIVE: GENERAL: Patient is alert, awake and oriented x3. NECK: No jugular vein distension. HEENT: No cyanosis. No icterus. No pallor. HEART: Regular S1 and S2. No murmur, rub or gallop. LUNGS: Clear to auscultate bilaterally. ABDOMEN: Soft, nontender and nondistended. Positive bowel sounds. No guarding, rebound or tenderness. CENTRAL NERVOUS SYSTEM: Grossly nonfocal. EXTREMITIES: Lower extremities without edema bilaterally. A&P Assessment and plan (1) CAD (coronary artery disease): Pattern of chest pain appeared to be considerable unstable angina continue optimal medical management and anticoagulation. We will proceed with left heart cath in the morning. I have explained patient all risk benefit and alternative for the procedure he understand and would like to proceed with it. Status: Acute Qualifiers: Coronary Disease-Associated Artery/Lesion type: [place] artery [place] vs. transplanted heart: [place] heart Associated angina: without angina Qualified Code(s): I25.10 - Atherosclerotic heart disease of [place] coronary artery without angina pectoris (2) Dyslipidemia: Continue statin Status: Acute (3) HTN (hypertension): Well-controlled continue medicine. Status: Acute Qualifiers: Hypertension type: unspecified Qualified Code(s): I10 - Essential (primary) hypertension Consult Attestations Medical Necessity Statement: Patient require continuation hospitalization for above defined care Coding Level of Care Code Established Pt Acute Delicate Fabrics Presser for g Fwd Patient Type Established History Detailed Exam Detailed Medical Decision Making Moderate Complexity Diagnoses CAD (coronary artery disease) I25.10 Coronary Disease-Associated Artery/Lesion type: [place] artery [place] vs. transplanted heart: [place] heart Associated angina: without angina Dyslipidemia E78.5 HTN (hypertension) I10 Hypertension type: unspecified
--- NOTE | 2021-03-27 15:04 | P.PN_ITS ---
Subjective Subjective: Interval history: Patient was seen this morning, continues to have intermittent chest pain, substernal, pressure-like, similar to when he had his stent placed, but he tells me that intensity is less severe, he tells that he is also hungry and he would like to have breakfast has been kept n.p.o. over midnight Vitals/I&O/Wt Last Vital Signs Temp 98.7 F 03/27/21 12:30 Pulse 92 03/27/21 12:30 Resp 15 03/27/21 12:30 BP 135/80 03/27/21 12:30 Pulse Ox 98 03/27/21 12:30 03/27/21 03/27/21 03/27/21 06:59 14:59 22:59 Intake Total 596 / 596 Output Total 800 / 800 600 / 600 Balance -800 / -800 -4 / -4 Weight last 48 hrs Weight 157.85 kg Physical Exam Const: COMMON NORMALS: no acute distress and patient oriented x3 Resp: COMMON NORMALS: normal respiratory effort, No retractions, No use of accessory muscles and clear to auscultation bilaterally AUSCULTATION: clear to auscultation bilaterally Cardio: COMMON NORMALS: regular rate, regular rhythm, S1 normal heart sound present and S2 normal heart sound present RATE: regular rate RHYTHM: regular rhythm HEART SOUNDS: S1 normal heart sound present and S2 normal heart sound present GI: COMMON NORMALS: Normal to inspection, nondistended, normoactive bowel sounds present, Soft to palpation, non-tender and no masses PALPATION: Yes Soft to palpation Extremity: COMMON NORMALS: no pedal edema Neuro: COMMON NORMALS: patient oriented x3 Psych: COMMON NORMALS: mental status grossly normal Data : 03/27/21 03:14 03/27/21 03:14 A&P Assessment and plan (1) CAD (coronary artery disease): 35-year-old male with multiple cardiac risk factors as noted above with a history of CAD, presenting today with chest pain. EKG without acute ST-T wave changes. Baseline troponin at 9, 6-hour troponin X 0.34. Pain may be related to unstable angina versus hypertensive urgency, however blood pressure is improved. Received aspirin 325 in the ER, continue aspirin 81 and Plavix 75 mg at home dosing for now. As needed morphine and Nitropaste for pain control. Continue home doses of carvedilol, statin, lisinopril Echocardiogram pending Blood pressure is currently improved after application of first Nitro-Bid 1 inch and hydralazine 50 mg p.o. we will continue to monitor Consult cardiology due to persistent chest pain Status: Acute Qualifiers: Coronary Disease-Associated Artery/Lesion type: [place] artery [place] vs. transplanted heart: [place] heart Associated angina: without angina Qualified Code(s): I25.10 - Atherosclerotic heart disease of [place] coronary artery without angina pectoris (2) Chest pain: Status: Acute Attestations 2 Medical Necessity Statement*: Patient requires hospitalization for chest pain Coding Level of Care Code Acute Scissors Sharpener for [facility] Fwd Diagnoses CAD (coronary artery disease) I25.10 Coronary Disease-Associated Artery/Lesion type: [place] artery [place] vs. transplanted heart: [place] heart Associated angina: without angina Chest pain R07.9
--- NOTE | 2021-03-27 15:34 | ECG_ITS ---
[facility] Test Date: 2021-03-27 Pat Name: Len Sandoval Department: Room: 106 Gender: Male Fruit Thinner: : 1985 Requested By: Tasha Read Order Number: [id number] Skip MD: Annika Degroot M.D. Measurements Intervals [place] Rate: 81 P: 17 AL: 146 QRS: 12 QRSD: 110 T: 47 QT: 366 QTc: 427 Interpretive Statements SINUS RHYTHM INCOMPLETE RIGHT BUNDLE BRANCH BLOCK [90+ ms QRS DURATION, TERMINAL R IN V1/V2, 40+ ms S IN I/aVL/V4/V5/V6] Compared to ECG 03/27/2021 02:37:55 No significant changes Electronically Signed On 03-28-2021 7:32:29 LEARNING COORDINATOR by Annika Degroot M.D. [id number]
[2021-03-27] MEDS: nitroglycerin 0.4 mg sublingual Tablet SUBLINGUAL (15:45)
--- NOTE | 2021-03-27 15:51 | ECG_ITS ---
[facility] Test Date: 2021-03-27 Pat Name: Len Sandoval Department: Room: 106 Gender: Male Floor Nurse: : 1985 Requested By: Aquilino Augustine Order Number: [id number] Skip MD: Annika Degroot M.D. Measurements Intervals [place] Rate: 83 P: 30 TX: 160 QRS: 15 QRSD: 112 T: 49 QT: 368 QTc: 433 Interpretive Statements SINUS RHYTHM INCOMPLETE RIGHT BUNDLE BRANCH BLOCK [90+ ms QRS DURATION, TERMINAL R IN V1/V2, 40+ ms S IN I/aVL/V4/V5/V6] Compared to ECG 03/27/2021 15:37:55 No significant changes Electronically Signed On 03-28-2021 7:32:19 BOOKING CLERK by Annika Degroot M.D. [id number]
[2021-03-27] MEDS: ondansetron 2 mg/ML SDV 2 mL 4 MG IVP (16:04)
[2021-03-27] MEDS: nitroglycerin drip 50 MG/250 ML PREMIX IV (16:07)
[2021-03-27 17:08] LABS: Glucose Point of Care 156 mg/dL (70-110)
[2021-03-27 17:15] LABS: Troponin(5th) Baseline 9 ng/L (0-15)
--- NOTE | 2021-03-27 17:51 | ECG_ITS ---
[facility] Test Date: 2021-03-27 Pat Name: Len Sandoval Department: Room: 106 Gender: Male Bonbon Dipper: : 1985 Requested By: Aquilino Augustine Order Number: [id number] Skip MD: Annika Degroot M.D. Measurements Intervals [place] Rate: 84 P: 32 [place]: 155 QRS: 9 QRSD: 113 T: 37 QT: 357 QTc: 423 Interpretive Statements SINUS RHYTHM WITH SINUS ARRHYTHMIA LOW QRS VOLTAGE IN PRECORDIAL LEADS [QRS DEFLECTION < 1.0 mV IN CHEST LEADS] INCOMPLETE RIGHT BUNDLE BRANCH BLOCK [90+ ms QRS DURATION, TERMINAL R IN V1/V2, 40+ ms S IN I/aVL/V4/V5/V6] Compared to ECG 03/27/2021 16:37:25 Low QRS voltage now present Electronically Signed On 03-28-2021 7:40:17 PARKING LOT MANAGER by Annika Degroot M.D. [id number]
[2021-03-27] MEDS: enoxaparin 40 mg/0.4 mL Syringe SUBCUT (18:53)
[2021-03-27 19:26] LABS: Troponin 5 2HR 9.84 ng/L (0-15); Troponin 5 2HR Delta 0.84 ABS# (0-10)
[2021-03-27] MEDS: atorvastatin 40 mg Tablet 80 MG PO (19:55)
[2021-03-27] MEDS: amlodipine 10 mg Tablet PO (19:56)
[2021-03-27] MEDS: divalproex ER 250 mg Tablet (24H) PO (19:56)
--- NOTE | 2021-03-27 20:00 | PC.NURSE ---
Shift Note Frequent safety and comfort rounds continue. Orders and/or nursing care completed as indicated. Patient monitored for response to intervention and treatment(s). 1500 pm- Pt had an episode of chest tightness. He describe it as squeezing in his right arm then radiating to chest. EKG taken. 2 nitro SL did not help the pain. Notified Dr. Augustine. IVP Morphine and Zofran PRN given as ordered and Nitro drip started per protocol. Pt reports of relieved chest pain after Nitro drip and morphine administration. Education provided includes LHC tomorrow at 10:30 am, NPO after midnght and to. Patient and/or security representative verbalizes understanding. Will continue to monitor.
[2021-03-27 20:09] LABS: Glucose Point of Care 145 mg/dL (70-110)
--- NOTE | 2021-03-27 21:06 | PC.NURSE ---
Patient c/o 8/10 chest pain. PRN Morphine given and Nitro drip titrated up. When reassessing pain level, patient states it is a 6/10. Patient is sitting on side of bed talking on the telephone. Patient does not appear to be in any distress. VSS. Will continue to monitor.
--- NOTE | 2021-03-27 21:51 | ECG_ITS ---
[facility] Test Date: 2021-03-27 Pat Name: Len Sandoval Department: Room: 106 Gender: Male Shell Mold Bonder: : 1985 Requested By: Aquilino Augustine Order Number: [id number] Skip MD: Annika Degroot M.D. Measurements Intervals [place] Rate: 96 P: 23 [place]: 148 QRS: 7 QRSD: 110 T: 51 QT: 346 QTc: 438 Interpretive Statements SINUS RHYTHM LOW QRS VOLTAGE IN PRECORDIAL LEADS [QRS DEFLECTION < 1.0 mV IN CHEST LEADS] INCOMPLETE RIGHT BUNDLE BRANCH BLOCK [90+ ms QRS DURATION, TERMINAL R IN V1/V2, 40+ ms S IN I/aVL/V4/V5/V6] Compared to ECG 03/27/2021 18:43:16 Sinus arrhythmia no longer present Electronically Signed On 03-28-2021 7:39:37 TOOL AND CUTTER GRINDER by Annika Degroot M.D. [id number]
[2021-03-27 22:24] LABS: Troponin 5 6HR 10.18 ng/L (0-15); Troponin 5 6HR Delta 1.18 ng/L (0-12)
[2021-03-28] VITALS (27 sets, daily range): BP systolic 128–159; BP diastolic 74–106; PULSE 76–92; RESP 12–24; TEMP 36.3–36.8; O2SAT 95–97
[2021-03-28] MEDS: morphine 4 mg/mL SDV 1 mL 2 MG IVP (02:04)
[2021-03-28 04:22] LABS: Glucose Point of Care 130 mg/dL (70-110)
[2021-03-28 05:10] LABS: Basophils % 0.3 %; Eosinophils # 0.2 10^3/uL (0.0-0.8); Eosinophils % 1.7 %; Hematocrit 41.5 % (42.0-52.0); Lymphocytes # 1.6 10^3/uL (0.8-4.8); Lymphocytes % 17.7 %; Mean Corpuscular HGB Conc 31.3 g/dL (30.0-36.0); Mean Corpuscular Hemoglobin 25.6 pg (28.0-34.0); Mean Corpuscular Volume 81.7 fl (80-94); Monocytes # 0.5 10^3/uL (0.2-0.9); Monocytes % 5.2 %; Neutrophils # 6.67 10^3/uL (1.8-7.7); Neutrophils % 74.7 %; Nucleated Red Blood Cells % 0 %; Platelet Count 213 10^3/cmm (130-400); Red Blood Count 5.08 10^6/uL (4.1-5.3); Red Cell Distribution Width 14.1 % (12.1-15.1); White Blood Count 8.9 10^3/uL (4.0-10.0)
[2021-03-28 05:31] LABS: Anion Gap 19.9 (5-19); Blood Urea Nitrogen 19 mg/dL (6-20); Calcium 8.7 mg/dL (8.5-10.5); Carbon Dioxide 22 mmol/L (22-29); Chloride 100 mmol/L (98-107); Glucose 122 mg/dL (65-115); Magnesium 1.9 mg/dL (1.7-2.3); Osmolality Calculated 290 mOsm/kg (285-295); Potassium 3.9 mmol/L (3.5-5.1); Sodium 138 mmol/L (136-145)
[2021-03-28] MEDS: clopidogrel 75 mg Tablet PO (06:14)
[2021-03-28] MEDS: lisinopril 20 mg Tablet 40 MG PO (06:14)
[2021-03-28] MEDS: spironolactone 25 mg Tablet PO (06:14)
[2021-03-28] MEDS: aspirin 81 mg EC Tablet PO (06:14)
[2021-03-28 06:27] LABS: Glucose Point of Care 128 mg/dL (70-110)
--- NOTE | 2021-03-28 09:32 | W.PM.OPSUD ---
Surgery/Procedure H&P Update DATE OF PROCEDURE: March 28, 2021 DATE H&P PERFORMED: 03/27/21 H&P UPDATE INFORMATION: I have reviewed H&P completed within last 30 days, I have examined patient prior to procedure and No changes to prior documentation PREOP DIAGNOSIS: Suspicious for unstable angina, history of coronary artery disease PLANNED PROCEDURE: Operation Date: 03/28/21 10:30 Proposed Procedures p Cardiac Catheterization(Left) - Tasha Read MD PATIENT REASSESSED PRIOR TO SEDATION, WITH NO CHANGE NOTED: Yes PHYSICAL EXAM: alert, oriented x 3 and clear to auscultation bilaterally AIRWAY EVAL/ANESTHESIA PLAN: ASA II and Risks, benefits & alternatives of sedation and/or procedure discussed ADDITIONAL INFORMATION: Patient has been explained all risk benefit and alternative for the procedure. He understand risk for contrast-induced nephropathy urgent emergent bypass surgery stroke vascular surgery psuedo aneurysm he meant,. He would like to proceed with it.
--- NOTE | 2021-03-28 10:04 | PM.PN ---
Subjective Subjective: Interval history: This morning patient denies any complaint. He underwent left heart cath, no significant stenosis noted. Patent previously placed mid diagonal stent. RCA was nondominant without significant stenosis left main is short no significant stenosis circumflex and LAD did not have any significant stenosis. Moderately elevated LVEDP Medications: Reviewed: Yes Vitals/I&O/Wt Last Vital Signs Temp 98.2 F 03/28/21 03:50 Pulse 80 03/28/21 06:35 Resp 24 H 03/28/21 03:50 BP 128/74 03/28/21 06:35 Pulse Ox 97 03/28/21 06:35 03/27/21 03/28/21 03/28/21 22:59 06:59 14:59 Intake Total 374.9 / 970.9 81.4 / 1052.3 Output Total 500 / 1100 950 / 2050 Balance -125.1 / -129.1 -868.6 / -997.7 Weight last 48 hrs Weight 348 lb Physical Exam Narrative: EXAM NARRATIVE: GENERAL: Patient is alert, awake and oriented x3. NECK: No jugular vein distension. HEENT: No cyanosis. No icterus. No pallor. HEART: Regular S1 and S2. No murmur, rub or gallop. LUNGS: Clear to auscultate bilaterally. ABDOMEN: Soft, nontender and nondistended. Positive bowel sounds. No guarding, rebound or tenderness. CENTRAL NERVOUS SYSTEM: Grossly nonfocal. EXTREMITIES: Lower extremities without edema bilaterally. Data : 03/28/21 04:28 03/28/21 04:28 A&P Assessment and plan (1) CAD (coronary artery disease): Patient is status post left heart cath for worsening of chest pain. He has patent previously placed mid diagonal stent no other significant stenosis noted. Most likely chest pain musculoskeletal versus coronary spasm. Reassured the patient. We will continue similar medication. May will optimize isosorbide mononitrate. Secondary prevention will be enhanced. Patient may can be discharged after completing bedrest for next 3 to 4 hours. We will continue IV fluid 100 mL/h for next 3 to 4 hours. Status: Acute Qualifiers: Coronary Disease-Associated Artery/Lesion type: [place] artery [place] vs. transplanted heart: [place] heart Associated angina: without angina Qualified Code(s): I25.10 - Atherosclerotic heart disease of [place] coronary artery without angina pectoris (2) Dyslipidemia: Continue statin patient is already on atorvastatin. Status: Acute (3) Morbid obesity: Patient need to lose weight Status: Acute (4) HTN (hypertension): Well-controlled Status: Acute Qualifiers: Hypertension type: unspecified Qualified Code(s): I10 - Essential (primary) hypertension Attestations Medical Necessity Statement*: Patient can be discharged from the cardiovascular perspective once complete bedrest Coding Level of Care Code Established Pt Acute Mat Maker for Chg Fwd Patient Type Established History Detailed Exam Detailed Medical Decision Making Moderate Complexity Diagnoses CAD (coronary artery disease) I25.10 Coronary Disease-Associated Artery/Lesion type: [place] artery [place] vs. transplanted heart: [place] heart Associated angina: without angina Dyslipidemia E78.5 Morbid obesity E66.01 HTN (hypertension) I10 Hypertension type: unspecified
[2021-03-28] MEDS: desvenlafaxine 50 mg Tablet PO (10:30)
[2021-03-28] MEDS: hyDRALAzine 50 mg Tablet PO (10:30)
[2021-03-28] MEDS: pantoprazole DR 40 mg Tablet PO (10:30)
[2021-03-28] MEDS: tamsulosin 0.4 mg Capsule PO (10:30)
--- NOTE | 2021-03-28 10:30 | XACV_ITS ---
Exam Room: [facility] Ht: 163 cm Wt: 158 kg BSA: 2.78 m2 Gender: Male : 1985 Any Known Allergies: Other Exam Priority: Routine Procedure(s): Procedure Description: Diagnostic procedure Procedure Description: Left Heart Catheterization Procedure Description: Left ventriculography Procedure Description: Coronary Angiography DANIELJacek DE LA ROSA; Diagnostic Cath Status: Elective Diagnostic Findings * No disease noted in the Left Main, Left Anterior Descending, Right, or Circumflex coronary arteries. * Coronary angiography shows right dominance. Conclusions 1. No disease noted in the Left Main, Left Anterior Descending, Right, or Circumflex coronary arteries. Recommendations * Continue current medical management and risk factor modification. Diagnostic RX Recommendation: medical therapy and/or counseling Pressures Phase:Rest AO : 129 / 107 ( 119 ) @ 7:43:00 AM 146 / 124 ( 136 ) @ 7:43:00 AM 141 / 111 ( 127 ) @ 7:46:00 AM LV : 187 / 11 / 31 @ 7:45:00 AM Clinical Evaluation EBL: 5mL-10mL Procedural Details Procedure Consent Obtained. Current Diagnosis : NSTEMI. Pre-Procedure Time Out. Identified patient by full name and date of as verbalized by the patient/guarantor. Does the consent match the physician's order: Yes. Accurate & Complete Informed Consent: Yes. Inpatient/Outpatient History & Physical on Chart: Yes. If H&P is completed, is and addenduem needed: No; If yes, is the addendum complete: N/A. Visualize and Verify Site with Patient/Guarantor: N/A. Relevant Radiology Images available: Yes. Pre-op teaching completed and patient verbalized understanding. The risks, benefits, and alternatives of sedation and/or procedure were discussed by physician. The patient agrees to continue. Procedure started. [facility] Clinical Fraility Score: 3: Managing Well. 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 Chest Pain Symptom Assessment: Typical Angina Symptoms. Correct patient, site and procedure confirmed by cath team. Current diagnosis: Chest Pain. PERRLA. Strong, equal hand general passenger agent bilaterally. Lungs clear x 5 lobes. IV Site on Arrival: 20 gauge in the right anticubital. IV Fluids: 0.9% NaCl at KVO. 0 mL infused prior to labor relations consultant. Pre Procedural Pulses: bilateral dorsalis pedis was Doppled. Pre Procedural Pulses: bilateral posterior tibial was Doppled. Pre Procedural Pulses: bilateral radial was 3+. Oxygen started at 2liters/min via nasal canula. right groin was prepped with chloroprep then draped in the usual sterile fashion. right radial was prepped with chloroprep then draped in the usual sterile fashion. Physician notified. Baseline sample Acquired. HR: 72 BPM. Physician arrived. Mirna Lynn RN circulating. Dr. Degroot here to scrub with Dr. Read. Dr. Degroot scrubbed in. Immediate Pre-Procedure Time Out. Correct Patient: Yes; Correct Procedure: Yes; Correct Site: Yes; Correct Patient Position: Yes; Correct Supplies: Yes; Dried Flammable Prep: Yes; Blood Products Available: N/A;. patient arrived with nitro running at 30mics. Lidocaine 1% infiltrated to the right radial. Arterial access obtained. Dr. Read scrubbed in. A 5 swedish TIG catheter in over wire. Multiple views taken of right coronary artery. Catheter redirected to the LCA. EDP Sample taken: LV 187/11,31; HR: 92 BPM; SpO2: 97%. Pullback taken: LV Off; AO Off; Mean: , Peak to Peak: , SEP: ; HR: 86 BPM; SpO2: 97%. Multiple views taken of left coronary artery. Physician review of cine films. Catheter removed over the exchange wire. A TR Band was successful obtaining hemostatsis at the Right Radial artery insertion site. Post Procedure: Pulses reassessed and unchanged. PERRLA. Strong, equal hand general passenger agent bilaterally. No VTE prophylaxis required. Medication's Wasted: Lidocaine 1% = 18 mL. Medication's Wasted: Heparin = 1000 units. Total IV fluids: 47 mL. Contrast type used: Visipaque 320 mgI/mL, 500 mL bottle. Vital chart was stopped. Complications: None. Estimated blood loss: 5mL-10mL. Responsiveness - Normal response to verbal stimuli; alert and oriented, PERRLA. Airway - Unaffected, no intervention required; spontaneous ventilation. Circulation: W/N/L, pulses unchanged. Nausea/Vomiting: No. Procedure completed. Patient transferred by wheelchair to 1st floor. Access Site Site: Right Radial artery Sheath Size: 6 Fr Hemostasis Method: TR Band Hemostasis Success: Successful Procedure Medications Start: 9:28 AM Stop: 9:28 AM Medication: Versed Amount: 1 mg Route: I.V. Start: 9:28 AM Stop: 9:28 AM Medication: Fentanyl Amount: 50 mcg Route: I.V. Start: 9:32 AM Stop: 9:32 AM Medication: Versed Amount: 1 mg Route: I.V. Start: 9:34 AM Stop: 9:34 AM Medication: Fentanyl Amount: 50 mcg Route: I.V. Start: 9:36 AM Stop: 9:36 AM Medication: Nitrogylcerin Amount: 200 mcg Route: I.A. Start: 9:36 AM Stop: 9:36 AM Medication: Versed Amount: 1 mg Route: I.V. Start: 9:36 AM Stop: 9:36 AM Medication: Fentanyl Amount: 50 mcg Route: I.V. Start: 9:39 AM Stop: 9:39 AM Medication: Versed Amount: 1 mg Route: I.V. Start: 9:43 AM Stop: 9:43 AM Medication: Heparin Amount: 5000 units Route: I.V. Start: 9:45 AM Stop: 9:45 AM Medication: Fentanyl Amount: 50 mcg Route: I.V. I, the attending physician, have reviewed and verified all procedure medications. Yes, all medications given per verbal order History/Risk Factors Hypertension: Yes Dyslipidemia: Yes Peripheral Arterial Disease (PAD): No Myocardial Infarction ([place]): No Obesity: Yes Renal Disease: No Tobacco Use: Current/Recent(w/in 1 year) Prior Interventions PCI: Yes CABG: No Valve Surgery: No Date of PCI: 05/20/2020 Report Signatures Finalized by Tasha Read MD on 03/31/2021 08:24 PM
[2021-03-28] MEDS: divalproex ER 500 mg Tablet (24H) PO (10:31)
[2021-03-28] MEDS: carvedilol 25 mg Tablet PO (10:31)
[2021-03-28] MEDS: sodium chloride 0.9% 1,000 ML 50 ML IV (10:33)
[2021-03-28 11:18] LABS: Glucose Point of Care 154 mg/dL (70-110)
--- NOTE | 2021-03-28 14:43 | PM.DCS ---
Discharge Providers Date of Admission: 03/26/21 22:27 Date of Discharge: March 28, 2021 Attending Provider at Admission: Debra Mckeon MD Attending Provider at Discharge: Aquilino Augustine MD Primary Care Provider: Chad Jiménez DO Diagnoses at Discharge Discharge Diagnosis (1) CAD (coronary artery disease): Status: Acute Qualifiers: Coronary Disease-Associated Artery/Lesion type: [place] artery [place] vs. 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 Patient was admitted to [facility] for chest pain, EKG no acute ST-T wave changes, troponin no significant delta troponin, given his persistent chest pain cardiology was consulted, underwent coronary angiogram, which showed no obstructive CAD. Patient was discharged on his home aspirin, statin, Plavix follow-up with cardiology as outpatient. Physical Exam Const: COMMON NORMALS: no acute distress and patient oriented x3 Neck/C-Spine: COMMON NORMALS: no JVD Resp: COMMON NORMALS: normal respiratory effort, No retractions, No use of accessory muscles and clear to auscultation bilaterally AUSCULTATION: clear to auscultation bilaterally Cardio: COMMON NORMALS: no JVD, regular rate, regular rhythm, S1 normal heart sound present and S2 normal heart sound present RATE: regular rate RHYTHM: regular rhythm HEART SOUNDS: S1 normal heart sound present and S2 normal heart sound present GI: COMMON NORMALS: Normal to inspection, nondistended, normoactive bowel sounds present, Soft to palpation and non-tender PALPATION: Yes Soft to palpation Extremity: COMMON NORMALS: no pedal edema Neuro: COMMON NORMALS: patient oriented x3 Psych: COMMON NORMALS: mental status grossly normal Discharge Data Data Completed and Pending: Completed Studies During Hospitalization Category Date Time Status XR chest 1V janette ble [id number] Urgent Exams 03/26/21 20:49 Completed Pending at discharge Category Date Time Status CHEESE COOK request for service Routin e Exams 03/28/21 10:30 Ordered Basic Metabolic P noé AM LABS Lab 03/29/21 04:00 Ordered Basic Metabolic P noé AM LABS Lab 03/30/21 04:00 Ordered Complete Blood Co unt w/Auto AM LABS Lab 03/29/21 04:00 Ordered Complete Blood Co unt w/Auto AM LABS Lab 03/30/21 04:00 Ordered Magnesium AM LABS Lab 03/29/21 04:00 Ordered Magnesium AM LABS Lab 03/30/21 04:00 Ordered CV. echo complete * [id number] Routine Ultrasound 03/27/21 06:00 Taken Labs from last 24 hours 03/28/21 03/28/21 03/28/21 11:07 06:24 04:28 WBC RBC Hgb Hct MCV MCH MCHC RDW Plt Count MPV Neut % (Auto) Lymph % (Auto) Tate % (Auto) Eos % (Auto) Baso % (Auto) Neut # (Auto) Lymph # (Auto) Tate # (Auto) Eos # (Auto) Baso # (Auto) Nucleated RBC % (a uto) Nucleated RBCs # Sodium 138 Potassium 3.9 Chloride 100 Carbon Dioxide 22 Anion Gap 19.9 H BUN 19 Creatinine 1.0 GFR Calculation 85.0 L Glucose 122 H POC Glucose 154 H 128 H Calculated Osmolal ity 290 Calcium 8.7 Magnesium 1.9 Troponin T Baselin e Troponin T 120 Min [place] Delta Troponin T Troponin T Hi Sens 6Hr Troponin T Hi Sens 6Hr Delta 03/28/21 03/28/21 03/27/21 04:28 03:57 21:56 WBC 8.9 RBC 5.08 Hgb 13.0 Hct 41.5 L MCV 81.7 MCH 25.6 L MCHC 31.3 RDW 14.1 Plt Count 213 MPV 10.0 Neut % (Auto) 74.7 Lymph % (Auto) 17.7 Tate % (Auto) 5.2 Eos % (Auto) 1.7 Baso % (Auto) 0.3 Neut # (Auto) 6.67 Lymph # (Auto) 1.6 Tate # (Auto) 0.5 Eos # (Auto) 0.2 Baso # (Auto) 0.0 Nucleated RBC % (a uto) 0 Nucleated RBCs # 0.0 Sodium Potassium Chloride Carbon Dioxide Anion Gap BUN Creatinine GFR Calculation Glucose POC Glucose 130 H Calculated Osmolal ity Calcium Magnesium Troponin T Baselin e Troponin T 120 Min [place] Delta Troponin T Troponin T Hi Sens 6Hr 10.18 Troponin T Hi Sens 6Hr Delta 1.18 03/27/21 03/27/21 03/27/21 20:04 18:42 16:57 WBC RBC Hgb Hct MCV MCH MCHC RDW Plt Count MPV Neut % (Auto) Lymph % (Auto) Tate % (Auto) Eos % (Auto) Baso % (Auto) Neut # (Auto) Lymph # (Auto) Tate # (Auto) Eos # (Auto) Baso # (Auto) Nucleated RBC % (a uto) Nucleated RBCs # Sodium Potassium Chloride Carbon Dioxide Anion Gap BUN Creatinine GFR Calculation Glucose POC Glucose 145 H 156 H Calculated Osmolal ity Calcium Magnesium Troponin T Baselin e Troponin T 120 Min [place] 9.84 Delta Troponin T 0.84 Troponin T Hi Sens 6Hr Troponin T Hi Sens 6Hr Delta 03/27/21 16:36 WBC RBC Hgb Hct MCV MCH MCHC RDW Plt Count MPV Neut % (Auto) Lymph % (Auto) Tate % (Auto) Eos % (Auto) Baso % (Auto) Neut # (Auto) Lymph # (Auto) Tate # (Auto) Eos # (Auto) Baso # (Auto) Nucleated RBC % (a uto) Nucleated RBCs # Sodium Potassium Chloride Carbon Dioxide Anion Gap BUN Creatinine GFR Calculation Glucose POC Glucose Calculated Osmolal ity Calcium Magnesium Troponin T Baselin e 9 Troponin T 120 Min [place] Delta Troponin T Troponin T Hi Sens 6Hr Troponin T Hi Sens 6Hr Delta Vitals: Last Vital Signs Temp 98.2 F 03/28/21 03:50 Pulse 80 03/28/21 06:35 Resp 24 H 03/28/21 03:50 BP 128/74 03/28/21 06:35 Pulse Ox 97 03/28/21 06:35 Discharge Plan Discharge Patient Disposition: Home Condition: Stable Prescriptions: Continued (DME) oxygen-air delivery systems Device See Rx Instructions .ROUTE .MEDSUPPLY Qty: 1 RF: 0 omeprazole 20 mg capsule,delayed release(DR/EC) 20 mg PO QAM RF: 0 Victoza 2-Colt 0.6 mg/0.1 mL (18 mg/3 mL) pen injector 1.8 mg SUBCUT QAM RF: 0 Lantus U-100 Insulin 100 unit/mL solution 85 unit SUBCUT BEDTIME RF: 0 diazepam [Valium] 5 mg tablet 5 mg PO BID PRN (Reason: anxiety) Qty: 60 RF: 1 hydralazine 50 mg tablet 50 mg PO TID RF: 0 metformin 1,000 mg tablet 1,000 mg PO BID RF: 0 cyclobenzaprine 10 mg tablet 10 mg PO BID PRN (Reason: Muscle Spasm) RF: 0 (DME) FreeStyle Yamileth 14 Day Sensor Kit See Rx Instructions .ROUTE .MEDSUPPLY Qty: 2 RF: 3 (DME) FreeStyle Yamileth 14 Day [place] Misc See Rx Instructions .ROUTE .MEDSUPPLY Qty: 1 RF: 0 potassium chloride 10 mEq capsule, extended release 40 meq PO DAILY RF: 0 carvedilol 25 mg tablet 25 mg PO BID RF: 0 tamsulosin 0.4 mg capsule 0.4 mg PO QAM RF: 0 melatonin 10 mg tablet 10 mg PO BEDTIME PRN (Reason: Sleep) RF: 0 isosorbide mononitrate 30 mg tablet extended release 24 hr 30 mg PO BID Qty: 60 RF: 2 clonidine [Mglynkbp-XEP-2] 0.3 mg/24 hr Patch Weekly 0.3 mg transdermal Q7D RF: 0 Jardiance 10 mg Tablet 10 mg PO QAM RF: 0 desvenlafaxine succinate [Pristiq] 50 mg Tablet Extended Release 24 Hr 50 mg PO QAM RF: 0 atorvastatin 80 mg Tablet 80 mg PO BEDTIME RF: 0 divalproex [Depakote ER] 250 mg Tablet Extended Release 24 Hr 250 mg PO BEDTIME RF: 0 amlodipine 10 mg tablet 10 mg PO BEDTIME RF: 0 divalproex [Depakote ER] 500 mg tablet extended release 24 hr 500 mg PO QAM RF: 0 fenofibrate 160 mg Tablet 160 mg PO QAM RF: 0 Tylenol Ex Str Rapid Release 500 mg Tablet 500 - 1,000 mg PO Q4H PRN (Reason: Pain) RF: 0 cetirizine [Zyrtec] 10 mg Tablet 10 mg PO QAM RF: 0 lisinopril 40 mg Tablet 40 mg PO QAM RF: 0 clopidogrel 75 mg tablet 75 mg PO QAM RF: 0 aspirin 81 mg tablet,delayed release (DR/EC) 81 mg PO QAM RF: 0 spironolactone 25 mg tablet 25 mg PO QAM RF: 0 Discharge Orders: Discharge Order (Routine); Ordered 03/28/21 Ordered By: Aquilino Augustine Referrals: Chad Jiménez DO [Primary Care Provider] - 1 week Discharge Diet: Cardiac Discharge Activity: Resume usual activity Patient Instructions: Opioid Safety Activity Restrictions/Additional Instructions: -If you have recurrent chest pain please go to the emergency room Discharge Attestations Time Spent in Discharge Care*: less than 30 min Status at Discharge: Cognitive status at discharge: cognitively intact, Behavioral status at discharge: cooperative, Quality Metrics Clinical Quality Measures During this hospital stay, did patient experience: None Coding Level of Care Code Acute [facility] note Diagnoses CAD (coronary artery disease) I25.10 Coronary Disease-Associated Artery/Lesion type: [place] artery [place] vs. transplanted heart: [place] heart Associated angina: without angina Dyslipidemia E78.5 Morbid obesity E66.01 HTN (hypertension) I10 Hypertension type: unspecified
== END 2021-03-28 17:15 | disposition home or self-care (01) ==
LOC: ER 22:35 → CSU 03-27 07:03
PROVIDERS: Internal Medicine Cardiovascular Disease; Admitting Provider Student in an Organized Health Care Education/Training Program; Emergency Provider Emergency Medicine; PCP Electrodiagnostic Medicine; Visit Provider Family Medicine
DX: I25.10 Atherosclerotic heart disease of native coronary artery without angina pectoris (principal); R07.9 Chest pain, unspecified; E78.5 Hyperlipidemia, unspecified; I10 Essential (primary) hypertension; E66.01 Morbid (severe) obesity due to excess calories; Z68.43 Body mass index [BMI] 50.0-59.9, adult; E11.9 Type 2 diabetes mellitus without complications; Z79.82 Long term (current) use of aspirin; Z79.4 Long term (current) use of insulin; Z86.73 Personal history of transient ischemic attack (TIA), and cerebral infarction without residual deficits
CPT/HCPCS: 36415; 36416; 71045; 80048; 80053; 82962; 83735; 84484; 85025; 85378; 93005; 93306; 93452; 94664; 96361; 96365; 96372; 96375; 96376; 99285; C1769; C1887; C1894; G0378; J1644; J1650; J1815; J2250; J2270; J2405; J3010; J3490; J7030; Q9967

== ENCOUNTER → 2021-07-16 10:57 | Outpatient (BNVA) | payer MEDICAID, SELFPAY | PROVIDERS: PCP Electrodiagnostic Medicine; Visit Provider Internal Medicine Cardiovascular Disease | DX: I25.10 Atherosclerotic heart disease of native coronary artery without angina pectoris (principal); I10 Essential (primary) hypertension; E11.42 Type 2 diabetes mellitus with diabetic polyneuropathy; Z79.4 Long term (current) use of insulin; G47.33 Obstructive sleep apnea (adult) (pediatric); E66.01 Morbid (severe) obesity due to excess calories; Z68.44 Body mass index [BMI] 60.0-69.9, adult; Z79.82 Long term (current) use of aspirin; M79.671 Pain in right foot | CPT/HCPCS: 73620; 99214 ==

== ENCOUNTER 2021-08-10 01:33 | Emergency (ER) | payer MEDICAID, SELFPAY ==
[2021-08-10] VITALS (10 sets, daily range): BP systolic 132–168; BP diastolic 74–103; PULSE 62–69; RESP 17–24; TEMP 36.4; O2SAT 91–98; BMI 62.6
--- NOTE | 2021-08-10 01:37 | XRR_ITS ---
PROCEDURE INFORMATION: Exam: XR Chest Exam date and time: 08/10/2021 1:53 AM Age: 35 years old Clinical indication: Angina; Prior surgery; Surgery date: 6+ months; Surgery type: Stents; Patient HX: SOB chest pain since 3 pm yestedday; Additional info: Cp TECHNIQUE: Imaging protocol: XR of the chest. Views: 1 view. COMPARISON: CR XR chest 1V portable [id number] 03/26/2021 8:55 PM FINDINGS: Lungs: There are patchy opacities present in the left lower hemithorax, findings that may represent a left basilar atelectasis versus pneumonia. Pleural spaces: Unremarkable. No pleural effusion. No pneumothorax. Heart/Mediastinum: Unremarkable. No cardiomegaly. Bones/joints: Unremarkable. XR/XR chest 1V portable [id number] IMPRESSION: Patchy opacity seen in the left lower hemithorax, findings that may represent basilar atelectasis versus pneumonia.
--- NOTE | 2021-08-10 01:38 | ECG_ITS ---
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 Measurements Intervals [place] Rate: 62 P: 48 [place]: 169 QRS: 27 QRSD: 112 T: 56 QT: 385 QTc: 392 Interpretive Statements SINUS RHYTHM LOW QRS VOLTAGE IN PRECORDIAL LEADS [QRS DEFLECTION < 1.0 mV IN CHEST LEADS] INCOMPLETE RIGHT BUNDLE BRANCH BLOCK [90+ ms QRS DURATION, TERMINAL R IN V1/V2, 40+ ms S IN I/aVL/V4/V5/V6] Compared to ECG 03/27/2021 21:58:21 No significant changes Electronically Signed On 08-10-2021 16:30:37 CDT by Raul Encinas M.D. [id number]
--- NOTE | 2021-08-10 01:49 | ED_ITS ---
Documented by User: JESSICA Bosch 08/10/21 17:50 HPI - Chest Pain General: Chief Complaint: Chest Pain Stated Complaint: chest pains Time Seen by Provider: 08/10/21 01:38 History of Present Illness: Patient is a 35-year-old male that comes to the ED with chest pain. He has a past medical history of hypertension, diabetes, sleep apnea, dyslipidemia and morbid obesity. He has had 2 episodes of chest pain today. His first episode was around noon and he was waking up from a nap and while laying he started having some chest pain but it resolved in about an hour. Tonight just prior to arrival patient had another episode of chest pain while laying down. He rates the chest pain currently an 8 out of 10. He describes it as a sharp pain on the right side of his chest that radiates into his right shoulder and arm. He endorsed having some diaphoresis with onset of chest pain. Denies any improving or worsening factors. Denies any nausea/vomiting, shortness of breath or palpitations. He has not taken any aspirin before coming to the ED. He also endorses having some bloody stools that are bright red color that have been going on now for the past 2 days straight. He has multiple bowel movements a day for the past 2 days and all of them have had red blood. Denies any constipation, diarrhea or black tarry stools. Associated symptoms: Deny abdominal pain, dyspnea, fever(s), nausea, palpitations or vomiting Review of Systems Const: Denies: fever(s), chills or fatigue Eyes: Denies: change in vision or eye discomfort ENMT: Denies: throat pain, odynophagia, nasal discharge or nasal congestion Card: Reports: chest pain; Denies: palpitations, edema, swelling of feet/ankles, dyspnea on exertion or orthopnea Resp: Denies: dyspnea, productive cough or non-productive cough GI: Reports: hematochezia (Red blood in stool); Denies: abdominal pain, nausea, vomiting, diarrhea or constipation : Denies: flank pain, difficulty urinating, dysuria or hematuria Musc: Denies: neck pain, back pain or extremity swelling Skin/Breast: Denies: rash or new lesions Neuro: Denies: headache(s), numbness in extremities or weakness in extremities PFS ED PFSH: Medical History Bipolar II disorder Cerebrovascular accident Diabetes mellitus Diabetic neuropathy Dyslipidemia Easy bruising Gastroenteritis Generalized anxiety disorder History of adverse reaction to tissue plasminogen activator (tPA) HTN (hypertension) Hx of secondary hypertension Hypokalemia Obesity Obstructive sleep apnea hypopnea, severe Panic disorder without agoraphobia Post-traumatic stress disorder, chronic Seizures tPA adm status 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 Weight gain Surgical History History of esophagogastroduodenoscopy (EGD) (~04/2019) History of tonsillectomy and adenoidectomy Status following gastric banding surgery for weight loss Stented coronary artery Family History Denies family history of Anesthesia complication Bleeding disorder Social History Smoking and tobacco status: never smoked Quit status (tobacco): has quit using tobacco Year quit tobacco: 2010 Second hand smoke exposure: Yes Alcohol intake: never Desire information about alcohol rehabilitation?: No Desire information about substance/drug rehabilitation?: No Adopted: No Caregiver/support person: Yes Lives independently: Yes Household members: family Housing: House Marital status: Single Highest education level completed: High School Graduate service: No Current occupational status: disabled Current occupational exposures/hazards: No Pets and animals: Yes Pets & animals: cat(s) History of recent travel: No Sexually active: No Current gender identity: Male Karolina/Adventist: Cheondoism Special karolina needs: No Agree to transfusion: No Financial difficulty paying for basics: Decline to Answer Physical Exam Const: COMMON NORMALS: patient oriented x3 and alert GENERAL APPEARANCE: cooperative NUTRITIONAL APPEARANCE: obese morbidly obese HENMT: COMMON NORMALS: normocephalic HEAD & SCALP: normocephalic MOUTH: Normal oral and palatal mucosa present THROAT: posterior oropharynx normal and uvula midline Eye: COMMON NORMALS: Equal, round and reactive pupils present and conjunctivae normal CONJUNCTIVA: Yes conjunctivae normal PUPIL: Yes Equal, round and reactive pupils present Neck/C-Spine: COMMON NORMALS: supple GENERAL: Yes normal visual inspection Resp: COMMON NORMALS: normal respiratory effort, No retractions, No use of accessory muscles and clear to auscultation bilaterally AUSCULTATION: clear to auscultation bilaterally Cardio: COMMON NORMALS: regular rate, regular rhythm, S1 normal heart sound present, S2 normal heart sound present, No gallops present (Cardio), No clicks present (Cardio), No murmurs present (Cardio) and Peripheral pulses 2+ throughout RATE: regular rate RHYTHM: regular rhythm HEART SOUNDS: S1 normal heart sound present and S2 normal heart sound present PERIPHERAL PULSES: Peripheral pulses 2+ throughout GI: COMMON NORMALS: Normal to inspection, nondistended, normoactive bowel sounds present, Soft to palpation, non-tender and no masses INSPECTION: Yes central obesity PALPATION: Yes Soft to palpation : COMMON NORMALS: Yes no CVA tenderness BLADDER/KIDNEY EXAM: Yes no CVA tenderness Back/Pelvis: COMMON NORMALS: no CVA tenderness Extremity: COMMON NORMALS: normal to inspection Neuro: COMMON NORMALS: patient oriented x3 and moves all extremities SENSORIUM/ORIENTATION: Yes alert Skin: GENERAL SKIN EXAM: dry skin Course Vital Signs: Vital signs: Vital Signs Temperature 97.5 F L 08/10/21 01:38 Pulse Rate 65 08/10/21 05:30 Respiratory Rate 20 H 08/10/21 05:30 Blood Pressure 132/74 08/10/21 05:30 Pulse Oximetry 93 08/10/21 05:30 MDM - Chest Pain Lab Data : 08/10/21 02:30 08/10/21 02:30 Radiology Impressions Chest X-Ray 08/10/21 01:37 IMPRESSION: Patchy opacity seen in the left lower hemithorax, findings that may represent basilar atelectasis versus pneumonia. Laboratory Results WBC 9.0 10^3/uL (4.0-10.0) 08/10/21 02:30 RBC 4.61 10^6/uL (4.1-5.3) 08/10/21 02:30 Hgb 12.2 g/dL (11.7-16.6) 08/10/21 02:30 Hct 39.2 % (42.0-52.0) L 08/10/21 02:30 MCV 85.0 fl (80-94) 08/10/21 02:30 MCH 26.5 pg (28.0-34.0) L 08/10/21 02:30 MCHC 31.1 g/dL (30.0-36.0) 08/10/21 02:30 RDW 14.6 % (12.1-15.1) 08/10/21 02:30 Plt Count 209 10^3/cmm (130-400) 08/10/21 02:30 MPV 9.9 fL (7.4-10.4) 08/10/21 02:30 Neut % (Auto) 72.9 % 08/10/21 02:30 Lymph % (Auto) 17.1 % 08/10/21 02:30 [place] % (Auto) 6.8 % 08/10/21 02:30 Eos % (Auto) 2.7 % 08/10/21 02:30 Baso % (Auto) 0.2 % 08/10/21 02:30 Neut # (Auto) 6.53 10^3/uL (1.8-7.7) 08/10/21 02:30 Lymph # (Auto) 1.5 10^3/uL (0.8-4.8) 08/10/21 02:30 [place] # (Auto) 0.6 10^3/uL (0.2-0.9) 08/10/21 02:30 Eos # (Auto) 0.2 10^3/uL (0.0-0.8) 08/10/21 02:30 Baso # (Auto) 0.0 10^3/uL (0.0-0.1) 08/10/21 02:30 Nucleated RBC % (auto) 0 % 08/10/21 02:30 Nucleated RBCs # 0.0 /100WBC 08/10/21 02:30 Sodium 138 mmol/L (136-145) 08/10/21 02:30 Potassium 4.0 mmol/L (3.5-5.1) 08/10/21 02:30 Chloride 100 mmol/L (98-107) 08/10/21 02:30 Carbon Dioxide 24 mmol/L (22-29) 08/10/21 02:30 Anion Gap 18.0 (5-19) 08/10/21 02:30 BUN 20 mg/dL (6-20) 08/10/21 02:30 Creatinine 1.0 mg/dL (0.7-1.2) 08/10/21 02:30 GFR Calculation 85.0 mL/min (90-130) L 08/10/21 02:30 Glucose 89 mg/dL (65-115) 08/10/21 02:30 Calculated Osmolality 288 mOsm/kg (285-295) 08/10/21 02:30 Calcium 8.4 mg/dL (8.5-10.5) L 08/10/21 02:30 Total Bilirubin 0.2 mg/dL (0.15-1.2) 08/10/21 02:30 AST 13 U/L (0-40) 08/10/21 02:30 ALT 23 U/L (0-41) 08/10/21 02:30 Alkaline Phosphatase 51 IU/L (40-130) 08/10/21 02:30 Troponin T Baseline 9 ng/L (0-15) 08/10/21 02:30 Troponin T 120 Minute 8.12 ng/L (0-15) 08/10/21 04:30 Delta Troponin T Not Reportable 08/10/21 04:30 NT-Pro-B Natriuret Pep 37 pg/mL (0-125) 08/10/21 02:30 Total Protein 6.6 g/dL (6.6-8.7) 08/10/21 02:30 Albumin 4.3 g/dL (3.5-5.2) 08/10/21 02:30 Globulin 2.3 g/dL (1.3-4.6) 08/10/21 02:30 EKG Data EKG 1: EKG interpretation date: 08/10/21 Interpretation: Sinus rhythm, 62 bpm, no ST segment elevation or depression seen. Discharge Plan Discharge Patient Disposition: Home Clinical Impression: Chest pain Condition: Stable Prescriptions: No Action (DME) oxygen-air delivery systems Device See Rx Instructions .ROUTE .MEDSUPPLY Qty: 1 0RF Rx Instructions: As directed omeprazole 20 mg capsule,delayed release(DR/EC) 20 mg PO QAM 0RF Victoza 2-Colt 0.6 mg/0.1 mL (18 mg/3 mL) pen injector 1.8 mg SUBCUT QAM 0RF Lantus U-100 Insulin 100 unit/mL solution 85 unit SUBCUT BEDTIME 0RF diazepam [Valium] 5 mg tablet 5 mg PO BID PRN (Reason: anxiety) Qty: 60 1RF metformin 1,000 mg tablet 1,000 mg PO BID 0RF cyclobenzaprine 10 mg tablet 10 mg PO BID PRN (Reason: Muscle Spasm) 0RF (DME) FreeStyle Yamileth 14 Day Sensor Kit See Rx Instructions .ROUTE .MEDSUPPLY Qty: 2 3RF Rx Instructions: As directed (DME) FreeStyle Yamileth 14 Day Raymond Misc See Rx Instructions .ROUTE .MEDSUPPLY Qty: 1 0RF Rx Instructions: As directed potassium chloride 10 mEq capsule, extended release 40 meq PO DAILY 0RF carvedilol 25 mg tablet 25 mg PO BID 0RF Rx Instructions: must administer with a meal/food tamsulosin 0.4 mg capsule 0.4 mg PO QAM 0RF melatonin 10 mg tablet 10 mg PO BEDTIME PRN (Reason: Sleep) 0RF isosorbide mononitrate 30 mg tablet extended release 24 hr 60 mg PO BID Qty: 180 3RF diltiazem HCl 360 mg capsule,extended release 24hr 360 mg PO DAILY Qty: 90 2RF hydralazine 50 mg tablet 50 mg PO DIRECTED 0RF Rx Instructions: 100mg AM 50mg noon 50mg evening Jardiance 10 mg Tablet 10 mg PO QAM 0RF desvenlafaxine succinate [Pristiq] 50 mg Tablet Extended Release 24 Hr 50 mg PO QAM 0RF atorvastatin 80 mg Tablet 80 mg PO BEDTIME 0RF divalproex [Depakote ER] 250 mg Tablet Extended Release 24 Hr 250 mg PO BEDTIME 0RF divalproex [Depakote ER] 500 mg tablet extended release 24 hr 500 mg PO QAM 0RF fenofibrate 160 mg Tablet 160 mg PO QAM 0RF acetaminophen 500 mg Tablet 500 - 1,000 mg PO Q4H PRN (Reason: Pain) 0RF cetirizine [Zyrtec] 10 mg Tablet 10 mg PO QAM 0RF lisinopril 40 mg Tablet 40 mg PO QAM 0RF clopidogrel 75 mg tablet 75 mg PO QAM 0RF aspirin 81 mg tablet,delayed release (DR/EC) 81 mg PO QAM 0RF spironolactone 25 mg tablet 25 mg PO QAM 0RF Discharge Orders: Discharge ED (Routine); Ordered 08/10/21 Ordered By: Quintin Alanis Referrals: Chad Jiménez, [Primary Care Provider] - 1-3 days Activity Restrictions/Additional Instructions: If you continue to have blood in your stool, you should have your blood count checked in 2 days time. Your work-up did not reveal a cause of chest pain this morning. Return for worsening pain, shortness of breath, fever, other concerning symptoms. Call your doctor later today for a follow-up appointment. Coding Level of Care Code ED Newspaper Carrier for Chg Fwd Exam Comprehensive Documented by User: Quintin Alanis DO 08/10/21 05:07 HPI - Chest Pain General: Chief Complaint: Chest Pain Stated Complaint: chest pains Time Seen by Provider: 08/10/21 01:38 [facility] ED PFSH: Medical History Bipolar II disorder Cerebrovascular accident Diabetes mellitus Diabetic neuropathy Dyslipidemia Easy bruising Gastroenteritis Generalized anxiety disorder History of adverse reaction to tissue plasminogen activator (tPA) HTN (hypertension) Hx of secondary hypertension Hypokalemia Obesity Obstructive sleep apnea hypopnea, severe Panic disorder without agoraphobia Post-traumatic stress disorder, chronic Seizures tPA adm status 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 Weight gain Surgical History History of esophagogastroduodenoscopy (EGD) (~04/2019) History of tonsillectomy and adenoidectomy Status following gastric banding surgery for weight loss Stented coronary artery Family History Denies family history of Anesthesia complication Bleeding disorder Social History Smoking and tobacco status: never smoked Quit status (tobacco): has quit using tobacco Year quit tobacco: 2010 Second hand smoke exposure: Yes Alcohol intake: never Desire information about alcohol rehabilitation?: No Desire information about substance/drug rehabilitation?: No Adopted: No Caregiver/support person: Yes Lives independently: Yes Household members: family Housing: House Marital status: Single Highest education level completed: High School Graduate service: No Current occupational status: disabled Current occupational exposures/hazards: No Pets and animals: Yes Pets & animals: cat(s) History of recent travel: No Sexually active: No Current gender identity: Male Karolina/Adventist: Cheondoism Special karolina needs: No Agree to transfusion: No Financial difficulty paying for basics: Decline to Answer Course Vital Signs: Vital signs: Vital Signs Temperature 97.5 F L 08/10/21 01:38 Pulse Rate 65 08/10/21 05:30 Respiratory Rate 20 H 08/10/21 05:30 Blood Pressure 132/74 08/10/21 05:30 Pulse Oximetry 93 08/10/21 05:30 [facility] - Chest Pain Medical Decision Making This patient was originally seen by Mr. Nay PA-C.? I agree with his history, evaluation, and treatment. The patient continues to complain of chest discomfort. He was given morphine and nitroglycerin with some relief. CBC is normal. His BMP is normal. Troponin at 0-hour and 2-hour normal. His EKG shows sinus rhythm with a normal axis, normal intervals, rate of 60, and no acute ST changes. Liver enzymes are normal. Chest x-ray is nonacute. This patient had a normal cardiac catheterization in March. He was initially hypertensive, but now blood pressure is 138/77. He will be allowed discharge home. Lab Data : 08/10/21 02:30 08/10/21 02:30 Radiology Impressions Chest X-Ray 08/10/21 01:37 IMPRESSION: Patchy opacity seen in the left lower hemithorax, findings that may represent basilar atelectasis versus pneumonia. Laboratory Results WBC 9.0 10^3/uL (4.0-10.0) 08/10/21 02:30 RBC 4.61 10^6/uL (4.1-5.3) 08/10/21 02:30 Hgb 12.2 g/dL (11.7-16.6) 08/10/21 02:30 Hct 39.2 % (42.0-52.0) L 08/10/21 02:30 MCV 85.0 fl (80-94) 08/10/21 02:30 MCH 26.5 pg (28.0-34.0) L 08/10/21 02:30 MCHC 31.1 g/dL (30.0-36.0) 08/10/21 02:30 RDW 14.6 % (12.1-15.1) 08/10/21 02:30 Plt Count 209 10^3/cmm (130-400) 08/10/21 02:30 MPV 9.9 fL (7.4-10.4) 08/10/21 02:30 Neut % (Auto) 72.9 % 08/10/21 02:30 Lymph % (Auto) 17.1 % 08/10/21 02:30 [place] % (Auto) 6.8 % 08/10/21 02:30 Eos % (Auto) 2.7 % 08/10/21 02:30 Baso % (Auto) 0.2 % 08/10/21 02:30 Neut # (Auto) 6.53 10^3/uL (1.8-7.7) 08/10/21 02:30 Lymph # (Auto) 1.5 10^3/uL (0.8-4.8) 08/10/21 02:30 [place] # (Auto) 0.6 10^3/uL (0.2-0.9) 08/10/21 02:30 Eos # (Auto) 0.2 10^3/uL (0.0-0.8) 08/10/21 02:30 Baso # (Auto) 0.0 10^3/uL (0.0-0.1) 08/10/21 02:30 Nucleated RBC % (auto) 0 % 08/10/21 02:30 Nucleated RBCs # 0.0 /100WBC 08/10/21 02:30 Sodium 138 mmol/L (136-145) 08/10/21 02:30 Potassium 4.0 mmol/L (3.5-5.1) 08/10/21 02:30 Chloride 100 mmol/L (98-107) 08/10/21 02:30 Carbon Dioxide 24 mmol/L (22-29) 08/10/21 02:30 Anion Gap 18.0 (5-19) 08/10/21 02:30 BUN 20 mg/dL (6-20) 08/10/21 02:30 Creatinine 1.0 mg/dL (0.7-1.2) 08/10/21 02:30 GFR Calculation 85.0 mL/min (90-130) L 08/10/21 02:30 Glucose 89 mg/dL (65-115) 08/10/21 02:30 Calculated Osmolality 288 mOsm/kg (285-295) 08/10/21 02:30 Calcium 8.4 mg/dL (8.5-10.5) L 08/10/21 02:30 Total Bilirubin 0.2 mg/dL (0.15-1.2) 08/10/21 02:30 AST 13 U/L (0-40) 08/10/21 02:30 ALT 23 U/L (0-41) 08/10/21 02:30 Alkaline Phosphatase 51 IU/L (40-130) 08/10/21 02:30 Troponin T Baseline 9 ng/L (0-15) 08/10/21 02:30 Troponin T 120 Minute 8.12 ng/L (0-15) 08/10/21 04:30 Delta Troponin T Not Reportable 08/10/21 04:30 NT-Pro-B Natriuret Pep 37 pg/mL (0-125) 08/10/21 02:30 Total Protein 6.6 g/dL (6.6-8.7) 08/10/21 02:30 Albumin 4.3 g/dL (3.5-5.2) 08/10/21 02:30 Globulin 2.3 g/dL (1.3-4.6) 08/10/21 02:30 Discharge Plan Discharge Patient Disposition: Home Clinical Impression: Chest pain Condition: Stable Prescriptions: No Action (DME) oxygen-air delivery systems Device See Rx Instructions .ROUTE .MEDSUPPLY Qty: 1 0RF Rx Instructions: As directed omeprazole 20 mg capsule,delayed release(DR/EC) 20 mg PO QAM 0RF Victoza 2-Colt 0.6 mg/0.1 mL (18 mg/3 mL) pen injector 1.8 mg SUBCUT QAM 0RF Lantus U-100 Insulin 100 unit/mL solution 85 unit SUBCUT BEDTIME 0RF diazepam [Valium] 5 mg tablet 5 mg PO BID PRN (Reason: anxiety) Qty: 60 1RF metformin 1,000 mg tablet 1,000 mg PO BID 0RF cyclobenzaprine 10 mg tablet 10 mg PO BID PRN (Reason: Muscle Spasm) 0RF (DME) FreeStyle Yamileth 14 Day Sensor Kit See Rx Instructions .ROUTE .MEDSUPPLY Qty: 2 3RF Rx Instructions: As directed (DME) [place] 14 Day Raymond Misc See Rx Instructions .ROUTE .MEDSUPPLY Qty: 1 0RF Rx Instructions: As directed potassium chloride 10 mEq capsule, extended release 40 meq PO DAILY 0RF carvedilol 25 mg tablet 25 mg PO BID 0RF Rx Instructions: must administer with a meal/food tamsulosin 0.4 mg capsule 0.4 mg PO QAM 0RF melatonin 10 mg tablet 10 mg PO BEDTIME PRN (Reason: Sleep) 0RF isosorbide mononitrate 30 mg tablet extended release 24 hr 60 mg PO BID Qty: 180 3RF diltiazem HCl 360 mg capsule,extended release 24hr 360 mg PO DAILY Qty: 90 2RF hydralazine 50 mg tablet 50 mg PO DIRECTED 0RF Rx Instructions: 100mg AM 50mg noon 50mg evening Jardiance 10 mg Tablet 10 mg PO QAM 0RF desvenlafaxine succinate [Pristiq] 50 mg Tablet Extended Release 24 Hr 50 mg PO QAM 0RF atorvastatin 80 mg Tablet 80 mg PO BEDTIME 0RF divalproex [Depakote ER] 250 mg Tablet Extended Release 24 Hr 250 mg PO BEDTIME 0RF divalproex [Depakote ER] 500 mg tablet extended release 24 hr 500 mg PO QAM 0RF fenofibrate 160 mg Tablet 160 mg PO QAM 0RF acetaminophen 500 mg Tablet 500 - 1,000 mg PO Q4H PRN (Reason: Pain) 0RF cetirizine [Zyrtec] 10 mg Tablet 10 mg PO QAM 0RF lisinopril 40 mg Tablet 40 mg PO QAM 0RF clopidogrel 75 mg tablet 75 mg PO QAM 0RF aspirin 81 mg tablet,delayed release (DR/EC) 81 mg PO QAM 0RF spironolactone 25 mg tablet 25 mg PO QAM 0RF Discharge Orders: Discharge ED (Routine); Ordered 08/10/21 Ordered By: Quintin Alanis Referrals: Chad Jiménez DO [Primary Care Provider] - 1-3 days Activity Restrictions/Additional Instructions: If you continue to have blood in your stool, you should have your blood count checked in 2 days time. Your work-up did not reveal a cause of chest pain this morning. Return for worsening pain, shortness of breath, fever, other concerning symptoms. Call your doctor later today for a follow-up appointment. Coding Level of Care Code ED Newspaper Carrier for Chg Fwd Exam Comprehensive
[2021-08-10] MEDS: aspirin 81 mg Chew Tablet 324 MG PO (02:11)
[2021-08-10] MEDS: ondansetron 2 mg/ML SDV 2 mL 4 MG IVP (02:32)
[2021-08-10] MEDS: morphine 4 mg/mL SDV 1 mL IVP (02:34)
[2021-08-10 02:36] LABS: Basophils % 0.2 %; Eosinophils # 0.2 10^3/uL (0.0-0.8); Eosinophils % 2.7 %; Hematocrit 39.2 % (42.0-52.0); Hemoglobin 12.2 g/dL (11.7-16.6); Lymphocytes # 1.5 10^3/uL (0.8-4.8); Lymphocytes % 17.1 %; Mean Corpuscular HGB Conc 31.1 g/dL (30.0-36.0); Mean Corpuscular Hemoglobin 26.5 pg (28.0-34.0); Mean Platelet Volume 9.9 fL (7.4-10.4); Monocytes # 0.6 10^3/uL (0.2-0.9); Monocytes % 6.8 %; Neutrophils # 6.53 10^3/uL (1.8-7.7); Neutrophils % 72.9 %; Nucleated Red Blood Cells % 0 %; Platelet Count 209 10^3/cmm (130-400); Red Blood Count 4.61 10^6/uL (4.1-5.3); Red Cell Distribution Width 14.6 % (12.1-15.1)
[2021-08-10 02:55] LABS: Troponin(5th) Baseline 9 ng/L (0-15)
[2021-08-10 03:02] LABS: Alanine Aminotransferase 23 U/L (0-41); Albumin Level 4.3 g/dL (3.5-5.2); Alkaline Phosphatase 51 IU/L (40-130); Aspartate Amino Transferase 13 U/L (0-40); Blood Urea Nitrogen 20 mg/dL (6-20); Calcium 8.4 mg/dL (8.5-10.5); Carbon Dioxide 24 mmol/L (22-29); Chloride 100 mmol/L (98-107); Creatinine Clr Calc Pharmacy 148.3773; Globulin 2.3 g/dL (1.3-4.6); Glucose 89 mg/dL (65-115); NT Pro B Type Natriuretic Pept 37 pg/mL (0-125); Osmolality Calculated 288 mOsm/kg (285-295); Sodium 138 mmol/L (136-145); Total Bilirubin 0.2 mg/dL (0.15-1.2); Total Protein 6.6 g/dL (6.6-8.7)
--- NOTE | 2021-08-10 03:38 | ECG_ITS ---
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 Measurements Intervals [place] Rate: 61 P: 63 NM: 175 QRS: 46 QRSD: 117 T: 60 QT: 397 QTc: 401 Interpretive Statements SINUS RHYTHM WITH SINUS ARRHYTHMIA INCOMPLETE RIGHT BUNDLE BRANCH BLOCK [90+ ms QRS DURATION, TERMINAL R IN V1/V2, 40+ ms S IN I/aVL/V4/V5/V6] Compared to ECG 08/10/2021 01:37:17 No significant changes Electronically Signed On 08-10-2021 16:35:40 CDT by Raul Encinas M.D. [id number]
[2021-08-10 04:56] LABS: Troponin 5 2HR 8.12 ng/L (0-15)
== END 2021-08-10 05:30 | disposition home or self-care (01) ==
PROVIDERS: Physician Assistant; Emergency Provider Emergency Medicine; PCP Electrodiagnostic Medicine
DX: R07.9 Chest pain, unspecified (principal); I10 Essential (primary) hypertension; E66.01 Morbid (severe) obesity due to excess calories; E11.40 Type 2 diabetes mellitus with diabetic neuropathy, unspecified; Z79.02 Long term (current) use of antithrombotics/antiplatelets; Z79.82 Long term (current) use of aspirin; Z79.4 Long term (current) use of insulin; Z79.84 Long term (current) use of oral hypoglycemic drugs; Z86.73 Personal history of transient ischemic attack (TIA), and cerebral infarction without residual deficits; Z95.5 Presence of coronary angioplasty implant and graft; Z68.44 Body mass index [BMI] 60.0-69.9, adult
CPT/HCPCS: 71045; 80053; 83880; 84484; 85025; 93005; 96374; 96375; 99285; J2270; J2405

== ENCOUNTER 2021-09-17 13:44 | Emergency (ER) | payer MEDICAID, SELFPAY ==
[2021-09-17] VITALS (10 sets, daily range): BP systolic 149–216; BP diastolic 88–113; PULSE 58–71; RESP 11–24; TEMP 36.9; O2SAT 94–98; BMI 59.5
--- NOTE | 2021-09-17 13:46 | ECG_ITS ---
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 Measurements Intervals [place] Rate: 59 P: -42 NV: 148 QRS: 21 QRSD: 124 T: 56 QT: 413 QTc: 412 Interpretive Statements SINUS BRADYCARDIA WITH OCCASIONAL SUPRAVENTRICULAR PREMATURE COMPLEXES POSSIBLE RIGHT VENTRICULAR CONDUCTION DELAY [RSR (QR) IN V1/V2] Compared to ECG 08/10/2021 04:28:04 ST (T wave) deviation now present Sinus rhythm no longer present Sinus arrhythmia no longer present Incomplete right bundle-branch block no longer present Electronically Signed On 09-18-2021 17:01:54 CDT by Shon Gallagher M.D. [id number] f
--- NOTE | 2021-09-17 13:46 | XRR_ITS ---
PROCEDURE INFORMATION: Exam: XR Chest Exam date and time: 09/17/2021 1:52 PM Age: 35 years old Clinical indication: Pain; Angina pectoris; Additional info: Chest pain TECHNIQUE: Imaging protocol: XR of the chest. Views: 1 view. COMPARISON: CR (CHEST, ) 08/10/2021 1:53 AM FINDINGS: Lungs: Unremarkable. No consolidation. Pleural spaces: Unremarkable. No pleural effusion. No pneumothorax. Heart/Mediastinum: Unremarkable. No cardiomegaly. Bones/joints: Unremarkable. There has been no interval change comparing to prior examination XR/XR chest 1V portable [id number] IMPRESSION: No acute findings.
--- NOTE | 2021-09-17 15:31 | PC.NURSE ---
hr: 66 o2:92 rr:20 bp: 185/100
--- NOTE | 2021-09-17 15:46 | ECG_ITS ---
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 Measurements Intervals [place] Rate: 72 P: 30 NE: 150 QRS: 4 QRSD: 109 T: 27 QT: 364 QTc: 400 Interpretive Statements SINUS RHYTHM LOW QRS VOLTAGE IN PRECORDIAL LEADS [QRS DEFLECTION < 1.0 mV IN CHEST LEADS] POSSIBLE RIGHT VENTRICULAR CONDUCTION DELAY [RSR (QR) IN V1/V2] Compared to ECG 08/10/2021 04:28:04 Low QRS voltage now present Sinus arrhythmia no longer present Incomplete right bundle-branch block no longer present Electronically Signed On 09-18-2021 17:05:59 CDT by Shon Gallagher M.D. [id number]
[2021-09-17 16:27] LABS: Basophils % 0.4 %; Eosinophils # 0.1 10^3/uL (0.0-0.8); Eosinophils % 1.2 %; Hemoglobin 11.9 g/dL (11.7-16.6); Lymphocytes % 11.6 %; Mean Corpuscular HGB Conc 31.3 g/dL (30.0-36.0); Mean Corpuscular Hemoglobin 25.9 pg (28.0-34.0); Mean Corpuscular Volume 82.6 fl (80-94); Mean Platelet Volume 10.1 fL (7.4-10.4); Monocytes # 0.4 10^3/uL (0.2-0.9); Monocytes % 5.4 %; Neutrophils # 6.58 10^3/uL (1.8-7.7); Neutrophils % 80.5 %; Nucleated Red Blood Cells % 0 %; Platelet Count 208 10^3/cmm (130-400); Red Cell Distribution Width 14.2 % (12.1-15.1); White Blood Count 8.2 10^3/uL (4.0-10.0)
--- NOTE | 2021-09-17 16:32 | CTR_ITS ---
PROCEDURE INFORMATION: Exam: CTA Chest With Contrast Exam date and time: 09/17/2021 6:23 PM Age: 35 years old Clinical indication: Numbness; Lower extremity; Left; Prior surgery; Surgery date: 6+ months; Surgery type: Stents in heart/gastric sleeve, then removed; Additional info: Severe sharp chest pain, hypertension TECHNIQUE: Imaging protocol: Computed tomographic angiography of the chest with contrast. Sagittal and coronal reformatted images were created and reviewed. 3D rendering (Not supervised by radiologist): MIP and/or 3D reconstructed images were created by the technologist. Contrast material: OMNI 350; Contrast volume: 100 ml; Contrast route: IV; COMPARISON: CT angio chest PE protcl [id number] 12/16/2019 1:42 AM FINDINGS: Pulmonary arteries: No filling defects in the pulmonary arteries to suggest pulmonary embolism. Great vessels off aortic arch: Unremarkable. No occlusion, thrombosis, stenosis, extravasation, dissection, or aneurysm. Aorta: Mild calcified plaque. No occlusion, thrombosis, stenosis, extravasation, dissection, or aneurysm. Trachea: Tracheobronchial structures are patent. Lungs: Lungs are clear bilaterally. No pulmonary parenchymal nodules or masses. Pleural spaces: No pneumothorax. No pleural effusion. Heart: The heart is normal in size. Mild atherosclerotic calcification in the coronary arteries. Esophagus: The esophagus is unremarkable. Mediastinal space: No mediastinal hematoma. No pneumomediastinum. Lymph nodes: No lymphadenopathy. Bones/joints: Mild degenerative changes in the visualized spine. Soft tissues: No acute abnormality in the extrathoracic soft tissues. PROCEDURE INFORMATION: Exam: CTA Abdomen and Pelvis With Contrast Exam date and time: 09/17/2021 6:23 PM Age: 35 years old Clinical indication: Numbness; Lower extremity; Left; Prior surgery; Surgery date: 6+ months; Surgery type: Stents in heart/gastric sleeve, then removed; Additional info: Severe sharp chest pain, hypertension TECHNIQUE: Imaging protocol: Computed tomographic angiography of the abdomen and pelvis with contrast material. Sagittal and coronal reformatted images were created and reviewed. 3D rendering (Not supervised by radiologist): MIP and/or 3D reconstructed images were created by the technologist. Radiation optimization: All CT scans at this facility use at least one of these dose optimization techniques: automated exposure control; mA and/or kV adjustment per patient size (includes targeted exams where dose is matched to clinical indication); or iterative reconstruction. Contrast material: OMNI 350; Contrast volume: 100 ml; Contrast route: INTRAVENOUS (IV); COMPARISON: CT abdomen pelvis w con* [id number] 04/09/2018 8:40 PM RADIATION DOSE METRICS: Total DLP (mGy-cm): 2131.23 FINDINGS: Aorta: Mild calcified plaque. No occlusion, thrombosis, stenosis, extravasation, dissection, or aneurysm. Celiac trunk and mesenteric arteries: Mild calcified plaque at the origin of the superior mesenteric artery. Visceral arteries are otherwise unremarkable. No occlusion, thrombosis, stenosis, extravasation, dissection, or aneurysm. 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 Renal arteries are unremarkable bilaterally. No occlusion, thrombosis, stenosis, extravasation, dissection, or aneurysm. Right iliac arteries: The right common iliac artery, right external iliac artery, and right internal iliac artery are unremarkable. No occlusion, thrombosis, stenosis, extravasation, dissection, or aneurysm. Left iliac arteries: Mild calcified plaque in the left common iliac and internal iliac arteries. No occlusion, thrombosis, stenosis, extravasation, dissection, or aneurysm. Liver: Stable mild enlargement of the liver measuring 21.3 cm in the midclavicular line (series 5, image 99). No focal hepatic mass. Gallbladder and bile ducts: Stable findings consistent with a previous cholecystectomy. No biliary ductal dilatation. Pancreas: The pancreas is unremarkable. No pancreatic ductal dilatation. Spleen: Stable mild enlargement of the spleen measuring 13.9 cm in length (series 303, image 84). No focal splenic mass. Small splenule in the left upper quadrant. Adrenal glands: Stable indeterminate foci in the right and left adrenal glands. Hounsfield units show density greater than expected for adenomas. The right adrenal focus measures 1.6 x 1.6 cm (series 5, image 112). The left adrenal focus measures 2.3 x 1.5 cm (series 5, image 121). Kidneys and ureters: The right and left kidneys are unremarkable. The right and left ureters are unremarkable. Stomach and bowel: Nonspecific air-fluid levels present in the small bowel and colon. No dilated bowel loops. No pneumatosis. No bowel wall thickening. Appendix: The appendix is visualized and is unremarkable. No findings to suggest acute appendicitis. Intraperitoneal space: No free intraperitoneal air. No ascites. No loculated fluid collections to suggest an abscess. Lymph nodes: No lymphadenopathy. Urinary bladder: The bladder is unremarkable. Reproductive: Unremarkable as visualized. Bones/joints: Mild degenerative changes at both the right and left hips. Mild degenerative changes of the right and left sacroiliac joints. Mild degenerative changes in the visualized spine. Soft tissues: No acute abnormality in the extra-abdominal soft tissues. CT/CT angio chest abdomen pelvis IMPRESSION: 1. Mild atherosclerotic disease. No occlusion, thrombosis, stenosis, extravasation, dissection, or aneurysm. 2. No evidence for pulmonary embolism. 3. No acute cardiopulmonary process. 4. Incidental/nonacute findings are listed in the report. IMPRESSION: 1. Mild atherosclerotic disease. No occlusion, thrombosis, stenosis, extravasation, dissection, or aneurysm. 2. 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 3. Stable mild hepatosplenomegaly. 4. Stable indeterminate foci in both right and left adrenal glands compared with 04/09/2018. Stability would suggest these are due to a benign process. 5. Incidental/nonacute findings are listed in the report.
--- NOTE | 2021-09-17 16:33 | W.ED.CHESTPA ---
HPI - Chest Pain General: Chief Complaint: Chest Pain Stated Complaint: chest pain Time Seen by Provider: 09/17/21 16:25 PFSH ED PFSH: Medical History Bipolar II disorder Cerebrovascular accident Diabetes mellitus Diabetic neuropathy Dyslipidemia Easy bruising Gastroenteritis Generalized anxiety disorder History of adverse reaction to tissue plasminogen activator (tPA) HTN (hypertension) Hx of secondary hypertension Hypokalemia Obesity Obstructive sleep apnea hypopnea, severe Panic disorder without agoraphobia Post-traumatic stress disorder, chronic Seizures tPA adm status 24 hr [employer] Weight gain Surgical History History of esophagogastroduodenoscopy (EGD) (~04/2019) History of tonsillectomy and adenoidectomy Status following gastric banding surgery for weight loss Stented coronary artery Family History Denies family history of Anesthesia complication Bleeding disorder Social History Smoking and tobacco status: never smoked Quit status (tobacco): has quit using tobacco Year quit tobacco: 2010 Second hand smoke exposure: Yes Alcohol intake: never Desire information about alcohol rehabilitation?: No Desire information about substance/drug rehabilitation?: No Adopted: No Caregiver/support person: Yes Lives independently: Yes Household members: family Housing: House Marital status: Single Highest education level completed: High School Graduate service: No Current occupational status: disabled Current occupational exposures/hazards: No Pets and animals: Yes Pets & animals: cat(s) History of recent travel: No Sexually active: No Current gender identity: Male Karolina/Mormon: [employer]ism Special karolina needs: No Agree to transfusion: No Financial difficulty paying for basics: Decline to Answer Course Vital Signs: Vital signs: Vital Signs Temperature 98.5 F 09/17/21 13:47 Pulse Rate 63 09/17/21 13:47 Respiratory Rate 24 H 09/17/21 13:47 Blood Pressure 183/99 09/17/21 13:47 Pulse Oximetry 96 09/17/21 13:47 MDM - Chest Pain Lab Data : 09/17/21 16:14 09/17/21 16:14 Radiology Impressions Chest X-Ray 09/17/21 13:46 IMPRESSION: No acute findings. Laboratory Results WBC 8.2 10^3/uL (4.0-10.0) 09/17/21 16:14 RBC 4.60 10^6/uL (4.1-5.3) 09/17/21 16:14 Hgb 11.9 g/dL (11.7-16.6) 09/17/21 16:14 Hct 38.0 % (42.0-52.0) L 09/17/21 16:14 MCV 82.6 fl (80-94) 09/17/21 16:14 MCH 25.9 pg (28.0-34.0) L 09/17/21 16:14 MCHC 31.3 g/dL (30.0-36.0) 09/17/21 16:14 RDW 14.2 % (12.1-15.1) 09/17/21 16:14 Plt Count 208 10^3/cmm (130-400) 09/17/21 16:14 MPV 10.1 fL (7.4-10.4) 09/17/21 16:14 Neut % (Auto) 80.5 % 09/17/21 16:14 Lymph % (Auto) 11.6 % 09/17/21 16:14 [place] % (Auto) 5.4 % 09/17/21 16:14 Eos % (Auto) 1.2 % 09/17/21 16:14 Baso % (Auto) 0.4 % 09/17/21 16:14 Neut # (Auto) 6.58 10^3/uL (1.8-7.7) 09/17/21 16:14 Lymph # (Auto) 1.0 10^3/uL (0.8-4.8) 09/17/21 16:14 [place] # (Auto) 0.4 10^3/uL (0.2-0.9) 09/17/21 16:14 Eos # (Auto) 0.1 10^3/uL (0.0-0.8) 09/17/21 16:14 Baso # (Auto) 0.0 10^3/uL (0.0-0.1) 09/17/21 16:14 Nucleated RBC % (auto) 0 % 09/17/21 16:14 Nucleated RBCs # 0.0 /100WBC 09/17/21 16:14 Discharge Plan Discharge Condition: Stable Prescriptions: No Action (DME) oxygen-air delivery systems Device See Rx Instructions .ROUTE .MEDSUPPLY Qty: 1 0RF Rx Instructions: As directed omeprazole 20 mg capsule,delayed release(DR/EC) 20 mg PO QAM 0RF Victoza 2-Colt 0.6 mg/0.1 mL (18 mg/3 mL) pen injector 1.8 mg SUBCUT QAM 0RF Lantus U-100 Insulin 100 unit/mL solution 85 unit SUBCUT BEDTIME 0RF diazepam [Valium] 5 mg tablet 5 mg PO BID PRN (Reason: anxiety) Qty: 60 1RF metformin 1,000 mg tablet 1,000 mg PO BID 0RF cyclobenzaprine 10 mg tablet 10 mg PO BID PRN (Reason: Muscle Spasm) 0RF (DME) FreeStyle Yamileth 14 Day Sensor Kit See Rx Instructions .ROUTE .MEDSUPPLY Qty: 2 3RF Rx Instructions: As directed (DME) FreeStyle Yamileth 14 Day [place] Misc See Rx Instructions .ROUTE .MEDSUPPLY Qty: 1 0RF Rx Instructions: As directed potassium chloride 10 mEq capsule, extended release 40 meq PO DAILY 0RF carvedilol 25 mg tablet 25 mg PO BID 0RF Rx Instructions: must administer with a meal/food tamsulosin 0.4 mg capsule 0.4 mg PO QAM 0RF melatonin 10 mg tablet 10 mg PO BEDTIME PRN (Reason: Sleep) 0RF isosorbide mononitrate 30 mg tablet extended release 24 hr 60 mg PO BID Qty: 180 3RF diltiazem HCl 360 mg capsule,extended release 24hr 360 mg PO DAILY Qty: 90 2RF hydralazine 50 mg tablet 50 mg PO DIRECTED 0RF Rx Instructions: 100mg AM 50mg noon 50mg evening Jardiance 10 mg Tablet 10 mg PO QAM 0RF desvenlafaxine succinate [Pristiq] 50 mg Tablet Extended Release 24 Hr 50 mg PO QAM 0RF atorvastatin 80 mg Tablet 80 mg PO BEDTIME 0RF divalproex [Depakote ER] 250 mg Tablet Extended Release 24 Hr 250 mg PO BEDTIME 0RF divalproex [Depakote ER] 500 mg tablet extended release 24 hr 500 mg PO QAM 0RF fenofibrate 160 mg Tablet 160 mg PO QAM 0RF acetaminophen 500 mg Tablet 500 - 1,000 mg PO Q4H PRN (Reason: Pain) 0RF cetirizine [Zyrtec] 10 mg Tablet 10 mg PO QAM 0RF lisinopril 40 mg Tablet 40 mg PO QAM 0RF clopidogrel 75 mg tablet 75 mg PO QAM 0RF aspirin 81 mg tablet,delayed release (DR/EC) 81 mg PO QAM 0RF spironolactone 25 mg tablet 25 mg PO QAM 0RF Referrals: Chad Jiménez DO [Primary Care Provider] - Coding Level of Care Code ED [facility] [place] [facility] for [facility]
--- NOTE | 2021-09-17 16:37 | W.ED.GENADLT ---
HPI - General Adult General: Chief complaint: Chest Pain Stated complaint: chest pain Time Seen by Provider: 09/17/21 16:25 History of Present Illness: CC: Chest Pain HPI: This is a 35 yo patient hx of CAD s/p RORO x 1, DM, HTN, HLD, CVA presenting to the ED complaining of acute sudden onset intermittent sharp chest pain x since 12pm. No associated with shortness of breath, chest pain or dyspnea on exertion. Pain is not tearing in nature and does not radiate to the back. Pain not associated with vomiting or PO intake. Denies any recent sympathomimetic drug use. Patient denies any cough. Denies palpitations, dysphagia, diaphoresis, radiation of pain to bilateral arms, jaw. Denies F/N/V/D. Patient denies any recent immobility, surgery, unilateral leg swelling, or prior PE. Patient denies any orthopnea. Onset: 4 hrs ago Duration: ongoing for the last 4 hrs Location: home Severity: moderate Associated symptoms: Reports chest pain; Deny dyspnea, nausea, rash, palpitations or vomiting Review of Systems Const: Denies: fever(s) or chills Eyes: Denies: change in vision ENMT: Denies: mouth pain Card: Reports: chest pain; Denies: palpitations Resp: Denies: dyspnea or non-productive cough GI: Denies: abdominal pain, nausea, vomiting or diarrhea : Denies: dysuria Musc: Denies: extremity pain Skin/Breast: Denies: rash or new lesions Neuro: Denies: weakness in extremities Psych: Reports: other (Normal mood) Alexander/Lymph: Denies: easy bruising PFS ED PFSH: Medical History Bipolar II disorder Cerebrovascular accident Diabetes mellitus Diabetic neuropathy Dyslipidemia Easy bruising Gastroenteritis Generalized anxiety disorder History of adverse reaction to tissue plasminogen activator (tPA) HTN (hypertension) Hx of secondary hypertension Hypokalemia Obesity Obstructive sleep apnea hypopnea, severe Panic disorder without agoraphobia Post-traumatic stress disorder, chronic Seizures tPA adm status 24 hr [employer] Weight gain Surgical History History of esophagogastroduodenoscopy (EGD) (~04/2019) History of tonsillectomy and adenoidectomy Status following gastric banding surgery for weight loss Stented coronary artery Family History Denies family history of Anesthesia complication Bleeding disorder Social History Smoking and tobacco status: current every day smoker Quit status (tobacco): has quit using tobacco Year quit tobacco: 2010 Second hand smoke exposure: Yes Alcohol intake: never Desire information about alcohol rehabilitation?: No Desire information about substance/drug rehabilitation?: No Adopted: No Caregiver/support person: Yes Lives independently: Yes Household members: family Housing: House Marital status: Single Highest education level completed: High School Graduate service: No Current occupational status: disabled Current occupational exposures/hazards: No Pets and animals: Yes Pets & animals: cat(s) History of recent travel: No Sexually active: No Current gender identity: Male Karolina/Sikhism: Episcopal Special karolina needs: No Agree to transfusion: No Financial difficulty paying for basics: Decline to Answer Physical Exam Const: COMMON NORMALS: alert HENMT: COMMON NORMALS: atraumatic HEAD & SCALP: atraumatic MOUTH: moist mucous membranes not abnormal Eye: COMMON NORMALS: EOMs intact bilaterally and conjunctivae normal CONJUNCTIVA: Yes conjunctivae normal Neck/C-Spine: COMMON NORMALS: full ROM and supple Resp: COMMON NORMALS: normal respiratory effort and clear to auscultation bilaterally AUSCULTATION: clear to auscultation bilaterally Cardio: COMMON NORMALS: regular rate RATE: regular rate OTHER: 2+ radial pulses b/l GI: COMMON NORMALS: Soft to palpation and non-tender PALPATION: Yes Soft to palpation Extremity: COMMON NORMALS: full ROM OTHER: mild 1+ lower extremity swelling Neuro: SENSORIUM/ORIENTATION: Yes alert MOTOR EXAM: No Abnormal motor strength present and Other motor observations present (no focal motor deficits) Psych: COMMON NORMALS: speech normal SPEECH: Yes normal speech MOOD & AFFECT: Yes euthymic mood Course Vital Signs: Vital signs: Vital Signs Temperature 98.5 F 09/17/21 13:47 Pulse Rate 71 09/17/21 21:58 Respiratory Rate 16 09/17/21 21:58 Blood Pressure 168/108 09/17/21 21:58 Pulse Oximetry 94 09/17/21 21:58 MDM - General Adult Medical Decision Making [35]yo patient w/ hx of CAD w/ RORO x1, HTN, HLD, DM presenting to the ED with evaluation of new onset sharp chest pain x 4 hrs. HDS, pulse 2+ radially bilaterally, no signs of fluid overload, AAOx3, neuro exam intact. Given History and Exam today I have no suspicion for ACS, Pneumothorax, Pneumonia, Pulmonary Embolus, Tamponade, Aortic Dissection or other emergent problems as a cause for this presentation. Workup: ECG x 2, CXR, CBC, BMP, Troponin x 2, CTA chest Interventions: morphine 4mg, labetool Findings: ECG: No overt evidence of STEMI, hyperacute T waves, localizable STD or T wave inversions. No evidence of Brugada?s sign, delta wave, epsilon wave, significantly prolonged QTc, or malignant arrhythmia. No Q waves. Other Labs unremarkable for emergent problems. CXR: Without PTX, PNA, or widened mediastinum Last Stress Test: never Last Heart Catheterization: never At 5 PM, patient tells me that he no longer can move his left side. Patient tells me that this has been going on since triage which was 3 hours ago. Stroke alert was immediately called. Patient had a CT head CTA head and neck and chest negative for any acute findings. This was discussed with [facility]. Given the fact the patient has had 3 episodes of tPA administration in the past as was negative work-up, Dr. Seals from [facility] does not think that this is an acute stroke at this time. This is likely secondary either ongoing left-sided weakness from prior stroke and/or functional impairment. He received morphine in the emergency room. Troponin x2 with delta less than 5. EKG is nonischemic. Patient is no longer complaining of severe chest pain. CTA chest negative for any dissection. Reported shared decision making with patient patient at this time elects to go home. I have given patient strict return precaution for any signs of worsening pain, lightheadedness, any other signs of stroke or any new or concerning complaints. Rx tylenol PRN pain Disposition: Discharge. Strict return precautions discussed with the patient with full understanding. Advised patient to follow up promptly with a primary care provider in 24-48 hrs if the patient has persistent symptoms. Given return instructions for any crushing/tearing chest pain, focal weakness, syncope or any new or concerning issues. Lab Data : 09/17/21 16:14 09/17/21 16:14 Radiology Impressions Chest X-Ray 09/17/21 13:46 IMPRESSION: No acute findings. Chest/Abdomen/Pelvis CTA 09/17/21 16:32 IMPRESSION: 1. Mild atherosclerotic disease. No occlusion, thrombosis, stenosis, extravasation, dissection, or aneurysm. 2. No evidence for pulmonary embolism. 3. No acute cardiopulmonary process. 4. Incidental/nonacute findings are listed in the report. IMPRESSION: 1. Mild atherosclerotic disease. No occlusion, thrombosis, stenosis, extravasation, dissection, or aneurysm. 2. 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 3. Stable mild hepatosplenomegaly. 4. Stable indeterminate foci in both right and left adrenal glands compared with 04/09/2018. Stability would suggest these are due to a benign process. 5. Incidental/nonacute findings are listed in the report. Head CT 09/17/21 17:59 IMPRESSION: No acute intracranial abnormality. Head/Neck CTA 09/17/21 17:59 IMPRESSION: 1. Unremarkable CT angiogram of the [id number]-Bzakfw. No occlusion, thrombosis, stenosis, extravasation, dissection, or aneurysm. 2. The posterior communicating arteries are not visualized. The posterior communicating arteries may be congenitally absent, or may be too small for the resolution capabilities of this study. IMPRESSION: 1. Mild atherosclerotic disease. No occlusion, thrombosis, stenosis, extravasation, dissection, or aneurysm. 2. Stable hypertrophy lymphoid tissue in the valleculae. 3. Incidental/nonacute findings are listed in the report. REFERENCES: NASCET CRITERIA. The degree of internal carotid artery stenosis is based on NASCET criteria. Normal is no stenosis. Mild is less than 50% stenosis. Moderate is 50-69% stenosis. Severe is 70% to 99% stenosis. Total occlusion is no detectable patent lumen. Laboratory Results WBC 8.2 10^3/uL (4.0-10.0) 09/17/21 16:14 RBC 4.60 10^6/uL (4.1-5.3) 09/17/21 16:14 Hgb 11.9 g/dL (11.7-16.6) 09/17/21 16:14 Hct 38.0 % (42.0-52.0) L 09/17/21 16:14 MCV 82.6 fl (80-94) 09/17/21 16:14 MCH 25.9 pg (28.0-34.0) L 09/17/21 16:14 MCHC 31.3 g/dL (30.0-36.0) 09/17/21 16:14 RDW 14.2 % (12.1-15.1) 09/17/21 16:14 Plt Count 208 10^3/cmm (130-400) 09/17/21 16:14 MPV 10.1 fL (7.4-10.4) 09/17/21 16:14 Neut % (Auto) 80.5 % 09/17/21 16:14 Lymph % (Auto) 11.6 % 09/17/21 16:14 Hale % (Auto) 5.4 % 09/17/21 16:14 Eos % (Auto) 1.2 % 09/17/21 16:14 Baso % (Auto) 0.4 % 09/17/21 16:14 Neut # (Auto) 6.58 10^3/uL (1.8-7.7) 09/17/21 16:14 Lymph # (Auto) 1.0 10^3/uL (0.8-4.8) 09/17/21 16:14 Hale # (Auto) 0.4 10^3/uL (0.2-0.9) 09/17/21 16:14 Eos # (Auto) 0.1 10^3/uL (0.0-0.8) 09/17/21 16:14 Baso # (Auto) 0.0 10^3/uL (0.0-0.1) 09/17/21 16:14 Nucleated RBC % (auto) 0 % 09/17/21 16:14 Nucleated RBCs # 0.0 /100WBC 09/17/21 16:14 PT 14.40 SECONDS (12.1-14.9) 09/17/21 20:33 INR 1.09 (0.8-1.2) 09/17/21 20:33 APTT 36.9 SECONDS (23.9-36.7) H 09/17/21 20:33 Sodium 140 mmol/L (136-145) 09/17/21 16:14 Potassium 3.6 mmol/L (3.5-5.1) 09/17/21 16:14 Chloride 102 mmol/L (98-107) 09/17/21 16:14 Carbon Dioxide 22 mmol/L (22-29) 09/17/21 16:14 Anion Gap 19.6 (5-19) H 09/17/21 16:14 BUN 22 mg/dL (6-20) H 09/17/21 16:14 Creatinine 1.0 mg/dL (0.7-1.2) 09/17/21 16:14 GFR Calculation 85.0 mL/min (90-130) L 09/17/21 16:14 Glucose 123 mg/dL (65-115) H 09/17/21 16:14 Calculated Osmolality 295 mOsm/kg (285-295) 09/17/21 16:14 Calcium 9.5 mg/dL (8.5-10.5) 09/17/21 16:14 Total Bilirubin 0.2 mg/dL (0.15-1.2) 09/17/21 16:14 AST 13 U/L (0-40) 09/17/21 16:14 ALT 24 U/L (0-41) 09/17/21 16:14 Alkaline Phosphatase 57 IU/L (40-130) 09/17/21 16:14 Troponin T Baseline 9 ng/L (0-15) 09/17/21 16:14 Troponin T 120 Minute 7.90 ng/L (0-15) 09/17/21 18:00 Delta Troponin T -1.10 ABS# (0-10) L 09/17/21 18:00 Total Protein 7.4 g/dL (6.6-8.7) 09/17/21 16:14 Albumin 4.3 g/dL (3.5-5.2) 09/17/21 16:14 Globulin 3.1 g/dL (1.3-4.6) 09/17/21 16:14 Imaging Data Other Imaging: Radiologist's impression: [address] [place] [address] CT Scan Report Signed Patient: Len Sandoval Unit #: [id number] : 1985 [facility]#:[id number] Age/Sex: 35 / M ADM Date: 09/17/21 Loc: ER Room/Bed: Attending Dr: Ordering Provider/Ordering MD: Alessandra Rodriguez MD Date of Service: 09/17/21 Procedure(s): CT angio headneck* [id number] Accession Number(s): [id number] Report Number: [id number] PROCEDURE INFORMATION: Exam: CT Angiography Head With Contrast, Arteriography Exam date and time: 09/17/2021 6:13 PM Age: 35 years old Clinical indication: Weakness; Additional info: Possible dissection TECHNIQUE: Imaging protocol: Computed tomography angiography of the head with contrast. Exam focused on the arteries. 3D rendering (Not supervised by radiologist): MIP and/or 3D reconstructed images were created by the technologist. Radiation optimization: All CT scans at this facility use at least one of these dose optimization techniques: automated exposure control; mA and/or kV adjustment per patient size (includes targeted exams where dose is matched to clinical indication); or iterative reconstruction. Contrast material: OMNI 350; Contrast volume: 75 ml; Contrast route: INTRAVENOUS (IV);? COMPARISON: CT angio headneck* [id number] 08/13/2020 12:51 PM RADIATION DOSE METRICS: Total DLP (mGy-cm): 2542.74 FINDINGS: ANTERIOR CIRCULATION: Right internal carotid artery: Unremarkable. No occlusion, thrombosis, stenosis, extravasation, dissection, or aneurysm. Right middle cerebral artery: Unremarkable. No occlusion, thrombosis, stenosis, extravasation, dissection, or aneurysm. Right anterior cerebral artery: Unremarkable. No occlusion, thrombosis, stenosis, extravasation, dissection, or aneurysm. Anterior communicating artery: The anterior communicating artery is unremarkable. Left internal carotid artery: Unremarkable. No occlusion, thrombosis, stenosis, extravasation, dissection, or aneurysm. Left middle cerebral artery: Unremarkable. No occlusion, thrombosis, stenosis, extravasation, dissection, or aneurysm. Left anterior cerebral artery: Unremarkable. No occlusion, thrombosis, stenosis, extravasation, dissection, or aneurysm. POSTERIOR CIRCULATION: Right vertebral artery: Unremarkable. No occlusion, thrombosis, stenosis, extravasation, dissection, or aneurysm. Left vertebral artery: Unremarkable. No occlusion, thrombosis, stenosis, extravasation, dissection, or aneurysm. Basilar artery: Unremarkable. No occlusion, thrombosis, stenosis, extravasation, dissection, or aneurysm. Right posterior cerebral artery: Unremarkable. No occlusion, thrombosis, stenosis, dissection, or aneurysm. Left posterior cerebral artery: Unremarkable. No occlusion, thrombosis, stenosis, extravasation, dissection, or aneurysm. Right posterior communicating artery: The right posterior communicating artery is not visualized. The right posterior communicating artery may be congenitally absent, or may be too small for the resolution capabilities of this study. Left posterior communicating artery: The left posterior communicating artery is not visualized. The left posterior communicating artery may be congenitally absent, or may be too small for the resolution capabilities of this study. Brain: No definite mass, mass effect, or midline shift. Cerebral ventricles: No hydrocephalus. Mastoid air cells: Mastoid air cells are clear bilaterally. Paranasal sinuses: Paranasal sinuses are clear. Bones/joints: Unremarkable. No acute fracture. Soft tissues: Unremarkable. Other findings: No acute abnormality in the visualized orbits. PROCEDURE INFORMATION: Exam: CT Angiography Neck With Contrast Exam date and time: 09/17/2021 6:13 PM Age: 35 years old Clinical indication: Weakness; Additional info: Possible dissection TECHNIQUE: Imaging protocol: Computed tomography angiography of the neck with contrast. 3D rendering (Not supervised by radiologist): MIP and/or 3D reconstructed images were created by the technologist. Radiation optimization: All CT scans at this facility use at least one of these dose optimization techniques: automated exposure control; mA and/or kV adjustment per patient size (includes targeted exams where dose is matched to clinical indication); or iterative reconstruction. Contrast material: OMNI 350; Contrast volume: 75 ml; Contrast route: INTRAVENOUS (IV);? COMPARISON: CT angio headneck* [id number] 08/13/2020 12:51 PM RADIATION DOSE METRICS: Total DLP (mGy-cm): 2542.74 FINDINGS: Right common carotid artery: Unremarkable. No occlusion, thrombosis, stenosis, extravasation, dissection, or aneurysm. Right internal carotid artery: Unremarkable. No occlusion, thrombosis, stenosis, extravasation, dissection, or aneurysm. Right external carotid artery: Unremarkable. No occlusion, thrombosis, stenosis, extravasation, dissection, or aneurysm. Left common carotid artery: Mild calcified plaque at the carotid bulb. No occlusion, thrombosis, stenosis, extravasation, dissection, or aneurysm. Left internal carotid artery: Unremarkable. No occlusion, thrombosis, stenosis, extravasation, dissection, or aneurysm. Left external carotid artery: Unremarkable. No occlusion, thrombosis, stenosis, extravasation, dissection, or aneurysm. Right vertebral artery: Unremarkable. No occlusion, thrombosis, stenosis, extravasation, dissection, or aneurysm. Left vertebral artery: Unremarkable. No occlusion, thrombosis, stenosis, extravasation, dissection, or aneurysm. Brachiocephalic artery: Unremarkable. No occlusion, thrombosis, stenosis, extravasation, dissection, or aneurysm. Subclavian arteries: Unremarkable. No occlusion, thrombosis, stenosis, extravasation, dissection, or aneurysm. Aorta: Unremarkable as visualized. Lymph nodes: Stable hypertrophy lymphoid tissue in the valleculae. No lymphadenopathy. Soft tissues: No soft tissue swelling. No radiopaque foreign body. Bones/joints: Mild degenerative changes in the visualized spine. Lungs: Visualized lungs are clear. CT/CT angio headneck* [id number] IMPRESSION: 1. Unremarkable CT angiogram of the [id number]. No occlusion, thrombosis, stenosis, extravasation, dissection, or aneurysm. 2. The posterior communicating arteries are not visualized. The posterior communicating arteries may be congenitally absent, or may be too small for the resolution capabilities of this study. ? ? IMPRESSION: 1. Mild atherosclerotic disease. No occlusion, thrombosis, stenosis, extravasation, dissection, or aneurysm. 2. Stable hypertrophy lymphoid tissue in the valleculae. 3. Incidental/nonacute findings are listed in the report. ? REFERENCES: NASCET CRITERIA. The degree of internal carotid artery stenosis is based on NASCET criteria. Normal is no stenosis. Mild is less than 50% stenosis. Moderate is 50-69% stenosis. Severe is 70% to 99% stenosis. Total occlusion is no detectable patent lumen. ? Dictated By: Reina Bro MD Signed By: Reina Bro MD Signed Date/Time: 09/17/21 192 DD/ [address] [address] [address] Scan Report Signed Patient: Len Sandoval Unit #: [id number] : 1985 Age/Sex: 35 / M ADM Date: 09/17/21 Loc: ER Room/Bed: Attending Dr: Ordering Provider/Ordering MD: Alessandra Rodriguez MD Date of Service: 09/17/21 Procedure(s): CT head wo con* [id number] Accession Number(s): [id number] Report Number: [id number] PROCEDURE INFORMATION: Exam: CT Head Without Contrast Exam date and time: 09/17/2021 6:11 PM Age: 35 years old Clinical indication: Weakness, extremity; Patient HX: HX CVA lt side weakness; Additional info: Symptoms of acute stroke TECHNIQUE: Imaging protocol: Computed tomography of the head without contrast. Radiation optimization: All CT scans at this facility use at least one of these dose optimization techniques: automated exposure control; mA and/or kV adjustment per patient size (includes targeted exams where dose is matched to clinical indication); or iterative reconstruction. COMPARISON: CT head wo con* [id number] 08/13/2020 10:16 AM RADIATION DOSE METRICS: Total DLP (mGy-cm): 980.49 FINDINGS: Brain: Normal. No hemorrhage. Unremarkable white matter. No mass effect. Cerebral ventricles: No ventriculomegaly. Paranasal sinuses: Visualized sinuses are unremarkable. No fluid levels. Mastoid air cells: Visualized mastoid air cells are well aerated. Bones/joints: Unremarkable. No acute fracture. Soft tissues: Unremarkable. CT/CT head wo con* [id number] IMPRESSION: No acute intracranial abnormality. ? Dictated By: Luis F Sullivan MD Signed By: Luis F Sullivan MD Signed Date/Time: 09/17/21 183 DD/ [address] [address] [address] Scan Report Signed Patient: Len Sandoval Unit #: [id number] : 1985 Age/Sex: 35 / M ADM Date: 09/17/21 Loc: ER Room/Bed: Attending Dr: Ordering Provider/Ordering MD: Alessandra Rodriguez MD Date of Service: 09/17/21 Procedure(s): CT angio chest abdomen pelvis Accession Number(s): [id number] Report Number: [id number] PROCEDURE INFORMATION: Exam: CTA Chest With Contrast Exam date and time: 09/17/2021 6:23 PM Age: 35 years old Clinical indication: Numbness; Lower extremity; Left; Prior surgery; Surgery date: 6+ months; Surgery type: Stents in heart/gastric sleeve, then removed; Additional info: Severe sharp chest pain, hypertension TECHNIQUE: Imaging protocol: Computed tomographic angiography of the chest with contrast. Sagittal and coronal reformatted images were created and reviewed. 3D rendering (Not supervised by radiologist): MIP and/or 3D reconstructed images were created by the technologist. Contrast material: OMNI 350; Contrast volume: 100 ml; Contrast route: IV;? COMPARISON: CT angio chest PE protcl [id number] 12/16/2019 1:42 AM FINDINGS: Pulmonary arteries: No filling defects in the pulmonary arteries to suggest pulmonary embolism. Great vessels off aortic arch: Unremarkable. No occlusion, thrombosis, stenosis, extravasation, dissection, or aneurysm. Aorta: Mild calcified plaque. No occlusion, thrombosis, stenosis, extravasation, dissection, or aneurysm. Trachea: Tracheobronchial structures are patent. Lungs: Lungs are clear bilaterally. No pulmonary parenchymal nodules or masses. Pleural spaces: No pneumothorax. No pleural effusion. Heart: The heart is normal in size. Mild atherosclerotic calcification in the coronary arteries. Esophagus: The esophagus is unremarkable. Mediastinal space: No mediastinal hematoma. No pneumomediastinum. Lymph nodes: No lymphadenopathy. Bones/joints: Mild degenerative changes in the visualized spine. Soft tissues: No acute abnormality in the extrathoracic soft tissues. PROCEDURE INFORMATION: Exam: CTA Abdomen and Pelvis With Contrast Exam date and time: 09/17/2021 6:23 PM Age: 35 years old Clinical indication: Numbness; Lower extremity; Left; Prior surgery; Surgery date: 6+ months; Surgery type: Stents in heart/gastric sleeve, then removed; Additional info: Severe sharp chest pain, hypertension TECHNIQUE: Imaging protocol: Computed tomographic angiography of the abdomen and pelvis with contrast material. Sagittal and coronal reformatted images were created and reviewed. 3D rendering (Not supervised by radiologist): MIP and/or 3D reconstructed images were created by the technologist. Radiation optimization: All CT scans at this facility use at least one of these dose optimization techniques: automated exposure control; mA and/or kV adjustment per patient size (includes targeted exams where dose is matched to clinical indication); or iterative reconstruction. Contrast material: OMNI 350; Contrast volume: 100 ml; Contrast route: INTRAVENOUS (IV);? COMPARISON: CT abdomen pelvis w con* [id number] 04/09/2018 8:40 PM RADIATION DOSE METRICS: Total DLP (mGy-cm): 2131.23 FINDINGS: Aorta: Mild calcified plaque. No occlusion, thrombosis, stenosis, extravasation, dissection, or aneurysm. Celiac trunk and mesenteric arteries: Mild calcified plaque at the origin of the superior mesenteric artery. Visceral arteries are otherwise unremarkable. No occlusion, thrombosis, stenosis, extravasation, dissection, or aneurysm. 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 Renal arteries are unremarkable bilaterally. No occlusion, thrombosis, stenosis, extravasation, dissection, or aneurysm. Right iliac arteries: The right common iliac artery, right external iliac artery, and right internal iliac artery are unremarkable. No occlusion, thrombosis, stenosis, extravasation, dissection, or aneurysm. Left iliac arteries: Mild calcified plaque in the left common iliac and internal iliac arteries. No occlusion, thrombosis, stenosis, extravasation, dissection, or aneurysm. Liver: Stable mild enlargement of the liver measuring 21.3 cm in the midclavicular line (series 5, image 99). No focal hepatic mass. Gallbladder and bile ducts: Stable findings consistent with a previous cholecystectomy. No biliary ductal dilatation. Pancreas: The pancreas is unremarkable. No pancreatic ductal dilatation. Spleen: Stable mild enlargement of the spleen measuring 13.9 cm in length (series 303, image 84). No focal splenic mass. Small splenule in the left upper quadrant. Adrenal glands: Stable indeterminate foci in the right and left adrenal glands. Hounsfield units show density greater than expected for adenomas. The right adrenal focus measures 1.6 x 1.6 cm (series 5, image 112). The left adrenal focus measures 2.3 x 1.5 cm (series 5, image 121). Kidneys and ureters: The right and left kidneys are unremarkable. The right and left ureters are unremarkable. Stomach and bowel: Nonspecific air-fluid levels present in the small bowel and colon. No dilated bowel loops. No pneumatosis. No bowel wall thickening. Appendix: The appendix is visualized and is unremarkable. No findings to suggest acute appendicitis. Intraperitoneal space: No free intraperitoneal air. No ascites. No loculated fluid collections to suggest an abscess. Lymph nodes: No lymphadenopathy. Urinary bladder: The bladder is unremarkable. Reproductive: Unremarkable as visualized. Bones/joints: Mild degenerative changes at both the right and left hips. Mild degenerative changes of the right and left sacroiliac joints. Mild degenerative changes in the visualized spine. Soft tissues: No acute abnormality in the extra-abdominal soft tissues. CT/CT angio chest abdomen pelvis IMPRESSION: 1. Mild atherosclerotic disease. No occlusion, thrombosis, stenosis, extravasation, dissection, or aneurysm. 2. No evidence for pulmonary embolism. 3. No acute cardiopulmonary process. 4. Incidental/nonacute findings are listed in the report. ? ? IMPRESSION: 1. Mild atherosclerotic disease. No occlusion, thrombosis, stenosis, extravasation, dissection, or aneurysm. 2. 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 3. Stable mild hepatosplenomegaly. 4. Stable indeterminate foci in both right and left adrenal glands compared with 04/09/2018. Stability would suggest these are due to a benign process. 5. Incidental/nonacute findings are listed in the report. ? Dictated By: Reina Bro MD Signed By: Reina Bro MD Signed Date/Time: 09/17/211906 DD/ 22 Discharge Plan Discharge Patient Disposition: Home Clinical Impression: Chest pain Condition: Stable Prescriptions: No Action (DME) oxygen-air delivery systems Device See Rx Instructions .ROUTE .MEDSUPPLY Qty: 1 0RF Rx Instructions: As directed omeprazole 20 mg capsule,delayed release(DR/EC) 20 mg PO QAM 0RF Victoza 2-Colt 0.6 mg/0.1 mL (18 mg/3 mL) pen injector 1.8 mg SUBCUT QAM 0RF Lantus U-100 Insulin 100 unit/mL solution 85 unit SUBCUT BEDTIME 0RF diazepam [Valium] 5 mg tablet 5 mg PO BID PRN (Reason: anxiety) Qty: 60 1RF metformin 1,000 mg tablet 1,000 mg PO BID 0RF cyclobenzaprine 10 mg tablet 10 mg PO BID PRN (Reason: Muscle Spasm) 0RF (DME) FreeStyle Yamileth 14 Day Sensor Kit See Rx Instructions .ROUTE .MEDSUPPLY Qty: 2 3RF Rx Instructions: As directed (DME) FreeStyle Yamileth 14 Day [place] Misc See Rx Instructions .ROUTE .MEDSUPPLY Qty: 1 0RF Rx Instructions: As directed potassium chloride 10 mEq capsule, extended release 40 meq PO DAILY 0RF carvedilol 25 mg tablet 25 mg PO BID 0RF Rx Instructions: must administer with a meal/food tamsulosin 0.4 mg capsule 0.4 mg PO QAM 0RF melatonin 10 mg tablet 10 mg PO BEDTIME PRN (Reason: Sleep) 0RF isosorbide mononitrate 30 mg tablet extended release 24 hr 60 mg PO BID Qty: 180 3RF diltiazem HCl 360 mg capsule,extended release 24hr 360 mg PO DAILY Qty: 90 2RF hydralazine 50 mg tablet 50 mg PO DIRECTED 0RF Rx Instructions: 100mg AM 50mg noon 50mg evening Jardiance 10 mg Tablet 10 mg PO QAM 0RF desvenlafaxine succinate [Pristiq] 50 mg Tablet Extended Release 24 Hr 50 mg PO QAM 0RF atorvastatin 80 mg Tablet 80 mg PO BEDTIME 0RF divalproex [Depakote ER] 250 mg Tablet Extended Release 24 Hr 250 mg PO BEDTIME 0RF divalproex [Depakote ER] 500 mg tablet extended release 24 hr 500 mg PO QAM 0RF fenofibrate 160 mg Tablet 160 mg PO QAM 0RF acetaminophen 500 mg Tablet 500 - 1,000 mg PO Q4H PRN (Reason: Pain) 0RF cetirizine [Zyrtec] 10 mg Tablet 10 mg PO QAM 0RF lisinopril 40 mg Tablet 40 mg PO QAM 0RF clopidogrel 75 mg tablet 75 mg PO QAM 0RF aspirin 81 mg tablet,delayed release (DR/EC) 81 mg PO QAM 0RF spironolactone 25 mg tablet 25 mg PO QAM 0RF [id number] 0.3 mg/24 hr patch weekly 0.3 mg transdermal Q7D 0RF Discharge Orders: Discharge ED (Routine); Ordered 09/17/21 Ordered By: Alessandra Rodriguez Referrals: Chad Jiménez DO [Primary Care Provider] - Discharge Diet: Advance as tolerated Discharge Activity: Increase activity as tolerated Patient Instructions: Chest Pain (ED) Activity Restrictions/Additional Instructions: Come back to the emergency room if your chest pain worsens, have any fever or chills, worsening shortness of breath, worsening exertional lightheadedness, or any new or concerning complaints. Coding Level of Care Code ED Supervisor Edging for Chg Fwd Exam Comprehensive
[2021-09-17 16:49] LABS: Troponin(5th) Baseline 9 ng/L (0-15)
[2021-09-17 17:25] LABS: Alanine Aminotransferase 24 U/L (0-41); Albumin Level 4.3 g/dL (3.5-5.2); Alkaline Phosphatase 57 IU/L (40-130); Anion Gap 19.6 (5-19); Aspartate Amino Transferase 13 U/L (0-40); Blood Urea Nitrogen 22 mg/dL (6-20); Calcium 9.5 mg/dL (8.5-10.5); Carbon Dioxide 22 mmol/L (22-29); Chloride 102 mmol/L (98-107); Globulin 3.1 g/dL (1.3-4.6); Glucose 123 mg/dL (65-115); Osmolality Calculated 295 mOsm/kg (285-295); Potassium 3.6 mmol/L (3.5-5.1); Sodium 140 mmol/L (136-145); Total Bilirubin 0.2 mg/dL (0.15-1.2); Total Protein 7.4 g/dL (6.6-8.7)
--- NOTE | 2021-09-17 17:59 | ECG_ITS ---
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 Measurements Intervals [place] Rate: 64 P: 63 WV: 175 QRS: 41 QRSD: 120 T: 50 QT: 404 QTc: 420 Interpretive Statements SINUS RHYTHM WITH SINUS ARRHYTHMIA POSSIBLE RIGHT VENTRICULAR CONDUCTION DELAY [RSR (QR) IN V1/V2] Compared to ECG 09/17/2021 16:24:38 No significant changes Electronically Signed On 09-18-2021 17:01:16 CDT by Shon Gallagher M.D. [email or web address]
--- NOTE | 2021-09-17 17:59 | CTR_ITS ---
PROCEDURE INFORMATION: Exam: CT Angiography Head With Contrast, Arteriography Exam date and time: 09/17/2021 6:13 PM Age: 35 years old Clinical indication: Weakness; Additional info: Possible dissection TECHNIQUE: Imaging protocol: Computed tomography angiography of the head with contrast. Exam focused on the arteries. 3D rendering (Not supervised by radiologist): MIP and/or 3D reconstructed images were created by the technologist. Radiation optimization: All CT scans at this facility use at least one of these dose optimization techniques: automated exposure control; mA and/or kV adjustment per patient size (includes targeted exams where dose is matched to clinical indication); or iterative reconstruction. Contrast material: OMNI 350; Contrast volume: 75 ml; Contrast route: INTRAVENOUS (IV); COMPARISON: CT angio headneck* [id number] 08/13/2020 12:51 PM RADIATION DOSE METRICS: Total DLP (mGy-cm): 2542.74 FINDINGS: ANTERIOR CIRCULATION: Right internal carotid artery: Unremarkable. No occlusion, thrombosis, stenosis, extravasation, dissection, or aneurysm. Right middle cerebral artery: Unremarkable. No occlusion, thrombosis, stenosis, extravasation, dissection, or aneurysm. Right anterior cerebral artery: Unremarkable. No occlusion, thrombosis, stenosis, extravasation, dissection, or aneurysm. Anterior communicating artery: The anterior communicating artery is unremarkable. Left internal carotid artery: Unremarkable. No occlusion, thrombosis, stenosis, extravasation, dissection, or aneurysm. Left middle cerebral artery: Unremarkable. No occlusion, thrombosis, stenosis, extravasation, dissection, or aneurysm. Left anterior cerebral artery: Unremarkable. No occlusion, thrombosis, stenosis, extravasation, dissection, or aneurysm. POSTERIOR CIRCULATION: Right vertebral artery: Unremarkable. No occlusion, thrombosis, stenosis, extravasation, dissection, or aneurysm. Left vertebral artery: Unremarkable. No occlusion, thrombosis, stenosis, extravasation, dissection, or aneurysm. Basilar artery: Unremarkable. No occlusion, thrombosis, stenosis, extravasation, dissection, or aneurysm. Right posterior cerebral artery: Unremarkable. No occlusion, thrombosis, stenosis, dissection, or aneurysm. Left posterior cerebral artery: Unremarkable. No occlusion, thrombosis, stenosis, extravasation, dissection, or aneurysm. Right posterior communicating artery: The right posterior communicating artery is not visualized. The right posterior communicating artery may be congenitally absent, or may be too small for the resolution capabilities of this study. Left posterior communicating artery: The left posterior communicating artery is not visualized. The left posterior communicating artery may be congenitally absent, or may be too small for the resolution capabilities of this study. Brain: No definite mass, mass effect, or midline shift. Cerebral ventricles: No hydrocephalus. Mastoid air cells: Mastoid air cells are clear bilaterally. Paranasal sinuses: Paranasal sinuses are clear. Bones/joints: Unremarkable. No acute fracture. Soft tissues: Unremarkable. Other findings: No acute abnormality in the visualized orbits. PROCEDURE INFORMATION: Exam: CT Angiography Neck With Contrast Exam date and time: 09/17/2021 6:13 PM Age: 35 years old Clinical indication: Weakness; Additional info: Possible dissection TECHNIQUE: Imaging protocol: Computed tomography angiography of the neck with contrast. 3D rendering (Not supervised by radiologist): MIP and/or 3D reconstructed images were created by the technologist. Radiation optimization: All CT scans at this facility use at least one of these dose optimization techniques: automated exposure control; mA and/or kV adjustment per patient size (includes targeted exams where dose is matched to clinical indication); or iterative reconstruction. Contrast material: OMNI 350; Contrast volume: 75 ml; Contrast route: INTRAVENOUS (IV); COMPARISON: CT angio headneck* [id number] 08/13/2020 12:51 PM RADIATION DOSE METRICS: Total DLP (mGy-cm): 2542.74 FINDINGS: Right common carotid artery: Unremarkable. No occlusion, thrombosis, stenosis, extravasation, dissection, or aneurysm. Right internal carotid artery: Unremarkable. No occlusion, thrombosis, stenosis, extravasation, dissection, or aneurysm. Right external carotid artery: Unremarkable. No occlusion, thrombosis, stenosis, extravasation, dissection, or aneurysm. Left common carotid artery: Mild calcified plaque at the carotid bulb. No occlusion, thrombosis, stenosis, extravasation, dissection, or aneurysm. Left internal carotid artery: Unremarkable. No occlusion, thrombosis, stenosis, extravasation, dissection, or aneurysm. Left external carotid artery: Unremarkable. No occlusion, thrombosis, stenosis, extravasation, dissection, or aneurysm. Right vertebral artery: Unremarkable. No occlusion, thrombosis, stenosis, extravasation, dissection, or aneurysm. Left vertebral artery: Unremarkable. No occlusion, thrombosis, stenosis, extravasation, dissection, or aneurysm. Brachiocephalic artery: Unremarkable. No occlusion, thrombosis, stenosis, extravasation, dissection, or aneurysm. Subclavian arteries: Unremarkable. No occlusion, thrombosis, stenosis, extravasation, dissection, or aneurysm. Aorta: Unremarkable as visualized. Lymph nodes: Stable hypertrophy lymphoid tissue in the valleculae. No lymphadenopathy. Soft tissues: No soft tissue swelling. No radiopaque foreign body. Bones/joints: Mild degenerative changes in the visualized spine. Lungs: Visualized lungs are clear. CT/CT angio headneck* [id number] IMPRESSION: 1. Unremarkable CT angiogram of the [id number]. No occlusion, thrombosis, stenosis, extravasation, dissection, or aneurysm. 2. The posterior communicating arteries are not visualized. The posterior communicating arteries may be congenitally absent, or may be too small for the resolution capabilities of this study. IMPRESSION: 1. Mild atherosclerotic disease. No occlusion, thrombosis, stenosis, extravasation, dissection, or aneurysm. 2. Stable hypertrophy lymphoid tissue in the valleculae. 3. Incidental/nonacute findings are listed in the report. REFERENCES: NASCET CRITERIA. The degree of internal carotid artery stenosis is based on NASCET criteria. Normal is no stenosis. Mild is less than 50% stenosis. Moderate is 50-69% stenosis. Severe is 70% to 99% stenosis. Total occlusion is no detectable patent lumen.
--- NOTE | 2021-09-17 17:59 | CTR_ITS ---
PROCEDURE INFORMATION: Exam: CT Head Without Contrast Exam date and time: 09/17/2021 6:11 PM Age: 35 years old Clinical indication: Weakness, extremity; Patient HX: HX CVA lt side weakness; Additional info: Symptoms of acute stroke TECHNIQUE: Imaging protocol: Computed tomography of the head without contrast. Radiation optimization: All CT scans at this facility use at least one of these dose optimization techniques: automated exposure control; mA and/or kV adjustment per patient size (includes targeted exams where dose is matched to clinical indication); or iterative reconstruction. COMPARISON: CT head wo con* [id number] 08/13/2020 10:16 AM RADIATION DOSE METRICS: Total DLP (mGy-cm): 980.49 FINDINGS: Brain: Normal. No hemorrhage. Unremarkable white matter. No mass effect. Cerebral ventricles: No ventriculomegaly. Paranasal sinuses: Visualized sinuses are unremarkable. No fluid levels. Mastoid air cells: Visualized mastoid air cells are well aerated. Bones/joints: Unremarkable. No acute fracture. Soft tissues: Unremarkable. CT/CT head wo con* [id number] IMPRESSION: No acute intracranial abnormality.
--- NOTE | 2021-09-17 18:10 | PC.NURSE ---
Dr. Rodriguez states to call pharmacy regarding pulling tpa before use. This RN called and pharmacy stated not to pull TPA until right before administration.
--- NOTE | 2021-09-17 18:26 | PC.NURSE ---
Per emd teacher [employer] and Dr. Rodriguez stroke committee states when a stroke alert is called to have TPA out of the pyxis and ready. Instructed to keep box closed until confirmed.
[2021-09-17] MEDS: iohexol 350 mg/mL 100 mL Btl IV ×2 (18:27→18:28)
[2021-09-17] MEDS: labetalol 5 mg/mL SDV 20mL 20 MG IVP (18:38)
[2021-09-17] MEDS: morphine 4 mg/mL SDV 1 mL IVP (20:34)
[2021-09-17 20:56] LABS: INR 1.09 (0.8-1.2)
[2021-09-17 20:57] LABS: Partial Thromboplastin Time 36.9 SECONDS (23.9-36.7)
== END 2021-09-17 22:03 | disposition home or self-care (01) ==
PROVIDERS: Physician Assistant; Emergency Provider Emergency Medicine; PCP Electrodiagnostic Medicine
DX: R07.9 Chest pain, unspecified (principal); I25.10 Atherosclerotic heart disease of native coronary artery without angina pectoris; R53.1 Weakness; I10 Essential (primary) hypertension; E78.5 Hyperlipidemia, unspecified; E11.42 Type 2 diabetes mellitus with diabetic polyneuropathy; F17.200 Nicotine dependence, unspecified, uncomplicated; Z86.73 Personal history of transient ischemic attack (TIA), and cerebral infarction without residual deficits; Z95.5 Presence of coronary angioplasty implant and graft; Z79.84 Long term (current) use of oral hypoglycemic drugs; Z79.4 Long term (current) use of insulin
CPT/HCPCS: 36415; 70450; 70496; 70498; 71045; 71275; 74174; 80053; 84484; 85025; 85610; 85730; 93005; 96374; 96375; 99285; J2270; J3490; Q9967

== ENCOUNTER → 2021-09-22 08:20 | Outpatient (BNVA) | payer MEDICAID, SELFPAY | PROVIDERS: PCP Electrodiagnostic Medicine; Visit Provider Specialist | DX: G43.711 Chronic migraine without aura, intractable, with status migrainosus (principal); F44.4 Conversion disorder with motor symptom or deficit; E66.01 Morbid (severe) obesity due to excess calories; Z68.43 Body mass index [BMI] 50.0-59.9, adult | CPT/HCPCS: 99215 ==

== ENCOUNTER 2021-10-22 15:10 | Emergency (ER) | payer MEDICAID, SELFPAY ==
[2021-10-22 15:30] VITALS: BP 157/93; PULSE 91; RESP 16; TEMP 37.2; O2SAT 98
--- NOTE | 2021-10-22 16:11 | XRR_ITS ---
PROCEDURE INFORMATION: Exam: XR Chest Exam date and time: 10/22/2021 4:17 PM Age: 35 years old Clinical indication: Cough; Additional info: Covid TECHNIQUE: Imaging protocol: Radiologic exam of the chest. Views: 1 view. COMPARISON: CR XR chest 1V portable [id number] 09/17/2021 1:52 PM FINDINGS: Lungs: Unremarkable. No consolidation. Pleural spaces: Unremarkable. No pleural effusion. No pneumothorax. Heart/Mediastinum: Unremarkable. No cardiomegaly. Bones/joints: Unremarkable. XR/XR chest 1V portable [id number] IMPRESSION: No acute findings.
--- NOTE | 2021-10-22 16:20 | W.ED.COVID ---
Documented by User: JESSICA Katz 10/22/21 16:53 HPI - COVID General: Chief Complaint: COVID symptoms Stated Complaint: HTN, COVID + Time Seen by Provider: 10/22/21 16:04 Source: patient Mode of arrival: ambulatory Limitations: no limitations Triage information: Has fever, cough or shortness of breath. Exposure to COVID + person last 14 days History of Present Illness: Patient is a 35-year-old male with an extensive medical history here for concerns of COVID symptoms as well as elevated blood pressure. Patient states he tested positive for COVID via rapid test today at [facility]. He states they prescribed him albuterol inhaler, prednisone, and paxlovid. He states the pharmacist told him he needed to stop some of his blood pressure medications however after looking at the note that he was provided with he was actually instructed to discontinue his tamsulosin, diazepam, and atorvastatin (he states the pharmacist told him there was some interaction with these medications with the paxlovid). He does state this morning he forgot to take all of his medications. He was having a headache and some blurry vision thus called EMS. EMS upon arrival stated his blood pressure was 200/100s. Patient does have a longstanding history of chronic migraines in which he sees Dr. St for. Looking at previous documentation it does not look like his headache or blurry vision today is anything acute. BP upon arrival to the ED was 150s/90s. During my exam BP was 170s/110s. He complains of feeling fatigued and short of breath. He is satting normally on RA. complaint: known COVID positive Prior covid testing: yes, results known COVID 19 common symptoms: positive fever(s) (subjective), dyspnea, fatigue and headache(s); negative non-productive cough, productive cough, nausea, vomiting or diarrhea COVID 19 other sytmptoms: positive dizziness; negative chest pain or confusion Treatment prior to arrival: steroids and other (albuterol, paxlovid) COVID Results: No Data to Display Review of Systems Const: Reports: fever(s) (subjective) and fatigue Eyes: Reports: blurry vision; Denies: change in vision, photophobia, eye discomfort or eye discharge Card: Denies: chest pain, palpitations, irregular heart rhythm, edema, lightheadedness, syncope or pre-syncope Resp: Reports: dyspnea; Denies: productive cough, non-productive cough, wheezing, pain on inspiration, hemoptysis or chest congestion GI: Denies: abdominal pain, nausea, vomiting or diarrhea Musc: Denies: neck pain, back pain, extremity pain or joint pain Skin/Breast: Denies: rash Neuro: Reports: headache(s) and dizziness; Denies: numbness in extremities, weakness in extremities, sensory changes, vertigo or confusion PFSH ED PFSH: Medical History Bipolar II disorder Cerebrovascular accident Diabetes mellitus Diabetic neuropathy Dyslipidemia Easy bruising Gastroenteritis Generalized anxiety disorder History of adverse reaction to tissue plasminogen activator (tPA) HTN (hypertension) Hx of secondary hypertension Hypokalemia Obesity Obstructive sleep apnea hypopnea, severe Panic disorder without agoraphobia Post-traumatic stress disorder, chronic 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 Weight gain Surgical History History of esophagogastroduodenoscopy (EGD) (~04/2019) History of tonsillectomy and adenoidectomy Status following gastric banding surgery for weight loss Stented coronary artery Family History Denies family history of Anesthesia complication Bleeding disorder Social History Smoking and tobacco status: current every day smoker Quit status (tobacco): has quit using tobacco Year quit tobacco: 2010 Second hand smoke exposure: Yes Alcohol intake: never Desire information about alcohol rehabilitation?: No Desire information about substance/drug rehabilitation?: No Adopted: No Caregiver/support person: Yes Lives independently: Yes Household members: family Housing: House Marital status: Single Highest education level completed: High School Graduate service: No Current occupational status: disabled Current occupational exposures/hazards: No Pets and animals: Yes Pets & animals: cat(s) History of recent travel: No Sexually active: No Current gender identity: Male Karolina/Rastafarian: Islam Special karolina needs: No Agree to transfusion: No Financial difficulty paying for basics: Decline to Answer Physical Exam Const: COMMON NORMALS: no acute distress, patient oriented x3, no limitations and alert GENERAL APPEARANCE: cooperative NUTRITIONAL APPEARANCE: obese (BMI of 60) ORIENTATION/CONSCIOUSNESS: Yes awake, Yes oriented to person, Yes oriented to place and Yes oriented to time HENMT: COMMON NORMALS: normocephalic and atraumatic HEAD & SCALP: normal to inspection, normocephalic and atraumatic FACE & SINUS: normal facial exam Eye: GENERAL EYE: appearance normal, both eyes and all related structures Neck/C-Spine: COMMON NORMALS: full ROM and no lymphadenopathy GENERAL: Yes normal visual inspection Resp: COMMON NORMALS: normal respiratory effort and clear to auscultation bilaterally AUSCULTATION: clear to auscultation bilaterally Cardio: COMMON NORMALS: regular rate and regular rhythm RATE: regular rate RHYTHM: regular rhythm Extremity: COMMON NORMALS: normal to inspection and no calf tenderness GENERAL: Yes normal exam except as noted Neuro: EDWIN COMA SCALE: document GCS findings [place] coma scale eye opening: Spontaneous Edwin coma scale verbal response: Orientated Edwin coma scale motor response: Obey commands Edwin coma scale total score: 15 COMMON NORMALS: patient oriented x3, CN's II-XII intact bilaterally, moves all extremities, no focal motor deficits and no sensory deficits noted SENSORIUM/ORIENTATION: Yes alert, Yes oriented to person, Yes oriented to place and Yes oriented to time Skin: COMMON NORMALS: no rashes or lesions noted GENERAL SKIN EXAM: no rashes or lesions noted Course Vital Signs: Vital signs: Vital Signs Temperature 99 F 10/22/21 15:30 Pulse Rate 91 10/22/21 15:30 Respiratory Rate 16 10/22/21 15:30 Blood Pressure 157/93 10/22/21 15:30 Pulse Oximetry 98 10/22/21 15:30 MDM - COVID Lab Data : 10/22/21 17:48 10/22/21 17:48 Radiology Impressions Chest X-Ray 10/22/21 16:11 IMPRESSION: No acute findings. Laboratory Results WBC 9.1 10^3/uL (4.0-10.0) 10/22/21 17:48 RBC 5.69 10^6/uL (4.1-5.3) H 10/22/21 17:48 Hgb 14.5 g/dL (11.7-16.6) 10/22/21 17:48 Hct 44.9 % (42.0-52.0) 10/22/21 17:48 MCV 78.9 fl (80-94) L 10/22/21 17:48 MCH 25.5 pg (28.0-34.0) L 10/22/21 17:48 MCHC 32.3 g/dL (30.0-36.0) 10/22/21 17:48 RDW 13.9 % (12.1-15.1) 10/22/21 17:48 Plt Count 230 10^3/cmm (130-400) 10/22/21 17:48 MPV 9.8 fL (7.4-10.4) 10/22/21 17:48 Neut % (Auto) 91.5 % 10/22/21 17:48 Lymph % (Auto) 5.5 % 10/22/21 17:48 [place] % (Auto) 1.2 % 10/22/21 17:48 Eos % (Auto) 0.3 % 10/22/21 17:48 Baso % (Auto) 0.3 % 10/22/21 17:48 Neut # (Auto) 8.27 10^3/uL (1.8-7.7) H 10/22/21 17:48 Lymph # (Auto) 0.5 10^3/uL (0.8-4.8) L 10/22/21 17:48 [place] # (Auto) 0.1 10^3/uL (0.2-0.9) L 10/22/21 17:48 Eos # (Auto) 0.0 10^3/uL (0.0-0.8) 10/22/21 17:48 Baso # (Auto) 0.0 10^3/uL (0.0-0.1) 10/22/21 17:48 Nucleated RBC % (auto) 0 % 10/22/21 17:48 Nucleated RBCs # 0.0 /100WBC 10/22/21 17:48 Sodium Cancelled 10/22/21 17:48 Potassium Cancelled 10/22/21 17:48 Chloride Cancelled 10/22/21 17:48 Carbon Dioxide Cancelled 10/22/21 17:48 Anion Gap Cancelled 10/22/21 17:48 BUN Cancelled 10/22/21 17:48 Creatinine Cancelled 10/22/21 17:48 GFR Calculation Cancelled 10/22/21 17:48 Glucose Cancelled 10/22/21 17:48 Calculated Osmolality Cancelled 10/22/21 17:48 Calcium Cancelled 10/22/21 17:48 Total Bilirubin Cancelled 10/22/21 17:48 AST Cancelled 10/22/21 17:48 ALT Cancelled 10/22/21 17:48 Alkaline Phosphatase Cancelled 10/22/21 17:48 C-Reactive Protein Cancelled 10/22/21 17:48 Total Protein Cancelled 10/22/21 17:48 Albumin Cancelled 10/22/21 17:48 Globulin Cancelled 10/22/21 17:48 Procalcitonin Cancelled 10/22/21 17:48 No Data to Display Discharge Plan Discharge Patient Disposition: Left Against Medical Advice Clinical Impression: COVID-19 Condition: Stable Prescriptions: No Action (DME) oxygen-air delivery systems Device See Rx Instructions .ROUTE .MEDSUPPLY Qty: 1 0RF Rx Instructions: As directed omeprazole 20 mg capsule,delayed release(DR/EC) 20 mg PO QAM 0RF Victoza 2-Colt 0.6 mg/0.1 mL (18 mg/3 mL) pen injector 1.8 mg SUBCUT QAM 0RF Lantus U-100 Insulin 100 unit/mL solution 85 unit SUBCUT BEDTIME 0RF metformin 1,000 mg tablet 1,000 mg PO BID 0RF (DME) FreeStyle Yamileth 14 Day Sensor Kit See Rx Instructions .ROUTE .MEDSUPPLY Qty: 2 3RF Rx Instructions: As directed (DME) FreeStyle Yamileth 14 Day [place] Misc See Rx Instructions .ROUTE .MEDSUPPLY Qty: 1 0RF Rx Instructions: As directed potassium chloride 10 mEq capsule, extended release 40 meq PO DAILY 0RF carvedilol 25 mg tablet 25 mg PO BID 0RF Rx Instructions: must administer with a meal/food tamsulosin 0.4 mg capsule 0.4 mg PO QAM 0RF melatonin 10 mg tablet 10 mg PO BEDTIME PRN (Reason: Sleep) 0RF isosorbide mononitrate 30 mg tablet extended release 24 hr 60 mg PO BID Qty: 180 3RF diltiazem HCl 360 mg capsule,extended release 24hr 360 mg PO DAILY Qty: 90 2RF hydralazine 50 mg tablet 50 mg PO DIRECTED 0RF Rx Instructions: 100mg AM 50mg noon 50mg evening Jardiance 10 mg Tablet 10 mg PO QAM 0RF atorvastatin 80 mg Tablet 80 mg PO BEDTIME 0RF divalproex [Depakote ER] 250 mg Tablet Extended Release 24 Hr 250 mg PO BEDTIME 0RF divalproex [Depakote ER] 500 mg tablet extended release 24 hr 500 mg PO QAM 0RF fenofibrate 160 mg Tablet 160 mg PO QAM 0RF acetaminophen 500 mg Tablet 500 - 1,000 mg PO Q4H PRN (Reason: Pain) 0RF lisinopril 40 mg Tablet 40 mg PO QAM 0RF clopidogrel 75 mg tablet 75 mg PO QAM 0RF aspirin 81 mg tablet,delayed release (DR/EC) 81 mg PO QAM 0RF spironolactone 25 mg tablet 25 mg PO QAM 0RF clonidine [[id number]] 0.3 mg/24 hr patch weekly 0.3 mg transdermal Q7D 0RF azithromycin 250 mg tablet 25 mg PO DAILY 0RF amlodipine 10 mg tablet 10 mg PO QPM 0RF Referrals: Chad Jiménez DO [Primary Care Provider] - Discharge Diet: Regular Discharge Activity: Increase activity as tolerated Activity Restrictions/Additional Instructions: Follow-up with medical provider as directed. Continue taking all home medications as previously prescribed. Return to the ER or your medical provider if condition worsens. Please read and understand discharge instructions. Thank you for choosing [facility] for your healthcare needs today. Please realize this is an emergency room and that we are providing you with a medical screening exam and this may not be complete and all inclusive of all the testing and or work up that you may need to determine your ailment or severity of your illness. It is very important that you follow up as instructed or that you return to the Emergency Department should you have concerns or if your condition changes or worsens in any way. Sign Out Sign Out Data: Patient Sign Out occurred on 10/22/21 at 17:06. Patient's care was discussed, and care was transferred from to JESSICA Bosch. Coding Level of Care Code ED Dye Range Operator Cloth for [place] Fwd Exam Comprehensive Documented by User: JESSICA Bosch 10/22/21 19:42 HPI - COVID General: Chief Complaint: COVID symptoms Stated Complaint: HTN, COVID + Time Seen by Provider: 10/22/21 16:04 COVID Results: No Data to Display PFS ED PFSH: Medical History Bipolar II disorder Cerebrovascular accident Diabetes mellitus Diabetic neuropathy Dyslipidemia Easy bruising Gastroenteritis Generalized anxiety disorder History of adverse reaction to tissue plasminogen activator (tPA) HTN (hypertension) Hx of secondary hypertension Hypokalemia Obesity Obstructive sleep apnea hypopnea, severe Panic disorder without agoraphobia Post-traumatic stress disorder, chronic 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 Weight gain Surgical History History of esophagogastroduodenoscopy (EGD) (~04/2019) History of tonsillectomy and adenoidectomy Status following gastric banding surgery for weight loss Stented coronary artery Family History Denies family history of Anesthesia complication Bleeding disorder Social History Smoking and tobacco status: current every day smoker Quit status (tobacco): has quit using tobacco Year quit tobacco: 2010 Second hand smoke exposure: Yes Alcohol intake: never Desire information about alcohol rehabilitation?: No Desire information about substance/drug rehabilitation?: No Adopted: No Caregiver/support person: Yes Lives independently: Yes Household members: family Housing: House Marital status: Single Highest education level completed: High School Graduate service: No Current occupational status: disabled Current occupational exposures/hazards: No Pets and animals: Yes Pets & animals: cat(s) History of recent travel: No Sexually active: No Current gender identity: Male Karolina/Rastafarian: Islam Special karolina needs: No Agree to transfusion: No Financial difficulty paying for basics: Decline to Answer Physical Exam Neuro: EDWIN COMA SCALE: document GCS findings [place] coma scale total score: 15 Course Vital Signs: Vital signs: Vital Signs Temperature 99 F 10/22/21 15:30 Pulse Rate 91 10/22/21 15:30 Respiratory Rate 16 10/22/21 15:30 Blood Pressure 157/93 10/22/21 15:30 Pulse Oximetry 98 10/22/21 15:30 MDM - COVID Medical Decision Making Patient is a 35-year-old male with an extensive medical history here for concerns of COVID symptoms as well as elevated blood pressure. Patient states he tested positive for COVID via rapid test today at [facility]. He states they prescribed him albuterol inhaler, prednisone, and paxlovid. Patient had elevated blood pressure today but did not take his BP medications today. Vitals are stable. Exam shows a obese 35-year-old male with a BMI of 60. Lungs are clear to auscultation bilaterally. CBC was unremarkable. Chest x-ray showed no acute findings. The rest of patient's labs were pending but patient was wanting to leave and signed out AMA. I told him that I would like to keep him here till all the labs are complete but patient refused and wanted to go home now. He was diagnosed with COVID-19 and he has albuterol, Paxil available and prednisone to treat COVID. He was told to follow-up with his PCP in the next week for reevaluation. Return to ED precautions given. Patient signed AMA form and discharged home. Lab Data I reviewed the patient's lab results. : 10/22/21 17:48 10/22/21 17:48 Radiology Impressions Chest X-Ray 10/22/21 16:11 IMPRESSION: No acute findings. Laboratory Results WBC 9.1 10^3/uL (4.0-10.0) 10/22/21 17:48 RBC 5.69 10^6/uL (4.1-5.3) H 10/22/21 17:48 Hgb 14.5 g/dL (11.7-16.6) 10/22/21 17:48 Hct 44.9 % (42.0-52.0) 10/22/21 17:48 MCV 78.9 fl (80-94) L 10/22/21 17:48 MCH 25.5 pg (28.0-34.0) L 10/22/21 17:48 MCHC 32.3 g/dL (30.0-36.0) 10/22/21 17:48 RDW 13.9 % (12.1-15.1) 10/22/21 17:48 Plt Count 230 10^3/cmm (130-400) 10/22/21 17:48 MPV 9.8 fL (7.4-10.4) 10/22/21 17:48 Neut % (Auto) 91.5 % 10/22/21 17:48 Lymph % (Auto) 5.5 % 10/22/21 17:48 [place] % (Auto) 1.2 % 10/22/21 17:48 Eos % (Auto) 0.3 % 10/22/21 17:48 Baso % (Auto) 0.3 % 10/22/21 17:48 Neut # (Auto) 8.27 10^3/uL (1.8-7.7) H 10/22/21 17:48 Lymph # (Auto) 0.5 10^3/uL (0.8-4.8) L 10/22/21 17:48 [place] # (Auto) 0.1 10^3/uL (0.2-0.9) L 10/22/21 17:48 Eos # (Auto) 0.0 10^3/uL (0.0-0.8) 10/22/21 17:48 Baso # (Auto) 0.0 10^3/uL (0.0-0.1) 10/22/21 17:48 Nucleated RBC % (auto) 0 % 10/22/21 17:48 Nucleated RBCs # 0.0 /100WBC 10/22/21 17:48 Sodium Cancelled 10/22/21 17:48 Potassium Cancelled 10/22/21 17:48 Chloride Cancelled 10/22/21 17:48 Carbon Dioxide Cancelled 10/22/21 17:48 Anion Gap Cancelled 10/22/21 17:48 BUN Cancelled 10/22/21 17:48 Creatinine Cancelled 10/22/21 17:48 GFR Calculation Cancelled 10/22/21 17:48 Glucose Cancelled 10/22/21 17:48 Calculated Osmolality Cancelled 10/22/21 17:48 Calcium Cancelled 10/22/21 17:48 Total Bilirubin Cancelled 10/22/21 17:48 AST Cancelled 10/22/21 17:48 ALT Cancelled 10/22/21 17:48 Alkaline Phosphatase Cancelled 10/22/21 17:48 C-Reactive Protein Cancelled 10/22/21 17:48 Total Protein Cancelled 10/22/21 17:48 Albumin Cancelled 10/22/21 17:48 Globulin Cancelled 10/22/21 17:48 Procalcitonin Cancelled 10/22/21 17:48 No Data to Display Discharge Plan Discharge Patient Disposition: Left Against Medical Advice Clinical Impression: COVID-19 Condition: Stable Prescriptions: No Action (DME) oxygen-air delivery systems Device See Rx Instructions .ROUTE .MEDSUPPLY Qty: 1 0RF Rx Instructions: As directed omeprazole 20 mg capsule,delayed release(DR/EC) 20 mg PO QAM 0RF Victoza 2-Colt 0.6 mg/0.1 mL (18 mg/3 mL) pen injector 1.8 mg SUBCUT QAM 0RF Lantus U-100 Insulin 100 unit/mL solution 85 unit SUBCUT BEDTIME 0RF metformin 1,000 mg tablet 1,000 mg PO BID 0RF (DME) FreeStyle [place] 14 Day Sensor Kit See Rx Instructions .ROUTE .MEDSUPPLY Qty: 2 3RF Rx Instructions: As directed (DME) FreeStyle Yamileth 14 Day [place] Misc See Rx Instructions .ROUTE .MEDSUPPLY Qty: 1 0RF Rx Instructions: As directed potassium chloride 10 mEq capsule, extended release 40 meq PO DAILY 0RF carvedilol 25 mg tablet 25 mg PO BID 0RF Rx Instructions: must administer with a meal/food tamsulosin 0.4 mg capsule 0.4 mg PO QAM 0RF melatonin 10 mg tablet 10 mg PO BEDTIME PRN (Reason: Sleep) 0RF isosorbide mononitrate 30 mg tablet extended release 24 hr 60 mg PO BID Qty: 180 3RF diltiazem HCl 360 mg capsule,extended release 24hr 360 mg PO DAILY Qty: 90 2RF hydralazine 50 mg tablet 50 mg PO DIRECTED 0RF Rx Instructions: 100mg AM 50mg noon 50mg evening Jardiance 10 mg Tablet 10 mg PO QAM 0RF atorvastatin 80 mg Tablet 80 mg PO BEDTIME 0RF divalproex [Depakote ER] 250 mg Tablet Extended Release 24 Hr 250 mg PO BEDTIME 0RF divalproex [Depakote ER] 500 mg tablet extended release 24 hr 500 mg PO QAM 0RF fenofibrate 160 mg Tablet 160 mg PO QAM 0RF acetaminophen 500 mg Tablet 500 - 1,000 mg PO Q4H PRN (Reason: Pain) 0RF lisinopril 40 mg Tablet 40 mg PO QAM 0RF clopidogrel 75 mg tablet 75 mg PO QAM 0RF aspirin 81 mg tablet,delayed release (DR/EC) 81 mg PO QAM 0RF spironolactone 25 mg tablet 25 mg PO QAM 0RF clonidine [[id number]] 0.3 mg/24 hr patch weekly 0.3 mg transdermal Q7D 0RF azithromycin 250 mg tablet 25 mg PO DAILY 0RF amlodipine 10 mg tablet 10 mg PO QPM 0RF Referrals: Chad Jiménez, [Primary Care Provider] - Discharge Diet: Regular Discharge Activity: Increase activity as tolerated Activity Restrictions/Additional Instructions: Follow-up with medical provider as directed. Continue taking all home medications as previously prescribed. Return to the ER or your medical provider if condition worsens. Please read and understand discharge instructions. Thank you for choosing [facility] for your healthcare needs today. Please realize this is an emergency room and that we are providing you with a medical screening exam and this may not be complete and all inclusive of all the testing and or work up that you may need to determine your ailment or severity of your illness. It is very important that you follow up as instructed or that you return to the Emergency Department should you have concerns or if your condition changes or worsens in any way. Sign Out Sign Out Data: Patient Sign Out occurred on 10/22/21 at 17:06. Patient's care was discussed, and care was transferred from to JESSICA Bosch. Coding Level of Care Code ED Dye Range Operator Cloth for Marie Fwlawson Exam Comprehensive
[2021-10-22] MEDS: carvedilol 25 mg Tablet PO (16:58)
[2021-10-22] MEDS: lisinopril 20 mg Tablet PO (16:58)
[2021-10-22 17:58] LABS: Basophils % 0.3 %; Eosinophils % 0.3 %; Hematocrit 44.9 % (42.0-52.0); Hemoglobin 14.5 g/dL (11.7-16.6); Lymphocytes # 0.5 10^3/uL (0.8-4.8); Lymphocytes % 5.5 %; Mean Corpuscular HGB Conc 32.3 g/dL (30.0-36.0); Mean Corpuscular Hemoglobin 25.5 pg (28.0-34.0); Mean Corpuscular Volume 78.9 fl (80-94); Mean Platelet Volume 9.8 fL (7.4-10.4); Monocytes # 0.1 10^3/uL (0.2-0.9); Monocytes % 1.2 %; Neutrophils # 8.27 10^3/uL (1.8-7.7); Neutrophils % 91.5 %; Nucleated Red Blood Cells % 0 %; Platelet Count 230 10^3/cmm (130-400); Red Blood Count 5.69 10^6/uL (4.1-5.3); Red Cell Distribution Width 13.9 % (12.1-15.1); White Blood Count 9.1 10^3/uL (4.0-10.0)
== END 2021-10-22 19:10 | disposition left against medical advice (07) ==
PROVIDERS: Physician Assistant; Emergency Provider Physician Assistant; PCP Electrodiagnostic Medicine
DX: U07.1 COVID-19 (principal); Z53.21 Procedure and treatment not carried out due to patient leaving prior to being seen by health care provider; Z79.84 Long term (current) use of oral hypoglycemic drugs; Z79.02 Long term (current) use of antithrombotics/antiplatelets; Z79.82 Long term (current) use of aspirin; Z79.4 Long term (current) use of insulin; Z86.73 Personal history of transient ischemic attack (TIA), and cerebral infarction without residual deficits; E11.9 Type 2 diabetes mellitus without complications; E78.5 Hyperlipidemia, unspecified; I10 Essential (primary) hypertension; F17.210 Nicotine dependence, cigarettes, uncomplicated
CPT/HCPCS: 71045; 85025; 99284

== ENCOUNTER 2021-11-24 15:50 | Outpatient (CLI) | payer MEDICAID, SELFPAY ==
--- NOTE | 2021-11-24 16:00 | MR_ITS ---
WS: [id number] MRI HEAD WITHOUT CONTRAST TECHNIQUE: Sagittal T1, T2 axial, T2 axial FLAIR, axial and coronal T1 images, axial susceptibility w eighted imaging, axial diffusion weighted images, and coronal T2 images were obtained. CLINICAL INFORMATION: G43.711 - Chronic migraine without aura, intractable, wit... COMPARISON: None. FINDINGS: No evidence of restricted diffusion to suggest acute ischemia. Ventricular system and basal cisterns are patent. No suspicious intracranial signal abnormalities. Normal posterior fossa. Normal vascular flow voids a t the skull base. No extra-axial fluid collections. No evidence of mass or mass effect. Paranasal sin uses and mastoid air cells are well aerated. No hemosiderin on susceptibly weighted images. Normal optic chiasm and pituitary infundibulum. Tempor al lobes and hippocampal formations are normal in appearance. No other significant findings. MR/MR head wo con* [id number] IMPRESSION: 1. No evidence of restricted diffusion to suggest acute ischemia. 2. No suspicious intracanal signal abnormalities. Normal kenny-white differenti ation. 3. Paranasal sinuses and mastoid air cells well aerated. 4. No hemosiderin on susceptibly weighted images. 5. Normal optic chiasm and pituitary infundibulum. 6. No other suspicious findings.
== END 2021-11-24 15:51 | disposition home or self-care (01) ==
PROVIDERS: PCP Electrodiagnostic Medicine; Visit Provider Specialist
DX: G43.711 Chronic migraine without aura, intractable, with status migrainosus (principal); F44.4 Conversion disorder with motor symptom or deficit
CPT/HCPCS: 70551

== ENCOUNTER 2022-03-05 11:46 | Emergency (ER) | payer MEDICAID, SELFPAY ==
[2022-03-05 12:16] VITALS: BP 203/113; PULSE 93; RESP 16; TEMP 36.6; O2SAT 95
--- NOTE | 2022-03-05 13:50 | US_ITS ---
WS: [id number] TESTICULAR ULTRASOUND HISTORY: testicle pain COMPARISON: None available. TECHNIQUE: Real-time and color Doppler imaging or utilized to perform a testicular ultrasound. Right testicle: 4.1 cm x 3.1 cm x 2.2 cm. Normal sized testicle. There is mild mixed heterogeneity throughout the testicle. There are a few sca ttered areas of decreased echogenicity. No fracture or hematoma is evident. No mass or torsion. Normal color Doppler is present throughout. Systolic and diastolic velocities are both present. No significant hydrocele. Right epididymis: There are numerous cystic masses along the posterior lateral RIGHT testicle. Most c onsistent with epididymal cysts. There are a few low-level echoes present. No increased vascularity o r solid mass. No hematoma. Left testicle: 4.5 cm x 2.7 cm x 2.0 cm. Normal size and echogenicity. No mass or torsion. Normal color Doppler is present throughout. Systolic and diastolic velocities are both present. Small hydrocele with a few small low level echoes. Left epididymis: Normal epididymis with no increased vascularity. US/US scrotum [id number] IMPRESSION: 1. No testicular mass, torsion or fracture. 2. No hematoma in the scrotal wall or within the testicles. 3. Multiple cysts along the RIGHT epididymis. 4. Small complex LEFT hydrocele.
--- NOTE | 2022-03-05 15:42 | W.ED.MALEGU ---
HPI - Male Genitourinary General: Chief complaint: Urogenital-Male Stated complaint: testicular pain Time Seen by Provider: 03/05/22 15:20 Source: patient Mode of arrival: ambulatory History of Present Illness: 36-year-old obese male presents emergency room stating he was sitting on a porch and he sat on one of his testicles has significant pain. Presents emergency room with complaint of pain he denies any dysuria urgency or frequency any hematuria. MD Complaint: testicle pain Onset (ago): minute(s) Duration: constant Location: right testicle Severity: moderate Quality: aching Relieving factors: none Exacerbating factors: none Context: trauma Associated symptoms: Reports nausea; Deny discharge, dysuria, fevers/chills, hematuria, rash, swelling, urinary incontinence, urinary retention, mass or vomiting Review of Systems Const: Denies: fever(s), chills, body aches, change in appetite, fatigue or malaise ENMT: Denies: throat pain, ear or mastoid pain, nasal discharge or nasal congestion Card: Denies: chest pain, palpitations, irregular heart rhythm, edema, dyspnea on exertion or orthopnea Resp: Denies: dyspnea, productive cough or non-productive cough GI: Reports: nausea; Denies: abdominal pain or vomiting : Reports: testicular pain; Denies: difficulty urinating, dysuria, urinary frequency, urinary urgency, urinary incontinence or hematuria Musc: Denies: neck pain or back pain Skin/Breast: Denies: rash or pruritus PFSH ED PFSH: Medical History Bipolar II disorder Cerebrovascular accident Diabetes mellitus Diabetic neuropathy Dyslipidemia Easy bruising Gastroenteritis Generalized anxiety disorder History of adverse reaction to tissue plasminogen activator (tPA) HTN (hypertension) Hx of secondary hypertension Hypokalemia Obesity Obstructive sleep apnea hypopnea, severe Panic disorder without agoraphobia Post-traumatic stress disorder, chronic 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 Weight gain Surgical History History of esophagogastroduodenoscopy (EGD) (~04/2019) History of tonsillectomy and adenoidectomy Status following gastric banding surgery for weight loss Stented coronary artery Family History Denies family history of Anesthesia complication Bleeding disorder Social History Smoking and tobacco status: current every day smoker Quit status (tobacco): has quit using tobacco Year quit tobacco: 2010 Second hand smoke exposure: Yes Alcohol intake: never Desire information about alcohol rehabilitation?: No Desire information about substance/drug rehabilitation?: No Adopted: No Caregiver/support person: Yes Lives independently: Yes Household members: family Housing: House Marital status: Single Highest education level completed: High School Graduate service: No Current occupational status: disabled Current occupational exposures/hazards: No Pets and animals: Yes Pets & animals: cat(s) History of recent travel: No Sexually active: No Current gender identity: Male Karolina/Judaism: Orthodox Special karolina needs: No Agree to transfusion: No Financial difficulty paying for basics: Decline to Answer Physical Exam Const: COMMON NORMALS: no acute distress GENERAL APPEARANCE: cooperative and comfortable ORIENTATION/CONSCIOUSNESS: Yes awake, Yes oriented to person, Yes oriented to place and Yes oriented to time HENMT: COMMON NORMALS: normocephalic, atraumatic and hearing grossly normal bilaterally HEAD & SCALP: normocephalic and atraumatic Resp: COMMON NORMALS: normal respiratory effort, No retractions, No use of accessory muscles and clear to auscultation bilaterally AUSCULTATION: clear to auscultation bilaterally Cardio: COMMON NORMALS: regular rate, regular rhythm and No murmurs present (Cardio) RATE: regular rate RHYTHM: regular rhythm GI: COMMON NORMALS: Soft to palpation and No hepatosplenomegaly present AUSCULTATION: Yes normoactive bowel sounds PALPATION: Yes Soft to palpation, No Tenderness to palpation present (GI), No Guarding due to palpation present (GI) and Yes No hepatosplenomegaly present : OTHER: Testicle scrotum bilaterally normal liver palpable cyst along the vas deferens suspect seminomatous is no varicocele. Ultrasound confirms Extremity: COMMON NORMALS: normal to inspection, capillary refill normal, no clubbing, cyanosis or edema, no calf tenderness and no pedal edema Neuro: SENSORIUM/ORIENTATION: Yes oriented to person, Yes oriented to place and Yes oriented to time Skin: COMMON NORMALS: no rashes or lesions noted GENERAL SKIN EXAM: no rashes or lesions noted Course Vital Signs: Vital signs: Vital Signs Temperature 97.9 F 03/05/22 12:16 Pulse Rate 78 03/05/22 16:23 Respiratory Rate 18 03/05/22 15:52 Blood Pressure 125/68 03/05/22 16:23 Pulse Oximetry 95 03/05/22 16:23 Oxygen Delivery Me thod 03/05/22 15:52 MDM - Male Medical Decision Making Reviewed ultrasound with the patient. An acute just compressive testicle which causing continuous discomfort use diclofenac as needed. If he has any worsening symptoms can return. Lab Data Radiology Impressions Scrotum Ultrasound 03/05/22 13:50 IMPRESSION: 1. No testicular mass, torsion or fracture. 2. No hematoma in the scrotal wall or within the testicles. 3. Multiple cysts along the RIGHT epididymis. 4. Small complex LEFT hydrocele. Discharge Plan Discharge Patient Disposition: Home Clinical Impression: Pain in right testicle Condition: Stable Prescriptions: New diclofenac sodium 75 mg tablet,delayed release (DR/EC) 75 mg PO Q12H PRN (Reason: pain) Qty: 20 0RF No Action (DME) oxygen-air delivery systems Device See Rx Instructions .ROUTE .MEDSUPPLY Qty: 1 Rx Instructions: As directed omeprazole 20 mg capsule,delayed release(DR/EC) 20 mg PO QAM Victoza 2-Colt 0.6 mg/0.1 mL (18 mg/3 mL) pen injector 1.8 mg SUBCUT QAM Lantus U-100 Insulin 100 unit/mL solution 85 unit SUBCUT BEDTIME metformin 1,000 mg tablet 1,000 mg PO BID (DME) FreeStyle Yamileth 14 Day Sensor Kit See Rx Instructions .ROUTE .MEDSUPPLY Qty: 2 3RF Rx Instructions: As directed (DME) FreeStyle Yamileth 14 Day [place] Misc See Rx Instructions .ROUTE .MEDSUPPLY Qty: 1 0RF Rx Instructions: As directed potassium chloride 10 mEq capsule, extended release 40 meq PO DAILY carvedilol 25 mg tablet 25 mg PO BID Rx Instructions: must administer with a meal/food tamsulosin 0.4 mg capsule 0.4 mg PO QAM melatonin 10 mg tablet 10 mg PO BEDTIME PRN (Reason: Sleep) isosorbide mononitrate 30 mg tablet extended release 24 hr 60 mg PO BID Qty: 180 3RF hydralazine 50 mg tablet 50 mg PO DIRECTED Rx Instructions: 100mg AM 50mg noon 50mg evening diltiazem HCl 360 mg capsule,extended release 24hr 360 mg PO DAILY Qty: 90 2RF Jardiance 10 mg Tablet 10 mg PO QAM atorvastatin 80 mg Tablet 80 mg PO BEDTIME divalproex [Depakote ER] 250 mg Tablet Extended Release 24 Hr 250 mg PO BEDTIME divalproex [Depakote ER] 500 mg tablet extended release 24 hr 500 mg PO QAM fenofibrate 160 mg Tablet 160 mg PO QAM acetaminophen 500 mg Tablet 500 - 1,000 mg PO Q4H PRN (Reason: Pain) lisinopril 40 mg Tablet 40 mg PO QAM clopidogrel 75 mg tablet 75 mg PO QAM aspirin 81 mg tablet,delayed release (DR/EC) 81 mg PO QAM spironolactone 25 mg tablet 25 mg PO QAM clonidine [[id number]] 0.3 mg/24 hr patch weekly 0.3 mg transdermal Q7D azithromycin 250 mg tablet 25 mg PO DAILY amlodipine 10 mg tablet 10 mg PO QPM Discharge Orders: Discharge ED (Routine); Ordered 03/05/22 Ordered By: Emmanuel Pete Referrals: Chad Jiménez DO [Primary Care Provider] - Discharge Diet: Usual diet Discharge Activity: Resume usual activity Patient Instructions: Opioid Safety, Pain Management Activity Restrictions/Additional Instructions: He was seen today for right testicular pain the ultrasound on the right testicles normal with the exception of a few small cysts on the right epididymis (the 2 going from the testicle to the prostate). Recommend using anti-inflammatories such as diclofenac 1 every 12 hours as needed. You can put ice on the testicles as needed follow-up with your primary care doctor Coding Level of Care Code ED Manager Planning for Marie Sweeney
[2022-03-05] MEDS: ketorolac 60 mg/2 mL INJ IM (15:49)
[2022-03-05 15:52] VITALS: BP 128/67; PULSE 81; RESP 18; O2SAT 95
[2022-03-05 16:23] VITALS: BP 125/68; PULSE 78; O2SAT 95
== END 2022-03-05 16:22 | disposition home or self-care (01) ==
PROVIDERS: Emergency Provider Family Medicine; PCP Electrodiagnostic Medicine
DX: N50.811 Right testicular pain (principal); Z79.84 Long term (current) use of oral hypoglycemic drugs; Z79.02 Long term (current) use of antithrombotics/antiplatelets; Z79.82 Long term (current) use of aspirin; Z79.4 Long term (current) use of insulin; F17.210 Nicotine dependence, cigarettes, uncomplicated; Z86.73 Personal history of transient ischemic attack (TIA), and cerebral infarction without residual deficits; E11.9 Type 2 diabetes mellitus without complications; E78.5 Hyperlipidemia, unspecified; I10 Essential (primary) hypertension
CPT/HCPCS: 76870; 96372; 99284; J1885

== ENCOUNTER → 2022-03-10 09:50 | Outpatient (BNVA) | payer MEDICAID, SELFPAY | PROVIDERS: PCP Electrodiagnostic Medicine; Visit Provider Surgery | DX: R19.7 Diarrhea, unspecified (principal); R19.4 Change in bowel habit | CPT/HCPCS: 83630; 87177; 87209; 87493; 87506; 99213 ==

== ENCOUNTER → 2022-04-09 08:41 | Outpatient (BNVA) | payer MEDICAID, SELFPAY | PROVIDERS: PCP Electrodiagnostic Medicine; Visit Provider Surgery | DX: Z09 Encounter for follow-up examination after completed treatment for conditions other than malignant neoplasm (principal) | CPT/HCPCS: 99212 ==

== ENCOUNTER → 2022-04-21 12:11 | Outpatient (BNVA) | payer MEDICAID, SELFPAY | PROVIDERS: PCP Electrodiagnostic Medicine; Visit Provider Internal Medicine Cardiovascular Disease | DX: I25.10 Atherosclerotic heart disease of native coronary artery without angina pectoris (principal); F31.81 Bipolar II disorder; F41.1 Generalized anxiety disorder; G43.711 Chronic migraine without aura, intractable, with status migrainosus; E11.42 Type 2 diabetes mellitus with diabetic polyneuropathy; Z79.4 Long term (current) use of insulin; F44.4 Conversion disorder with motor symptom or deficit; E78.5 Hyperlipidemia, unspecified; E66.01 Morbid (severe) obesity due to excess calories; Z68.43 Body mass index [BMI] 50.0-59.9, adult; I10 Essential (primary) hypertension | CPT/HCPCS: 99213 ==

== ENCOUNTER 2022-04-29 03:04 | Emergency (ER) | payer MEDICAID, SELFPAY ==
[2022-04-29 03:05] VITALS: BMI 58.5
--- NOTE | 2022-04-29 03:06 | XRR_ITS ---
PROCEDURE INFORMATION: Exam: XR Chest Exam date and time: 04/29/2022 3:27 AM Age: 36 years old Clinical indication: Pain; Prior surgery; Surgery type: Coronary stent; Patient HX: C/O central chest pressure. ; Additional info: Cp TECHNIQUE: Imaging protocol: Radiologic exam of the chest. Views: 1 view. COMPARISON: CR XR chest 1V portable [id number] 22/10/2021 16:17 FINDINGS: Lungs: Unremarkable. No consolidation. Pleural spaces: Unremarkable. No pleural effusion. No pneumothorax. Heart/Mediastinum: The heart is mildly enlarged. Bones/joints: Unremarkable. XR/XR chest 1V portable [id number] IMPRESSION: No acute findings.
[2022-04-29 03:07] VITALS: BP 173/90; PULSE 73; RESP 16; TEMP 37.1; O2SAT 96
--- NOTE | 2022-04-29 03:07 | ECG_ITS ---
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 Measurements Intervals [place] Rate: 68 P: 35 OK: 158 QRS: 14 QRSD: 112 T: 41 QT: 378 QTc: 403 Interpretive Statements SINUS RHYTHM POSSIBLE RIGHT VENTRICULAR CONDUCTION DELAY [RSR (QR) IN V1/V2] Compared to ECG 09/17/2021 18:38:32 Sinus arrhythmia no longer present Electronically Signed On 04-29-2022 14:45:09 TOPPER PACKER by Shon Gallagher M.D. [id number] f
--- NOTE | 2022-04-29 03:11 | ED_ITS ---
HPI - Chest Pain General: Chief Complaint: Chest Pain Stated Complaint: CP Time Seen by Provider: 04/29/22 03:06 Source: patient and EMS Mode of arrival: EMS Limitations: no limitations History of Present Illness: 36-year-old male has a history of obesity along with diabetes and a stent placement 4 years ago he had had a cath in 2020 that was normal. He states that tonight has been having passer in the center of his chest states pain was originally 8 out of 10 is currently a 5 out of 10. He denies any worsening improving factors denies any shortness of breath denies any nausea or diaphoresis. Associated symptoms: Deny abdominal pain, dyspnea, fever(s), nausea or vomiting Review of Systems Const: Denies: fever(s), chills, body aches or change in appetite Eyes: Denies: blurry vision or eye discomfort ENMT: Denies: throat pain or dental pain Card: Reports: chest pain Resp: Denies: dyspnea GI: Denies: abdominal pain, nausea, vomiting or diarrhea : Denies: dysuria Musc: Denies: neck pain or back pain Skin/Breast: Denies: rash Neuro: Denies: headache(s) Psych: Denies: depression Alexander/Lymph: Denies: easy bruising All/Imm: Denies: urticaria PFSH ED PFSH: Medical History Bipolar II disorder Cerebrovascular accident Diabetes mellitus Diabetic neuropathy Dyslipidemia Easy bruising Gastroenteritis Generalized anxiety disorder History of adverse reaction to tissue plasminogen activator (tPA) HTN (hypertension) Hx of secondary hypertension Hypokalemia Obesity Obstructive sleep apnea hypopnea, severe Panic disorder without agoraphobia Post-traumatic stress disorder, chronic 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 Weight gain Surgical History History of esophagogastroduodenoscopy (EGD) (~04/2019) History of tonsillectomy and adenoidectomy Status following gastric banding surgery for weight loss Stented coronary artery Family History Denies family history of Anesthesia complication Bleeding disorder Social History Smoking and tobacco status: current every day smoker Quit status (tobacco): has quit using tobacco Year quit tobacco: 2010 Second hand smoke exposure: Yes Alcohol intake: never Desire information about alcohol rehabilitation?: No Desire information about substance/drug rehabilitation?: No Adopted: No Caregiver/support person: Yes Lives independently: Yes Household members: family Housing: House Marital status: Single Highest education level completed: High School Graduate service: No Current occupational status: disabled Current occupational exposures/hazards: No Pets and animals: Yes Pets & animals: cat(s) History of recent travel: No Sexually active: No Current gender identity: Male Karolina/Restoration: Gnosticism Special karolina needs: No Agree to transfusion: No Financial difficulty paying for basics: Decline to Answer Physical Exam Const: COMMON NORMALS: no acute distress, patient oriented x3 and healthy appearing HENMT: COMMON NORMALS: normocephalic and atraumatic HEAD & SCALP: normocephalic and atraumatic Eye: COMMON NORMALS: Equal, round and reactive pupils present and EOMs intact bilaterally PUPIL: Yes Equal, round and reactive pupils present Neck/C-Spine: COMMON NORMALS: full ROM and supple Chest: COMMONS NORMALS: normal inspection of the chest and normal palpation of entire chest wall Resp: COMMON NORMALS: normal respiratory effort, No retractions, No use of accessory muscles and clear to auscultation bilaterally AUSCULTATION: clear to auscultation bilaterally Cardio: COMMON NORMALS: regular rate, regular rhythm and No murmurs present (Cardio) RATE: regular rate RHYTHM: regular rhythm GI: COMMON NORMALS: Normal to inspection, nondistended, normoactive bowel sounds present, Soft to palpation, non-tender and no masses PALPATION: Yes Soft to palpation Extremity: COMMON NORMALS: normal to inspection and full ROM Neuro: COMMON NORMALS: patient oriented x3, moves all extremities and no focal motor deficits Psych: COMMON NORMALS: mental status grossly normal, Normal thought process present and cooperative THOUGHT PROCESS: Normal thought process present Skin: COMMON NORMALS: no rashes or lesions noted and no wounds GENERAL SKIN EXAM: no rashes or lesions noted Course Vital Signs: Vital signs: Vital Signs Temperature 98.8 F 04/29/22 03:07 Pulse Rate 78 04/29/22 04:03 Respiratory Rate 23 H 04/29/22 04:03 Blood Pressure 144/84 04/29/22 04:03 Pulse Oximetry 95 01/19/23 04:03 Oxygen Delivery Me thod 04/29/22 04:03 MDM - Chest Pain Medical Decision Making Patient presents here with chest pain he has been pain-free here initial repeat troponin are normal he has no signs of acute coronary syndrome no signs of dissection or pulmonary embolism he is to follow-up with his director education return if worsening he understands agrees to plan. Lab Data 04/29/22 03:24 04/29/22 03:24 Radiology Impressions Chest X-Ray 04/29/22 03:06 IMPRESSION: No acute findings. Laboratory Results WBC 9.6 10^3/uL (4.0-10.0) 04/29/22 03:24 RBC 5.14 10^6/uL (4.1-5.3) 04/29/22 03:24 Hgb 12.9 g/dL (11.7-16.6) 04/29/22 03:24 Hct 42.0 % (42.0-52.0) 04/29/22 03:24 MCV 81.7 fl (80-94) 04/29/22 03:24 MCH 25.1 pg (28.0-34.0) L 04/29/22 03:24 MCHC 30.7 g/dL (30.0-36.0) 04/29/22 03:24 RDW 14.7 % (12.1-15.1) 04/29/22 03:24 Plt Count 232 10^3/cmm (130-400) 04/29/22 03:24 MPV 10.2 fL (7.4-10.4) 04/29/22 03:24 Neut % (Auto) 74.7 % 04/29/22 03:24 Lymph % (Auto) 16.7 % 04/29/22 03:24 [place] % (Auto) 5.5 % 04/29/22 03:24 Eos % (Auto) 2.2 % 04/29/22 03:24 Baso % (Auto) 0.4 % 04/29/22 03:24 Neut # (Auto) 7.15 10^3/uL (1.8-7.7) 04/29/22 03:24 Lymph # (Auto) 1.6 10^3/uL (0.8-4.8) 04/29/22 03:24 [place] # (Auto) 0.5 10^3/uL (0.2-0.9) 04/29/22 03:24 Eos # (Auto) 0.2 10^3/uL (0.0-0.8) 04/29/22 03:24 Baso # (Auto) 0.0 10^3/uL (0.0-0.1) 04/29/22 03:24 Nucleated RBC % (auto) 0 % 04/29/22 03:24 Nucleated RBCs # 0.0 /100WBC 04/29/22 03:24 Sodium 137 mmol/L (136-145) 04/29/22 03:24 Potassium 4.4 mmol/L (3.5-5.1) 04/29/22 03:24 Chloride 99 mmol/L (98-107) 04/29/22 03:24 Carbon Dioxide 25 mmol/L (22-29) 04/29/22 03:24 Anion Gap 17.4 (5-19) 04/29/22 03:24 BUN 25 mg/dL (6-20) H 04/29/22 03:24 Creatinine 1.0 mg/dL (0.7-1.2) 04/29/22 03:24 GFR Calculation 84.5 mL/min (90-130) L 04/29/22 03:24 Glucose 237 mg/dL (65-115) H 04/29/22 03:24 Calculated Osmolality 296 mOsm/kg (285-295) H 04/29/22 03:24 Calcium 8.5 mg/dL (8.5-10.5) 04/29/22 03:24 Total Bilirubin 0.2 mg/dL (0.15-1.2) 04/29/22 03:24 AST 21 U/L (0-40) 04/29/22 03:24 ALT 46 U/L (0-41) H 04/29/22 03:24 Alkaline Phosphatase 56 U/L (40-130) 04/29/22 03:24 Troponin T Baseline 11 ng/L (0-15) 04/29/22 03:24 Troponin T 120 Minute 8.63 ng/L (0-15) 04/29/22 05:03 Total Protein 6.9 g/dL (6.6-8.7) 04/29/22 03:24 Albumin 4.4 g/dL (3.5-5.2) 04/29/22 03:24 Globulin 2.5 g/dL (1.3-4.6) 04/29/22 03:24 EKG Data EKG 1: I personally reviewed and interpreted this EKG as follows: EKG interpretation date: 04/29/22 EKG interpretation time: 03:12 Interpretation: nsr hr [address] or t wave abnormalities qrs 112 qtc 395 EKG 2: I personally reviewed and interpreted this EKG as follows: EKG interpretation date: 04/29/22 EKG interpretation time: 05:01 Interpretation: nsr hr [address] or t wave abnormalities qrs 110 qtc 397 Discharge Plan Discharge Patient Disposition: Home Clinical Impression: Chest pain Condition: Stable Prescriptions: No Action (DME) oxygen-air delivery systems Device See Rx Instructions .ROUTE .MEDSUPPLY Qty: 1 Rx Instructions: As directed omeprazole 20 mg capsule,delayed release(DR/EC) 20 mg PO QAM Victoza 2-Colt 0.6 mg/0.1 mL (18 mg/3 mL) pen injector 1.8 mg SUBCUT QAM Lantus U-100 Insulin 100 unit/mL solution 85 unit SUBCUT BEDTIME metformin 1,000 mg tablet 1,000 mg PO BID (DME) FreeStyle Yamileth 14 Day Sensor Kit See Rx Instructions .ROUTE .MEDSUPPLY Qty: 2 3RF Rx Instructions: As directed (DME) FreeStyle Yamileth 14 Day [place] Misc See Rx Instructions .ROUTE .MEDSUPPLY Qty: 1 0RF Rx Instructions: As directed potassium chloride 10 mEq capsule, extended release 40 meq PO DAILY carvedilol 25 mg tablet 25 mg PO BID Rx Instructions: must administer with a meal/food tamsulosin 0.4 mg capsule 0.4 mg PO QAM melatonin 10 mg tablet 10 mg PO BEDTIME PRN (Reason: Sleep) isosorbide mononitrate 30 mg tablet extended release 24 hr 60 mg PO BID Qty: 180 3RF cyclobenzaprine 10 mg tablet 10 mg PO BID PRN (Reason: muscle spasm) desvenlafaxine succinate 50 mg tablet extended release 24 hr 50 mg PO DAILY hydralazine 50 mg tablet 50 mg PO DIRECTED Rx Instructions: 100mg AM 50mg noon 50mg evening Jardiance 10 mg Tablet 10 mg PO QAM atorvastatin 80 mg Tablet 80 mg PO BEDTIME divalproex [Depakote ER] 250 mg Tablet Extended Release 24 Hr 250 mg PO BEDTIME divalproex [Depakote ER] 500 mg tablet extended release 24 hr 500 mg PO QAM fenofibrate 160 mg Tablet 160 mg PO QAM acetaminophen 500 mg Tablet 500 - 1,000 mg PO Q4H PRN (Reason: Pain) lisinopril 40 mg Tablet 40 mg PO QAM clopidogrel 75 mg tablet 75 mg PO QAM aspirin 81 mg tablet,delayed release (DR/EC) 81 mg PO QAM spironolactone 25 mg tablet 25 mg PO QAM clonidine [[id number]] 0.3 mg/24 hr patch weekly 0.3 mg transdermal Q7D amlodipine 10 mg tablet 10 mg PO QPM diclofenac sodium 75 mg tablet,delayed release (DR/EC) 75 mg PO Q12H PRN (Reason: pain) Qty: 20 0RF Discharge Orders: Discharge ED (Routine); Ordered 04/29/22 Ordered By: Vanessa Townsend Referrals: Chad Jiménez DO [Primary Care Provider] - 1-3 days Discharge Diet: Advance as tolerated Discharge Activity: Resume usual activity Patient Instructions: Chest Pain (ED) Coding Level of Care Code ED President [employer] for [employer] Fwd Exam Comprehensive
[2022-04-29 03:32] LABS: Basophils % 0.4 %; Eosinophils # 0.2 10^3/uL (0.0-0.8); Eosinophils % 2.2 %; Hemoglobin 12.9 g/dL (11.7-16.6); Lymphocytes # 1.6 10^3/uL (0.8-4.8); Lymphocytes % 16.7 %; Mean Corpuscular HGB Conc 30.7 g/dL (30.0-36.0); Mean Corpuscular Hemoglobin 25.1 pg (28.0-34.0); Mean Corpuscular Volume 81.7 fl (80-94); Mean Platelet Volume 10.2 fL (7.4-10.4); Monocytes # 0.5 10^3/uL (0.2-0.9); Monocytes % 5.5 %; Neutrophils # 7.15 10^3/uL (1.8-7.7); Neutrophils % 74.7 %; Nucleated Red Blood Cells % 0 %; Platelet Count 232 10^3/cmm (130-400); Red Blood Count 5.14 10^6/uL (4.1-5.3); Red Cell Distribution Width 14.7 % (12.1-15.1); White Blood Count 9.6 10^3/uL (4.0-10.0)
[2022-04-29] MEDS: nitroglycerin 0.4 mg sublingual Tablet SUBLINGUAL (03:32)
[2022-04-29 03:51] LABS: Alanine Aminotransferase 46 U/L (0-41); Albumin Level 4.4 g/dL (3.5-5.2); Alkaline Phosphatase 56 U/L (40-130); Anion Gap 17.4 (5-19); Aspartate Amino Transferase 21 U/L (0-40); Blood Urea Nitrogen 25 mg/dL (6-20); Calcium 8.5 mg/dL (8.5-10.5); Carbon Dioxide 25 mmol/L (22-29); Chloride 99 mmol/L (98-107); Globulin 2.5 g/dL (1.3-4.6); Glomerular Filtration Rate 84.5 mL/min (90-130); Glucose 237 mg/dL (65-115); Osmolality Calculated 296 mOsm/kg (285-295); Potassium 4.4 mmol/L (3.5-5.1); Sodium 137 mmol/L (136-145); Total Bilirubin 0.2 mg/dL (0.15-1.2); Total Protein 6.9 g/dL (6.6-8.7)
[2022-04-29 03:53] LABS: Troponin(5th) Baseline 11 ng/L (0-15)
[2022-04-29 04:03] VITALS: BP 144/84; PULSE 78; RESP 23; O2SAT 95
[2022-04-29 04:30] VITALS: BP 144/81; PULSE 75; RESP 18; O2SAT 95
[2022-04-29 05:00] VITALS: BP 152/96; PULSE 76; RESP 14; O2SAT 96
--- NOTE | 2022-04-29 05:01 | ECG_ITS ---
[facility] Test Date: 2022-04-29 Pat Name: Len Sandoval Department: Room: Gender: Male Financial Advisor: : 1985 Requested By: Vanessa Townsend Order Number: [id number] Skip MD: Shon Gallagher M.D. Measurements Intervals [place] Rate: 71 P: 36 NE: 168 QRS: 19 QRSD: 110 T: 42 QT: 374 QTc: 408 Interpretive Statements SINUS RHYTHM POSSIBLE RIGHT VENTRICULAR CONDUCTION DELAY [RSR (QR) IN V1/V2] Compared to ECG 04/29/2022 03:12:07 No significant changes Electronically Signed On 04-29-2022 14:50:11 TOLL TEST DESK WORKER by Shon Gallagher M.D. [email or web address] [id number]
[2022-04-29] MEDS: ondansetron 2 mg/ML SDV 2 mL 4 MG IVP (05:08)
[2022-04-29 05:24] LABS: Troponin 5 2HR 8.63 ng/L (0-15)
[2022-04-29] MEDS: HYDROcodone-acetaminophen 5-325 mg Tablet 1 TAB PO (05:44)
[2022-04-29 05:49] VITALS: BP 140/74; PULSE 70; RESP 19; O2SAT 95
[2022-04-29 05:52] LABS: Troponin 5 2HR Delta -2.37 ABS# (0-10)
== END 2022-04-29 05:50 | disposition home or self-care (01) ==
PROVIDERS: Emergency Provider Emergency Medicine; PCP Electrodiagnostic Medicine
DX: R07.9 Chest pain, unspecified (principal); Z79.84 Long term (current) use of oral hypoglycemic drugs; Z79.4 Long term (current) use of insulin; Z79.82 Long term (current) use of aspirin; Z79.02 Long term (current) use of antithrombotics/antiplatelets; F17.210 Nicotine dependence, cigarettes, uncomplicated; E11.9 Type 2 diabetes mellitus without complications; Z86.73 Personal history of transient ischemic attack (TIA), and cerebral infarction without residual deficits; E78.5 Hyperlipidemia, unspecified; I10 Essential (primary) hypertension
CPT/HCPCS: 71045; 80053; 84484; 85025; 93005; 96374; 99285; J2405

== ENCOUNTER → 2022-11-30 13:47 | Outpatient (BNVA) | payer MEDICAID, SELFPAY | PROVIDERS: PCP Electrodiagnostic Medicine; Visit Provider Internal Medicine Cardiovascular Disease | DX: I25.10 Atherosclerotic heart disease of native coronary artery without angina pectoris (principal); I10 Essential (primary) hypertension; F17.210 Nicotine dependence, cigarettes, uncomplicated | CPT/HCPCS: 99214 ==

== ENCOUNTER 2023-01-26 04:48 | Emergency (ER) | payer MEDICAID, SELFPAY ==
[2023-01-26] VITALS (9 sets, daily range): BP systolic 139–179; BP diastolic 82–116; PULSE 70–84; RESP 18–26; TEMP 36.6; O2SAT 92–98; BMI 60.0
--- NOTE | 2023-01-26 04:50 | XRR_ITS ---
PROCEDURE INFORMATION: Exam: XR Chest Exam date and time: 01/26/2023 5:18 AM Age: 37 years old Clinical indication: Chest wall pain; Prior surgery; Surgery date: 6+ months; Surgery type: Stents; Additional info: Cp TECHNIQUE: Imaging protocol: Radiologic exam of the chest. Views: 1 view. COMPARISON: CR XR chest 1V portable [id number] 04/29/2022 3:27 AM FINDINGS: Lungs: Unremarkable. No consolidation. Pleural spaces: Unremarkable. No pleural effusion. No pneumothorax. Heart/Mediastinum: Cardiomegaly. Bones/joints: Unremarkable. XR/XR chest 1V portable [id number] IMPRESSION: Cardiomegaly. No acute process
--- NOTE | 2023-01-26 04:50 | ECG_ITS ---
[facility] Test Date: 2023-01-26 Pat Name: Len Sandoval Department: Room: Gender: Male Shot Polisher: : 1985 Requested By: Vanessa Townsend Order Number: [id number] Skip MD: Annika Degroot M.D. Measurements Intervals [place] Rate: 71 P: 55 HI: 163 QRS: 33 QRSD: 111 T: 52 QT: 370 QTc: 403 Interpretive Statements SINUS RHYTHM INCOMPLETE RIGHT BUNDLE BRANCH BLOCK [90+ ms QRS DURATION, TERMINAL R IN V1/V2, 40+ ms S IN I/aVL/V4/V5/V6] Compared to ECG 04/29/2022 05:01:50 Incomplete right bundle-branch block now present Electronically Signed On 01-26-2023 11:34:58 CDT by Annika Degroot M.D. [id number]
--- NOTE | 2023-01-26 04:58 | ED_ITS ---
Documented by User: Vanessa Townsend MD 01/26/23 05:01 HPI - Chest Pain General: Chief Complaint: Chest Pain Stated Complaint: cp Time Seen by Provider: 01/26/23 04:50 Source: patient Mode of arrival: ambulatory Limitations: no limitations History of Present Illness: 37-year-old male states that 30 minutes ago started having sharp chest pain in the center of his chest. States pain is currently an 8 out of 10 denies any shortness of breath does have a history of hypertension obesity and coronary disease. He states he did take nitro at home. He denies any worsening impro ving factors. Associated symptoms: Deny abdominal pain, dyspnea, fever(s), nausea or vomiting Review of Systems Const: Denies: fever(s), chills, body aches or change in appetite ENMT: Denies: throat pain or dental pain Card: Denies: chest pain Resp: Denies: dyspnea GI: Denies: abdominal pain, nausea, vomiting or diarrhea : Denies: dysuria Musc: Denies: neck pain or back pain Skin/Breast: Denies: rash Neuro: Denies: headache(s) PFSH ED PFSH: Medical History Bipolar II disorder Cerebrovascular accident Diabetes mellitus Diabetic neuropathy Dyslipidemia Easy bruising Gastroenteritis Generalized anxiety disorder History of adverse reaction to tissue plasminogen activator (tPA) HTN (hypertension) Hx of secondary hypertension Hypokalemia Obesity Obstructive sleep apnea hypopnea, severe Panic disorder without agoraphobia Post-traumatic stress disorder, chronic 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 Weight gain Surgical History History of esophagogastroduodenoscopy (EGD) (~04/2019) History of tonsillectomy and adenoidectomy Status following gastric banding surgery for weight loss Stented coronary artery Family History Denies family history of Anesthesia complication Bleeding disorder Social History Smoking and tobacco/nicotine status: current every day tobacco/nicotine user Quit status (tobacco/nicotine): has quit using Year quit tobacco: 2010 Second hand smoke exposure: Yes Alcohol intake: never Substance/Drug Use: never Adopted: No Caregiver/support person: Yes Lives independently: Yes Household members: family Housing: House Marital status: Single Highest education level completed: High School Graduate service: No Current occupational status: disabled Current occupational exposures/hazards: No Pets and animals: Yes Pets & animals: cat(s) Sexually active: No Do you think of yourself as: Straight/Heterosexual Current gender identity: Male Karolina/Yarsanism: Nondenominational Special karolina needs: No Agree to transfusion: No Financial difficulty paying for basics: Decline to Answer Physical Exam Const: COMMON NORMALS: patient oriented x3 HENMT: COMMON NORMALS: normocephalic and atraumatic HEAD & SCALP: normocephalic and atraumatic Eye: COMMON NORMALS: Equal, round and reactive pupils present and EOMs intact bilaterally PUPIL: Yes Equal, round and reactive pupils present Neck/C-Spine: COMMON NORMALS: full ROM and supple Chest: COMMONS NORMALS: normal inspection of the chest and normal palpation of entire chest wall Resp: COMMON NORMALS: normal respiratory effort, No retractions, No use of accessory muscles and clear to auscultation bilaterally AUSCULTATION: clear to auscultation bilaterally Cardio: COMMON NORMALS: regular rate, regular rhythm and No murmurs present (Cardio) RATE: regular rate RHYTHM: regular rhythm GI: COMMON NORMALS: Normal to inspection, nondistended, normoactive bowel sounds present, Soft to palpation, non-tender and no masses PALPATION: Yes Soft to palpation Extremity: COMMON NORMALS: normal to inspection and full ROM Neuro: COMMON NORMALS: patient oriented x3, moves all extremities and no focal motor deficits Psych: COMMON NORMALS: mental status grossly normal, Normal thought process pr esent and cooperative THOUGHT PROCESS: Normal thought process present Skin: COMMON NORMALS: no rashes or lesions noted and no wounds GENERAL SKIN EXAM: no rashes or lesions noted Course Vital Signs: Vital signs: Vital Signs Temperature 97.9 F 01/26/23 04:50 Pulse Rate 74 01/26/23 08:21 Respiratory Rate 20 H 01/26/23 07:15 Blood Pressure 155/116 01/26/23 07:15 Pulse Oximetry 95 01/26/23 08:21 Oxygen Delivery Me thod Room Air 01/26/23 05:24 MDM - Chest Pain Medical Records I reviewed the patient's medical records. Lab Data I reviewed the patient's lab results. 01/26/23 05:00 01/26/23 05:00 Radiology Impressions Chest X-Ray 01/26/23 04:50 IMPRESSION: Cardiomegaly. No acute process Laboratory Results WBC 8.11 10^3/uL (3.29-11.43) 01/26/23 05:00 RBC 5.14 10^6/uL (3.85-5.65) 01/26/23 05:00 Hgb 13.00 g/dL (11.27-16.99) 01/26/23 05:00 Hct 42.1 % (37-53) 01/26/23 05:00 MCV 81.9 fl (82-101) L 01/26/23 05:00 MCH 25.3 pg (27-33) L 01/26/23 05:00 MCHC 30.9 g/dL (30-55) 01/26/23 05:00 RDW 14.0 % (12.1-15.1) 01/26/23 05:00 Plt Count 211 10^3/cmm (157-399) 01/26/23 05:00 MPV 10.3 fL (7.4-10.4) 01/26/23 05:00 Neut % (Auto) 74.0 % 01/26/23 05:00 Lymph % (Auto) 17.3 % 01/26/23 05:00 [place] % (Auto) 5.2 % 01/26/23 05:00 Eos % (Auto) 2.6 % 01/26/23 05:00 Baso % (Auto) 0.4 % 01/26/23 05:00 Neut # (Auto) 6.01 10^3/uL (1.8-7.7) 01/26/23 05:00 Lymph # (Auto) 1.4 10^3/uL (0.8-4.8) 01/26/23 05:00 [place] # (Auto) 0.4 10^3/uL (0.2-0.9) 01/26/23 05:00 Eos # (Auto) 0.2 10^3/uL (0.0-0.8) 01/26/23 05:00 Baso # (Auto) 0.0 10^3/uL (0.0-0.1) 01/26/23 05:00 Nucleated RBC % (auto) 0 % 01/26/23 05:00 Nucleated RBCs # 0.0 /100WBC 01/26/23 05:00 PT 13.40 SECONDS (12.1-14.9) 01/26/23 05:00 INR 0.99 (0.8-1.2) 01/26/23 05:00 D-Dimer 0.34 ug/mLFEU (0-0.59) 01/26/23 05:00 Sodium 141 mmol/L (136-145) 01/26/23 05:00 Potassium 4.2 mmol/L (3.5-5.1) 01/26/23 05:00 Chloride 101 mmol/L (98-107) 01/26/23 05:00 Carbon Dioxide 26 mmol/L (22-29) 01/26/23 05:00 Anion Gap 18.2 (5-19) 01/26/23 05:00 BUN 18 mg/dL (6-20) 01/26/23 05:00 Creatinine 1.1 mg/dL (0.7-1.2) 01/26/23 05:00 GFR Calculation 75.3 mL/min (90-130) L 01/26/23 05:00 Glucose 173 mg/dL (65-115) H 01/26/23 05:00 Calculated Osmolality 298 mOsm/kg (285-295) H 01/26/23 05:00 Calcium 9.3 mg/dL (8.5-10.5) 01/26/23 05:00 Total Bilirubin 0.2 mg/dL (0.15-1.2) 01/26/23 05:00 AST 16 U/L (0-40) 01/26/23 05:00 ALT 21 U/L (0-41) 01/26/23 05:00 Alkaline Phosphatase 52 U/L (40-130) 01/26/23 05:00 Troponin T Baseline 14 ng/L (0-15) 01/26/23 05:00 Troponin T 120 Minute 12.19 ng/L (0-15) 01/26/23 06:27 Delta Troponin T -1.81 ABS# (0-10) L 01/26/23 06:27 Total Protein 6.6 g/dL (6.6-8.7) 01/26/23 05:00 Albumin 4.4 g/dL (3.5-5.2) 01/26/23 05:00 Globulin 2.2 g/dL (1.3-4.6) 01/26/23 05:00 EKG Data EKG 1: I personally reviewed and interpreted this EKG as follows: EKG interpretation date: 01/26/23 EKG interpretation time: 04:48 Interpretation: nsr hr [address] elevationqrs 111 qtc 392 Discharge Plan Discharge Patient Disposition: Home Clinical Impression: Atypical chest pain Condition: Stable Prescriptions: New pantoprazole 40 mg tablet,delayed release (DR/EC) 40 mg PO DAILY Qty: 30 0RF Carafate 1 gram tablet 1 g PO Q6H PRN (Reason: dyspepsia) 28 Days Qty: 112 0RF Discontinued omeprazole 20 mg capsule,delayed release(DR/EC) 20 mg PO QAM No Action Victoza 2-Colt 0.6 mg/0.1 mL (18 mg/3 mL) pen injector 1.8 mg SUBCUT QAM Lantus U-100 Insulin 100 unit/mL solution 85 unit SUBCUT BEDTIME metformin 1,000 mg tablet 1,000 mg PO BID (DME) FreeStyle Yamileth 14 Day Sensor Kit See Rx Instructions .ROUTE .MEDSUPPLY Qty: 2 3RF Rx Instructions: As directed potassium chloride 10 mEq capsule, extended release 40 meq PO DAILY carvedilol 25 mg tablet 25 mg PO BID Rx Instructions: must administer with a meal/food tamsulosin 0.4 mg capsule 0.4 mg PO QAM cyclobenzaprine 10 mg tablet 10 mg PO BID PRN (Reason: muscle spasm) desvenlafaxine succinate 50 mg tablet extended release 24 hr 50 mg PO DAILY isosorbide mononitrate 30 mg tablet extended release 24 hr 30 mg PO BID fenofibrate 160 mg tablet 160 mg PO QAM Qty: 90 2RF hydralazine 50 mg tablet 50 mg PO DIRECTED Rx Instructions: 100mg AM 50mg noon 50mg evening Jardiance 10 mg Tablet 10 mg PO QAM atorvastatin 80 mg Tablet 80 mg PO BEDTIME divalproex [Depakote ER] 250 mg Tablet Extended Release 24 Hr 250 mg PO BEDTIME divalproex [Depakote ER] 500 mg tablet extended release 24 hr 500 mg PO QAM acetaminophen 500 mg Tablet 500 - 1,000 mg PO Q4H PRN (Reason: Pain) lisinopril 40 mg Tablet 40 mg PO QAM clopidogrel 75 mg tablet 75 mg PO QAM spironolactone 25 mg tablet 25 mg PO QAM clonidine [Fcjtathd-CTM-5] 0.3 mg/24 hr patch weekly 0.3 mg transdermal Q7D cetirizine 10 mg Tablet 10 mg PO DAILY fluticasone propionate 50 mcg/actuation spray,suspension 1 spray INTRANASAL DAILY diazepam 5 mg Tablet 5 mg PO BID PRN (Reason: Anxiety) amlodipine 10 mg tablet 10 mg PO QPM Discharge Orders: Discharge ED (Routine); Ordered 01/26/23 Ordered By: Emmanuel Pete Referrals: Chad Jiménez DO [Primary Care Provider] - Discharge Diet: As Directed Discharge Activity: Increase activity as tolerated Patient Instructions: Diet for Stomach Ulcers and Gastritis (ED), GERD (Gastroesophageal Reflux Disease) (ED), Opioid Safety, Pain Management Activity Restrictions/Additional Instructions: Follow-up with your primary care doctor within the next week. Review medications with them that may increase your symptoms particularly the Victoza and metformin. You may need further evaluation for gastric paresis related to your diabetes with outpatient testing, review with your primary care doctor. Coding Level of Care Code ED Modular Set Crew Member for Chg Fwd Documented by User: Emmanuel Pete DO 01/26/23 08:55 HPI - Chest Pain General: Chief Complaint: Chest Pain Stated Complaint: cp Time Seen by Provider: 01/26/23 04:50 PFSH ED PFSH: Medical History Bipolar II disorder Cerebrovascular accident Diabetes mellitus Diabetic neuropathy Dyslipidemia Easy bruising Gastroenteritis Generalized anxiety disorder History of adverse reaction to tissue plasminogen activator (tPA) HTN (hypertension) Hx of secondary hypertension Hypokalemia Obesity Obstructive sleep apnea hypopnea, severe Panic disorder without agoraphobia Post-traumatic stress disorder, chronic 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 Weight gain Surgical History History of esophagogastroduodenoscopy (EGD) (~04/2019) History of tonsillectomy and adenoidectomy Status following gastric banding surgery for weight loss Stented coronary artery Family History Denies family history of Anesthesia complication Bleeding disorder Social History Smoking and tobacco/nicotine status: current every day tobacco/nicotine user Quit status (tobacco/nicotine): has quit using Year quit tobacco: 2010 Second hand smoke exposure: Yes Alcohol intake: never Substance/Drug Use: never Adopted: No Caregiver/support person: Yes Lives independently: Yes Household members: family Housing: House Marital status: Single Highest education level completed: High School Graduate service: No Current occupational status: disabled Current occupational exposures/hazards: No Pets and animals: Yes Pets & animals: cat(s) Sexually active: No Do you think of yourself as: Straight/Heterosexual Current gender identity: Male Karolina/Yarsanism: Nondenominational Special karolina needs: No Agree to transfusion: No Financial difficulty paying for basics: Decline to Answer Course Vital Signs: Vital signs: Vital Signs Temperature 97.9 F 01/26/23 04:50 Pulse Rate 74 01/26/23 08:21 Respiratory Rate 20 H 01/26/23 07:15 Blood Pressure 155/116 01/26/23 07:15 Pulse Oximetry 95 01/26/23 08:21 Oxygen Delivery Me thod Room Air 01/26/23 05:24 MDM - Chest Pain Medical Decision Making Care assumed at change of shift. Chest pain resolved after nitro and morphine. EKG does not show any acute ST changes. Second troponin pending. Past medical history, notes from previous encounters and labs and testing all reviewed in chart. Heart catheterization 03/28/[address] Jenkins shows no disease in the left main LAD the right or the circumflex coronary arteries recommended to continue medical management risk factor modification. In May 2020 a stent was placed on the first diagonal off of the first mid diagonal. Labs and imaging reviewed. No sign of pneumonia pneumothorax or widening mediastinum. No sign of acute coronary syndrome troponins and EKGs do not show any abnormality most recent angiogram done 2 years ago showed no significant disease that had not been addressed. Suspect this is GI related he is on Victoza and metformin. He may have some degree of gastroparesis he says he always feels bloated. Recommend he follow-up with his primary care doctor may benefit from a gastric emptying study and alterations of the diabetic medicatio ns particularly the Victoza and metformin. Discharged home on pantoprazole Carafate to use as needed. Lab Data 01/26/23 05:00 01/26/23 05:00 Radiology Impressions Chest X-Ray 01/26/23 04:50 IMPRESSION: Cardiomegaly. No acute process Laboratory Results WBC 8.11 10^3/uL (3.29-11.43) 01/26/23 05:00 RBC 5.14 10^6/uL (3.85-5.65) 01/26/23 05:00 Hgb 13.00 g/dL (11.27-16.99) 01/26/23 05:00 Hct 42.1 % (37-53) 01/26/23 05:00 MCV 81.9 fl (82-101) L 01/26/23 05:00 MCH 25.3 pg (27-33) L 01/26/23 05:00 MCHC 30.9 g/dL (30-55) 01/26/23 05:00 RDW 14.0 % (12.1-15.1) 01/26/23 05:00 Plt Count 211 10^3/cmm (157-399) 01/26/23 05:00 MPV 10.3 fL (7.4-10.4) 01/26/23 05:00 Neut % (Auto) 74.0 % 01/26/23 05:00 Lymph % (Auto) 17.3 % 01/26/23 05:00 [place] % (Auto) 5.2 % 01/26/23 05:00 Eos % (Auto) 2.6 % 01/26/23 05:00 Baso % (Auto) 0.4 % 01/26/23 05:00 Neut # (Auto) 6.01 10^3/uL (1.8-7.7) 01/26/23 05:00 Lymph # (Auto) 1.4 10^3/uL (0.8-4.8) 01/26/23 05:00 [place] # (Auto) 0.4 10^3/uL (0.2-0.9) 01/26/23 05:00 Eos # (Auto) 0.2 10^3/uL (0.0-0.8) 01/26/23 05:00 Baso # (Auto) 0.0 10^3/uL (0.0-0.1) 01/26/23 05:00 Nucleated RBC % (auto) 0 % 01/26/23 05:00 Nucleated RBCs # 0.0 /100WBC 01/26/23 05:00 PT 13.40 SECONDS (12.1-14.9) 01/26/23 05:00 INR 0.99 (0.8-1.2) 01/26/23 05:00 D-Dimer 0.34 ug/mLFEU (0-0.59) 01/26/23 05:00 Sodium 141 mmol/L (136-145) 01/26/23 05:00 Potassium 4.2 mmol/L (3.5-5.1) 01/26/23 05:00 Chloride 101 mmol/L (98-107) 01/26/23 05:00 Carbon Dioxide 26 mmol/L (22-29) 01/26/23 05:00 Anion Gap 18.2 (5-19) 01/26/23 05:00 BUN 18 mg/dL (6-20) 01/26/23 05:00 Creatinine 1.1 mg/dL (0.7-1.2) 01/26/23 05:00 GFR Calculation 75.3 mL/min (90-130) L 01/26/23 05:00 Glucose 173 mg/dL (65-115) H 01/26/23 05:00 Calculated Osmolality 298 mOsm/kg (285-295) H 01/26/23 05:00 Calcium 9.3 mg/dL (8.5-10.5) 01/26/23 05:00 Total Bilirubin 0.2 mg/dL (0.15-1.2) 01/26/23 05:00 AST 16 U/L (0-40) 01/26/23 05:00 ALT 21 U/L (0-41) 01/26/23 05:00 Alkaline Phosphatase 52 U/L (40-130) 01/26/23 05:00 Troponin T Baseline 14 ng/L (0-15) 01/26/23 05:00 Troponin T 120 Minute 12.19 ng/L (0-15) 01/26/23 06:27 Delta Troponin T -1.81 ABS# (0-10) L 01/26/23 06:27 Total Protein 6.6 g/dL (6.6-8.7) 01/26/23 05:00 Albumin 4.4 g/dL (3.5-5.2) 01/26/23 05:00 Globulin 2.2 g/dL (1.3-4.6) 01/26/23 05:00 All radiology interpretation(s) finalized by discharge Discharge Plan Discharge Patient Disposition: Home Clinical Impression: Atypical chest pain Condition: Stable Prescriptions: New pantoprazole 40 mg tablet,delayed release (DR/EC) 40 mg PO DAILY Qty: 30 0RF Carafate 1 gram tablet 1 g PO Q6H PRN (Reason: dyspepsia) 28 Days Qty: 112 0RF Discontinued omeprazole 20 mg capsule,delayed release(DR/EC) 20 mg PO QAM No Action Victoza 2-Colt 0.6 mg/0.1 mL (18 mg/3 mL) pen injector 1.8 mg SUBCUT QAM Lantus U-100 Insulin 100 unit/mL solution 85 unit SUBCUT BEDTIME metformin 1,000 mg tablet 1,000 mg PO BID (DME) FreeStyle Yamileth 14 Day Sensor Kit See Rx Instructions .ROUTE .MEDSUPPLY Qty: 2 3RF Rx Instructions: As directed potassium chloride 10 mEq capsule, extended release 40 meq PO DAILY carvedilol 25 mg tablet 25 mg PO BID Rx Instructions: must administer with a meal/food tamsulosin 0.4 mg capsule 0.4 mg PO QAM cyclobenzaprine 10 mg tablet 10 mg PO BID PRN (Reason: muscle spasm) desvenlafaxine succinate 50 mg tablet extended release 24 hr 50 mg PO DAILY isosorbide mononitrate 30 mg tablet extended release 24 hr 30 mg PO BID fenofibrate 160 mg tablet 160 mg PO QAM Qty: 90 2RF hydralazine 50 mg tablet 50 mg PO DIRECTED Rx Instructions: 100mg AM 50mg noon 50mg evening Jardiance 10 mg Tablet 10 mg PO QAM atorvastatin 80 mg Tablet 80 mg PO BEDTIME divalproex [Depakote ER] 250 mg Tablet Extended Release 24 Hr 250 mg PO BEDTIME divalproex [Depakote ER] 500 mg tablet extended release 24 hr 500 mg PO QAM acetaminophen 500 mg Tablet 500 - 1,000 mg PO Q4H PRN (Reason: Pain) lisinopril 40 mg Tablet 40 mg PO QAM clopidogrel 75 mg tablet 75 mg PO QAM spironolactone 25 mg tablet 25 mg PO QAM clonidine [Jivzkidx-CMU-4] 0.3 mg/24 hr patch weekly 0.3 mg transdermal Q7D cetirizine 10 mg Tablet 10 mg PO DAILY fluticasone propionate 50 mcg/actuation spray,suspension 1 spray INTRANASAL DAILY diazepam 5 mg Tablet 5 mg PO BID PRN (Reason: Anxiety) amlodipine 10 mg tablet 10 mg PO QPM Discharge Orders: Discharge ED (Routine); Ordered 01/26/23 Ordered By: Emmanuel Pete Referrals: Chad Jiménez DO [Primary Care Provider] - Discharge Diet: As Directed Discharge Activity: Increase activity as tolerated Patient Instructions: Diet for Stomach Ulcers and Gastritis (ED), GERD (Gastroesophageal Reflux Disease) (ED), Opioid Safety, Pain Management Activity Restrictions/Additional Instructions: Follow-up with your primary care doctor within the next week. Review medications with them that may increase your symptoms particularly the Victoza and metformin. You may need further evaluation for gastric paresis related to your diabetes with outpatient testing, review with your primary care doctor. Coding Level of Care Code ED Modular Set Crew Member for Marie Sweeney
[2023-01-26 05:06] LABS: Basophils % 0.4 %; Eosinophils # 0.2 10^3/uL (0.0-0.8); Eosinophils % 2.6 %; Hematocrit 42.1 % (37-53); Lymphocytes # 1.4 10^3/uL (0.8-4.8); Lymphocytes % 17.3 %; Mean Corpuscular HGB Conc 30.9 g/dL (30-55); Mean Corpuscular Hemoglobin 25.3 pg (27-33); Mean Corpuscular Volume 81.9 fl (82-101); Mean Platelet Volume 10.3 fL (7.4-10.4); Monocytes # 0.4 10^3/uL (0.2-0.9); Monocytes % 5.2 %; Neutrophils # 6.01 10^3/uL (1.8-7.7); Nucleated Red Blood Cells % 0 %; Platelet Count 211 10^3/cmm (157-399); Red Blood Count 5.14 10^6/uL (3.85-5.65); White Blood Count 8.11 10^3/uL (3.29-11.43)
[2023-01-26 05:16] LABS: INR 0.99 (0.8-1.2)
[2023-01-26] MEDS: ondansetron 2 mg/ML SDV 2 mL 4 MG IVP (05:17)
[2023-01-26] MEDS: morphine 4 mg/mL SDV 1 mL IVP (05:17)
[2023-01-26] MEDS: aspirin 81 mg Chew Tablet 324 MG PO (05:18)
[2023-01-26 05:23] LABS: Troponin(5th) Baseline 14 ng/L (0-15)
[2023-01-26 05:25] LABS: Alanine Aminotransferase 21 U/L (0-41); Albumin Level 4.4 g/dL (3.5-5.2); Alkaline Phosphatase 52 U/L (40-130); Blood Urea Nitrogen 18 mg/dL (6-20); Calcium 9.3 mg/dL (8.5-10.5); Carbon Dioxide 26 mmol/L (22-29); Chloride 101 mmol/L (98-107); Globulin 2.2 g/dL (1.3-4.6); Glomerular Filtration Rate 75.3 mL/min (90-130); Glucose 173 mg/dL (65-115); Osmolality Calculated 298 mOsm/kg (285-295); Sodium 141 mmol/L (136-145); Total Bilirubin 0.2 mg/dL (0.15-1.2); Total Protein 6.6 g/dL (6.6-8.7)
[2023-01-26 05:26] LABS: Anion Gap 18.2 (5-19); Aspartate Amino Transferase 16 U/L (0-40); Potassium 4.2 mmol/L (3.5-5.1)
[2023-01-26] MEDS: lidocaine 2% viscous 15 ML, aluminum-mag hydrox-simethicon 30 ML, sucralfate oral liq 1 GM PO (06:36)
--- NOTE | 2023-01-26 06:50 | ECG_ITS ---
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 Measurements Intervals [place] Rate: 67 P: 38 WV: 165 QRS: 16 QRSD: 109 T: 32 QT: 390 QTc: 414 Interpretive Statements SINUS RHYTHM LOW QRS VOLTAGE IN PRECORDIAL LEADS [QRS DEFLECTION < 1.0 mV IN CHEST LEADS] INCOMPLETE RIGHT BUNDLE BRANCH BLOCK [90+ ms QRS DURATION, TERMINAL R IN V1/V2, 40+ ms S IN I/aVL/V4/V5/V6] Compared to ECG 01/26/2023 04:48:11 Low QRS voltage now present Electronically Signed On 01-26-2023 11:36:24 CDT by Annika Degroot M.D. [email or web address]
[2023-01-26 07:14] LABS: Troponin 5 2HR 12.19 ng/L (0-15); Troponin 5 2HR Delta -1.81 ABS# (0-10)
[2023-01-26] MEDS: ketorolac 30 mg/mL INJ IVP (07:25)
[2023-01-26 08:05] LABS: D Dimer 0.34 ug/mLFEU (0-0.59)
== END 2023-01-26 08:23 | disposition home or self-care (01) ==
PROVIDERS: Emergency Medicine; Emergency Provider Family Medicine; PCP Electrodiagnostic Medicine
DX: R07.89 Other chest pain (principal); Z79.4 Long term (current) use of insulin; Z79.84 Long term (current) use of oral hypoglycemic drugs; Z79.02 Long term (current) use of antithrombotics/antiplatelets; F17.210 Nicotine dependence, cigarettes, uncomplicated; Z86.73 Personal history of transient ischemic attack (TIA), and cerebral infarction without residual deficits; E11.9 Type 2 diabetes mellitus without complications; E78.5 Hyperlipidemia, unspecified; I10 Essential (primary) hypertension
CPT/HCPCS: 71045; 80053; 84484; 85025; 85378; 85610; 93005; 96374; 96375; 99285; J1885; J2270; J2405

== ENCOUNTER 2023-02-23 08:06 | Outpatient (CLI) | payer MEDICAID, SELFPAY ==
--- NOTE | 2023-02-23 08:13 | FL_ITS ---
WS: [id number] Exam: FL small bowel series* [id number] Date/Time of Exam: 02/23/2023 8:20 AM Reason For Exam: GASTROPARESIS DUE TO TYPE 2 DM Fluoroscopy time: 0min [id number] minutes # of spot films: Preliminary replenishment merchandising associate survey of the abdomen shows signs of prior cholecystectomy. The visualized stomach, duodenum, jejunum and ileum demonstrates a normal mucosal pattern. There was no sign of bowel obstruction. No evidence of bowel loop herniation or displacement. Barium is noted i n the RIGHT colon at 40 minutes indicating normal transit time. Compression spot images of the termin al ileum appear normal. Gastroparesis was not identified. No gastric outlet obstruction. IMPRESSION: 1. Normal small bowel follow-through.
== END 2023-02-23 08:07 | disposition home or self-care (01) ==
LOC: RAD 08:08
PROVIDERS: PCP Electrodiagnostic Medicine; Visit Provider Electrodiagnostic Medicine
DX: E11.43 Type 2 diabetes mellitus with diabetic autonomic (poly)neuropathy (principal)
CPT/HCPCS: 74250

== ENCOUNTER → 2024-02-29 14:52 | Outpatient (BNVA) | payer MEDICAID, SELFPAY | PROVIDERS: PCP Electrodiagnostic Medicine; Visit Provider Specialist | DX: M25.562 Pain in left knee (principal); S83.207A Unspecified tear of unspecified meniscus, current injury, left knee, initial encounter; X50.9XXA Other and unspecified overexertion or strenuous movements or postures, initial encounter | CPT/HCPCS: 73560; 73565; 99204 ==

== ENCOUNTER 2024-03-12 15:44 | Outpatient (CLI) | payer MEDICAID, SELFPAY ==
--- NOTE | 2024-03-12 16:00 | MR_ITS ---
WS: [id number] MRI LEFT KNEE HISTORY: knee pain COMPARISON: Radiograph 02/29/2024 Anterior cruciate ligament: Intact. Posterior cruciate ligament: Intact. Medial collateral ligament: Intact. Posterior lateral corner structures: Intact. Medial menisci: Intact. Normal signal, size and shape. Lateral meniscus: Intact. Normal signal, size and shape. Extensor mechanism: Distal quadriceps tendon and patellar tendons are intact. Fluid and soft tissue: No joint effusion. No Ashby's cyst. Small amount of fluid along the lateral ti bial plateau and just superior to the fibular head. Fluid is closely associated with the popliteus te ndon. No tendon tear is identified. Osseous and articular structures: Patellofemoral compartment: Normal. Medial compartment: Superficial fraying involving the weightbearing surface of the medial femoral con dyle towards the intercondylar notch. No full-thickness defect or marrow edema. Lateral compartment: Negative. MR/MR knee LT wo con* [id number] IMPRESSION: 1. No ACL tear. 2. No marrow edema. 3. No meniscal tear is identified. 4. There is a small localized fluid collection over the lateral tibial plateau . This may be a small bursa that is distended. Occult meniscal tear resulting i n a meniscal cyst should also be considered. A small tract of fluid extends sup erior towards the posterior lateral meniscus. Correlate with area of pain. 5. Minimal surface chondromalacia medial femoral condyle.
== END 2024-03-12 15:45 | disposition home or self-care (01) ==
LOC: RAD 15:45
PROVIDERS: PCP Electrodiagnostic Medicine; Visit Provider Specialist
DX: M25.462 Effusion, left knee (principal)
CPT/HCPCS: 73721

== ENCOUNTER → 2024-03-21 09:35 | Outpatient (BNVA) | payer MEDICAID, SELFPAY | PROVIDERS: PCP Electrodiagnostic Medicine; Visit Provider Specialist | DX: M25.562 Pain in left knee (principal); G89.29 Other chronic pain | CPT/HCPCS: 99214 ==

== ENCOUNTER 2024-04-03 12:37 | Outpatient (CLI) | payer MEDICAID, SELFPAY ==
--- NOTE | 2024-04-03 12:44 | CT_ITS ---
WS: [id number] CT NECK WITH CONTRAST HISTORY: LOCALIZED SWELLING TECHNIQUE: Contiguous 2 mm axial images are performed through the neck with intravenous contrast. Sag ittal and coronal reformats are also submitted. All CT scans at [facility] use at least one o f these dose optimization techniques: automated exposure control; mA and/or kV adjustment per patient size (includes targeted exams where dose is matched to clinical indication); or iterative reconstruc tion. CONTRAST: CONTRAST: Omnipaque 350; 100 mL IV. DLP: 300.09 mGy.cm COMPARISON: None available. Palpable area in the submental region corresponds to a very superficial high density nodule measuring 3.5 mm. Nodule is in the subcutaneous soft tissue with minimal adjacent soft tissue thickening. Nasopharynx, oropharynx, hypopharynx and larynx are unremarkable. No soft tissue masses or abnormal e nhancement. Torus tubarius and fossa of Rosenmuller and parapharyngeal fat are normal. No significant lymphadenopathy is identified. Thyroid gland and salivary glands are normally enhancing with no masses. No osseous abnormalities. Visualized portions of the skull base demonstrate no abnormalities. Orbits and globes are within norm al limits. No soft tissue masses. Visualized paranasal sinuses and mastoid air cells are normal. Lung apices are clear. CT/CT neck w con* [id number] IMPRESSION: 1. Palpable nodule in the submental region corresponds to 3.5 mm very nonspeci fic subcutaneous nodule. This probably represents a small epidermoid or sebaceo us cyst which is slightly inflamed. 2. No additional neck mass. No cervical chain lymphadenopathy.
[2024-04-03] MEDS: iohexol 350 mg/mL 500 mL Btl (per mL) IV (13:12)
== END 2024-04-03 12:38 | disposition home or self-care (01) ==
LOC: RAD 12:39
PROVIDERS: PCP Electrodiagnostic Medicine; Visit Provider Specialist
DX: R22.1 Localized swelling, mass and lump, neck (principal)
CPT/HCPCS: 70491

== ENCOUNTER 2024-06-02 10:59 | Emergency (ER) | payer MEDICAID, SELFPAY ==
[2024-06-02 11:02] VITALS: BP 175/116; PULSE 94; RESP 16; TEMP 36.8; O2SAT 96; BMI 55.3
--- NOTE | 2024-06-02 12:52 | W.ED.WOUNDLC ---
HPI - Wound/Laceration General: Chief Complaint: Wound/Laceration Stated Complaint: surgery spot / sutures gone , popped open Time Seen by Provider: 06/02/24 12:48 History of Present Illness: 38-year-old man with a history of morbid obesity, diabetes, hyperlipidemia, diabetic neuropathy, seizures, hypertension, CVA, obstructive sleep apnea, bipolar disorder and anxiety who presents to the emergency room with concern for a wound that was on his neck. He had a biopsy done there by ENT Dr. Ortega. Over the past few days he has been feeling some swelling. He had stitches out earlier this week. Overnight he says there was an opening in the wound and there was drainage. He is having some pain. Related Data Home Medications ?Medication ?Instructions ?Recorded ?Confirmed liraglutide 0.6 mg/0.1 mL (18 mg/3 1.8 mg SUBCUT QAM 04/17/19 03/21/24 mL) subcutaneous pen injector (VicApsalarza 2-Colt) insulin glargine 100 unit/mL 85 unit SUBCUT BEDTIME 01/02/20 03/21/24 subcutaneous solution (Lantus U-100 Insulin) metformin 1,000 mg tablet 1,000 mg PO BID 01/02/20 03/21/24 empagliflozin 10 mg tablet 10 mg PO QAM 05/19/20 03/21/24 (Jardiance) carvedilol 25 mg tablet 25 mg PO BID 06/23/20 03/21/24 potassium chloride 10 mEq 40 meq PO DAILY 06/23/20 03/21/24 capsule,extended release tamsulosin 0.4 mg capsule 0.4 mg PO QAM 06/23/20 03/21/24 atorvastatin 80 mg tablet 80 mg PO BEDTIME 06/27/20 03/21/24 divalproex 250 mg tablet,extended 250 mg PO BEDTIME 06/27/20 03/21/24 release 24 hr (Depakote ER) divalproex 500 mg tablet,extended 500 mg PO QAM 06/27/20 03/21/24 release 24 hr (Depakote ER) clopidogrel 75 mg tablet 75 mg PO QAM 08/13/20 03/21/24 lisinopril 40 mg tablet 40 mg PO QAM 08/13/20 03/21/24 spironolactone 25 mg tablet 25 mg PO QAM 08/13/20 03/21/24 acetaminophen 500 mg tablet 500 - 1,000 mg PO Q4H PRN Pain 03/27/21 03/21/24 hydralazine 50 mg tablet 50 mg PO DIRECTED 06/01/21 03/21/24 clonidine 0.3 mg/24 hr weekly 0.3 mg transdermal Q7D 09/17/21 03/21/24 transdermal patch (Jelazfkm-[id number]-7) amlodipine 10 mg tablet 10 mg PO QPM 10/22/21 03/21/24 cyclobenzaprine 10 mg tablet 10 mg PO BID PRN muscle spasm 04/21/22 03/21/24 desvenlafaxine succinate 50 mg 50 mg PO DAILY 04/21/22 03/21/24 tablet,extended release 24 hr isosorbide mononitrate 30 mg 30 mg PO BID 11/30/22 03/21/24 tablet,extended release 24 hr cetirizine 10 mg tablet 10 mg PO DAILY 01/26/23 03/21/24 diazepam 5 mg tablet 5 mg PO BID PRN Anxiety 01/26/23 03/21/24 fluticasone propionate 50 1 spray intranasal DAILY 01/26/23 03/21/24 mcg/actuation nasal spray,suspension Previous Rx's ?Medication ?Instructions ?Recorded flash glucose sensor (Prediculous #2 ea 04/02/20 Yamileth 14 Day Sensor kit) fenofibrate 160 mg tablet 160 mg PO QAM #90 tabs 11/30/22 pantoprazole 40 mg tablet,delayed 40 mg PO DAILY #30 tabs 01/26/23 release clindamycin HCl 300 mg capsule 600 mg (2 x 300 mg) PO Q6H 10 days 06/02/24 #80 caps hydrocodone 5 mg-acetaminophen 325 1 tab PO Q8H PRN pain #14 tabs 06/02/24 mg tablet polyethylene glycol 3350 17 17 g PO DAILY #510 grams 06/02/24 gram/dose oral powder (Miralax) Allergies Allergy/AdvReac Type Severity Reaction Status Date / Time gabapentin Allergy Severe ALGY-Swell Verified 03/21/24 10:55 Lip/Tongue/Throat Sulfa (Sulfonamide Allergy Severe ALGY-Swell Verified 03/21/24 10:55 Antibiotics) Lip/Tongue/Throat trimethoprim Allergy Severe ALGY-Swell Verified 03/21/24 10:55 Lip/Tongue/Throat sulfamethoxazole (From Allergy Unknown throat Verified 03/21/24 10:55 Bactrim) swells asenapine (From Saphris) AdvReac Mild ADR-Halluci Verified 03/21/24 10:55 marilyn Review of Systems Narrative: Constitutional symptoms: Negative except as documented in HPI. Skin symptoms: Negative except as documented in HPI. Eye symptoms: Negative except as documented in HPI. ENMT symptoms: Negative except as documented in HPI. Respiratory symptoms: Negative except as documented in HPI. Cardiovascular symptoms: Negative except as documented in HPI. Gastrointestinal symptoms: Negative except as documented in HPI. Genitourinary symptoms: Negative except as documented in HPI. Musculoskeletal symptoms: Negative except as documented in HPI. Neurologic symptoms: Negative except as documented in HPI. Psychiatric symptoms: Negative except as documented in HPI. Endocrine symptoms: Negative except as documented in HPI. 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 Cerebrovascular accident Diabetes mellitus Obstructive sleep apnea hypopnea, severe Panic disorder without agoraphobia Post-traumatic stress disorder, chronic Generalized anxiety disorder Bipolar II disorder Obesity Gastroenteritis Hx of secondary hypertension Surgical History Stented coronary artery Status following gastric banding surgery for weight loss History of esophagogastroduodenoscopy (EGD) (~04/2019) History of tonsillectomy and adenoidectomy Family History Denies family history of Anesthesia complication Bleeding disorder Social History Smoking and tobacco/nicotine status: unknown if used tobacco/nicotine Quit status (tobacco/nicotine): has quit using Year quit tobacco: 2010 Second hand smoke exposure: Yes Alcohol intake: never Substance/Drug Use: never Adopted: No Caregiver/support person: Yes Lives independently: Yes Household members: family Housing: House Marital status: Single Highest education level completed: High School Graduate service: No Current occupational status: disabled Current occupational exposures/hazards: No Pets and animals: Yes Pets & animals: cat(s) Sexually active: No Do you think of yourself as: Straight/Heterosexual Current gender identity: Male Karolina/Restoration: Church Special karolina needs: No Agree to transfusion: No Physical Exam Narrative: EXAM NARRATIVE: General: Alert, no acute distress. Skin: warm and dry, central neck area, patient is very obese, there is an opening in the wound about a centimeter wide. No drainage. No surrounding erythema. Head: Normocephalic Neck: Trachea midline Eye: Extraocular movements are intact. Ears, nose, mouth and throat: Oral mucosa moist Respiratory: Respirations are non-labored Musculoskeletal: Normal ROM Neurological: Alert and oriented, No focal neurological deficit observed. Psychiatric: Cooperative, appropriate mood & affect. Course Vital Signs: Vital signs: Vital Signs Temperature 98.3 F 06/02/24 11:02 Pulse Rate 92 06/02/24 13:07 Respiratory Rate 16 06/02/24 11:02 Blood Pressure 175/116 06/02/24 11:02 Pulse Oximetry 96 06/02/24 13:07 Oxygen Delivery Me thod Room Air 06/02/24 13:07 MDM - Wound/Laceration Medical Decision Making Medical decision making: Differential diagnosis including but not limited to and based on the above HPI, review of systems and physical exam: Concern for abscess or phlegmon versus cellulitis. Basic lab work to rule out inflammatory response and sepsis. Orders placed to evaluate differential diagnosis based on the above differential, HPI and physical exam Lab Review: Laboratory results were reviewed and interpreted by myself the emergency room physician. No leukocytosis. No anemia. No renal failure. ESR and CRP are just mildly elevated. CT of the neck with contrast: Postsurgical changes in the neck/anterior chin soft tissue with poorly defined area of soft tissue thickening measuring 2.7 cm that could be developing abscess or phlegmon or postsurgical changes. This was reviewed and interpreted by myself the emergency room physician. I also reviewed the radiology report. I reviewed the patient's medical record. Reexamination: Patient remained stable. No increased work of breathing. No altered mental status. No focal motor deficits. Consultation: I spoke with Dr. Sheffield who did the patient surgery and is familiar with the patient who agrees with IV clinda and home on clinda and he will see the patient in clinic on Tuesday. Assessment and plan: Wound dehiscence Postsurgical infection ? IV clindamycin, IV Toradol in the emergency room. - Discharged home - Discussed plan with patient. Answered any questions. - Evaluation and treatment of this problem were appropriate in the emergency setting. Lab Data 06/02/24 12:54 06/02/24 13:[address] 06/02/24 12:59 IMPRESSION: Post surgical changes in the lower neck/anterior chin soft tissues with poorly defined area of soft tissue thickening measuring 2.7cm persumably post surgical in nature however developing abscess/phlegmanous changes are not excluded. Recommend clinical correlation and follow up imaging as clinically indicated. Laboratory Results WBC 7.85 10^3/uL (3.29-11.43) 06/02/24 12:54 RBC 4.78 10^6/uL (3.85-5.65) 06/02/24 12:54 Hgb 12.60 g/dL (11.27-16.99) 06/02/24 12:54 Hct 40.5 % (37-53) 06/02/24 12:54 MCV 84.7 fl (82-101) 06/02/24 12:54 MCH 26.4 pg (27-33) L 06/02/24 12:54 MCHC 31.1 g/dL (30-55) 06/02/24 12:54 RDW 13.2 % (12.1-15.1) 06/02/24 12:54 Plt Count 189 10^3/cmm (157-399) 06/02/24 12:54 MPV 10.7 fL (7.4-10.4) H 06/02/24 12:54 Neut % (Auto) 71.1 % 06/02/24 12:54 Lymph % (Auto) 19.7 % 06/02/24 12:54 [place] % (Auto) 6.4 % 06/02/24 12:54 Eos % (Auto) 1.9 % 06/02/24 12:54 Baso % (Auto) 0.5 % 06/02/24 12:54 Neut # (Auto) 5.58 10^3/uL (1.8-7.7) 06/02/24 12:54 Lymph # (Auto) 1.6 10^3/uL (0.8-4.8) 06/02/24 12:54 [place] # (Auto) 0.5 10^3/uL (0.2-0.9) 06/02/24 12:54 Eos # (Auto) 0.2 10^3/uL (0.0-0.8) 06/02/24 12:54 Baso # (Auto) 0.0 10^3/uL (0.0-0.1) 06/02/24 12:54 Nucleated RBC % (auto) 0 % 06/02/24 12:54 Nucleated RBCs # 0.0 /100WBC 06/02/24 12:54 ESR 12 mm/hr (0-10) H 06/02/24 12:54 Sodium 141 mmol/L (136-145) 06/02/24 13:41 Potassium 3.9 mmol/L (3.5-5.1) 06/02/24 13:41 Chloride 104 mmol/L (98-107) 06/02/24 13:41 Carbon Dioxide 25 mmol/L (22-29) 06/02/24 13:41 Anion Gap 15.9 (5-19) 06/02/24 13:41 BUN 22 mg/dL (6-20) H 06/02/24 13:41 Creatinine 1.0 mg/dL (0.7-1.2) 06/02/24 13:41 GFR Calculation 83.6 mL/min (90-130) L 06/02/24 13:41 Glucose 201 mg/dL (65-115) H 06/02/24 13:41 Calculated Osmolality 301 mOsm/kg (285-295) H 06/02/24 13:41 Calcium 9.3 mg/dL (8.5-10.5) 06/02/24 13:41 Total Bilirubin 0.2 mg/dL (0.15-1.2) 06/02/24 13:41 AST 8 U/L (0-40) 06/02/24 13:41 ALT 16 U/L (0-41) 06/02/24 13:41 Alkaline Phosphatase 51 U/L (40-130) 06/02/24 13:41 C-Reactive Protein 15.0 mg/L (0.0-4.9) H 06/02/24 13:41 Total Protein 7.1 g/dL (6.6-8.7) 06/02/24 13:41 Albumin 4.2 g/dL (3.5-5.2) 06/02/24 13:41 Globulin 2.9 g/dL (1.3-4.6) 06/02/24 13:41 All radiology interpretation(s) finalized by discharge Discharge Plan Discharge Patient Disposition: Home Clinical Impression: Surgical site infection, Wound dehiscence Condition: Stable Prescriptions: New clindamycin HCl 300 mg capsule 600 mg PO Q6H 10 Days Qty: 80 0RF hydrocodone-acetaminophen 5-325 mg tablet 1 tab PO Q8H PRN (Reason: pain) Qty: 14 0RF Rx Instructions: Take 1/2 to 1 tab every 8 hours as needed for pain polyethylene glycol 3350 [Miralax] 17 gram/dose powder 17 g PO DAILY Qty: 510 0RF Rx Instructions: Take 1 scoop daily while taking pain medications. No Action Victoza 2-Colt 0.6 mg/0.1 mL (18 mg/3 mL) pen injector 1.8 mg SUBCUT QAM Lantus U-100 Insulin 100 unit/mL solution 85 unit SUBCUT BEDTIME metformin 1,000 mg tablet 1,000 mg PO BID (DME) FreeStyle Yamileth 14 Day Sensor Kit See Rx Instructions .ROUTE .MEDSUPPLY Qty: 2 3RF Rx Instructions: As directed potassium chloride 10 mEq capsule, extended release 40 meq PO DAILY carvedilol 25 mg tablet 25 mg PO BID Rx Instructions: must administer with a meal/food tamsulosin 0.4 mg capsule 0.4 mg PO QAM cyclobenzaprine 10 mg tablet 10 mg PO BID PRN (Reason: muscle spasm) desvenlafaxine succinate 50 mg tablet extended release 24 hr 50 mg PO DAILY isosorbide mononitrate 30 mg tablet extended release 24 hr 30 mg PO BID fenofibrate 160 mg tablet 160 mg PO QAM Qty: 90 2RF hydralazine 50 mg tablet 50 mg PO DIRECTED Rx Instructions: 100mg AM 50mg noon 50mg evening Jardiance 10 mg Tablet 10 mg PO QAM atorvastatin 80 mg Tablet 80 mg PO BEDTIME divalproex [Depakote ER] 250 mg Tablet Extended Release 24 Hr 250 mg PO BEDTIME divalproex [Depakote ER] 500 mg tablet extended release 24 hr 500 mg PO QAM acetaminophen 500 mg Tablet 500 - 1,000 mg PO Q4H PRN (Reason: Pain) lisinopril 40 mg Tablet 40 mg PO QAM clopidogrel 75 mg tablet 75 mg PO QAM spironolactone 25 mg tablet 25 mg PO QAM clonidine [Mbrifhqv-WYO-9] 0.3 mg/24 hr patch weekly 0.3 mg transdermal Q7D cetirizine 10 mg Tablet 10 mg PO DAILY fluticasone propionate 50 mcg/actuation spray,suspension 1 spray INTRANASAL DAILY diazepam 5 mg Tablet 5 mg PO BID PRN (Reason: Anxiety) pantoprazole 40 mg tablet,delayed release (DR/EC) 40 mg PO DAILY Qty: 30 0RF amlodipine 10 mg tablet 10 mg PO QPM Discharge Orders: Discharge ED (Routine); Ordered 06/02/24 Ordered By: Mabel Fortune Referrals: Chad Jiménez DO [Primary Care Provider] - Artis Sheffield MD [Physician] - 06/04/24 (Dr. Farah plans on seeing you in clinic most likely on Tuesday. Call at around 8 AM on Tuesday to schedule appointment.) Discharge Diet: Usual diet Discharge Activity: Increase activity as tolerated Patient Instructions: Wound Dehiscence (ED), Opioid Safety, Pain Management Activity Restrictions/Additional Instructions: Thank you for choosing [facility] for your healthcare needs today. Please realize this is an emergency room and that we are providing you with a medical screening exam and this may not be complete and all inclusive of all the testing and or work up that you may need to determine your ailment or severity of your illness. You have been screened and evaluated and felt safe for discharge. Health conditions do change or evolve sometimes and as such it is important that you follow up with your Primary Doctor to be re checked, 3-5 days is a general good time frame for follow up. You are always welcome to return to the ED for re assessment if your symptoms are worsening or you have new concerns Print Language: Cape Verdean Coding Level of Care Code ED Sap Portal Architect for Marie Sweeney
--- NOTE | 2024-06-02 12:59 | CTR_ITS ---
PROCEDURE INFORMATION: Exam: CT Neck With Contrast Exam date and time: 06/02/2024 1:49 PM Age: 38 years old Clinical indication: Neck pain; Prior surgery; Surgery date: 3-7 days post-operative; Surgery type: Tumor removal anterior neck; Additional info: Post surgical complication, R/O abscess TECHNIQUE: Imaging protocol: Computed tomography of the neck with contrast. Radiation optimization: All CT scans at this facility use at least one of these dose optimization techniques: automated exposure control; mA and/or kV adjustment per patient size (includes targeted exams where dose is matched to clinical indication); or iterative reconstruction. Contrast material: OMNIPAQUE 350; Contrast volume: 80 ml; Contrast route: INTRAVENOUS (IV); COMPARISON: CT neck w con* [id number] 04/03/2024 1:05 PM RADIATION DOSE METRICS: Total DLP (mGy-cm): 1509.96 FINDINGS: Paranasal sinuses: Mild paranasal mucosal sinus thickening. Salivary glands: Normal. Glands are normal in size. Pharynx: Unremarkable. No significant tonsillar enlargement. Larynx: Unremarkable. Epiglottis is normal. Thyroid: Thyroid is unremarkable. Trachea: Visualized trachea is unremarkable. Lungs: Unremarkable as visualized. Lymph nodes: Scattered prominent lymph nodes in the neck none meeting pathological criteria. Vasculature: Minimal retropharyngeal course of the right internal carotid artery. Bones/joints: No acute osseous abnormality. Soft tissues: Postsurgical changes on the anterior neck soft tissues with a poorly defined area of soft thickening measuring 2.7 cm with scattered foci of subcutaneous emphysema. There is an overlaying skin defect at this level. CT/CT neck w con* [id number] IMPRESSION: Post surgical changes in the lower neck/anterior chin soft tissues with poorly defined area of soft tissue thickening measuring 2.7cm persumably post surgical in nature however developing abscess/phlegmanous changes are not excluded. Recommend clinical correlation and follow up imaging as clinically indicated.
[2024-06-02 13:00] LABS: Basophils % 0.5 %; Eosinophils # 0.2 10^3/uL (0.0-0.8); Eosinophils % 1.9 %; Hematocrit 40.5 % (37-53); Lymphocytes # 1.6 10^3/uL (0.8-4.8); Lymphocytes % 19.7 %; Mean Corpuscular HGB Conc 31.1 g/dL (30-55); Mean Corpuscular Hemoglobin 26.4 pg (27-33); Mean Corpuscular Volume 84.7 fl (82-101); Mean Platelet Volume 10.7 fL (7.4-10.4); Monocytes # 0.5 10^3/uL (0.2-0.9); Monocytes % 6.4 %; Neutrophils # 5.58 10^3/uL (1.8-7.7); Neutrophils % 71.1 %; Nucleated Red Blood Cells % 0 %; Platelet Count 189 10^3/cmm (157-399); Red Blood Count 4.78 10^6/uL (3.85-5.65); Red Cell Distribution Width 13.2 % (12.1-15.1); White Blood Count 7.85 10^3/uL (3.29-11.43)
[2024-06-02 13:07] VITALS: PULSE 92; O2SAT 96
[2024-06-02 13:13] LABS: Erythrocyte Sedimentation Rate 12 mm/hr (0-10)
[2024-06-02] MEDS: iohexol 350 mg/mL 500 mL Btl (per mL) IV (13:54)
[2024-06-02 14:07] LABS: Alanine Aminotransferase 16 U/L (0-41); Albumin Level 4.2 g/dL (3.5-5.2); Alkaline Phosphatase 51 U/L (40-130); Anion Gap 15.9 (5-19); Aspartate Amino Transferase 8 U/L (0-40); Blood Urea Nitrogen 22 mg/dL (6-20); Calcium 9.3 mg/dL (8.5-10.5); Carbon Dioxide 25 mmol/L (22-29); Chloride 104 mmol/L (98-107); Creatinine Clr Calc Pharmacy 133.0856; Globulin 2.9 g/dL (1.3-4.6); Glomerular Filtration Rate 83.6 mL/min (90-130); Glucose 201 mg/dL (65-115); Osmolality Calculated 301 mOsm/kg (285-295); Potassium 3.9 mmol/L (3.5-5.1); Sodium 141 mmol/L (136-145); Total Bilirubin 0.2 mg/dL (0.15-1.2); Total Protein 7.1 g/dL (6.6-8.7)
[2024-06-02] MEDS: ketorolac 30 mg/mL INJ IVP (14:11)
[2024-06-02] MEDS: clindamycin 900 MG/50 ML PREMIX 100 MG IV (15:28)
[2024-06-02] MEDS: HYDROcodone-acetaminophen 10-325 mg Tablet 1 TAB PO (16:02)
[2024-06-02 16:03] VITALS: PULSE 88; O2SAT 96
== END 2024-06-02 16:04 | disposition home or self-care (01) ==
PROVIDERS: Emergency Provider Emergency Medicine; PCP Electrodiagnostic Medicine
DX: T81.30XA Disruption of wound, unspecified, initial encounter (principal); B99.8 Other infectious disease; Z79.84 Long term (current) use of oral hypoglycemic drugs; Z79.02 Long term (current) use of antithrombotics/antiplatelets; X58.XXXA Exposure to other specified factors, initial encounter; E78.5 Hyperlipidemia, unspecified; E11.40 Type 2 diabetes mellitus with diabetic neuropathy, unspecified; I10 Essential (primary) hypertension
CPT/HCPCS: 36415; 70491; 80053; 85025; 85651; 86140; 96365; 96375; 99285; J1885; J3490

== ENCOUNTER 2024-11-30 10:15 | Emergency (ER) | payer MEDICAID, SELFPAY ==
[2024-11-30 10:23] VITALS: BP 189/124; PULSE 100; RESP 26; TEMP 36.4; O2SAT 95; BMI 55.3
--- NOTE | 2024-11-30 10:24 | ECG_ITS ---
[facility] Date: 2024-11-30 Pat Name: Len Sandoval Department: Room: Gender: Male Gas Pumper: : 1985 Requested By: Mindy Cherry Order Number: [id number] Skip MD: Ronald Navarro M.D. Measurements Intervals [place] Rate: 98 P: 54 [place]: 175 QRS: 6 QRSD: 109 T: 43 QT: 325 QTc: 415 Interpretive Statements SINUS RHYTHM LOW QRS VOLTAGE IN PRECORDIAL LEADS [QRS DEFLECTION < 1.0 mV IN CHEST LEADS] PATTERN CONSISTENT WITH PULMONARY DISEASE INCOMPLETE RIGHT BUNDLE BRANCH BLOCK [90+ ms QRS DURATION, TERMINAL R IN V1/V2, 40+ ms S IN I/aVL/V4/V5/V6] Compared to ECG 01/26/2023 06:27:23 No significant changes Electronically Signed On 11-30-2024 14:05:44 CDT by Ronald Navarro M.D. [email or web address]
--- OUTSIDE RECORDS SUMMARY | 2024-11-30 10:24 | XMS_ITS | Encounter Summary ---
Author Organization [employer] [facility] Address [address] [place] [address] Care Team Providers Care Record Changer Assembler Name Role Phone Charli Quispe MD Primary Care Provider [phone] Encounter Details Date Type Department Care Team (Latest Contact Info) Description 08/04/1998 Outpatient Historical [facility] Luis F Hall Jr., MD [address] [place] [id number] Simple or unspecified chronic serous otitis media (Primary Dx); Vaccine for viral hepatitis Social History Tobacco Use Types Packs/Day Years Used Date Smoking Tobacco: Never Assessed Sex and Gender Information Value Date Recorded Sex Assigned at Not on file 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
--- OUTSIDE RECORDS SUMMARY | 2024-11-30 10:24 | XMS_ITS | Encounter Summary ---
Author Organization [employer] [facility] Address [address] [place] [address] Care Team Providers Care Continuing Education Director Name Role Phone Charli Quispe MD Primary Care Provider [phone] Encounter Details Date Type Department Care Team (Latest Contact Info) Description 12/12/2001 Outpatient Historical [facility] Jose Cantor MD [address] [place] [address] DIABETES UNCOMPL ADULT-TYPE II (CMS/[facility]) (Primary Dx); HYPOGLYCEMIA NOS; OBESITY NOS Social History Tobacco Use Types Packs/Day Years Used Date Smoking Tobacco: Never Assessed Sex and Gender Information Value Date Recorded Sex Assigned at Not on file 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 Gender Identity Not on file Sexual Orientation Not on file documented as of this encounter Plan of Treatment Not on file documented as of this encounter Visit Diagnoses Diagnosis Type II or unspecified type diabetes mellitus without mention of complication, not stated as uncontrolled- Primary Hypoglycemia, unspecified Obesity, unspecified documented in this encounter Care Teams Continuing Education Director Relationship Specialty Start Date End Date Charli Quispe MD [address] [facility] [address] [place] [address] PCP - General Family Practice 07/26/16 documented as of this encounter
--- OUTSIDE RECORDS SUMMARY | 2024-11-30 10:24 | XMS_ITS | Encounter Summary ---
Author Organization [employer] [facility] Address [address] [place] [address] Care Team Providers Care Catering Convention Services Manager Name Role Phone Charli Quispe MD Primary Care Provider [phone] Encounter Details Date Type Department Care Team (Latest Contact Info) Description 04/18/2002 Outpatient Historical [facility] Jose Cantor MD [address] [place] [address] VIRAL ENTERITIS NOS (Primary Dx) Social History Tobacco Use Types Packs/Day Years Used Date Smoking Tobacco: Never Assessed Sex and Gender Information Value Date Recorded Sex Assigned at Not on file 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
--- OUTSIDE RECORDS SUMMARY | 2024-11-30 10:24 | XMS_ITS | Encounter Summary ---
Author Organization [employer] [facility] Address [address] [place] [address] Care Team Providers Care Advanced Developer Name Role Phone Charli Quispe MD Primary Care Provider [phone] Encounter Details Date Type Department Care Team (Latest Contact Info) Description 12/12/1998 Outpatient Historical [facility] Rafael Mittal, Luis F Puentes MD [address] [place] [id number] Cramp of limb (Primary Dx) Social History Tobacco Use Types Packs/Day Years Used Date Smoking Tobacco: Never Assessed Sex and Gender Information Value Date Recorded Sex Assigned at Not on file 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
--- OUTSIDE RECORDS SUMMARY | 2024-11-30 10:24 | XMS_ITS | Encounter Summary ---
Author Organization [employer] [facility] Address [address] [place] [address] Care Team Providers Care Sprayer Operator Name Role Phone Charli Quispe MD Primary Care Provider [phone] Encounter Details Date Type Department Care Team (Late st Contact Info) Description 07/19/2002 Outpatient Historical [facility] Luis F Hall Jr., MD [address] [place] [address] Social History Tobacco Use Types Packs/Day Years Used Date Smoking Tobacco: Never Assessed Sex and Gender Information Value Date Recorded Sex Assigned at Not on file 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
--- OUTSIDE RECORDS SUMMARY | 2024-11-30 10:24 | XMS_ITS | Encounter Summary ---
Author Organization [employer] [facility] Address [address] [place] [address] Care Team Providers Care Eyewear Consultant Name Role Phone Charli Quispe MD Primary Care Provider [phone] Encounter Details Date Type Department Care Team (Latest Contact Info) Description 12/04/1998 Outpatient Historical [facility] Luis F Hall Jr., MD [address] [place] [phone] Contusion of unspecified part of lower limb (Primary Dx); Contusion of unspecified site Social History Tobacco Use Types Packs/Day Years Used Date Smoking Tobacco: Never Assessed Sex and Gender Information Value Date Recorded Sex Assigned at Not on file 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
--- OUTSIDE RECORDS SUMMARY | 2024-11-30 10:24 | XMS_ITS | Encounter Summary ---
Author Organization [employer] [facility] Address [address] [place] [address] Care Team Providers Care Rehabilitation Attendant Name Role Phone Charli Quispe MD Primary Care Provider +1 -[phone] Encounter Details Date Type Department Care Team (Latest Contact Info) Description 02/26/1998 Outpatient Historical [facility] Aravind Coe NO ADDRESS ON FILE Sprain interphalangeal (Primary Dx) Social History Tobacco Use Types Packs/Day Years Used Date Smoking Tobacco: Never Assessed Sex and Gender Information Value Date Recorded Sex Assigned at Not on file 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
--- OUTSIDE RECORDS SUMMARY | 2024-11-30 10:24 | XMS_ITS | Encounter Summary ---
Author Organization [employer] 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
--- OUTSIDE RECORDS SUMMARY | 2024-11-30 10:24 | XMS_ITS | Encounter Summary ---
Author Organization [employer] [facility] Address [address] [place] [address] Care Team Providers Care Career Resource Specialist Name Role Phone Charli Quispe MD Primary Care Provider +1 -[phone] Encounter Details Date Type Department Care Team (Latest Contact Info) Description 04/30/1998 Outpatient Historical [facility] Luis F Hall Jr., MD [address] [place] [phone] Acute upper respiratory infections of unspecified site (Primary Dx); Obesity, unspecified; Atrophy of testis Social History Tobacco Use Types Packs/Day Years Used Date Smoking Tobacco: Never Assessed Sex and Gender Information Value Date Recorded Sex Assigned at Not on file 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
--- OUTSIDE RECORDS SUMMARY | 2024-11-30 10:24 | XMS_ITS | Clinical Summary ---
Author Organization [employer] Address [address] [facility] [address] Villavicencio: Epic Prelude ADT JOYCE SALAZAR [address] Care Team Providers Care Data Technical Lead Name Role Phone Charli Quispe MD Primary Care Provider +1 [phone] Allergies Active Allergy Reactions Criticality Noted Date Comments Sulfamethoxazole-Trimethoprim Anaphylaxis High 09/30 Medications carvediloL (COREG) 25 mg tablet TAKE ONE TABLET BY MOUTH TWICE DAILY WITH MEALS 180 Tablet 1 08/22/19 19 Active aspirin (ECOTRIN EC) 325 mg Tablet, Delayed Release (E.C.) TAKE ONE TABLET BY MOUTH EVERY DAY 90 Tablet 5 08/22/19 19 Active Zonisamide (ZONEGRAN) 100 mg capsule TAKE 1 CAPSULE BY MOUTH ONCE DAILY 30 Capsule 2 12/30/19 19 Active chlorthalidone (HYGROTON) 50 mg tablet TAKE 1 TABLET BY MOUTH ONCE DAILY (NEEDS APPOINTMENT) 15 Tablet 0 02/21/20 19 Active liraglutide (Victoza 2-Colt) 0.6 mg/0.1 mL (18 mg/3 mL)Indications: Type 2 diabetes mellitus with other circulatory complication, without long-term current use of insulin (CMS/[facility]) INJECT 1.2MG SUBCUTANEOUSLY EVERY DAY 6 mL 2 11/19/19 18 Active blood sugar diagnostic (OneTouch Ultra Blue Test Strip) Strip USE TO TEST BLOOD SUGAR TWICE DAILY 60 Strip 5 11/29/19 18 Active dapagliflozin (Farxiga) 5 mg TabletIndicatio ns:Type 2 diabetes mellitus with hyperglycemia, without long-term current use of insulin (CMS/HCC) TAKE ONE TABLET BY MOUTH EVERY DAY 30 Tablet 2 10/20/19 18 Active cyclobenzaprine (FLEXERIL) 10 mg tabletIndicatio ns:Chronic pain syndrome,Chroni c midline low back pain with left-sided sciatica,Entrap ment of left ulnar nerve TAKE ONE TABLET BY MOUTH TWICE DAILY NEEDED FOR PAIN OR SPASM 60 Tablet 2 11/19/19 18 Active atorvastatin (LIPITOR) 40 mg tablet TAKE ONE TABLET BY MOUTH EVERY DAY 90 Tablet 2 12/20/19 18 Active glipiZIDE (GLUCOTROL) 10 mg tabletIndicatio ns:Type 2 diabetes mellitus with hyperglycemia, without long-term current use of insulin (CMS/HCC) TAKE TWO TABLETS BY MOUTH TWICE DAILY WITH MEALS 120 Tablet 1 01/19/20 18 Active allopurinoL (ZYLOPRIM) 100 mg tablet TAKE ONE TABLET BY MOUTH EVERY DAY 90 Tablet 1 01/19/20 18 Active potassium chloride (MICRO-K EXTENCAPS) 10 mEq Extended Release capsule TAKE ONE CAPSULE BY MOUTH EVERY DAY 90 Capsule 1 02/17/20 18 Active lisinopriL (PRINIVIL) 20 mg tablet TAKE TWO TABLETS BY MOUTH EVERY DAY 180 Tablet 1 01/19/20 18 Active metFORMIN (GLUCOPHAGE) 1,000 mg tabletIndicatio ns:Type 2 diabetes mellitus with hyperglycemia, without long-term current use of insulin (CMS/HCC) TAKE ONE TABLET BY MOUTH TWICE DAILY WITH MEALS 180 Tablet 1 01/19/20 18 Active nebulizerIndica tions:Simple chronic bronchitis (CMS/HCC) Length of need 99 monthsNebulizer with compressor, Kit: Disposable Nebulizer Kit, 2 per month, filters , areosol mask: Yes. Name of Medication: Albuterol. 1 Each 0 04/05/20 17 Active cloNIDine (Hrdkvseg-MCO-6 ) 0.3 mg/24 hr patch APPLY ONE PATCH TO SKIN DIRECTED EVERY SEVEN DAYS 30 Patch 2 02/11/20 17 Active ondansetron (ZOFRAN) 4 mg TabletIndicatio ns:Nausea Take 1 Tablet (4 mg) by mouth every 8 hours as needed for Nausea/Emesis. 10 Tablet 1 08/18/19 17 Active cpap internist medical doctor md CPAP @@ cwp with heated humidifier. Length of need:{LENGTH OF NEED:[id number]:: 99 } mo; {Mask type:[id number]} mask with headgear q 6 mo; mask only q 3 mo; cushions q mo; Tubing {Tubing type:[id number]}, water chamber 1 per 3 months, chin strap 1 per 6 months, filters disposable 2 per month, filters reusable 1 per 6 months. . 10/01/19 16 Active pramipexole (MIRAPEX) 0.125 mg Tablet Take 0.125 mg by mouth daily . 10/01/19 16 Active desvenlafaxine (PRISTIQ) 100 mg Extended Release 24 hour tablet Take by mouth daily with breakfast . 10/01/19 16 Active amLODIPine (NORVASC) 10 mg tablet Take 10 mg by mouth daily. 10/01/19 16 Active Active Problems Problem Noted Date Diagnosed Date Type 2 diabetes mellitus wit h hyperglycemia, without long-term current use of insulin 08/15/2017 Simple chronic bronchitis 04/05/2017 Chronic pain syndrome 07/28/2016 GERD (gastroesophageal reflux disease) 7 Benign hypertension 07/23/2016 History of TIA (transient ischemic attack) and s troke 07/23/2016 Bipolar disorder in full remission 07/23/2016 Chronic midline low back pain without sciatica 0 07/23/2016 Overview (08/07/2020): Was seen by pain clinic in past Morbid obesity with BMI of 60.0-69.9, adult 07/10 Type 2 diabetes mellitus wit h circulatory disorder, without long-term current use of insulin 07/23/2016 Obstructive sleep apnea Overview (08/07/2020): on Nasal BIPAP Stroke-like symptoms Resolved Problems Problem Noted Date Diagnosed Date Resolved Date Acute nonintractable headache 07/23/2016 03/16/2017 Immunizations Immunization Administration Dates Next Due (M-M-R II/PRIORIX)(12 MO UP) MEASLES, MUMPS AND RUBELLA VIRUS VACCINE, 0.5 ML IM/SUBCUT 01/25/1994 (TDVAX)(7 YRS UP) TETANUS AN D DIPHTHERIA TOXOIDS, ADSORBED (2 LF OF TETANUS TOXOID AND 2 LF OF DIPHTHERIA TOXOID), 0.5ML (PF), IM 10/20/2001 Hepatitis B Vaccine 09/19/1998,08/04/1998 Family History * Patient is adopted Relation Name Status Comments Father Alive Mother Alive Social History Tobacco Use Types Packs/Day Years Used Date Smoking Tobacco: Former Cigarettes Smokeless Tobacco: Never Alcohol Use Standard Drinks/Week Comments No 0 (1 standard drink = 0.6 oz pur e alcohol) Sex and Gender Information Value Date Recorded Sex Assigned at Not on file 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 Gender Identity Not on file Sexual Orientation Not on file Last Filed Vital Signs Vital Sign Reading Time Taken Comments Blood Pressure 124/78 09/13/2017 2:57 PM CDT Pulse 109 09/13/2017 2:57 PM CDT Temperature 36.7 C (98 F) 09/13/2017 2:57 PM CDT Respiratory Rate 16 09/13/2017 2:57 PM CDT Oxygen Saturation - - Inhaled Oxygen Concentration - - Weight 162.8 kg (359 lb) 09/13/2017 2:57 PM CDT Height 162.6 cm (5' 4 ) 09/13/2017 2:57 PM CDT Body Mass Index 61.62 09/13/2017 2:57 PM CDT Plan of Treatment Health Maintenance Due Date Last Done Comments HEPATITIS B VACCINES (3 of 3 - 3-dose series) 11/24/1998 09/19/1998, 08/04/1998 HPV VACCINES (1 - Male 3-dos e series) 2000 DTAP/TDAP/TD VACCINES (2 - Tdap) 10/21/2001 10/21/19 02 DIABETES ANNUAL FOOT EXAM 11/23/2003 DIABETES ANNUAL RETINAL EXAM 11/23/2003 DIABETES HBA1C Q 6 MONTHS 06/15/20182017, 08/15/2017, 08/15/2017, Additional history exists DIABETES MICROALBUMIN ANNUAL SCREEN 12/16/2018 12/16/2017 LDL CHOLESTEROL ANNUAL 12/16/2018 8, 07/24/2016, 07/22/2016 INFLUENZA VACCINE (#1) 2024 Medical Devices Implanted Type Area Typing Pool Supervisor Device Identifier Shelf Expiration Date Model / Serial / Lot Lap Band Procedures Procedure Name Priority Date/Time Associated Diagnosis Comments MICROALBUMIN, RANDOM URINE Routine 12/16/2017 LIPID PANEL Routine 12/16/2017 HEMOGLOBIN A1C Routine 12/16/2017 from Last 3 Months or Most Recently Relevant to Health Maintenance Results * MICROALBUMIN, RANDOM URINE (12/16/2017) ABSTRACTED MICROALBUMIN,URI NE 8.0 EXTERNAL LAB MICROALBUMIN, URINE EXTERNAL LAB CREATININE, URINE EXTERNAL LAB MICROALBUMIN/CRE AT RATIO, UR EXTERNAL LAB MICROALBUMIN, URINE ^ mg/dL EXTERNAL LAB CREATININE, URINE ^ 40.0 - 278.0 mg/dL EXTERNAL LAB MICROALBUMIN/CRE AT RATIO, UR ^ 17.0 mg/g EXTERNAL LAB Urine URINE SPECIMEN OBTAINED BY CLEAN CATCH PROCEDURE / Unknown 12/16/2017 Narrative EXTERNAL LAB - 12/16/2017 12:00 AM CDT This order was created through External Result Entry us Abstract [facility] Provider URINE ORDERABLES Final Res ult Performing Organization Address [facility] [address] [facility] de Phone Number EXTERNAL LAB * HEMOGLOBIN A1C (12/16/2017) ABSTRACTED HGB A1C 8.0 EXTERNAL LAB HEMOGLOBIN A1C ^ 4.7 - 6.4 % EXTERNAL LAB HEMOGLOBIN A1C EXTERNAL LAB GLUCOSE, MEAN BLOOD EXTERNAL LAB Blood 12/16/2017 Narrative EXTERNAL LAB - 12/16/2017 12:00 AM CDT This order was created through External Result Entry us Abstract [facility] Provider CHEMISTRY ORDERABLES Final Result Performing Organization Address [facility] [address]/[facility] de Phone Number EXTERNAL LAB * LIPID PANEL (12/16/2017) ABSTRACTED CHOLESTEROL 131 EXTERNAL LAB ABSTRACTED TRIGLYCERIDE 344 EXTERNAL LAB ABSTRACTED HDL 36 EXTERNAL LAB ABSTRACTED LDL CALCULATED 26 EXTERNAL LAB CHOLESTEROL ^ 200 mg/dL EXTERNAL LAB TRIGLYCERIDE ^ 150 mg/dL EXTERNAL LAB HDL ^ 40 - 59 mg/dL EXTERNAL LAB LDL CALCULATED ^ 100 mg/dL EXTERNAL LAB Blood 12/16/2017 Narrative EXTERNAL LAB - 12/16/2017 12:00 AM CDT This order was created through External Result Entry us Abstract [facility] Provider CHEMISTRY ORDERABLES Final Result Performing Organization Address City/[facility] [address]/[facility] Co de Phone Number EXTERNAL LAB from Last 3 Months or Most Recently Relevant to Health Maintenance Care Teams Data Technical Lead Relationship Specialty Start Date End Date Charli Quispe MD [address] [phone] PCP - General Family Practice 07/26/16
--- OUTSIDE RECORDS SUMMARY | 2024-11-30 10:24 | XMS_ITS | Encounter Summary ---
Author Organization [employer] 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
--- OUTSIDE RECORDS SUMMARY | 2024-11-30 10:24 | XMS_ITS | Encounter Summary ---
Author Organization [email or web address] [facility] Address [address] [place] [address] Care Team Providers Care Test Lead Name Role Phone Charli Quispe MD Primary Care Provider +1 -[phone] Encounter Details Date Type Department Care Team (Latest Contact Info) Description 03/20/2003 Outpatient Historical [facility] Jose Cantor MD [address] [place] [address] SLEEP DISTURBANCE NOS (Primary Dx); ELEV BL PRES W/O HYPERTN; MORBID OBESITY (CMS/HCC) Social History Tobacco Use Types Packs/Day Years Used Date Smoking Tobacco: Never Assessed Sex and Gender Information Value Date Recorded Sex Assigned at Not on file 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
--- OUTSIDE RECORDS SUMMARY | 2024-11-30 10:24 | XMS_ITS | Encounter Summary ---
Author Organization [employer] [facility] Address [address] [place] [address] Care Team Providers Care Nursing Informatics Clinical Analyst Name Role Phone Charli Quispe MD Primary Care Provider +1 -[phone] Encounter Details Date Type Department Care Team (Latest Contact Info) Description 10/20/2001 Outpatient Historical [facility] Luis F Hall Jr., MD [address] [place] [address] OBESITY NOS (Primary Dx); VACCINE FOR TETANUS + DIPHTHERIA Social History Tobacco Use Types Packs/Day Years Used Date Smoking Tobacco: Never Assessed Sex and Gender Information Value Date Recorded Sex Assigned at Not on file 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
--- OUTSIDE RECORDS SUMMARY | 2024-11-30 10:24 | XMS_ITS | Encounter Summary ---
Author Organization [employer] [facility] Address [address] [place] [address] Care Team Providers Care Spragger Name Role Phone Charli Quipse MD Primary Care Provider +1 -[phone] Encounter Details Date Type Department Care Team (Latest Contact Info) Description 11/24/2001 Outpatient Historical [facility] Luis F Hall Jr., MD [address] [place] [address] HYPERLIPIDEMIA NEC/NOS (Primary Dx); ADV EFFECT MED/BIOL SUB NOS; OBESITY NOS; DEPRESSIVE DISORDER NEC Social History Tobacco Use Types Packs/Day Years Used Date Smoking Tobacco: Never Assessed Sex and Gender Information Value Date Recorded Sex Assigned at Not on file 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 Gender Identity Not on file Sexual Orientation Not on file documented as of this encounter Plan of Treatment Not on file documented as of this encounter Visit Diagnoses Diagnosis Other and unspecified hyperlipidemia- Primary Other and unspecified adverse effect of drug, medicinal and biological substance Obesity, unspecified Depressive disorder, not elsewhere classified documented in this encounter Care Teams Spragger Relationship Specialty Start Date End Date Charli Quispe MD [address] [facility] [address] [place] [address] PCP - General Family Practice 07/26/16 documented as of this encounter
--- OUTSIDE RECORDS SUMMARY | 2024-11-30 10:24 | XMS_ITS | Encounter Summary ---
Author Organization [employer] [facility] Address [address] [place] [address] Care Team Providers Care Film Process Operator Name Role Phone Charli Quispe MD Primary Care Provider +1 -[phone] Encounter Details Date Type Department Care Team (Latest Contact Info) Description 01/29/2002 Outpatient Historical [facility] Luis F Hall Jr., MD [address] [place] [address] DIABETES UNCOMPL ADULT-TYPE II (CMS/HCC) (Primary Dx); ABNORMAL CLINICAL FINDING NEC Social History Tobacco Use Types Packs/Day Years Used Date Smoking Tobacco: Never Assessed Sex and Gender Information Value Date Recorded Sex Assigned at Not on file 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
--- OUTSIDE RECORDS SUMMARY | 2024-11-30 10:24 | XMS_ITS | Encounter Summary ---
Author Organization [employer] [facility] Address [address] [place] [address] Care Team Providers Care Warp Spinner Name Role Phone Charli Quispe MD Primary Care Provider +1 -[phone] Encounter Details Date Type Department Care Team (Latest Contact Info) Description 08/06/1999 Outpatient Historical [facility] Luis F Hall Jr., MD [address] [place] [address] Vaccine for viral hepatitis (Primary Dx); Attention to dressings and sutures Social History Tobacco Use Types Packs/Day Years Used Date Smoking Tobacco: Never Assessed Sex and Gender Information Value Date Recorded Sex Assigned at Not on file 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
--- OUTSIDE RECORDS SUMMARY | 2024-11-30 10:24 | XMS_ITS | Encounter Summary ---
Author Organization [facility] Address [address] [place] [address] Care Team Providers Care Sales Office Assistant Name Role Phone Charli Quispe MD Primary Care Provider +1 -[phone] Encounter Details Date Type Department Care Team (Latest Contact Info) Description 02/12/2000 Outpatient Historical [facility] Luis F Hall Jr., MD [address] [place] [address] Myalgia and myositis, unspecified (Primary Dx); Pain in joint, shoulder region; Pain in limb; Pain in joint, upper arm Social History Tobacco Use Types Packs/Day Years Used Date Smoking Tobacco: Never Assessed Sex and Gender Information Value Date Recorded Sex Assigned at Not on file 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
--- OUTSIDE RECORDS SUMMARY | 2024-11-30 10:24 | XMS_ITS | Encounter Summary ---
Author Organization [employer] [facility] Address [address] [place] [address] Care Team Providers Care Physiotherapist'S Assistant Name Role Phone Charli Quispe MD Primary Care Provider +1 -[phone] Encounter Details Date Type Department Care Team (Latest Contact Info) Description 12/07/2001 Outpatient Historical [facility] Luis F Hall Jr., MD [address] [place] [address] ADV EFFECT MED/BIOL SUB NOS (Primary Dx) Social History Tobacco Use Types Packs/Day Years Used Date Smoking Tobacco: Never Assessed Sex and Gender Information Value Date Recorded Sex Assigned at Not on file 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
--- OUTSIDE RECORDS SUMMARY | 2024-11-30 10:24 | XMS_ITS | Encounter Summary ---
Author Organization [employer] [facility] Address [address] [place] [address] Care Team Providers Care Plumber Helper Name Role Phone Charli Quispe MD Primary Care Provider +1 [phone] Encounter Details Date Type Department Care Team (Latest Contact Info) Description 07/19/2002 Outpatient Historical [facility] Luis F Hall Jr., MD [address] [place] [address] SHORTNESS OF BREATH (Primary Dx); DIABETES UNCOMPL ADULT-TYPE II (CMS/HCC); OBESITY NOS Social History Tobacco Use Types Packs/Day Years Used Date Smoking Tobacco: Never Assessed Sex and Gender Information Value Date Recorded Sex Assigned at Not on file Legal 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
--- OUTSIDE RECORDS SUMMARY | 2024-11-30 10:24 | XMS_ITS | Encounter Summary ---
Author Organization [facility] Address [address] [place] [address] Care Team Providers Care Agriculture Extension Specialist Name Role Phone Charli Quispe MD Primary Care Provider +1 [phone] Encounter Details Date Type Department Care Team (Latest Contact Info) Description 01/26/[address] 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
--- OUTSIDE RECORDS SUMMARY | 2024-11-30 10:24 | XMS_ITS | Clinical Summary ---
Author Organization [facility] Address [address] [place] [address] Phone Care Team Providers Care Steel Rule Die Maker Name Role Phone Charli Quispe MD Primary Care Provider +1 [phone] Allergies Active Allergy Reactions Criticality Noted Date Comments Sulfamethoxazole-Trimethoprim Anaphylaxis High 09/30 Medications pramipexole (MIRAPEX) 0.125 mg Tablet Take 0.125 mg by mouth daily . Active amLODIPine (NORVASC) 10 mg tablet Take 10 mg by mouth daily. Active cpap manager medical affairs CPAP @@ cwp with heated humidifier. Length of need:{LENGTH OF NEED:[id number]:: 99 } mo; {Mask type:23423191} mask with headgear q 6 mo; mask only q 3 mo; cushions q mo; Tubing {Tubing type:11189397}, water chamber 1 per 3 months, chin strap 1 per 6 months, filters disposable 2 per month, filters reusable 1 per 6 months. . Active desvenlafaxine (PRISTIQ) 100 mg Extended Release 24 hour tabletIndicatio ns:per [facility] Take by mouth daily with breakfast . Active ondansetron (ZOFRAN, HYDROCHLORIDE,) 4 mg TabletIndicatio ns:Nausea Take 1 Tablet (4 mg) by mouth every 8 hours as needed for Nausea/Emesis. 10 Tablet 1 08/18/19 17 Active HKDQDEOM-YYE-0 0.3 mg/24 hr patch APPLY ONE PATCH TO SKIN DIRECTED EVERY SEVEN DAYS 30 Patch 2 02/11/20 17 Active nebulizerIndica tions:Simple chronic bronchitis (CMS/HCC) Length of need 99 months Nebulizer with compressor, Kit: Disposable Nebulizer Kit, 2 per month, filters , areosol mask: Yes. Name of Medication: Albuterol. 1 Each 04/05/20 17 Active FARXIGA 5 mg TabletIndicatio ns:Type 2 diabetes mellitus with hyperglycemia, without long-term current use of insulin ([facility]/HCC) TAKE ONE TABLET BY MOUTH EVERY DAY 30 Tablet 2 10/20/19 18 Active VICTOZA 2-REE 0.6 mg/0.1 mL (18 mg/3 mL)Indications: Type 2 diabetes mellitus with other circulatory complication, without long-term current use of insulin (CMS/[facility]) INJECT 1.2MG SUBCUTANEOUSLY EVERY DAY 6 mL 2 11/19/19 18 Active cyclobenzaprine (FLEXERIL) 10 mg tabletIndicatio ns:Chronic pain syndrome,Chroni c midline low back pain with left-sided sciatica,Entrap ment of left ulnar nerve TAKE ONE TABLET BY MOUTH TWICE DAILY NEEDED FOR PAIN OR SPASM 60 Tablet 2 11/19/19 18 Active ONETOUCH ULTRA BLUE TEST STRIP Strip USE TO TEST BLOOD SUGAR TWICE DAILY 60 Strip 5 11/29/19 18 Active atorvastatin (LIPITOR) 40 mg tablet TAKE ONE TABLET BY MOUTH EVERY DAY 90 Tablet 2 12/20/19 18 Active allopurinol (ZYLOPRIM) 100 mg tablet TAKE ONE TABLET BY MOUTH EVERY DAY 90 Tablet 1 01/19/20 18 Active glipiZIDE (GLUCOTROL) 10 mg tabletIndicatio ns:Type 2 diabetes mellitus with hyperglycemia, without long-term current use of insulin ([facility]) TAKE TWO TABLETS BY MOUTH TWICE DAILY WITH MEALS 120 Tablet 1 01/19/20 18 Active metFORMIN (GLUCOPHAGE) 1,000 mg tabletIndicatio ns:Type 2 diabetes mellitus with hyperglycemia, without long-term current use of insulin (CMS/HCC) TAKE ONE TABLET BY MOUTH TWICE DAILY WITH MEALS 180 Tablet 1 01/19/20 18 Active lisinopril (PRINIVIL) 20 mg tablet TAKE TWO TABLETS BY MOUTH EVERY DAY 180 Tablet 1 01/19/20 18 Active potassium chloride (MICRO-K EXTENCAPS) 10 mEq Extended Release capsule TAKE ONE CAPSULE BY MOUTH EVERY DAY 90 Capsule 1 02/17/20 18 Active carvedilol (COREG) 25 mg tablet TAKE ONE TABLET [...] MOUTH ONCE DAILY (NEEDS APPOINTMENT) 15 Tablet 02/21/20 19 Active Active Problems Problem Noted Date Diagnosed Date Type 2 diabetes mellitus wit h hyperglycemia, without long-term current use of insulin 08/15/2017 Simple chronic bronchitis 04/05/2017 Chronic pain syndrome 07/28/2016 GERD (gastroesophageal reflux disease) 7 History of TIA (transient ischemic attack) and s troke 07/23/2016 Benign hypertension 07/23/2016 Bipolar disorder in full remission 07/23/2016 Morbid obesity with BMI of 60.0-69.9, adult 07/10 Type 2 diabetes mellitus wit h circulatory disorder, without long-term current use of insulin 07/23/2016 Chronic midline low back pain without sciatica 0 07/23/2016 Overview (07/23/2016): Was seen by pain clinic in past Obstructive sleep apnea Overview (07/23/2016): on Nasal BIPAP Stroke-like symptoms Resolved Problems [...] Smoking Tobacco: Former Cigarettes Smokeless Tobacco: Never Tobacco Cessation:Counseling Given: Yes Alcohol Use Standard Drinks/Week Comments No 0 (1 standard drink = 0.6 oz pur e alcohol) Sex and Gender Information Value Date Recorded Sex Assigned at Not on file 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 Gender Identity Not on file Sexual Orientation Not on file Occupation Industry Job Start Date Job End Date disabled Not on file Not on file Not on file Last Filed Vital Signs Vital Sign Reading Time Taken Comments Blood Pressure 124/78 09/13/2017 2:57 PM CDT Pulse 109 09/13/2017 2:57 PM CDT Temperature 36.7 C (98 F) 09/13/2017 2:57 PM CDT Respiratory Rate 16 09/13/2017 2:57 PM CDT Oxygen Saturation 99% 09/13/2017 2:57 PM CDT Inhaled Oxygen Concentration - - Weight 162.8 [...] EXAM 11/23/2003 DIABETES ANNUAL RETINAL EXAM 11/23/2003 Preventative Visit-Managed Medicaid 2004 DIABETES HBA1C Q 6 MONTHS 06/15/20182017, 08/15/2017, 03/16/2017, Additional history exists DIABETES MICROALBUMIN ANNUAL SCREEN 12/16/2018 12/16/2017, 12/25/2001 LDL CHOLESTEROL ANNUAL 12/16/2018 8, 07/24/2016, 07/22/2016, Additional history exists INFLUENZA VACCINE (#1) 2024 Medical Devices Implanted Type Area Supervisor Tumblers Device Identifier Shelf Expiration Date Model / Serial / Lot Lap Band Procedures Procedure Name Priority Date/Time Associated Diagnosis Comments MICROALBUMIN, RANDOM URINE Routine 12/16/2017 LIPID PANEL Routine 12/16/2017 HEMOGLOBIN A1C Routine 08/15/2017 12:30 PM CDT Type 2 diabetes mellitus with hyperglycemia, without long-term current use of insulin ([facility]) from Last 3 Months or Most Recently Relevant to Health Maintenance Results * MICROALBUMIN, RANDOM URINE (12/16/2017) Pathologist [facility] ABSTRACTED MICROALBUMIN,URI NE 8.0 EXTERNAL LAB MICROALBUMIN, URINE mg/dL EXTERNAL LAB CREATININE, URINE EXTERNAL LAB MICROALBUMIN/CRE AT RATIO, UR EXTERNAL LAB MICROALBUMIN, URINE mg/dL EXTERNAL LAB CREATININE, URINE 40.0 - 278.0 mg/dL EXTERNAL LAB MICROALBUMIN/CRE AT RATIO, UR <=17.0 mg/g EXTERNAL LAB Urine URINE SPECIMEN OBTAINED BY CLEAN CATCH PROCEDURE / Unknown 12/16/2017 us Abstract [facility] Provider URINE ORDERABLES Final Res ult Performing Organization Address City/[facility]/ZIP Co de Phone Number EXTERNAL LAB * LIPID PANEL (12/16/2017) Pathologist [facility] ABSTRACTED CHOLESTEROL 131 EXTERNAL LAB ABSTRACTED TRIGLYCERIDE 344 EXTERNAL LAB ABSTRACTED HDL 36 EXTERNAL LAB ABSTRACTED LDL CALCULATED 26 EXTERNAL LAB CHOLESTEROL <=200 mg/dL EXTERNAL LAB TRIGLYCERIDE <=150 mg/dL EXTERNAL LAB HDL 40 - 59 mg/dL EXTERNAL LAB LDL CALCULATED <=100 mg/dL EXTERNAL LAB Blood 12/16/2017 us Abstract Sp Provider CHEMISTRY ORDERABLES Final Result EXTERNAL LAB * (ABNORMAL) HEMOGLOBIN A1C (08/15/2017 12:30 PM CDT) Pathologist [facility] HEMOGLOBIN A1C 9.7(H) 4.0 - 6.0 % 08/15/2017 9:05 PM CDT [facility] EST. AVG GLUCOSE, A1C 232 mg/dL 08/15/2017 9:05 PM CDT [facility] Blood Collection / Unknown 08/15/2017 12:30 PM CDT 08/15/2017 8:50 PM CDT Narrative [facility] - 08/15/2017 9:05 PM CDT Falsely low A1C measurements can occur when: 1. Anemia and/or hemolytic anemia is present. 2. Hemoglobin variants present. 3. Renal failure. 4. Transfusion of blood product in the last 120 days. We recommend ordering a fructosamine test([id number]) to more accurately assess glycemic status if any of the above conditions are present. Charli Quispe MD CHEMISTRY ORDERABLES Ksenia l Result [facility] CLIA# [id number] [address] [place] [address] from Last 3 Months or Most Recently Relevant to Health Maintenance Insurance MEDICAID [place] Advance Directives For more information, please contact: [phone] * Full Code (Latest Code Status on File) Date Activated Date Inactivated Comments 07/23/2016 12:07 PM 07/25/2016 1:56 PM Care Teams Steel Rule Die Maker Relationship Specialty Start Date End Date Charli Quispe MD [address] [phone] PCP - General Family Practice 07/26/16
--- OUTSIDE RECORDS SUMMARY | 2024-11-30 10:24 | XMS_ITS | Encounter Summary ---
Author Organization [facility] Address [address] [place] [address] Care Team Providers Care Detailer Name Role Phone Charli Quispe MD Primary Care Provider +1 [phone] Encounter Details Date Type Department Care Team (Latest Contact Info) Description 12/25/2001 Outpatient Historical [facility] Luis F Hall Jr., MD [address] [place] [phone] FINGER INJURY NOS (Primary Dx); CONTUSION OF FINGER; DIABETES UNCOMPL ADULT-TYPE II (CMS/HCC); OBESITY NOS Social History Tobacco Use Types Packs/Day Years Used Date Smoking Tobacco: Never Assessed Sex and Gender Information Value Date Recorded Sex Assigned at Not on file 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 Gender Identity Not on file Sexual Orientation Not on file documented as of this encounter Plan of Treatment Not on file documented as of this encounter Visit Diagnoses Diagnosis Injury, other and unspecified, finger- Primary Contusion of finger Type II or unspecified type diabetes mellitus without mention of complication, not stated as uncontrolled Obesity, unspecified documented in this encounter Care Teams Detailer Relationship Specialty Start Date End Date Charli Quispe MD [address] [facility] [address] [place] [address] PCP - General Family Practice 07/26/16 documented as of this encounter
--- OUTSIDE RECORDS SUMMARY | 2024-11-30 10:24 | XMS_ITS | Encounter Summary ---
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
--- OUTSIDE RECORDS SUMMARY | 2024-11-30 10:24 | XMS_ITS | Encounter Summary ---
Author Organization [employer] [facility] Address [address] [place] [address] Care Team Providers Care Soil Conservation Aide Name Role Phone Charli Quispe MD Primary Care Provider +1 [phone] Encounter Details Date Type Department Care Team (Latest Contact Info) Description 07/17/1998 Outpatient Historical [facility] Luis F Hall Jr., MD [address] [place] [address] Depressive disorder, not elsewhere classified (Primary Dx) Social History Tobacco Use Types Packs/Day Years Used Date Smoking Tobacco: Never Assessed Sex and Gender Information Value Date Recorded Sex Assigned at Not on file 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
--- OUTSIDE RECORDS SUMMARY | 2024-11-30 10:24 | XMS_ITS | Encounter Summary ---
Author Organization [employer] [facility] Address [address] [place] [address] Care Team Providers Care Nurse Assistant Name Role Phone Charli Quispe MD Primary Care Provider +1 -[phone] Encounter Details Date Type Department Care Team (Latest Contact Info) Description 06/16/2001 Outpatient Historical [facility] Luis F Hall Jr., MD [address] [place] [address] Sprain rotator cuff (Primary Dx) Social History Tobacco Use Types Packs/Day Years Used Date Smoking Tobacco: Never Assessed Sex and Gender Information Value Date Recorded Sex Assigned at Not on file 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
--- OUTSIDE RECORDS SUMMARY | 2024-11-30 10:24 | XMS_ITS | Encounter Summary ---
Author Organization [employer] [facility] Address [address] [place] [address] Care Team Providers Care Electrician Journeyman Wireman Name Role Phone Charli Quispe MD Primary Care Provider +1 -[phone] Encounter Details Date Type Department Care Team (Latest Contact Info) Description 09/19/1998 Outpatient Historical [facility] Luis F Hall Jr., MD [address] [place] [address] Vaccine for viral hepatitis (Primary Dx) Social History Tobacco Use Types Packs/Day Years Used Date Smoking Tobacco: Never Assessed Sex and Gender Information Value Date Recorded Sex Assigned at Not on file 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
--- OUTSIDE RECORDS SUMMARY | 2024-11-30 10:24 | XMS_ITS | Encounter Summary ---
Author Organization [employer] [facility] Address [address] [place] [address] Care Team Providers Care Community Health Planning Director Name Role Phone Charli Quispe MD Primary Care Provider +1 [phone] Encounter Details Date Type Department Care Team (Latest Contact Info) Description 07/03/1999 Outpatient Historical [facility] Luis F Hall Jr., MD [address] [place] [address] Myalgia and myositis, unspecified (Primary Dx) Social History Tobacco Use Types Packs/Day Years Used Date Smoking Tobacco: Never Assessed Sex and Gender Information Value Date Recorded Sex Assigned at Not on file Legal 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
--- OUTSIDE RECORDS SUMMARY | 2024-11-30 10:24 | XMS_ITS | Encounter Summary ---
Author Organization [employer] [facility] Address [address] [place] [address] Care Team Providers Care Cvir Tech Name Role Phone Charli Quispe MD Primary Care Provider +1 [phone] Encounter Details Date Type Department Care Team (Latest Contact Info) Description 12/31/1998 Outpatient Historical [facility] Rafael Mittal, Luis F Puentes MD [address] [place] [address] Pain in limb (Primary Dx) Social History Tobacco Use Types Packs/Day Years Used Date Smoking Tobacco: Never Assessed Sex and Gender Information Value Date Recorded Sex Assigned at Not on file 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
== END 2024-11-30 10:47 | disposition left against medical advice (07) ==
LOC: ER 10:20
PROVIDERS: Emergency Provider Family Medicine; PCP Electrodiagnostic Medicine
DX: Z53.21 Procedure and treatment not carried out due to patient leaving prior to being seen by health care provider (principal); R94.31 Abnormal electrocardiogram [ECG] [EKG]
CPT/HCPCS: 93005; 99285

== ENCOUNTER 2024-12-01 01:15 | Emergency (ER) | payer MEDICAID, SELFPAY ==
[2024-12-01] VITALS (8 sets, daily range): BP systolic 133–180; BP diastolic 87–143; PULSE 82–116; RESP 13–20; TEMP 36.6; O2SAT 92–98; BMI 55.3
--- OUTSIDE RECORDS SUMMARY | 2024-12-01 01:23 | XMS_ITS | Encounter Summary ---
Author Organization [employer] [facility] Address [address] [place] [address] Care Team Providers Care Binding Bench Worker Name Role Phone Charli Quispe MD Primary Care Provider +1 [phone] Encounter Details Date Type Department Care Team (Latest Contact Info) Description 07/19/2002 Outpatient Historical 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
--- OUTSIDE RECORDS SUMMARY | 2024-12-01 01:23 | XMS_ITS | Encounter Summary ---
Author Organization [employer] [facility] Address [address] [place] [address] Care Team Providers Care Mine Inspector Name Role Phone Charli Quispe MD Primary Care Provider +1 [phone] Encounter Details Date Type Department Care Team (Latest Contact Info) Description 08/09/2002 Outpatient Historical [facility] Rafael Mittal, Luis F Puentes MD [address] [place] [phone] UNS ASTHMA WOSTATUS ASTHMATICUS (Primary Dx) Social History Tobacco Use Types Packs/Day Years Used Date Smoking Tobacco: Never Assessed Sex and Gender Information Value Date Recorded Sex Assigned at Not on file 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
--- OUTSIDE RECORDS SUMMARY | 2024-12-01 01:23 | XMS_ITS | Encounter Summary ---
Author Organization [employer] [facility] Address [address] [place] [address] Care Team Providers Care Steel Turner Name Role Phone Charli Quispe MD Primary Care Provider +1 -[phone] Encounter Details Date Type Department Care Team (Latest Contact Info) Description 03/20/2003 Outpatient Historical [facility] Jose Cantor MD [address] [place] [address] SLEEP DISTURBANCE NOS (Primary Dx); ELEV BL PRES W/O HYPERTN; MORBID OBESITY (CMS/HCC) Social History Tobacco Use Types Packs/Day Years Used Date Smoking Tobacco: Never Assessed Sex and Gender Information Value Date Recorded Sex Assigned at Not on file Legal Sex Male 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
--- OUTSIDE RECORDS SUMMARY | 2024-12-01 01:24 | XMS_ITS | Encounter Summary ---
Author Organization [employer] [facility] Address [address] [place] [address] Care Team Providers Care Ignition Mechanic Name Role Phone Charli Quispe MD Primary Care Provider +1 -[phone] Encounter Details Date Type Department Care Team (Latest Contact Info) Description 12/12/2001 Outpatient Historical [facility] Jose Cantor MD [address] [place] [address] DIABETES UNCOMPL ADULT-TYPE II (CMS/[facility]) (Primary Dx); HYPOGLYCEMIA NOS; OBESITY NOS Social History Tobacco Use Types Packs/Day Years Used Date Smoking Tobacco: Never Assessed Sex and Gender Information Value Date Recorded Sex Assigned at Not on file Legal 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
--- OUTSIDE RECORDS SUMMARY | 2024-12-01 01:24 | XMS_ITS | Clinical Summary ---
Author Organization [employer] Address [address] [facility] [address] Villavicencio: Epic Prelude ADT JOYCE SALAZAR [address] Care Team Providers Care Manager Software Development Name Role Phone Charli Quispe MD Primary Care Provider +1 -[phone] Allergies Active Allergy Reactions Criticality Noted Date [...] complication, without long-term current use of insulin (CMS/[facility]) INJECT 1.2MG SUBCUTANEOUSLY EVERY DAY 6 mL [...] 1 Each 0 04/05/20 17 Active cloNIDine (Yvjhwxsq-ZCI-5 ) 0.3 mg/24 hr patch APPLY ONE PATCH TO SKIN DIRECTED EVERY SEVEN DAYS 30 Patch 2 02/11/20 17 Active ondansetron (ZOFRAN) 4 mg TabletIndicatio ns:Nausea Take 1 Tablet (4 mg) by mouth every 8 hours as needed for Nausea/Emesis. 10 Tablet 1 08/18/19 17 Active cpap medical insurance claims processor CPAP @@ cwp with heated humidifier. 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 Provider URINE ORDERABLES Final Res ult Performing Organization Address [facility] de Phone Number EXTERNAL LAB * HEMOGLOBIN A1C (12/16/2017) ABSTRACTED HGB A1C 8.0 EXTERNAL LAB HEMOGLOBIN A1C ^ 4.7 - 6.4 % EXTERNAL LAB HEMOGLOBIN A1C EXTERNAL LAB GLUCOSE, MEAN BLOOD EXTERNAL LAB Blood 12/16/2017 Narrative EXTERNAL LAB - 12/16/2017 12:00 AM CDT This order was created through External Result Entry us Abstract [facility] Provider CHEMISTRY ORDERABLES Final Result Performing Organization Address [facility] de Phone Number EXTERNAL LAB * LIPID [...] created through External Result Entry us Abstract [facility] Provider CHEMISTRY ORDERABLES Final Result Performing Organization Address City/[facility] Co de Phone Number EXTERNAL LAB from Last 3 Months or Most Recently Relevant to Health Maintenance Care Teams Manager Software Development Relationship Specialty Start Date End Date Charli Quispe MD [address] [phone] PCP - General Family Practice 07/26/16
--- OUTSIDE RECORDS SUMMARY | 2024-12-01 01:24 | XMS_ITS | Encounter Summary ---
Author Organization [facility] Address [address] [place] [address] Care Team Providers Care Manager Medicare Marketing Name Role Phone Charli Quispe MD Primary Care Provider +1 [phone] Encounter Details Date Type Department Care Team (Latest Contact Info) Description 01/26/2002 Outpatient Historical [facility] [address] [place] [phone] Martín Hopper MD NO ADDRESS ON FILE ABNORMAL WEIGHT GAIN (Primary Dx); ABN GLUCOSE TOLERAN TEST Social History Tobacco Use Types Packs/Day Years Used Date Smoking Tobacco: Never Assessed Sex and Gender Information Value Date Recorded Sex Assigned at Not on file Legal 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
--- OUTSIDE RECORDS SUMMARY | 2024-12-01 01:24 | XMS_ITS | Encounter Summary ---
Author Organization [employer] [facility] Address [address] [place] [address] Care Team Providers Care Filling Hauler Weaving Name Role Phone Charli Quispe MD Primary Care Provider +1 -[phone] Encounter Details Date Type Department Care Team (Latest Contact Info) Description 12/04/1998 Outpatient Historical [facility] Luis F Hall Jr., MD [address] [place] [phone] Contusion of unspecified part of lower limb (Primary Dx); Contusion of unspecified site Social History Tobacco Use Types Packs/Day Years Used Date Smoking Tobacco: Never Assessed Sex and Gender Information Value Date Recorded Sex Assigned at Not on file 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
--- OUTSIDE RECORDS SUMMARY | 2024-12-01 01:24 | XMS_ITS | Encounter Summary ---
Author Organization [employer] [facility] Address [address] [place] [address] Care Team Providers Care Hotel Controller Name Role Phone Charli Quispe MD Primary Care Provider +1 -[phone] Encounter Details Date Type Department Care Team (Latest Contact Info) Description 06/16/2001 Outpatient Historical [facility] Luis F Hall Jr., MD [address] [place] [phone] Sprain rotator cuff (Primary Dx) Social History Tobacco Use Types Packs/Day Years Used Date Smoking Tobacco: Never Assessed Sex and Gender Information Value Date Recorded Sex Assigned at Not on file 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
--- OUTSIDE RECORDS SUMMARY | 2024-12-01 01:24 | XMS_ITS | Encounter Summary ---
Author Organization [facility] Address [address] [place] [address] Care Team Providers Care Casting Repairer Name Role Phone Charli Quispe MD Primary Care Provider +1 -[phone] Encounter Details Date Type Department Care Team (Latest Contact Info) Description 02/12/2000 Outpatient Historical 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
--- OUTSIDE RECORDS SUMMARY | 2024-12-01 01:24 | XMS_ITS | Encounter Summary ---
Author Organization [employer] [facility] Address [address] [place] [address] Care Team Providers Care Market Development Specialist Name Role Phone Charli Quispe MD Primary Care Provider +1 -[phone] Encounter Details Date Type Department Care Team (Latest Contact Info) Description 07/17/1998 Outpatient Historical [facility] Luis F Hall Jr., MD [address] [place] [phone] Depressive disorder, not elsewhere classified (Primary Dx) Social History Tobacco Use Types Packs/Day Years Used Date Smoking Tobacco: Never Assessed Sex and Gender Information Value Date Recorded Sex Assigned at Not on file 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
--- OUTSIDE RECORDS SUMMARY | 2024-12-01 01:24 | XMS_ITS | Encounter Summary ---
Author Organization [employer] [facility] Address [address] [place] [address] Care Team Providers Care Live Truck Technician Name Role Phone Charli Quispe MD Primary Care Provider +1 -[phone] Encounter Details Date Type Department Care Team (Latest Contact Info) Description 08/06/1999 Outpatient Historical [facility] Luis F Hall Jr., MD [address] [place] [address] Vaccine for viral hepatitis (Primary Dx); Attention to dressings and sutures Social History Tobacco Use Types Packs/Day Years Used Date Smoking Tobacco: Never Assessed Sex and Gender Information Value Date Recorded Sex Assigned at Not on file Legal Sex Male 2:37 AM OUTSIDE CUTTER HAND Gender Identity Not on file Sexual Orientation Not on file documented as of this encounter Plan of Treatment Not on file documented as of this encounter Visit Diagnoses Diagnosis Vaccine for viral hepatitis- Primary Need for prophylactic vaccination and inoculation against viral hepatitis Attention to dressings and sutures documented in this encounter Care Teams Live Truck Technician Relationship Specialty Start Date End Date Charli Quispe MD [address] [facility] [address] [place] [address] PCP - General Family Practice 07/26/16 documented as of this encounter
--- OUTSIDE RECORDS SUMMARY | 2024-12-01 01:24 | XMS_ITS | Encounter Summary ---
Author Organization [employer] [facility] Address [address] [place] [address] Care Team Providers Care Forestry Pilot Name Role Phone Charli Quispe MD Primary Care Provider +1 -[phone] Encounter Details Date Type Department Care Team (Latest Contact Info) Description 08/04/1998 Outpatient Historical [facility] Luis F Hall Jr., MD [address] [place] [address] Simple or unspecified chronic serous otitis media (Primary Dx); Vaccine for viral hepatitis Social History Tobacco Use Types Packs/Day Years Used Date Smoking Tobacco: Never Assessed Sex and Gender Information Value Date Recorded Sex Assigned at Not on file 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
--- OUTSIDE RECORDS SUMMARY | 2024-12-01 01:24 | XMS_ITS | Encounter Summary ---
Author Organization [employer] [facility] Address [address] [place] [address] Care Team Providers Care Strategic Solutions Consultant Name Role Phone Charli Quispe MD Primary Care Provider +1 -[phone] Encounter Details Date Type Department Care Team (Latest Contact Info) Description 09/19/1998 Outpatient Historical [facility] Luis F Hall Jr., MD [address] [place] [address] Vaccine for viral hepatitis (Primary Dx) Social History Tobacco Use Types Packs/Day Years Used Date Smoking Tobacco: Never Assessed Sex and Gender Information Value Date Recorded Sex Assigned at Not on file Legal 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
--- OUTSIDE RECORDS SUMMARY | 2024-12-01 01:24 | XMS_ITS | Clinical Summary ---
Author Organization [facility] Address [address] [place] [address] Phone Care Team Providers Care Network Operations Project Manager Name Role Phone Charli Quispe MD Primary Care Provider +1 -[phone] Allergies Active Allergy Reactions Criticality Noted Date Comments Sulfamethoxazole-Trimethoprim Anaphylaxis High 09/30 Medications pramipexole (MIRAPEX) 0.125 mg Tablet Take 0.125 mg by mouth daily . Active amLODIPine (NORVASC) 10 mg tablet Take 10 mg by mouth daily. Active cpap medical technologist chief CPAP @@ cwp with heated humidifier. Length of need:{LENGTH OF NEED:20823977:: 99 } mo; {Mask type:40655216} mask with headgear q 6 mo; mask only q 3 mo; cushions q mo; Tubing {Tubing type:88052096}, water chamber 1 per 3 months, chin strap 1 per 6 months, filters disposable 2 per month, filters reusable 1 per 6 months. . Active desvenlafaxine (PRISTIQ) 100 mg Extended Release 24 hour tabletIndicatio ns:per [facility] Take by mouth daily with breakfast . Active ondansetron (ZOFRAN, HYDROCHLORIDE,) 4 mg TabletIndicatio ns:Nausea Take 1 Tablet (4 mg) by mouth every 8 hours as needed for Nausea/Emesis. 10 Tablet 1 08/18/19 17 Active [id number] 0.3 mg/24 hr patch APPLY ONE PATCH [...] hyperglycemia, without long-term current use of insulin ([facility]/HCC) TAKE ONE TABLET BY MOUTH EVERY DAY 30 Tablet 2 10/20/19 18 Active VICTOZA 2-REE 0.6 mg/0.1 mL (18 mg/3 mL)Indications: Type 2 diabetes mellitus with other circulatory complication, without long-term current use of insulin (CMS/[facility]) INJECT 1.2MG SUBCUTANEOUSLY EVERY DAY [...] hyperglycemia, without long-term current use of insulin ([facility]) TAKE TWO TABLETS BY MOUTH [...] on file Legal Sex Male 2:37 AM CLAIMS EXAMINER Gender Identity Not on file Sexual Orientation [...] (#1) 2024 Medical Devices Implanted Type Area Numerical Control Machine Tool Operator Device Identifier Shelf Expiration Date Model / Serial / Lot Lap Band Procedures Procedure Name Priority Date/Time Associated Diagnosis Comments MICROALBUMIN, RANDOM URINE Routine 12/16/2017 LIPID PANEL Routine 12/16/2017 HEMOGLOBIN A1C Routine 08/15/2017 12:30 PM CDT Type 2 diabetes mellitus with hyperglycemia, without long-term current use of insulin ([facility]) from Last 3 Months or Most Recently Relevant to Health Maintenance Results * MICROALBUMIN, RANDOM URINE (12/16/2017) Pathologist [facility] ABSTRACTED MICROALBUMIN,URI NE 8.0 EXTERNAL LAB MICROALBUMIN, URINE mg/dL EXTERNAL LAB CREATININE, URINE EXTERNAL LAB MICROALBUMIN/CRE AT RATIO, UR EXTERNAL LAB MICROALBUMIN, URINE mg/dL EXTERNAL LAB CREATININE, URINE 40.0 - 278.0 mg/dL EXTERNAL LAB MICROALBUMIN/CRE AT RATIO, UR <=17.0 mg/g EXTERNAL LAB Urine URINE SPECIMEN OBTAINED BY CLEAN CATCH PROCEDURE / Unknown 12/16/2017 us Abstract [facility] Provider URINE ORDERABLES Final Res ult Performing Organization Address City/[facility]/ZIP Co de Phone Number EXTERNAL LAB * LIPID PANEL (12/16/2017) Pathologist [facility] ABSTRACTED CHOLESTEROL 131 EXTERNAL LAB ABSTRACTED TRIGLYCERIDE [...] HEMOGLOBIN A1C (08/15/2017 12:30 PM CDT) Pathologist [facility] HEMOGLOBIN A1C 9.7(H) 4.0 - 6.0 % 08/15/2017 9:05 PM CDT [facility] EST. AVG GLUCOSE, A1C 232 mg/dL 08/15/2017 9:05 PM CDT [facility] Blood Collection / Unknown 08/15/2017 12:30 PM CDT 08/15/2017 8:50 PM CDT Narrative [facility] - 08/15/2017 9:05 PM CDT Falsely low A1C measurements can occur when: 1. Anemia and/or hemolytic anemia is present. 2. Hemoglobin variants present. 3. Renal failure. 4. Transfusion of blood product in the last 120 days. We recommend ordering a fructosamine test([id number]) to more accurately assess glycemic status if any of the above conditions are present. Charli Quispe MD CHEMISTRY ORDERABLES Ksenia l Result [facility] CLIA# [id number] [place] [address] from Last 3 Months or Most Recently Relevant to Health Maintenance Insurance [place]ICA[place] Advance Directives For more information, please contact: [phone] * Full Code (Latest Code Status on File) Date Activated Date Inactivated Comments 07/23/2016 12:07 PM 07/25/2016 1:56 PM Care Teams Network Operations Project Manager Relationship Specialty Start Date End Date Charli Quispe MD [address] [phone] PCP - General Family Practice 07/26/16
--- OUTSIDE RECORDS SUMMARY | 2024-12-01 01:24 | XMS_ITS | Encounter Summary ---
Author Organization [employer] [facility] Address [address] [place] [address] Care Team Providers Care Data Conversion Analyst Name Role Phone Charli Quispe MD Primary Care Provider +1 -[phone] Encounter Details Date Type Department Care Team (Late st Contact Info) Description 07/19/2002 Outpatient Historical [facility] Luis F Hall Jr., MD [address] [place] [address] Social History Tobacco Use Types Packs/Day Years Used Date Smoking Tobacco: Never Assessed Sex and Gender Information Value Date Recorded Sex Assigned at Not on file Legal Sex Male 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
--- OUTSIDE RECORDS SUMMARY | 2024-12-01 01:24 | XMS_ITS | Encounter Summary ---
Author Organization [employer] [facility] Address [address] [place] [address] Care Team Providers Care Oil And Gas Recruiter Name Role Phone Charli Quispe MD Primary Care Provider +1 -[phone] Encounter Details Date Type Department Care Team (Latest Contact Info) Description 07/03/1999 Outpatient Historical [facility] Luis F Hall Jr., MD [address] [place] [address] Myalgia and myositis, unspecified (Primary Dx) Social History Tobacco Use Types Packs/Day Years Used Date Smoking Tobacco: Never Assessed Sex and Gender Information Value Date Recorded Sex Assigned at Not on file Legal Sex Male 2:37 AM RN RECOVERY Gender Identity Not on file Sexual Orientation Not on file documented as of this encounter Plan of Treatment Not on file documented as of this encounter Visit Diagnoses Diagnosis Myalgia and myositis, unspecified- Primary Mylagia and myositis, unspecified documented in this encounter Care Teams Oil And Gas Recruiter Relationship Specialty Start Date End Date Charli Quispe MD [address] [facility] [address] [place] [address] PCP - General Family Practice 07/26/16 documented as of this encounter
--- OUTSIDE RECORDS SUMMARY | 2024-12-01 01:24 | XMS_ITS | Encounter Summary ---
Author Organization [email or web address] [facility] Address [address] [place] [address] Care Team Providers Care Roof Assembler Name Role Phone Charli Quispe MD Primary Care Provider +1 [phone] Encounter Details Date Type Department Care Team (Latest Contact Info) Description 04/18/2002 Outpatient Historical [facility] Jose Cantor MD [address] [place] [address] VIRAL ENTERITIS NOS (Primary Dx) Social History Tobacco Use Types Packs/Day Years Used Date Smoking Tobacco: Never Assessed Sex and Gender Information Value Date Recorded Sex Assigned at Not on file 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
--- OUTSIDE RECORDS SUMMARY | 2024-12-01 01:24 | XMS_ITS | Encounter Summary ---
Author Organization [employer] [facility] Address [address] [place] [address] Care Team Providers Care National Investigative Producer Name Role Phone Charli Quispe MD Primary Care Provider +1 [phone] Encounter Details Date Type Department Care Team (Latest Contact Info) Description 11/24/2001 Outpatient Historical [facility] Luis F Hall Jr., MD [address] [place] [address] HYPERLIPIDEMIA NEC/NOS (Primary Dx); ADV EFFECT MED/BIOL SUB NOS; OBESITY NOS; DEPRESSIVE DISORDER NEC Social History Tobacco Use Types Packs/Day Years Used Date Smoking Tobacco: Never Assessed Sex and Gender Information Value Date Recorded Sex Assigned at Not on file Legal Sex Male 2:37 AM LOAN ORIGINATOR Gender Identity Not on file Sexual Orientation Not on file documented as of this encounter Plan of Treatment Not on file documented as of this encounter Visit Diagnoses Diagnosis Other and unspecified hyperlipidemia- Primary Other and unspecified adverse effect of drug, medicinal and biological substance Obesity, unspecified Depressive disorder, not elsewhere classified documented in this encounter Care Teams National Investigative Producer Relationship Specialty Start Date End Date Charli Quispe MD [address] [facility] [address] [place] [address] PCP - General Family Practice 07/26/16 documented as of this encounter
--- OUTSIDE RECORDS SUMMARY | 2024-12-01 01:24 | XMS_ITS | Encounter Summary ---
Author Organization [employer] [facility] Address [address] [place] [address] Care Team Providers Care Director Of Search Engine Marketing Name Role Phone Charli Quispe MD Primary Care Provider +1 [phone] Encounter Details Date Type Department Care Team (Latest Contact Info) Description 12/31/1998 Outpatient Historical [facility] Rafael Mittal, Luis F Puentes MD [address] [place] [address] Pain in limb (Primary Dx) Social History Tobacco Use Types Packs/Day Years Used Date Smoking Tobacco: Never Assessed Sex and Gender Information Value Date Recorded Sex Assigned at Not on file 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
--- OUTSIDE RECORDS SUMMARY | 2024-12-01 01:24 | XMS_ITS | Encounter Summary ---
Author Organization [employer] [facility] Address [address] [place] [address] Care Team Providers Care Vice President Of Academic Affairs Name Role Phone Charli Quispe MD Primary Care Provider [phone] [phone] Encounter Details Date Type Department Care Team (Latest Contact Info) Description 10/20/2001 Outpatient Historical [facility] Luis F Hall Jr., MD [address] [place] [address] OBESITY NOS (Primary Dx); VACCINE FOR TETANUS + DIPHTHERIA Social History Tobacco Use Types Packs/Day Years Used Date Smoking Tobacco: Never Assessed Sex and Gender Information Value Date Recorded Sex Assigned at Not on file 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
--- OUTSIDE RECORDS SUMMARY | 2024-12-01 01:24 | XMS_ITS | Encounter Summary ---
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
--- OUTSIDE RECORDS SUMMARY | 2024-12-01 01:24 | XMS_ITS | Encounter Summary ---
Author Organization [employer] [facility] Address [address] [place] [address] Care Team Providers Care Calender Let Off Helper Name Role Phone Charli Quispe MD Primary Care Provider +1 [phone] Encounter Details Date Type Department Care Team (Latest Contact Info) Description 12/12/1998 Outpatient Historical [facility] Rafael Mittal, Luis F Puentes MD [address] [place] [address] Cramp of limb (Primary Dx) Social History Tobacco Use Types Packs/Day Years Used Date Smoking Tobacco: Never Assessed Sex and Gender Information Value Date Recorded Sex Assigned at Not on file 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
--- OUTSIDE RECORDS SUMMARY | 2024-12-01 01:24 | XMS_ITS | Encounter Summary ---
Author Organization [employer] [facility] Address [address] [place] [address] Care Team Providers Care Wheat Farmer Name Role Phone Charli Quispe MD Primary Care Provider +1 [phone] Encounter Details Date Type Department Care Team (Latest Contact Info) Description 01/29/2002 Outpatient Historical [facility] Luis F Hall Jr., MD [address] [place] [address] DIABETES UNCOMPL ADULT-TYPE II (CMS/HCC) (Primary Dx); ABNORMAL CLINICAL FINDING NEC Social History Tobacco Use Types Packs/Day Years Used Date Smoking Tobacco: Never Assessed Sex and Gender Information Value Date Recorded Sex Assigned at Not on file Legal Sex Male 2:37 AM CLINICAL NUTRITIONIST Gender Identity Not on file Sexual Orientation Not on file documented as of this encounter Plan of Treatment Not on file documented as of this encounter Visit Diagnoses Diagnosis Type II or unspecified type diabetes mellitus without mention of complication, not stated as uncontrolled- Primary Other abnormal clinical finding documented in this encounter Care Teams Wheat Farmer Relationship Specialty Start Date End Date Charli Quispe MD [address] [facility] [address] [place] [address] PCP - General Family Practice 07/26/16 documented as of this encounter
--- OUTSIDE RECORDS SUMMARY | 2024-12-01 01:24 | XMS_ITS | Encounter Summary ---
Author Organization [employer] [facility] Address [address] [place] [address] Care Team Providers Care Public Relations Account Executive Name Role Phone Charli Quispe MD Primary Care Provider +1 [phone] Encounter Details Date Type Department Care Team (Latest Contact Info) Description 12/25/2001 Outpatient Historical [facility] Luis F Hall Jr., MD [address] [place] [address] FINGER INJURY NOS (Primary Dx); CONTUSION OF FINGER; DIABETES UNCOMPL ADULT-TYPE II (CMS/HCC); OBESITY NOS Social History Tobacco Use Types Packs/Day Years Used Date Smoking Tobacco: Never Assessed Sex and Gender Information Value Date Recorded Sex Assigned at Not on file Legal Sex Male 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 Gender Identity Not on file Sexual Orientation Not on file documented as of this encounter Plan of Treatment Not on file documented as of this encounter Visit Diagnoses Diagnosis Injury, other and unspecified, finger- Primary Contusion of finger Type II or unspecified type diabetes mellitus without mention of complication, not stated as uncontrolled Obesity, unspecified documented in this encounter Care Teams Public Relations Account Executive Relationship Specialty Start Date End Date Charli Quispe MD [address] [facility] [address] [place] [address] PCP - General Family Practice 07/26/16 documented as of this encounter
--- OUTSIDE RECORDS SUMMARY | 2024-12-01 01:24 | XMS_ITS | Encounter Summary ---
Author Organization [employer] [facility] Address [address] [place] [address] Care Team Providers Care Laundry Route Driver Name Role Phone Charli Quispe MD Primary Care Provider +1 [phone] Encounter Details Date Type Department Care Team (Latest Contact Info) Description 12/07/2001 Outpatient Historical [facility] Luis F Hall Jr., MD [address] [place] [address] ADV EFFECT MED/BIOL SUB NOS (Primary Dx) Social History Tobacco Use Types Packs/Day Years Used Date Smoking Tobacco: Never Assessed Sex and Gender Information Value Date Recorded Sex Assigned at Not on file Legal 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
--- OUTSIDE RECORDS SUMMARY | 2024-12-01 01:24 | XMS_ITS | Encounter Summary ---
Author Organization [employer] [facility] Address [address] [place] [address] Care Team Providers Care Fare Collector Name Role Phone Charli Quispe MD Primary Care Provider +1 [phone] Encounter Details Date Type Department Care Team (Latest Contact Info) Description 02/26/1998 Outpatient Historical [facility] Aravind Coe NO ADDRESS ON FILE Sprain interphalangeal (Primary Dx) Social History Tobacco Use Types Packs/Day Years Used Date Smoking Tobacco: Never Assessed Sex and Gender Information Value Date Recorded Sex Assigned at Not on file Legal 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
--- OUTSIDE RECORDS SUMMARY | 2024-12-01 01:24 | XMS_ITS | Encounter Summary ---
Author Organization [employer] [facility] Address [address] [place] [address] Care Team Providers Care Design Painter Name Role Phone Charli Quispe MD Primary Care Provider +1 [phone] Encounter Details Date Type Department Care Team (Latest Contact Info) Description 01/02/1999 Outpatient Historical [facility] Rafael Mittal, Luis F Puentes MD [address] [place] [address] Other abnormal clinical finding (Primary Dx) Social History Tobacco Use Types Packs/Day Years Used Date Smoking Tobacco: Never Assessed Sex and Gender Information Value Date Recorded Sex Assigned at Not on file Legal 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
--- OUTSIDE RECORDS SUMMARY | 2024-12-01 01:24 | XMS_ITS | Encounter Summary ---
Author Organization [employer] [facility] Address [address] [place] [address] Care Team Providers Care Theater Company Producer Name Role Phone Charli Quispe MD Primary Care Provider +1 -[phone] Encounter Details Date Type Department Care Team (Latest Contact Info) Description 04/30/1998 Outpatient Historical [facility] Luis F Hall Jr., MD [address] [place] [address] Acute upper respiratory infections of unspecified site (Primary Dx); Obesity, unspecified; Atrophy of testis Social History Tobacco Use Types Packs/Day Years Used Date Smoking Tobacco: Never Assessed Sex and Gender Information Value Date Recorded Sex Assigned at Not on file Legal Sex Male 2:37 AM DIRECTOR OF 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
--- NOTE | 2024-12-01 01:35 | ECG_ITS ---
[facility] SVXR Test Date: 2024-12-01 Pat Name: Len Sandoval Department: Room: Gender: Male Assembler Molded Frames: : 1985 Requested By: Quintin Lima Order Number: [id number] MD: Shon Gallagher M.D. Measurements Intervals Pooler Rate: 88 P: 56 CO: 137 QRS: 40 QRSD: 118 T: 56 QT: 340 QTc: 412 Interpretive Statements SINUS RHYTHM INCOMPLETE RIGHT BUNDLE BRANCH BLOCK [90+ ms QRS DURATION, TERMINAL R IN V1/V2, 40+ ms S IN I/aVL/V4/V5/V6] PROBABLE LATERAL MYOCARDIAL INFARCTION , PROBABLY OLD [35 ms Q WAVE IN I/aVL/V5/V6] Compared to ECG 11/30/2024 10:21:54 Myocardial infarct finding now present Electronically Signed On 12-01-2024 08:39:42 CDT by Shon Gallagher M.D. [email or web address]
--- NOTE | 2024-12-01 01:35 | XRR_ITS ---
PROCEDURE INFORMATION: Exam: XR Chest Exam date and time: 12/01/2024 1:41 AM Age: 39 years old Clinical indication: Chest pressure; Prior surgery; Surgery date: 6+ months; Surgery type: Coronary stent; C/O chest pain; Additional info: Cp TECHNIQUE: Imaging protocol: Radiologic exam of the chest. Views: 1 view. COMPARISON: CR (CHEST, ) 01/26/2023 5:18 AM FINDINGS: Lungs: Unremarkable. No consolidation. Pleural spaces: Unremarkable. No pleural effusion. No pneumothorax. Heart/Mediastinum: Unremarkable. No cardiomegaly. Bones/joints: Unremarkable. XR/XR chest 1V portable [id number] IMPRESSION: No acute findings.
[2024-12-01] MEDS: ondansetron 2 mg/ML SDV 2 mL 4 MG IVP (01:48)
[2024-12-01] MEDS: morphine 4 mg/mL SDV 1 mL IVP (01:48)
[2024-12-01 01:54] LABS: Hematocrit 40.1 % (37-53); Hemoglobin 12.70 g/dL (11.27-16.99); Mean Corpuscular HGB Conc 31.7 g/dL (30-55); Mean Corpuscular Hemoglobin 25.8 pg (27-33); Mean Corpuscular Volume 81.3 fl (82-101); Nucleated Red Blood Cells % 0 %; Platelet Count 237 10^3/cmm (157-399); Red Blood Count 4.93 10^6/uL (3.85-5.65); White Blood Count 8.74 10^3/uL (3.29-11.43)
[2024-12-01 02:14] LABS: Troponin(5th) Baseline 9 ng/L (0-15)
[2024-12-01] MEDS: metoprolol tartrate 1 mg/1 mL SDV 5 mL 5 MG IVP (02:16)
[2024-12-01] MEDS: nitroglycerin 1 gm/inch oint Pkt 1.5 INCH TOPICAL (02:16)
[2024-12-01 02:21] LABS: Alanine Aminotransferase 10 U/L (0-41); Albumin Level 4.4 g/dL (3.5-5.2); Alkaline Phosphatase 59 U/L (40-130); Anion Gap 15.9 (5-19); Aspartate Amino Transferase 8 U/L (0-40); Blood Urea Nitrogen 20 mg/dL (6-20); Calcium 9.6 mg/dL (8.5-10.5); Carbon Dioxide 25 mmol/L (22-29); Chloride 99 mmol/L (98-107); Creatinine Clr Calc Pharmacy 146.4232; Globulin 2.3 g/dL (1.3-4.6); Glucose 195 mg/dL (65-115); Lipase 87 U/L (13-60); NT Pro B Type Natriuretic Pept 179 pg/mL (0-125); Osmolality Calculated 290 mOsm/kg (285-295); Potassium 3.9 mmol/L (3.5-5.1); Sodium 136 mmol/L (136-145); Total Protein 6.7 g/dL (6.6-8.7)
--- NOTE | 2024-12-01 02:54 | W.ED.CHESTPA ---
HPI - Chest Pain General: Chief Complaint: Chest Pain Stated Complaint: CP SOB arm pain Time Seen by Provider: 12/01/24 01:34 History of Present Illness: Patient is a 39-year-old male who presents with acute onset of severe pain and pressure in his lower arm that has been present for a whole day. He describes the sensation as if his arm is 'going to explode with so much pressure.' The pain radiates to his back and neck. The pain initially started to ease down but then returned approximately 30 minutes prior to examination. The pain began while the patient was lying down attempting to sleep. He denies any similar pain in the past. The patient reports tenderness to touch in the affected areas. He denies fever, cough, or vomiting. Of note, patient has a cardiac history significant for coronary artery disease with stent placement approximately 4-5 years ago. Related Data Home Medications ?Medication ?Instructions ?Recorded ?Confirmed liraglutide 0.6 mg/0.1 mL (18 mg/3 1.8 mg SUBCUT QAM 04/17/19 03/21/24 mL) subcutaneous pen injector (Victoza 2-Colt) insulin glargine 100 unit/mL 85 unit SUBCUT BEDTIME 01/02/20 03/21/24 subcutaneous solution (Lantus U-100 Insulin) metformin 1,000 mg tablet 1,000 mg PO BID 01/02/20 03/21/24 empagliflozin 10 mg tablet 10 mg PO QAM 05/19/20 03/21/24 (Jardiance) carvedilol 25 mg tablet 25 mg PO BID 06/23/20 03/21/24 potassium chloride 10 mEq 40 meq PO DAILY 06/23/20 03/21/24 capsule,extended release tamsulosin 0.4 mg capsule 0.4 mg PO QAM 06/23/20 03/21/24 atorvastatin 80 mg tablet 80 mg PO BEDTIME 06/27/20 03/21/24 divalproex 250 mg tablet,extended 250 mg PO BEDTIME 06/27/20 03/21/24 release 24 hr (Depakote ER) divalproex 500 mg tablet,extended 500 mg PO QAM 06/27/20 03/21/24 release 24 hr (Depakote ER) clopidogrel 75 mg tablet 75 mg PO QAM 08/13/20 03/21/24 lisinopril 40 mg tablet 40 mg PO QAM 08/13/20 03/21/24 spironolactone 25 mg tablet 25 mg PO QAM 08/13/20 03/21/24 acetaminophen 500 mg tablet 500 - 1,000 mg PO Q4H PRN Pain 03/27/21 03/21/24 hydralazine 50 mg tablet 50 mg PO DIRECTED 06/01/21 03/21/24 clonidine 0.3 mg/24 hr weekly 0.3 mg transdermal Q7D 09/17/21 03/21/24 transdermal patch (Ivuctlar-GMY-2) amlodipine 10 mg tablet 10 mg PO QPM 10/22/21 03/21/24 cyclobenzaprine 10 mg tablet 10 mg PO BID PRN muscle spasm 04/21/22 03/21/24 desvenlafaxine succinate 50 mg 50 mg PO DAILY 04/21/22 03/21/24 tablet,extended release 24 hr isosorbide mononitrate 30 mg 30 mg PO BID 11/30/22 03/21/24 tablet,extended release 24 hr cetirizine 10 mg tablet 10 mg PO DAILY 01/26/23 03/21/24 diazepam 5 mg tablet 5 mg PO BID PRN Anxiety 01/26/23 03/21/24 fluticasone propionate 50 1 spray intranasal DAILY 01/26/23 03/21/24 mcg/actuation nasal spray,suspension Previous Rx's ?Medication ?Instructions ?Recorded flash glucose sensor (FreeStyle #2 ea 04/02/20 Yamileth 14 Day Sensor kit) fenofibrate 160 mg tablet 160 mg PO QAM #90 tabs 11/30/22 pantoprazole 40 mg tablet,delayed 40 mg PO DAILY #30 tabs 01/26/23 release hydrocodone 5 mg-acetaminophen 325 1 tab PO Q8H PRN pain #14 tabs 06/02/24 mg tablet polyethylene glycol 3350 17 17 g PO DAILY #510 grams 06/02/24 gram/dose oral powder (Miralax) ketorolac 10 mg tablet 10 mg PO TID PRN pain #10 tabs 12/01/24 Allergies Allergy/AdvReac Type Severity Reaction Status Date / Time gabapentin Allergy Severe ALGY-Swell Verified 03/21/24 10:55 Lip/Tongue/Throat Sulfa (Sulfonamide Allergy Severe ALGY-Swell Verified 03/21/24 10:55 Antibiotics) Lip/Tongue/Throat trimethoprim Allergy Severe ALGY-Swell Verified 03/21/24 10:55 Lip/Tongue/Throat sulfamethoxazole (From Allergy Unknown throat Verified 03/21/24 10:55 Bactrim) swells asenapine (From Saphris) AdvReac Mild ADR-Halluci Verified 03/21/24 10:55 nating [facility] ED PFSH: Medical History (Updated 12/01/24 @ 04:37 by Quintin Alanis DO) Dyslipidemia Hypokalemia Diabetic neuropathy Easy bruising Weight gain Seizures HTN (hypertension) History of adverse reaction to tissue plasminogen activator (tPA) tPA adm status 24 hr [employer]IX[employer] Cerebrovascular accident Diabetes mellitus Obstructive sleep apnea hypopnea, severe Panic disorder without agoraphobia Post-traumatic stress disorder, chronic Generalized anxiety disorder Bipolar II disorder Obesity Gastroenteritis Hx of secondary hypertension Surgical History Stented coronary artery Status following gastric banding surgery for weight loss History of esophagogastroduodenoscopy (EGD) (~04/2019) History of tonsillectomy and adenoidectomy Family History Denies family history of Anesthesia complication Bleeding disorder Social History Smoking and tobacco/nicotine status: unknown if used tobacco/nicotine Quit status (tobacco/nicotine): has quit using Year quit tobacco: 2010 Second hand smoke exposure: Yes Alcohol intake: never Substance/Drug Use: never Adopted: No Caregiver/support person: Yes Lives independently: Yes Household members: family Housing: House Marital status: Single Highest education level completed: High School Graduate service: No Current occupational status: disabled Current occupational exposures/hazards: No Pets and animals: Yes Pets & animals: cat(s) Sexually active: No Do you think of yourself as: Straight/Heterosexual Current gender identity: Male Karolina/Oriental Orthodox: Mormonism Special karolina needs: No Agree to transfusion: No Physical Exam Const: COMMON NORMALS: alert GENERAL APPEARANCE: cooperative, in distress and anxious NUTRITIONAL APPEARANCE: obese ORIENTATION/CONSCIOUSNESS: Yes awake, Yes oriented to person, Yes oriented to place and Yes oriented to time HENMT: COMMON NORMALS: normocephalic, atraumatic and Normal external nose present HEAD & SCALP: normocephalic and atraumatic FACE & SINUS: normal facial exam and face symmetric NOSE: Normal external nose present Eye: COMMON NORMALS: Equal, round and reactive pupils present, EOMs intact bilaterally and conjunctivae normal CONJUNCTIVA: Yes conjunctivae normal PUPIL: Yes Equal, round and reactive pupils present Chest: CHEST: Yes tenderness (left upper chest) Resp: COMMON NORMALS: normal respiratory effort, No use of accessory muscles and clear to auscultation bilaterally AUSCULTATION: clear to auscultation bilaterally Cardio: COMMON NORMALS: regular rate and regular rhythm RATE: regular rate RHYTHM: regular rhythm GI: COMMON NORMALS: Normal to inspection, nondistended, normoactive bowel sounds present Neuro: SENSORIUM/ORIENTATION: Yes alert, Yes oriented to person, Yes oriented to place and Yes oriented to time Course Vital Signs: Vital signs: Vital Signs Temperature 98 F 12/01/24 01:26 Pulse Rate 82 12/01/24 04:00 Respiratory Rate 19 H 12/01/24 04:00 Blood Pressure 155/91 12/01/24 04:00 Pulse Oximetry 93 12/01/24 04:00 Oxygen Delivery Me thod Room Air 12/01/24 04:00 MDM - Chest Pain Medical Decision Making Reproducible chest pain 39-year-old male. His pain is much improved now after pain medication and anti-inflammatory. His chest x-ray is negative. CBC BMP are normal. Lipase is minimally elevated. His delta troponin is negative at 2 hours. EKG is normal with no acute ST wave changes. He will be discharged. To return for worsening symptoms. Outpatient follow-up. Lab Data 12/01/24 01:43 12/01/24 01:43 Radiology Impressions Chest X-Ray 12/01/24 01:35 IMPRESSION: No acute findings. Laboratory Results WBC 8.74 10^3/uL (3.29-11.43) 12/01/24 01:43 RBC 4.93 10^6/uL (3.85-5.65) 12/01/24 01:43 Hgb 12.70 g/dL (11.27-16.99) 12/01/24 01:43 Hct 40.1 % (37-53) 12/01/24 01:43 MCV 81.3 fl (82-101) L 12/01/24 01:43 MCH 25.8 pg (27-33) L 12/01/24 01:43 MCHC 31.7 g/dL (30-55) 12/01/24 01:43 RDW 14.1 % (12.1-15.1) 12/01/24 01:43 Plt Count 237 10^3/cmm (157-399) 12/01/24 01:43 MPV 9.7 fL (7.4-10.4) 12/01/24 01:43 Neut % (Auto) 74.4 % 12/01/24 01:43 Lymph % (Auto) 16.8 % 12/01/24 01:43 Guadalupe % (Auto) 7.3 % 12/01/24 01:43 Eos % (Auto) 0.7 % 12/01/24 01:43 Baso % (Auto) 0.2 % 12/01/24 01:43 Neut # (Auto) 6.50 10^3/uL (1.8-7.7) 12/01/24 01:43 Lymph # (Auto) 1.5 10^3/uL (0.8-4.8) 12/01/24 01:43 Guadalupe # (Auto) 0.6 10^3/uL (0.2-0.9) 12/01/24 01:43 Eos # (Auto) 0.1 10^3/uL (0.0-0.8) 12/01/24 01:43 Baso # (Auto) 0.0 10^3/uL (0.0-0.1) 12/01/24 01:43 Nucleated RBC % (auto) 0 % 12/01/24 01:43 Nucleated RBCs # 0.0 /100WBC 12/01/24 01:43 Sodium 136 mmol/L (136-145) 12/01/24 01:43 Potassium 3.9 mmol/L (3.5-5.1) 12/01/24 01:43 Chloride 99 mmol/L (98-107) 12/01/24 01:43 Carbon Dioxide 25 mmol/L (22-29) 12/01/24 01:43 Anion Gap 15.9 (5-19) 12/01/24 01:43 BUN 20 mg/dL (6-20) 12/01/24 01:43 Creatinine 0.9 mg/dL (0.7-1.2) 12/01/24 01:43 GFR Calculation 93.9 mL/min (90-130) 12/01/24 01:43 Glucose 195 mg/dL (65-115) H 12/01/24 01:43 Calculated Osmolality 290 mOsm/kg (285-295) 12/01/24 01:43 Calcium 9.6 mg/dL (8.5-10.5) 12/01/24 01:43 Total Bilirubin 0.3 mg/dL (0.15-1.2) 12/01/24 01:43 AST 8 U/L (0-40) 12/01/24 01:43 ALT 10 U/L (0-41) 12/01/24 01:43 Alkaline Phosphatase 59 U/L (40-130) 12/01/24 01:43 Troponin T Baseline 9 ng/L (0-15) 12/01/24 01:43 Troponin T 120 Minute 8.81 ng/L (0-15) 12/01/24 03:57 Delta Troponin T -0.19 ABS# (0-10) L 12/01/24 03:57 NT-Pro-B Natriuret Pep 179 pg/mL (0-125) H 12/01/24 01:43 Total Protein 6.7 g/dL (6.6-8.7) 12/01/24 01:43 Albumin 4.4 g/dL (3.5-5.2) 12/01/24 01:43 Globulin 2.3 g/dL (1.3-4.6) 12/01/24 01:43 Lipase 87 U/L (13-60) H 12/01/24 01:43 All radiology interpretation(s) finalized by discharge Discharge Plan Discharge Patient Disposition: Home Clinical Impression: Chest pain Condition: Stable Prescriptions: New ketorolac 10 mg tablet 10 mg PO TID PRN (Reason: pain) Qty: 10 0RF No Action Victoza 2-Colt 0.6 mg/0.1 mL (18 mg/3 mL) pen injector 1.8 mg SUBCUT QAM Lantus U-100 Insulin 100 unit/mL solution 85 unit SUBCUT BEDTIME metformin 1,000 mg tablet 1,000 mg PO BID (DME) FreeStyle Yamileth 14 Day Sensor Kit See Rx Instructions .ROUTE .MEDSUPPLY Qty: 2 3RF Rx Instructions: As directed potassium chloride 10 mEq capsule, extended release 40 meq PO DAILY carvedilol 25 mg tablet 25 mg PO BID Rx Instructions: must administer with a meal/food tamsulosin 0.4 mg capsule 0.4 mg PO QAM cyclobenzaprine 10 mg tablet 10 mg PO BID PRN (Reason: muscle spasm) desvenlafaxine succinate 50 mg tablet extended release 24 hr 50 mg PO DAILY isosorbide mononitrate 30 mg tablet extended release 24 hr 30 mg PO BID fenofibrate 160 mg tablet 160 mg PO QAM Qty: 90 2RF hydralazine 50 mg tablet 50 mg PO DIRECTED Rx Instructions: 100mg AM 50mg noon 50mg evening Jardiance 10 mg Tablet 10 mg PO QAM atorvastatin 80 mg Tablet 80 mg PO BEDTIME divalproex [Depakote ER] 250 mg Tablet Extended Release 24 Hr 250 mg PO BEDTIME divalproex [Depakote ER] 500 mg tablet extended release 24 hr 500 mg PO QAM acetaminophen 500 mg Tablet 500 - 1,000 mg PO Q4H PRN (Reason: Pain) lisinopril 40 mg Tablet 40 mg PO QAM clopidogrel 75 mg tablet 75 mg PO QAM spironolactone 25 mg tablet 25 mg PO QAM clonidine [Pkdxknla-LMW-4] 0.3 mg/24 hr patch weekly 0.3 mg transdermal Q7D cetirizine 10 mg Tablet 10 mg PO DAILY fluticasone propionate 50 mcg/actuation spray,suspension 1 spray INTRANASAL DAILY diazepam 5 mg Tablet 5 mg PO BID PRN (Reason: Anxiety) pantoprazole 40 mg tablet,delayed release (DR/EC) 40 mg PO DAILY Qty: 30 0RF hydrocodone-acetaminophen 5-325 mg tablet 1 tab PO Q8H PRN (Reason: pain) Qty: 14 0RF Rx Instructions: Take 1/2 to 1 tab every 8 hours as needed for pain polyethylene glycol 3350 [Miralax] 17 gram/dose powder 17 g PO DAILY Qty: 510 0RF Rx Instructions: Take 1 scoop daily while taking pain medications. amlodipine 10 mg tablet 10 mg PO QPM Discharge Orders: Discharge ED (Routine); Ordered 12/01/24 Ordered By: Quintin Alanis Referrals: Chad Jiménez DO [Primary Care Provider, Family Practice] - 1-3 days Patient Instructions: Chest Wall Pain (ED), Opioid Safety, Pain Management, Patient Portal & Joi Instructions Activity Restrictions/Additional Instructions: You were evaluated for chest discomfort this morning. Your EKG was normal. Your heart attack enzyme blood testing was normal. Your chest x-ray was normal. You are very tender to your chest wall, which may be the cause of your chest discomfort and arm discomfort. You will be placed on medication for this. Return for worsening pain despite treatment, worsening shortness of breath, fever, worsening cough,. Call your doctor on Tuesday for a follow-up appointment. Further outpatient testing may be needed. Print Language: Greek Coding Level of Care Code ED Supervisor Photocomposition for Marie Sweeney
[2024-12-01] MEDS: HYDROmorphone 0.5 MG/0.5 ML INJ 1 MG IVP (03:11)
--- NOTE | 2024-12-01 03:35 | ECG_ITS ---
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 Measurements Intervals [place] Rate: 79 P: 40 OK: 155 QRS: 24 QRSD: 117 T: 27 QT: 375 QTc: 431 Interpretive Statements SINUS RHYTHM INCOMPLETE RIGHT BUNDLE BRANCH BLOCK [90+ ms QRS DURATION, TERMINAL R IN V1/V2, 40+ ms S IN I/aVL/V4/V5/V6] Compared to ECG 12/01/2024 01:23:39 Myocardial infarct finding no longer present Electronically Signed On 12-01-2024 09:37:56 CDT by Shon Gallagher M.D. [email or web address]
[2024-12-01 04:28] LABS: Troponin 5 2HR 8.81 ng/L (0-15)
[2024-12-01 04:39] LABS: Troponin 5 2HR Delta -0.19 ABS# (0-10)
== END 2024-12-01 04:56 | disposition home or self-care (01) ==
PROVIDERS: Emergency Provider Emergency Medicine; PCP Electrodiagnostic Medicine
DX: R07.9 Chest pain, unspecified (principal); I10 Essential (primary) hypertension
CPT/HCPCS: 36415; 71045; 80053; 83690; 83880; 84484; 85025; 93005; 96374; 96375; 99285; J1171; J1885; J2270; J2405; J3490; J9999

== ENCOUNTER → 2025-01-29 14:51 | Outpatient (BNVA) | payer MEDICAID, SELFPAY | PROVIDERS: PCP Electrodiagnostic Medicine; Referring Provider Electrodiagnostic Medicine; Visit Provider Specialist | DX: M25.512 Pain in left shoulder (principal); R29.898 Other symptoms and signs involving the musculoskeletal system; M79.632 Pain in left forearm; R20.0 Anesthesia of skin; R20.2 Paresthesia of skin | CPT/HCPCS: 95911 ==